=== PATIENT | male | born 1950 | race Caucasian/White ===

== ENCOUNTER 2020-03-16 11:34 | Inpatient (IN) ==
[2020-03-16] MEDS ORDERED: VANCOMYCIN CONSULT ACTIVE PRN (11:53)
[2020-03-16] MEDS ORDERED: VANCOMYCIN HCL 2,250 MG in SODIUM CHLORIDE 0.9% 500 ML IV STA (11:53)
[2020-03-16] MEDS ORDERED: PIPERACILL/TAZOBAC CONSULT ACTIVE PRN (11:53)
[2020-03-16] MEDS ORDERED: PIPERACILLIN/TAZOBACTAM 4.5 GM/120 ML BAG IV ONE (11:53)
[2020-03-16] MEDS ORDERED: SODIUM CHLORIDE 0.9% 1000ML 1,000 ML IV SCH (12:00)
[2020-03-16 12:10] LABS: Basophils # (auto) 0.08 K/uL (0-0.2); Basophils % (auto) 0.5 %; Eosinophils % (auto) 1.3 %; Hematocrit (blood only) 40.3 % (42-52); Hemoglobin 13.5 g/dL (14.0-18.0); Immature Granulocytes # (auto) 0.08 K/uL (0.00-0.02); Immature Granulocytes % (auto) 0.5 %; Lymphocytes # (auto) 1.66 K/uL (1.2-3.4); Lymphocytes % (auto) 10.4 %; Mean Corpuscular Hemoglobin 30.1 pg (25-34); Mean Corpuscular Hgb Conc 33.5 g/dL (32-36); Mean Platelet Volume 10.2 fL (7.4-10.4); Monocytes # (auto) 0.89 K/uL (0.11-0.59); Monocytes % (auto) 5.6 %; Neutrophils # (auto) 13.04 K/uL (1.4-6.5); Neutrophils % (auto) 81.7 %; Platelet Count 427 K/uL (130-400); RDW Coefficient of Variation 13.3 % (11.5-14.5); RDW Standard Deviation 44.3 fL (36.4-46.3); Red Blood Count 4.48 M/uL (4.7-6.1); White Blood Count 15.95 K/uL (4.8-10.8)
[2020-03-16 12:28] LABS: BUN Creatinine Ratio 20.4 (10-20); Calcium 9.7 mg/dl (8.5-10.1); Creatinine Clr Calc Pharmacy 94.2 ml/min; Est GFR (African American) 91.3; Est GFR (Non-African American) 78.8; Potassium 3.8 mmol/L (3.5-5.1)
--- NOTE | 2020-03-16 13:46 | History & Physical Report ---
Date of Service March 16, 2020 Assessment & Plan (1) Open wound of right foot: (2) Cellulitis of right lower extremity: This is a 69-year-old male with PMH of DM II, HTN, prostate cancer and BPH who presents with with worsening wound and redness of right foot x 10 days was found to have infected wound and right lower extremity cellulitis. -Afebrile, vital signs stable. Leukocytosis of 15k, lactic acid within normal limits. Pro calcitonin, ESR and CRP pending -R foot XR pending. Consider further imaging if indicated -Completed 7-day course of Bactrim but is noticing worsening cellulitis, new ulceration on dorsum of foot present for the past few days -Continue empiric antibiotic therapy with Vanco and Zosyn. Wound and blood cultures pending -Considered reaction to Bactrim such as TEN/SJS but no systemic involvement, afebrile, no other skin ulcerations, erythema localized to foot -Wound care, IV fluids, pain control (3) Diabetes mellitus, type II: A1c unknown- pending -Hold home agents -SSI while in-patient -BSG AC HS (4) HTN (hypertension): Normotensive. Continue amlodipine (5) Prostate cancer: Currently undergoing low dose brachytherapy to prostate. Follows at [facility] in [place] (6) BPH (benign prostatic hyperplasia): Continue tamsulosin (7) HLD (hyperlipidemia): Continue statin DVT Ppx: SQ heparin Code status: FULL PCP: Lanre ([place]) Dispo: Admitted to med/surg. Plan to return home once medically stable. Patient seen in collaboration with Dr. Talbert. Please see addendum. History of Present Illness Chief Complaint: Wound on right foot Primary Care Provider: Ismael De Dios This is a 69-year-old male with PMH of DM II, HTN, prostate cancer and BPH who presents with with worsening wound and redness of right foot x 10 days. Patient stepped on unknown sharp object while barefoot in his yard and sustained a puncture wound in between 4th and 5th toes of R foot. Initially pain was minimal and there is no redness, so patient waited 4 days to be seen at urgent care for further evaluation. Got a tetanus booster and was started on a 7-day course of Bactrim, which he is due to complete today. A few days ago, patient noticed redness wrapping from plantar aspect of foot to dorsum with associated ulcer formation proximal to fourth and fifth toes. Today, noticed a black covering over ulceration as well as increased redness spreading to foot. States that discomfort is minimal and is aching in nature, rating it 4/10. Denies any fever, chills or rash anywhere else on body. No malaise, lightheadedness, arthralgias, myalgias, chest pain, shortness of breath, nausea, vomiting, abdominal pain, dysuria, diarrhea or constipation. Patient is a diabetic, controlled on oral medications. Most recent A1c is unknown but states his average blood sugar is around 130. Is currently undergoing low dose brachytherapy to prostate. Follows at [facility] in [place]. Allergies Allergy/AdvReac Type Severity Reaction Status Date / Time No Known Allergies Allergy Unverified 03/16/20 12:35 Home Medications Home Medications Medication Instructions Recorded Confirmed Type amlodipine 5 mg PO DAILY 03/16/20 03/16/20 History atorvastatin 80 mg PO HS 03/16/20 03/16/20 History gemfibrozil 600 mg PO BID 03/16/20 03/16/20 History glipizide 10 mg PO BID 03/16/20 03/16/20 History metformin 1,000 mg PO BID 03/16/20 03/16/20 History sulfamethoxazole-trimethoprim 1 tab PO BID 03/16/20 03/16/20 History [Bactrim DS] tamsulosin 0.4 mg PO DAILY 03/16/20 03/16/20 History Past Med/Surg History Medical History BPH (benign prostatic hyperplasia) Diabetes mellitus, type II HLD (hyperlipidemia) HTN (hypertension) Prostate cancer Undergoing brachytherapy. Followed at [facility] in [place]. Surgical History H/O prostate biopsy Family History Other Diabetes Social History Preferred Language: Amharic Communication Ability: Effective Cnc Mechanic Required: No Beliefs That Will Affect Care: None marital status: Current Living Situation: Spouse Other Information That Helps Us Care for You: No Feels Safe at Home: Yes Safety Concerns: Feels Safe At This Time Smoking Status: Current some day smoker Tobacco Type: smokeless tobacco ; Do You Dip or Chew Tobacco: Yes ; Second Hand Exposure: No ; Tobacco Cessation Education Requested by Patient: No Hx Alcohol Use: Yes Alcohol type: beer Alcohol Intake Frequency: Weekly Hx Substance Use: No Review of Systems Review of Systems: At least ten systems reviewed and negative except as noted in the HPI. Physical Exam Physical Exam: General Appearance: WD/WN, vitals as above, NAD, sitting up in bed, pleasant, conversing easily Head: normocephalic, atraumatic Eyes: normal inspection, PERRL, conjunctivae normal, anicteric sclerae ENT: external ear and nose normal, oropharynx normal Neck: trachea midline, no thyromegaly normal visual inspection Respiratory: normal respiratory effort, lungs clear to auscultation, no wheeze, rales, rhonchi. Normal insp/exp effort, no accessory muscle use Cardiovascular: regular rate, rhythm, no murmur, normal peripheral pulses Chest: normal inspection of chest Abdomen/GI: normal bowel sounds, soft, nontender, no hepatosplenomegaly Extremities/Musculoskeletal: no cyanosis or clubbing, extremities motor strength 5/5 Neurologic: PERRL, EOMI, accommodation nl, no face palsy, no dysarthria, CN's II-XI intact bilaterally and moves all extremities Psychiatric: A+Ox3, euthymic affect Skin: Normal color, warm/dry. + Puncture wound on plantar aspect of R foot proximal to 4th and 4th digits with erythema wrapping around to dorsum of foot up to midfoot. Half dollar size ulceration noted on dorsum of foot proximal to 4th digit with small eschar. Serous drainage noted. Results & Data Results & Data ([facility]) Vital Signs (Past 12 Hours) Vital Signs Temp Pulse Resp BP Pulse Ox 03/16/20 11:39 36.9 C 98 H 18 128/72 95 Laboratory Results Short CBC 03/16/20 Range/Units 11:50 WBC 15.95 H (4.8-10.8) K/uL Hgb 13.5 L (14.0-18.0) g/dL Hct 40.3 L (42-52) % Plt Count 427 H (130-400) K/uL BMP 03/16/20 11:50 Sodium 135 L Potassium 3.8 Chloride 106 Carbon Dioxide 23 BUN 20 H Creatinine 0.97 Glucose 138 H Calcium 9.7 Diagnostic Findings R foot XR: pending Supervising Physician Co-Signing Physician Notes ATTENDING ADDENDUM : pt seen and examined , care co-ordinated with Nelda Guerra PA-C this a 69 yo M presented with rt foot cellulitis failed out patient treatment no fever or chills leukocytosis started on IV vanco and Zosyn ( for anerobic and psedomonal coverage ) Xray of foot to assess bone involvement please refer to further documentaion by Nelda Guerra PA-C for discussion of other chronic issues Merline Talbert MD
--- NOTE | 2020-03-16 14:39 | XRay Report ---
XR foot RT min 3V routine CLINICAL HISTORY: R foot cellulitis, ? FB COMPARISON STUDY: None. FINDINGS: Posterior and plantar, occasional spurs are noted. No radiopaque foreign bodies. No fractur e or dislocation within the right foot. No evidence for osteomyelitis. The Lisfranc joint is intact. Mild osteoarthritis within the DIP joints. Mild soft tissue swelling at the fifth toe/MTP joint. IMPRESSION: Mild soft tissue swelling at the fifth toe/MTP joint. No radiopaque foreign bodies. No u nderlying bony abnormality. ACT 112: Negative or not required by law. Electronically signed by: Karthikeyan Smith M.D. 03/16/2020 2:38 PM
[2020-03-16] MEDS ORDERED: POLYETHYLENE (MIRALAX) 17 GM PACK PO PRN (15:10)
[2020-03-16] MEDS ORDERED: GLUCAGON FOR INJ 1 MG VIAL SQ PRN (15:10)
[2020-03-16] MEDS ORDERED: GLUCOSE 10 TABS/TUBE PO PRN (15:10)
[2020-03-16] MEDS ORDERED: CARBOHYDRATES FOR HYPOGLYCEMIA PO PRN (15:10)
[2020-03-16] MEDS ORDERED: DEXTROSE 50% 50 ML SYRINGE IV PRN (15:10)
[2020-03-16] MEDS ORDERED: GLUCOSE 40% GEL 15 GM TUBE PO PRN (15:10)
[2020-03-16] MEDS ORDERED: ACETAMINOPHEN 325 MG TAB PO PRN (15:10)
[2020-03-16] MEDS: SODIUM CHLORIDE 0.9% 1000ML 1,000 ML IV SCH ×2 (15:43→21:54)
--- NOTE | 2020-03-16 15:46 | Pharmacy Report ---
Pharmacy Abx Initial Consult - Date of Service March 16, 2020 - Pharmacy Dosing Scope Date of Consult: 03/16/20 Consultation requested by: Nelda Guerra PA-C Pharmacy is consulted to initiate vancomycin and Zosyn IV dosing therapy, order appropriate labs and adjust drug dose/frequency. - Subjective The patient is a 69 year old M admitted on 03/16/20 13:46. - Objective Height: 6 ft 3 in Weight: 108.2 kg Vital Signs (Past 12hrs): Vital Signs Temp Pulse Pulse Resp BP BP Pulse Ox 03/16/20 13:35 70 18 135/66 94 03/16/20 11:39 36.9 C 98 H 18 128/72 95 Lab Results (24hrs): Laboratory Tests (24 Hours) 03/16/20 03/16/20 03/16/20 11:50 11:50 11:50 WBC Neut # (Auto) ESR 83 H Creatinine Est Cr Clr Drug Dosing C-Reactive Protein 12.60 H Procalcitonin 0.22 03/16/20 03/16/20 11:50 11:50 WBC 15.95 H Neut # (Auto) 13.04 H ESR Creatinine 0.97 Est Cr Clr Drug Dosing 94.2 C-Reactive Protein Procalcitonin Micro Results: 03/16/20 13:40 Gram Stain - Final Foot,Right Wound Culture - Pending 03/16/20 12:10 Aerobic Blood Culture - Pending Blood Anaerobic Blood Culture - Pending 03/16/20 11:50 Aerobic Blood Culture - Pending Blood Anaerobic Blood Culture - Pending - Risk Factors for Resistance * Antimicrobial use within the last 90 days: Bactrim - Assessment & Plan Assessment * 69 year old M receiving vanc + Zosyn for cellulitis of his lower right extremity * PMH includes DMII, hypertension, prostate cancer and BPH * Patient completed 7 day course of Bactrim prior to admission * Blood and wound cultures pending Plan Vancomycin IV * Estimated PK Parameters: Vd 0.6 L/kg, Rich 0.078 hr-1, t1/2 8.8 hr * Loading dose: 2250 mg (20.8 mg/kg) * Maintenance dose: 1500 mg IV (13.8 mg/kg) every 12 hours * Goal trough level: 10 to 15 mcg/mL * Trough ordered for 03/18 at 1330, prior to 4th dose Piperacillin/tazobactam * 4.5 g bolus administered over 30 minutes, then 3.375 g IV extended infusion every 8 hours for CrCl greater than 20 mL/min Pharmacy will continue to follow and will adjust dose/frequency as necessary. Thank you.
[2020-03-16] MEDS: HEPARIN SOD 5,000 UNIT/0.5 ML VIAL SQ SCH ×2 (15:49→21:55)
[2020-03-16] MEDS: INSULIN ASPART 100 UNITS/ML 3 ML PEN SC SCH ×2 (17:31→21:55)
[2020-03-16] MEDS: PIPERACILLIN/TAZOBACTAM 3.375 GM in DEXTROSE 5% 100 ML IV SCH (17:32)
--- NOTE | 2020-03-16 19:00 | Emergency Department Note ---
History of Present Illness General Chief complaint: Swelling/Edema to Extremity Stated complaint: CUT RT FOOT - SWELLING & TURNING BLACK Source: patient and RN notes reviewed Mode of arrival: ambulatory Limitations: no limitations History of Present Illness Provider complaint: Right foot infection Maximum Pain Intensity: 5 This patient is a 69-year-old male who presents to the emergency department complaining of a right foot infection. The patient states he stepped on something in the yard chasing after his dog approximately 5 days ago. He was evaluated by the urgent care clinic and given 5 days worth of Bactrim DS. Since that time the patient's foot has become much more erythematous and swollen. He states it is somewhat painful and now he has an ulceration to the dorsum of the foot with a central purple area. Patient denies any fevers but states the redness has started to expand. He notes he is diabetic. Home Medications Home Medications Medication Instructions Recorded Confirmed Type amlodipine 5 mg PO DAILY 03/16/20 03/16/20 History atorvastatin 80 mg PO HS 03/16/20 03/16/20 History gemfibrozil 600 mg PO BID 03/16/20 03/16/20 History glipizide 10 mg PO BID 03/16/20 03/16/20 History metformin 1,000 mg PO BID 03/16/20 03/16/20 History sulfamethoxazole-trimethoprim 1 tab PO BID 03/16/20 03/16/20 History [Bactrim DS] tamsulosin 0.4 mg PO DAILY 03/16/20 03/16/20 History Allergies Allergy/AdvReac Type Severity Reaction Status Date / Time No Known Allergies Allergy Unverified 03/16/20 12:35 Past Med/Surg History Medical History BPH (benign prostatic hyperplasia) Diabetes mellitus, type II HLD (hyperlipidemia) HTN (hypertension) Prostate cancer Undergoing brachytherapy. Followed at [facility] in [place]. Surgical History H/O prostate biopsy Family History Other Diabetes Social History Preferred Language: Ukrainian Batch Freezer Required: No Beliefs That Will Affect Care: None Current Living Situation: Spouse Other Information That Helps Us Care for You: No Feels Safe at Home: Yes Safety Concerns: Feels Safe At This Time Smoking Status: Current some day smoker Tobacco Type: smokeless tobacco ; Do You Dip or Chew Tobacco: Yes ; Second Hand Exposure: No ; Tobacco Cessation Education Requested by Patient: No Hx Alcohol Use: Yes Alcohol type: beer Alcohol Intake Frequency: Weekly Hx Substance Use: No Review of Systems See HPI for pertinent positives & negatives. and A total of 10 systems reviewed and were otherwise negative Physical Exam Vital Signs Vital Signs - 24 hr 03/16/20 11:39 03/16/20 11:54 03/16/20 13:35 Temperature 36.9 C Temperature Source Oral Oral Pulse Rate 98 H Pulse Rate [Apical] 70 Respiratory Rate 18 18 Respiratory Effort / Characteristics Non-Labored Non-Labored Respiratory Depth Normal Normal Respiratory Pattern Regular Blood Pressure 128/72 Blood Pressure [Left Arm] 135/66 Blood Pressure Mean 90 Blood Pressure Mean [Left Arm] 89 Blood Pressure Position Sitting Blood Pressure Position [Left Arm] Lying Pulse Oximetry 95 94 Oxygen Delivery Method Room Air Room Air Sepsis Recent Fever Within 48 Hours No Sepsis New/Unexplained Change in Mental Status No Sepsis Action Taken by Nursing No Action Required Vital signs reviewed. General: Elderly, but generally well-appearing 69-year-old male, in no significant distress. HEENT: No scleral icterus, PERRLA, neck supple. Atraumatic. Cardiovascular: Regular rate and rhythm, no extra sounds. Pulmonary: Clear to auscultation bilaterally, normal work of breathing. Abdomen: Soft, nontender, nondistended, positive bowel sounds. Musculoskeletal: Atraumatic, no peripheral edema. Neurologic: Patient awake alert and oriented x 3 Skin: Warm, dry. Right lower extremity with puncture wound noted to the plantar aspect of the fifth MTP joint. There is significant surrounding erythema and a 3 cm open area to the dorsal aspect of the foot between the fourth and fifth metatarsal. There is erythema to the entire dorsum of the foot extending up to the mid soto and a lymphangitic pattern. Small amount of dark eschar noted centrally. Course Administered Medications Heparin Sodium (Porcine) (Heparin Sodium (Porcine)) 5,000 units SQ Q8 TRUNG Stop: 04/15/20 15:09 Last Admin: 03/16/20 15:49 Dose: 5,000 units Documented by: [id number] Cosigned by: [id number] Sodium Chloride (Nss 1000ml) 1,000 mls @ 125 mls/hr IV .Q8H TRUNG Stop: 03/17/20 07:09 Last Admin: 03/16/20 15:43 Dose: 125 mls/hr Documented by: [id number] Piperacillin Sod/Tazobactam (Sod 3.375 gm/ Dextrose) 115 mls @ 28.75 mls/hr IV Q8H TRUNG; Protocol Stop: 03/23/20 17:59 Last Admin: 03/16/20 17:32 Dose: 28.8 mls/hr Documented by: [id number] Insulin Aspart (Novolog Flexpen) 0 units SC ACHS TRUNG Stop: 04/15/20 16:29 Last Admin: 03/16/20 17:31 Dose: 6 units Documented by: [id number] Cosigned by: [id number] Discontinued Medications Vancomycin HCl 2,250 mg/ (Sodium Chloride) 545 mls @ 200 mls/hr IV NOW STA; Protocol Stop: 03/16/20 14:36 Last Infusion: 03/16/20 17:01 Dose: 0 mls/hr Documented by: [id number] Admin: 03/16/20 14:14 Dose: 200 mls/hr Documented by: [id number] Sodium Chloride (Nss 1000ml) 1,000 mls @ 100 mls/hr IV .Q10H TRUNG Stop: 03/16/20 21:59 Last Admin: 03/16/20 15:13 Dose: Not Given Documented by: [id number] Piperacillin Sod/Tazobactam Sod (Zosyn) 4.5 gm in 120 mls @ 240 mls/hr IV NOW ONE Stop: 03/16/20 12:22 Last Infusion: 03/16/20 14:15 Dose: 0 mls/hr Documented by: [id number] Admin: 03/16/20 13:49 Dose: 240 mls/hr Documented by: [id number] Medical Decision Making Differential Diagnosis Differential diagnosis: Etiologies such as cellulitis, abscess, osteomyelitis, MRSA infection, DVT, necrotizing fasciitis, dermatitis, drug eruption, as well as others were e ntertained. Medical Records Attestation: I reviewed the patient's medical records. Home Medications Current Medication List: was personally reviewed by me Laboratory Data Attestation: I reviewed the patient's lab results. Result diagrams: 03/16/20 11:50 03/16/20 11:50 Lab Results 03/16/20 03/16/20 03/16/20 Range/Units 11:50 11:50 11:50 WBC 15.95 H (4.8-10.8) K/uL RBC 4.48 L (4.7-6.1) M/uL Hgb 13.5 L (14.0-18.0) g/dL Hct 40.3 L (42-52) % MCV 90.0 (80-100) fL MCH 30.1 (25-34) pg MCHC 33.5 (32-36) g/dL RDW Std Deviation 44.3 (36.4-46.3) fL RDW Coeff of Aristides 13.3 (11.5-14.5) % Plt Count 427 H (130-400) K/uL MPV 10.2 (7.4-10.4) fL Immature Gran % (Auto) 0.5 % Neut % (Auto) 81.7 % Lymph % (Auto) 10.4 % Hutchinson % (Auto) 5.6 % Eos % (Auto) 1.3 % Baso % (Auto) 0.5 % Neut # (Auto) 13.04 H (1.4-6.5) K/uL Lymph # (Auto) 1.66 (1.2-3.4) K/uL Hutchinson # (Auto) 0.89 H (0.11-0.59) K/uL Eos # (Auto) 0.20 (0-0.5) K/uL Baso # (Auto) 0.08 (0-0.2) K/uL Immature Gran # (Auto) 0.08 H (0.00-0.02) K/uL ESR 83 H (0-14) mm/hr Sodium 135 L (136-145) mmol/L Potassium 3.8 (3.5-5.1) mmol/L Chloride 106 (98-107) mmol/L Carbon Dioxide 23 (21-32) mmol/L Anion Gap 6.0 (3-11) BUN 20 H (7-18) mg/dl Creatinine 0.97 (0.6-1.4) mg/dl Est Cr Clr Drug Dosing 94.2 ml/min Est GFR ( Amer) 91.3 Est GFR (Non-Af Amer) 78.8 BUN/Creatinine Ratio 20.4 H (10-20) Glucose 138 H (70-99) mg/dl Lactate (0.4-2.0) mmol/L Calcium 9.7 (8.5-10.1) mg/dl C-Reactive Protein (0-0.29) mg/dl Procalcitonin (0-0.5) ng/ml 03/16/20 03/16/20 03/16/20 Range/Units 11:50 11:50 12:15 WBC (4.8-10.8) K/uL RBC (4.7-6.1) M/uL Hgb (14.0-18.0) g/dL Hct (42-52) % MCV (80-100) fL MCH (25-34) pg MCHC (32-36) g/dL RDW Std Deviation (36.4-46.3) fL RDW Coeff of Aristides (11.5-14.5) % Plt Count (130-400) K/uL MPV (7.4-10.4) fL Immature Gran % (Auto) % Neut % (Auto) % Lymph % (Auto) % Hutchinson % (Auto) % Eos % (Auto) % Baso % (Auto) % Neut # (Auto) (1.4-6.5) K/uL Lymph # (Auto) (1.2-3.4) K/uL Hutchinson # (Auto) (0.11-0.59) K/uL Eos # (Auto) (0-0.5) K/uL Baso # (Auto) (0-0.2) K/uL Immature Gran # (Auto) (0.00-0.02) K/uL ESR (0-14) mm/hr Sodium (136-145) mmol/L Potassium (3.5-5.1) mmol/L Chloride (98-107) mmol/L Carbon Dioxide (21-32) mmol/L Anion Gap (3-11) BUN (7-18) mg/dl Creatinine (0.6-1.4) mg/dl Est Cr Clr Drug Dosing ml/min Est GFR ( Amer) Est GFR (Non-Af Amer) BUN/Creatinine Ratio (10-20) Glucose (70-99) mg/dl Lactate 1.1 (0.4-2.0) mmol/L Calcium (8.5-10.1) mg/dl C-Reactive Protein 12.60 H (0-0.29) mg/dl Procalcitonin 0.22 (0-0.5) ng/ml Imaging Data Attestation: I personally reviewed and interpreted this imaging study as follows: Radiologist's Impression: XR foot RT min 3V routine CLINICAL HISTORY: R foot cellulitis, ? FB COMPARISON STUDY: None. FINDINGS: Posterior and plantar, occasional spurs are noted. No radiopaque foreign bodies. No fracture or dislocation within the right foot. No evidence fo r osteomyelitis. The Lisfranc joint is intact. Mild osteoarthritis within the DIP joints. Mild soft tissue swelling at the fifth toe/MTP joint. IMPRESSION: Mild soft tissue swelling at the fifth toe/MTP joint. No radiopaque foreign bodies. No underlying bony abnormality. ACT 112: Negative or not required by law. Electronically signed by: Karthikeyan Smith M.D. 03/16/2020 2:38 PM Dictated: 03/16/20 1434 Transcribed: 03/16/20 1434 Blood Pressure Blood Pressure Findings: Normal blood pressure Blood Pressure Disposition: did not require urgent referral MDM Narrative This patient was evaluated and appeared to be in no significant distress. An order for cardiac monitoring was placed and the patient was found to be in a normal sinus rhythm at 70 bpm. IV access was obtained and laboratory work was drawn. The patient was hydrated with normal saline solution. Laboratory work reveals a leukocytosis at 15.95. Patient's lactate is normal at 1.1. Vital signs have remained stable. Patient was medicated with IV vancomycin and IV Zosyn. X-ray of the foot was performed and reveals no radiopaque foreign bodies and no underlying bony abnormality appreciated. I do feel the patient requires hospitalization for IV antibiotics. He initially was somewhat reluctant however I do not feel that oral antibiotics will be sufficient as he has just completed Bactrim. The hospitalist service was contacted for consultation. The patient is aware and agrees. Impression & Plan Cellulitis of right foot Discharge Plan Visit Data *Final* Discharge Date/Time: 03/16/20 14:20 Chief Complaint: Swelling/Edema to Extremity Stated Complaint: CUT RT FOOT - SWELLING & TURNING BLACK ED Provider: Juan Antonio,Casie B Discharge Problem: Cellulitis of right foot Patient Disposition: Admitted As Inpatient Discharge Instructions Interventions: ED Discharge Assessment Last Done: 03/16/20 14:20
[2020-03-16] MEDS: ATORVASTATIN 40 MG TAB PO SCH (21:56)
[2020-03-17] MEDS: VANCOMYCIN HCL 1,500 MG in SODIUM CHLORIDE 0.9% 500 ML IV SCH ×2 (01:11→13:37)
[2020-03-17] MEDS: PIPERACILLIN/TAZOBACTAM 3.375 GM in DEXTROSE 5% 100 ML IV SCH ×3 (01:11→17:21)
[2020-03-17] MEDS: HEPARIN SOD 5,000 UNIT/0.5 ML VIAL SQ SCH ×3 (06:12→20:44)
[2020-03-17 07:29] LABS: Basophils # (auto) 0.09 K/uL (0-0.2); Basophils % (auto) 0.7 %; Eosinophils # (auto) 0.43 K/uL (0-0.5); Eosinophils % (auto) 3.5 %; Hematocrit (blood only) 36.6 % (42-52); Immature Granulocytes # (auto) 0.09 K/uL (0.00-0.02); Immature Granulocytes % (auto) 0.7 %; Lymphocytes # (auto) 1.58 K/uL (1.2-3.4); Lymphocytes % (auto) 12.9 %; Mean Corpuscular Hemoglobin 29.6 pg (25-34); Mean Corpuscular Hgb Conc 32.8 g/dL (32-36); Mean Corpuscular Volume 90.4 fL (80-100); Mean Platelet Volume 10.1 fL (7.4-10.4); Monocytes # (auto) 0.94 K/uL (0.11-0.59); Monocytes % (auto) 7.7 %; Neutrophils # (auto) 9.09 K/uL (1.4-6.5); Neutrophils % (auto) 74.5 %; Platelet Count 378 K/uL (130-400); RDW Coefficient of Variation 13.5 % (11.5-14.5); Red Blood Count 4.05 M/uL (4.7-6.1); White Blood Count 12.22 K/uL (4.8-10.8)
[2020-03-17 07:57] LABS: Calcium 8.8 mg/dl (8.5-10.1); Creatinine Clr Calc Pharmacy 112.8 ml/min; Est GFR (African American) 104.4; Potassium 3.9 mmol/L (3.5-5.1)
[2020-03-17] MEDS: INSULIN ASPART 100 UNITS/ML 3 ML PEN SC SCH ×4 (08:30→20:46)
[2020-03-17] MEDS: TAMSULOSIN HCL 0.4 MG CAP PO SCH (08:31)
[2020-03-17] MEDS: AMLODIPINE BESYLATE 5 MG TAB PO SCH (08:31)
[2020-03-17 09:53] LABS: Estimated Average Glucose 169 mg/dl; Hemoglobin A1C 7.5 % (4.5-5.6)
--- NOTE | 2020-03-17 15:23 | Hospitalist Progress Note ---
Date of Service March 17, 2020 Assessment & Plan (1) Open wound of right foot: (2) Cellulitis of right lower extremity: This is a 69-year-old male with PMH of DM II, HTN, prostate cancer and BPH who presents with with worsening wound and redness of right foot x 10 days was found to have infected wound and right lower extremity cellulitis. -Completed 7-day course of Bactrim but is noticing worsening cellulitis, new ulceration on dorsum of foot present for the past few days -Continue empiric antibiotic therapy with Vanco and Zosyn. -Wound and blood cultures pending -We will continue current antibiotic and hopefully discharge on oral Augmentin -Wound care, IV fluids, pain control (3) Diabetes mellitus, type II: A1c unknown- pending -Hold home agents -SSI while in-patient -BSG AC HS (4) HTN (hypertension): Normotensive. Continue amlodipine (5) Prostate cancer: Currently undergoing low dose brachytherapy to prostate. Follows at [facility] in [place] (6) BPH (benign prostatic hyperplasia): Continue tamsulosin (7) HLD (hyperlipidemia): Continue statin DVT Ppx: SQ heparin Code status: FULL PCP: Lanre White) Dispo: Admitted to med/surg. Plan to return home once medically stable. Admission and Anticipated Discharge Date Admission Date: March 16, 2020 Subjective The patient was seen and examined in medical floor He was admitted with cellulitis of the right lower extremity with outpatient failure with history of diabetes type 2 He has been feeling a little better since admission Denies any fever and/or chills Review of Systems Review of Systems: All systems reviewed and are unremarkable except as noted below Constitutional: + weakness Physical Exam Physical Exam: Lying in bed comfortably Constitutional: well developed, well nourished, + ill appearing and + obese; no acute distress Eyes: PERRL, conjunctivae normal, anicteric sclerae ENMT: external ear and nose normal, oropharynx normal Neck: trachea midline, no thyromegaly Respiratory: normal respiratory effort; no respiratory distress Auscultation: lungs clear to auscultation bilaterally Cardiovascular: Rate/Rhythm: regular rate and regular rhythm Heart Sounds: + murmur Gastrointestinal (Abdomen): Inspection/Auscultation: abdomen normal to insp ection; abdomen not distended Percussion/Palpation: abdomen soft; abdomen not rigid Musculoskeletal: No acute arthritis Neurologic: moves all extremities; no focal motor deficits Results & Data Results & Data ([facility]) Vital Signs (Past 12 Hours) Vital Signs Temp Pulse Resp BP Pulse Ox 03/17/20 15:04 36.6 C 80 20 146/71 H 95 03/17/20 11:36 36.4 C L 57 L 18 151/79 H 96 03/17/20 07:57 36.7 C 67 18 137/72 96 Laboratory Results Short CBC 03/17/20 Range/Units 07:06 WBC 12.22 H (4.8-10.8) K/uL Hgb 12.0 L (14.0-18.0) g/dL Hct 36.6 L (42-52) % Plt Count 378 (130-400) K/uL BMP 03/17/20 07:06 Sodium 138 Potassium 3.9 Chloride 108 H Carbon Dioxide 24 BUN 15 Creatinine 0.81 Glucose 104 H Calcium 8.8 Medications Administered Current Inpatient Medications Acetaminophen (Tylenol) 650 mg PO Q4H PRN PRN Reason: pain/fever Stop: 04/15/20 15:09 Amlodipine Besylate (Norvasc) 5 mg PO DAILY TRUNG Stop: 04/16/20 08:59 Last Admin: 03/17/20 08:31 Dose: 5 mg Documented by: Atorvastatin Calcium (Lipitor) 80 mg PO HS TRUNG Stop: 04/15/20 20:59 Last Admin: 03/16/20 21:56 Dose: 80 mg Documented by: Dextrose (Dextrose 50%) 25 - 50 ml IV UD PRN; Protocol PRN Reason: Hypoglycemia Protocol Stop: 04/15/20 15:09 Glucagon (Glucagen) 1 mg SQ UD PRN; Protocol PRN Reason: Hypoglycemia Protocol Stop: 04/15/20 15:09 Glucose (Dex4 Glucose) 4 - 8 tabs PO UD PRN; Protocol PRN Reason: Hypoglycemia Protocol Stop: 04/15/20 15:09 Glucose (Glucose 40%) 15 - 30 gm PO UD PRN; Protocol PRN Reason: Hypoglycemia Protocol Stop: 04/15/20 15:09 Heparin Sodium (Porcine) (Heparin Sodium (Porcine)) 5,000 units SQ Q8 TRUNG Stop: 04/15/20 15:09 Last Admin: 03/17/20 13:37 Dose: 5,000 units Documented by: Piperacillin Sod/Tazobactam (Sod 3.375 gm/ Dextrose) 115 mls @ 28.75 mls/hr IV Q8H TRUNG; Protocol Stop: 03/23/20 17:59 Last Infusion: 03/17/20 13:49 Dose: Infused Documented by: Vancomycin HCl 1,500 mg/ (Sodium Chloride) 530 mls @ 200 mls/hr IV Q12H TRUNG; Protocol Stop: 03/24/20 01:59 Last Admin: 03/17/20 13:37 Dose: 200 mls/hr Documented by: Insulin Aspart (Novolog Flexpen) 0 units SC ACHS TRUNG Stop: 04/15/20 16:29 Last Admin: 03/17/20 12:08 Dose: 5 units Documented by: Miscellaneous (Carbohydrates For Hypoglycemia) 15 - 30 gm PO UD PRN PRN Reason: Hypoglycemia Protocol Stop: 04/15/20 15:09 Miscellaneous Information (Consult) 1 ea N/A UD PRN PRN Reason: Consult Stop: 04/15/20 11:52 Miscellaneous Information (Consult) 1 ea N/A UD PRN PRN Reason: Consult Stop: 04/15/20 11:52 Polyethylene Glycol (Miralax Powder Packet) 17 gm PO DAILY PRN PRN Reason: Constipation Stop: 04/15/20 15:09 Tamsulosin HCl (Flomax) 0.4 mg PO DAILY TRUNG Stop: 04/16/20 08:59 Last Admin: 03/17/20 08:31 Dose: 0.4 mg Documented by:
[2020-03-17] MEDS: ATORVASTATIN 40 MG TAB PO SCH (20:44)
[2020-03-18] MEDS: PIPERACILLIN/TAZOBACTAM 3.375 GM in DEXTROSE 5% 100 ML IV SCH ×2 (02:12→09:04)
[2020-03-18] MEDS: VANCOMYCIN HCL 1,500 MG in SODIUM CHLORIDE 0.9% 500 ML IV SCH (02:12)
[2020-03-18 06:07] LABS: Basophils # (auto) 0.07 K/uL (0-0.2); Basophils % (auto) 0.6 %; Eosinophils # (auto) 0.45 K/uL (0-0.5); Eosinophils % (auto) 4.2 %; Hematocrit (blood only) 36.8 % (42-52); Immature Granulocytes # (auto) 0.07 K/uL (0.00-0.02); Immature Granulocytes % (auto) 0.6 %; Lymphocytes # (auto) 1.45 K/uL (1.2-3.4); Lymphocytes % (auto) 13.4 %; Mean Corpuscular Hemoglobin 29.6 pg (25-34); Mean Corpuscular Hgb Conc 32.6 g/dL (32-36); Mean Corpuscular Volume 90.6 fL (80-100); Mean Platelet Volume 9.9 fL (7.4-10.4); Monocytes # (auto) 0.95 K/uL (0.11-0.59); Monocytes % (auto) 8.8 %; Neutrophils # (auto) 7.82 K/uL (1.4-6.5); Neutrophils % (auto) 72.4 %; Platelet Count 380 K/uL (130-400); RDW Coefficient of Variation 13.4 % (11.5-14.5); RDW Standard Deviation 44.7 fL (36.4-46.3); Red Blood Count 4.06 M/uL (4.7-6.1); White Blood Count 10.81 K/uL (4.8-10.8)
[2020-03-18] MEDS: HEPARIN SOD 5,000 UNIT/0.5 ML VIAL SQ SCH ×2 (06:10→13:12)
[2020-03-18 06:41] LABS: BUN Creatinine Ratio 15.8 (10-20); Calcium 8.7 mg/dl (8.5-10.1); Creatinine Clr Calc Pharmacy 121.8 ml/min; Est GFR (African American) 107.7; Est GFR (Non-African American) 92.9; Potassium 3.7 mmol/L (3.5-5.1)
[2020-03-18] MEDS: INSULIN ASPART 100 UNITS/ML 3 ML PEN SC SCH ×2 (08:58→13:11)
[2020-03-18] MEDS: AMLODIPINE BESYLATE 5 MG TAB PO SCH (08:59)
[2020-03-18] MEDS: TAMSULOSIN HCL 0.4 MG CAP PO SCH (08:59)
[2020-03-18] MEDS ORDERED: VANCOMYCIN TROUGH ONE (13:30)
--- NOTE | 2020-03-18 14:04 | Hospitalist Progress Note ---
Date of Service March 18, 2020 Assessment & Plan (1) Open wound of right foot: (2) Cellulitis of right lower extremity: This is a 69-year-old male with PMH of DM II, HTN, prostate cancer and BPH who presents with with worsening wound and redness of right foot x 10 days was found to have infected wound and right lower extremity cellulitis. -Completed 7-day course of Bactrim but is noticing worsening cellulitis, new ulceration on dorsum of foot present for the past few days -Continue empiric antibiotic therapy with Vanco and Zosyn. -Wound and blood cultures pending -We will continue current antibiotic and hopefully discharge on oral Augmentin -Wound care, IV fluids, pain control -Right foot looks a lot better -Culture of the wound and blood cultures were negative -Antibiotics have been changed to oral Augmentin -He will be discharged this afternoon (3) Diabetes mellitus, type II: A1c unknown- pending -Hold home agents -SSI while in-patient -BSG AC HS (4) HTN (hypertension): Normotensive. Continue amlodipine (5) Prostate cancer: Currently undergoing low dose brachytherapy to prostate. Follows at [facility] in [place] (6) BPH (benign prostatic hyperplasia): Continue tamsulosin (7) HLD (hyperlipidemia): Continue statin DVT Ppx: SQ heparin Code status: FULL PCP: Lanre White) Dispo: Admitted to med/surg. Plan to return home once medically stable. Admission and Anticipated Discharge Date Admission Date: March 16, 2020 Subjective The patient was seen and examined in medical floor He was admitted with cellulitis of the right lower extremity with outpatient failure with history of diabetes type 2 He has been feeling a little better since admission Denies any fever and/or chills 03/18/2020 The patient was seen and examined in medical floor He has been feeling a lot better Denies any pain in the right foot and the redness and swelling have improved Wants to go home Review of Systems Review of Systems: All systems reviewed and are unremarkable except as noted below Constitutional: + weakness Physical Exam Physical Exam: Lying in bed comfortably Constitutional: well developed, well nourished and + obese; no acute distress and not ill appearing Eyes: PERRL, conjunctivae normal, anicteric sclerae ENMT: external ear and nose normal, oropharynx normal Neck: trachea midline, no thyromegaly Respiratory: normal respiratory effort; no respiratory distress Auscultation: lungs clear to auscultation bilaterally Cardiovascular: Rate/Rhythm: regular rate and regular rhythm Heart Sounds: + murmur Gastrointestinal (Abdomen): Inspection/Auscultation: abdomen normal to inspection; abdomen not distended Percussion/Palpation: abdomen soft; abdomen not rigid Musculoskeletal: No acute arthritis involving any joint Skin: Right foot minimally swelled, tenderness and redness have improved a lot Neurologic: moves all extremities; no focal motor deficits Results & Data Results & Data ([facility]) Vital Signs (Past 12 Hours) Vital Signs Temp Pulse Resp BP Pulse Ox 03/18/20 07:01 36.9 C 68 16 138/71 96 Laboratory Results Short CBC 03/18/20 Range/Units 05:43 WBC 10.81 H (4.8-10.8) K/uL Hgb 12.0 L (14.0-18.0) g/dL Hct 36.8 L (42-52) % Plt Count 380 (130-400) K/uL BMP 03/18/20 05:43 Sodium 139 Potassium 3.7 Chloride 108 H Carbon Dioxide 27 BUN 12 Creatinine 0.75 Glucose 169 H Calcium 8.7 Medications Administered Current Inpatient Medications Acetaminophen (Tylenol) 650 mg PO Q4H PRN PRN Reason: pain/fever Stop: 04/15/20 15:09 Amlodipine Besylate (Norvasc) 5 mg PO DAILY [facility] Stop: 04/16/20 08:59 Last Admin: 03/18/20 08:59 Dose: 5 mg Documented by: Amoxicillin/Clavulanate Potassium (Augmentin 875mg) 1 tab PO BIDM [facility]; Protocol Stop: 03/25/20 16:59 Atorvastatin Calcium (Lipitor) 80 mg PO HS [facility] Stop: 04/15/20 20:59 Last Admin: 03/17/20 20:44 Dose: 80 mg Documented by: Dextrose (Dextrose 50%) 25 - 50 ml IV UD PRN; Protocol PRN Reason: Hypoglycemia Protocol Stop: 04/15/20 15:09 Glucagon (Glucagen) 1 mg SQ UD PRN; Protocol PRN Reason: Hypoglycemia Protocol Stop: 04/15/20 15:09 Glucose (Dex4 Glucose) 4 - 8 tabs PO UD PRN; Protocol PRN Reason: Hypoglycemia Protocol Stop: 04/15/20 15:09 Glucose (Glucose 40%) 15 - 30 gm PO UD PRN; Protocol PRN Reason: Hypoglycemia Protocol Stop: 04/15/20 15:09 Heparin Sodium (Porcine) (Heparin Sodium (Porcine)) 5,000 units SQ Q8 TRUNG Stop: 04/15/20 15:09 Last Admin: 03/18/20 13:12 Dose: Not Given Documented by: Insulin Aspart (Novolog Flexpen) 0 units SC ACHS TRUNG Stop: 04/15/20 16:29 Last Admin: 03/18/20 13:11 Dose: 9 units Documented by: Miscellaneous (Carbohydrates For Hypoglycemia) 15 - 30 gm PO UD PRN PRN Reason: Hypoglycemia Protocol Stop: 04/15/20 15:09 Polyethylene Glycol (Miralax Powder Packet) 17 gm PO DAILY PRN PRN Reason: Constipation Stop: 04/15/20 15:09 Tamsulosin HCl (Flomax) 0.4 mg PO DAILY TRUNG Stop: 04/16/20 08:59 Last Admin: 03/18/20 08:59 Dose: 0.4 mg Documented by:
[2020-03-18] MEDS ORDERED: AMOXICILLIN/CLAVULANATE 875 MG TAB PO SCH (17:00)
--- NOTE | 2020-03-19 09:38 | Discharge Summary ---
Date of Service March 19, 2020 Admission HPI Per Admitting Provider This is a 69-year-old male with PMH of DM II, HTN, prostate cancer and BPH who presents with with worsening wound and redness of right foot x 10 days. Patient stepped on unknown sharp object while barefoot in his yard and sustained a puncture wound in between 4th and 5th toes of R foot. Initially pain was minimal and there is no redness, so patient waited 4 days to be seen at urgent care for further evaluation. Got a tetanus booster and was started on a 7-day course of Bactrim, which he is due to complete today. A few days ago, patient noticed redness wrapping from plantar aspect of foot to dorsum with associated ulcer formation proximal to fourth and fifth toes. Today, noticed a black covering over ulceration as well as increased redness spreading to foot. States that discomfort is minimal and is aching in nature, rating it 4/10. Denies any fever, chills or rash anywhere else on body. No malaise, lightheadedness, arthralgias, myalgias, chest pain, shortness of breath, nausea, vomiting, abdominal pain, dysuria, diarrhea or constipation. Patient is a diabetic, controlled on oral medications. Most recent A1c is unknown but states his average blood sugar is around 130. Is currently undergoing low dose brachytherapy to prostate. Follows at [facility] in [place]. Admission Exam Per Admitting Provider Physical Exam: General Appearance: WD/WN, vitals as above, NAD, sitting up in bed, pleasant, conversing easily Head: normocephalic, atraumatic Eyes: normal inspection, PERRL, conjunctivae normal, anicteric sclerae ENT: external ear and nose normal, oropharynx normal Neck: trachea midline, no thyromegaly normal visual inspection Respiratory: normal respiratory effort, lungs clear to auscultation, no wheeze, rales, rhonchi. Normal insp/exp effort, no accessory muscle use Cardiovascular: regular rate, rhythm, no murmur, normal peripheral pulses Chest: normal inspection of chest Abdomen/GI: normal bowel sounds, soft, nontender, no hepatosplenomegaly Extremities/Musculoskeletal: no cyanosis or clubbing, extremities motor strength 5/5 Neurologic: PERRL, EOMI, accommodation nl, no face palsy, no dysarthria, CN's II-XI intact bilaterally and moves all extremities Psychiatric: A+Ox3, euthymic affect Skin: Normal color, warm/dry. + Puncture wound on plantar aspect of R foot proximal to 4th and 4th digits with erythema wrapping around to dorsum of foot up to midfoot. Half dollar size ulceration noted on dorsum of foot proximal to 4th digit with small eschar. Serous drainage noted. Principal Diagnosis Cellulitis of right foot, type 2 diabetes, hypertension, cancer of prostate Discharge Exam Constitutional well developed, well nourished and + obese; no acute distress and not ill appearing Eyes PERRL, conjunctivae normal, anicteric sclerae ENMT external ear and nose normal, oropharynx normal Neck trachea midline, no thyromegaly Respiratory normal respiratory effort; no respiratory distress Auscultation: lungs clear to auscultation bilaterally Cardiovascular Rate/Rhythm: regular rate and regular rhythm Heart Sounds: + murmur Gastrointestinal (Abdomen) Inspection/Auscultation: abdomen normal to inspection; abdomen not distended Percussion/Palpation: abdomen soft; abdomen not rigid Neurologic moves all extremities; no focal motor deficits Discharge Data Allergies Allergy/AdvReac Type Severity Reaction Status Date / Time No Known Allergies Allergy Unverified 03/16/20 12:35 Consultations 03/16/20 14:15 ED Decision to Admit Stat Hospital Course (1) Open wound of right foot: (2) Cellulitis of right lower extremity: This is a 69-year-old male with PMH of DM II, HTN, prostate cancer and BPH who presents with with worsening wound and redness of right foot x 10 days was found to have infected wound and right lower extremity cellulitis. -Completed 7-day course of Bactrim but is noticing worsening cellulitis, new ulceration on dorsum of foot present for the past few days -Continue empiric antibiotic therapy with Vanco and Zosyn. -Wound and blood cultures pending -We will continue current antibiotic and hopefully discharge on oral Augmentin -Wound care, IV fluids, pain control -Right foot looks a lot better -Culture of the wound and blood cultures were negative -Antibiotics have been changed to oral Augmentin -He will be discharged this afternoon (3) Diabetes mellitus, type II: A1c unknown- pending -Hold home agents -SSI while in-patient -BSG AC HS (4) HTN (hypertension): Normotensive. Continue amlodipine (5) Prostate cancer: Currently undergoing low dose brachytherapy to prostate. Follows at [facility] in [place] (6) BPH (benign prostatic hyperplasia): Continue tamsulosin (7) HLD (hyperlipidemia): Continue statin DVT Ppx: SQ heparin Code status: FULL PCP: Lanre White) Dispo: Admitted to med/surg. Plan to return home once medically stable. Total Time Total Time Spent Total Time Spent (In Minutes): 35 minutes Total Time Includes: Examination of the Patient, Discharge Planning, Medication Reconciliation and Communication With Other Providers Discharge Plan Discharge Items Patient Disposition: Home - Self-Care Reason For Visit: R FOOT WOUND, CELLULITIS Discharge Diagnosis: Cellulitis of right foot, type 2 diabetes, hypertension, cancer of prostate Condition on Discharge: Good Activity: Resume your previous activity Non-emergency contact: Primary Care Provider Call non-emergency contact if: you have any medication questions and your symptoms worsen Follow-up/Referrals: Ismael De Dios [Primary Care Provider] - 03/25/20 10:00 am (APPT WITH [facility]) Diet: Carb Consistent or DM2 Addtl Attending Provider Instructions: Please try to keep your foot wound dry and clean Dress your wound as advised Please finish the course of antibiotic Pending Studies at Discharge: No Stand-Alone Forms: My [facility] [employer], Smoking Cessation Medications and DC Order Prescriptions: New amoxicillin-pot clavulanate [Augmentin] 875-125 mg Tablet 1 tab PO BIDM 7 Days Qty: 14 RF: 0 Lactinex 1 million cell tablet,chewable 1 tab PO TID Qty: 30 RF: 0 Continued atorvastatin 80 mg Tablet 80 mg PO HS RF: 0 glipizide 10 mg Tablet 10 mg PO BID RF: 0 amlodipine 5 mg Tablet 5 mg PO DAILY RF: 0 tamsulosin 0.4 mg Capsule 0.4 mg PO DAILY RF: 0 gemfibrozil 600 mg Tablet 600 mg PO BID RF: 0 metformin 1,000 mg Tablet 1,000 mg PO BID RF: 0 Discontinued sulfamethoxazole-trimethoprim [Bactrim DS] 800-160 mg Tablet 1 tab PO BID RF: 0 Discharge Orders: Discharge Order (Routine); Ordered 03/18/20 Ordered By: Miya Keith/Other Patient Handouts: Managing Type 2 Diabetes, Managing Diabetes: The A1C Test Admission Data Admit Date/Time: 03/16/20 13:46 Attending Provider: Miya Harris Admit Provider: Merline Talbert Primary Care Provider: Ismael De Dios Other Providers: Merline Talbert Other Interventions: Discharge Summary Assessment (RN) Last Done: 03/18/20 15:18 DC Date/Time DO NOT enter until pt leaves facility: 03/18/20 16:04
== END 2020-03-18 16:04 | disposition home or self-care (01) | DRG 603 ==
LOC: ED 11:34 → 2N 13:46 → SUATTDRO 13:46 → 2N 14:20 → 3N 03-17 21:41

== ENCOUNTER 2020-10-22 18:22 | Inpatient (IN) ==
[2020-10-22] MEDS ORDERED: SODIUM CHLORIDE 0.9% 1000ML 2,000 ML IV ONE (18:30)
--- NOTE | 2020-10-22 18:32 | Emergency Department Note ---
Impression & Plan Sepsis, COVID-19, Acute hypotension, Hypoxia, Acute CVA (cerebrovascular accident) ED Provider Note NAME: MARINA IQBAL AGE: 70 SEX: M : 1950 ARRIVES VIA: Ambulance INFORMANT: Patient ED PROVIDER(S): Alexandre Muñiz DO CHIEF COMPLAINT: Weakness HPI: Patient is a 70-year-old male who presents the ER for weakness. This has been going on for the past 3 days. He notes he is unable to get out of bed. He lost control of his bowel movements and had a bowel movement in bed. He does feel cold. He admits to a cough. No chest pain but does admit to some shortness of breath. He denies any dysuria, urgency, or frequency. No belly pain. No open wounds or sores. He has never had this before. EMS notes that he was hypoxic and placed on 4 L nasal cannula as he was found to be 87% on room air. They also note that he was initially confused but that has cleared up in transport. ROS: See above HPI for pertinent positives & negatives. A total of 10 systems reviewed and were otherwise negative. PAST MEDICAL HISTORY:See Below PAST SURGICAL HISTORY:See Below FAMILY HISTORY:See Below SOCIAL HISTORY:See Below HOME MEDICATIONS:See Below ALLERGIES:See Below VITALS:See Below PHYSICAL EXAMINATION: GENERAL: Lying in bed, disheveled, no acute distress EYE EXAM: normal conjunctiva. PERRL and EOM's grossly intact. OROPHARYNX: no exudate, no erythema, lips, buccal mucosa, and tongue normal and mucous membranes are dry NECK: supple, no nuchal rigidity, no adenopathy, non-tender LUNGS: Clear to auscultation. Normal chest wall mechanics HEART: no murmurs, S1 normal and S2 normal ABDOMEN: abdomen soft, non-tender, normo-active bowel sounds, no masses, no rebound or guarding. UPPER EXTREMITIES: upper extremities are grossly normal. LOWER EXTREMITIES: No pitting edema. NEURO EXAM: Normal sensorium-oriented to person place and year, cranial nerves II-XII intact, normal speech, no weakness of arms, no weakness of legs. No drift. Finger to nose intact. Gross sensation intact. MEDICAL DECISION MAKING: Patient is a 70-year-old male who brought in by EMS found to be hypoxic and unable to get out of bed and covered in stool. IVs were established blood work was obtained. Vitals show that he was febrile and tachycardic. Initially he was maintaining good blood pressures blood pressures dropped into the 70s persistently after 2 L of IV fluids. He was given additional bolus and a central line was placed in his right groin. He was started on Levophed and was titrated up to 0.2 and he started maintaining good maps at this time. Labs showed a mild leukocytosis 11.8 thousand. No significant anemia. INR was unre markable. D-dimer was elevated but with a creatinine of 2.20 from a baseline of [address] angio chest. Magnesium was low at 1.3. LFTs bilirubin were unremarkable. Troponin was detectable but not positive. Procalcitonin was only slightly elevated at 0.75. Nails was placed and showed a large amount of white cells and epithelial cells. Covid was positive. He was covered with Zosyn initially. He was given a total of 3 L of normal saline. Chest x-ray did show diffuse multifocal infiltrate. CT of the head showed an age-indeterminate CVA. CT of the chest showed multifocal pneumonia and CT abdomen pelvis showed no acute pathology. He was updated bedside and admitted to the hospital for further work-up. He remained on Levophed while in the ER. Triage Nursing notes reviewed. Limited review of prior medical records performed Vital Signs: reviewed and remarkable for hypoxic, febrile Differential diagnosis: Differential diagnosis includes etiologies such as sepsis, UTI, pneumonia, metabolic, electrolyte abnormalities, cardiac sources, intracerebral event, toxicologic, neurological, as well as others were entertained. ER treatment provided: See below Diagnostics interpreted by me: ECG: Sinus rhythm rate 88 Normal axis No PVCs QTC 408 Poor baseline Cardiac Monitoring: An order was placed for continuous cardiac monitoring. The monitor shows a rate of 82 with sinus rhythm. Laboratory studies: As stated above and show below. Imaging studies: CT of the head shows age-indeterminate CVA Portable AP upright 1 view the chest showed multifocal infiltrate CT of the chest and abdomen pelvis confirms multifocal pneumonia Consultation(s): Discussed with Dr. Lombardo who for further evaluation Discussed with Yusuf from the [employer] for further evaluation at bedside Procedures: PROCEDURE NOTE - Central Line Insertion - Ultrasound Guided PRIOR TO PROCEDURE: Consent: Discussion was Pt held with the patient concerning central line. The risks and benefits were explained with possible risks to include bleeding, pain, pneumothorax, hemothorax, pulmonary contusion, pulmonary laceration, and infection. The patient freely consented. The patient was evaluated prior to the procedure. The patient was identified and the procedure verified as central line insertion. A Time Out was held and the following information confirmed. Verify Correct Patient: Yes Verify Correct Site: Yes Availability of Necessary Equipment: Yes PROCEDURE NOTE: Procedure: Central Line Inserting Clinician: Alexandre Muñiz DO. Guide-wire was removed, examined and is intact Complication/Corrective Action: none Estimated Blood Loss: 5 mls US guided line placement: Yes I have reviewed and educated the patient and or family regarding the benefits and risks of central line insertion, and I have reviewed the potential complications including infection - yes CENTRAL LINE BUNDLE: Skin Prep: Chlorhexidine/alcohol Barriers Used: Mask: yes Sterile gown: yes Large sterile drape: yes Cap: yes Sterile gloves: yes Insertion Status: new site Indications - include all that apply: Septic shock Placement Conditions: Emergent Site: Femoral Side: R Number of lumen(s): 3 Length of catheter inserted into patient: 20 centimeters Anesthesia: local Number of Needle Passes: 1 Radiological confirmation: Yes I performed the procedure. Critical Care: I have personally spent 85 minutes of critical care time in the direct management of this patient. This includes bedside care, interpretation of diagnostic studies, and testing, discussion with consultants, patient, and family members, and other required patient management activities. This 85 minutes is in excess of all separately billable procedures. Past Med/Surg History Medical History (Updated 10/22/20 @ 21:37 by Alexandre Muñiz DO) BPH (benign prostatic hyperplasia) Diabetes mellitus, type II HLD (hyperlipidemia) HTN (hypertension) Prostate cancer Undergoing brachytherapy. Followed at [facility] in [place]. Surgical History H/O prostate biopsy Family History Other Diabetes Social History Smoking Status: Former smoker Tobacco Type: Cigarettes and Smokeless Tobacco (Dip or Chew) Second Hand Exposure: No; Hx Alcohol Use: Yes Alcohol type: beer Hx Substance Use: No Preferred Language: Irish Communication Ability: Effective Burr Bench Hand Required: No Beliefs That Will Affect Care: None marital status: Current Living Situation: Spouse Feels Safe at Home: Yes Assistive Devices: Denture - Upper and Glasses Allergies Allergies Allergy/AdvReac Type Severity Reaction Status Date / Time No Known Allergies Allergy Verified 10/22/20 18:42 Home Meds Home Medications Medication Instructions Recorded Confirmed amlodipine 5 mg PO DAILY 03/16/20 10/22/20 atorvastatin 80 mg PO HS 03/16/20 10/22/20 gemfibrozil 600 mg PO BID 03/16/20 10/22/20 metformin 1,000 mg PO BID 03/16/20 10/22/20 tamsulosin 0.4 mg PO DAILY 03/16/20 10/22/20 aspirin [Aspirin Low Dose] 81 mg PO DAILY 10/22/20 10/22/20 glipizide 10 mg PO BID 10/22/20 10/22/20 losartan 100 mg PO DAILY 10/22/20 10/22/20 Results & Data (ED) Vital Signs Vital Signs - 24 hr 10/22/20 18:30 10/22/20 18:32 10/22/20 18:40 Temperature 39.4 C H Temperature Source Oral Pulse Rate 100 H 95 H 95 H Pulse Rate from SpO2 Sensor Respiratory Rate 18 16 19 Respiratory Effort / Characteristics Non-Labored Spontaneous Respiratory Depth Normal Respiratory Pattern Regular Blood Pressure 86/50 L 79/47 L 93/46 L Blood Pressure Mean 62 57 61 Pulse Oximetry 88 L 96 96 Oxygen Delivery Method Room Air Nasal Cannula Nasal Cannula Oxygen Flow Rate 3 3 Sepsis Recent Fever Within 48 Hours Yes Sepsis New/Unexplained Change in Mental Status N/A Sepsis Action Taken by Nursing Physician Notified 10/22/20 18:46 10/22/20 19:00 10/22/20 19:30 Temperature Temperature Source Pulse Rate 86 84 Pulse Rate from SpO2 Sensor 84 Respiratory Rate 24 16 Respiratory Effort / Characteristics Respiratory Depth Respiratory Pattern Blood Pressure 102/48 L 80/41 L Blood Pressure Mean 66 54 Pulse Oximetry 95 96 Oxygen Delivery Method Nasal Cannula Oxygen Flow Rate 3 Sepsis Recent Fever Within 48 Hours Sepsis New/Unexplained Change in Mental Status Sepsis Action Taken by Nursing 10/22/20 19:31 10/22/20 19:34 10/22/20 19:37 Temperature Temperature Source Pulse Rate 85 90 87 Pulse Rate from SpO2 Sensor Respiratory Rate 16 16 16 Respiratory Effort / Characteristics Respiratory Depth Respiratory Pattern Blood Pressure 75/42 L 78/46 L Blood Pressure Mean 53 56 Pulse Oximetry 96 97 Oxygen Delivery Method Oxygen Flow Rate Sepsis Recent Fever Within 48 Hours Sepsis New/Unexplained Change in Mental Status Sepsis Action Taken by Nursing 10/22/20 19:40 10/22/20 19:45 10/22/20 19:49 Temperature Temperature Source Pulse Rate 85 80 80 Pulse Rate from SpO2 Sensor 81 80 Respiratory Rate 16 16 22 Respiratory Effort / Characteristics Respiratory Depth Respiratory Pattern Blood Pressure 79/39 L 72/40 L 74/40 L Blood Pressure Mean 52 50 51 Pulse Oximetry 98 97 94 Oxygen Delivery Method Nasal Cannula Oxygen Flow Rate 3 Sepsis Recent Fever Within 48 Hours Sepsis New/Unexplained Change in Mental Status Sepsis Action Taken by Nursing 10/22/20 19:50 10/22/20 19:55 10/22/20 20:00 Temperature Temperature Source Pulse Rate 79 78 74 Pulse Rate from SpO2 Sensor 81 77 74 Respiratory Rate 17 13 15 Respiratory Effort / Characteristics Respiratory Depth Respiratory Pattern Blood Pressure 72/37 L 74/40 L 77/43 L Blood Pressure Mean 48 51 54 Pulse Oximetry 95 94 Oxygen Delivery Method Nasal Cannula Oxygen Flow Rate 3 Sepsis Recent Fever Within 48 Hours Sepsis New/Unexplained Change in Mental Status Sepsis Action Taken by Nursing 10/22/20 20:04 10/22/20 20:05 10/22/20 20:10 Temperature Temperature Source Pulse Rate 72 74 74 Pulse Rate from SpO2 Sensor 73 71 74 Respiratory Rate 18 16 20 Respiratory Effort / Characteristics Respiratory Depth Respiratory Pattern Blood Pressure 88/48 L 93/48 L 88/50 L Blood Pressure Mean 61 63 62 Pulse Oximetry 95 95 95 Oxygen Delivery Method Oxygen Flow Rate Sepsis Recent Fever Within 48 Hours Sepsis New/Unexplained Change in Mental Status Sepsis Action Taken by Nursing 10/22/20 20:15 10/22/20 20:17 10/22/20 20:20 Temperature 37.8 C H Temperature Source Oral Pulse Rate 74 73 72 Pulse Rate from SpO2 Sensor 74 73 73 Respiratory Rate 22 21 22 Respiratory Effort / Characteristics Respiratory Depth Respiratory Pattern Blood Pressure 89/51 L 89/47 L 92/48 L Blood Pressure Mean 63 61 62 Pulse Oximetry 95 95 95 Oxygen Delivery Method Oxygen Flow Rate Sepsis Recent Fever Within 48 Hours Sepsis New/Unexplained Change in Mental Status Sepsis Action Taken by Nursing 10/22/20 20:25 10/22/20 20:30 10/22/20 20:33 Temperature Temperature Source Pulse Rate 73 76 75 Pulse Rate from SpO2 Sensor 73 73 75 Respiratory Rate 16 16 18 Respiratory Effort / Characteristics Respiratory Depth Respiratory Pattern Blood Pressure 90/46 L 82/47 L 95/49 L Blood Pressure Mean 60 58 64 Pulse Oximetry 94 94 95 Oxygen Delivery Method Oxygen Flow Rate Sepsis Recent Fever Within 48 Hours Sepsis New/Unexplained Change in Mental Status Sepsis Action Taken by Nursing 10/22/20 20:54 10/22/20 20:55 Temperature Temperature Source Pulse Rate 70 69 Pulse Rate from SpO2 Sensor 70 69 Respiratory Rate 18 18 Respiratory Effort / Characteristics Respiratory Depth Respiratory Pattern Blood Pressure 96/44 L 95/47 L Blood Pressure Mean 61 63 Pulse Oximetry 95 94 Oxygen Delivery Method Nasal Cannula Oxygen Flow Rate 3 Sepsis Recent Fever Within 48 Hours Sepsis New/Unexplained Change in Mental Status Sepsis Action Taken by Nursing Laboratory Data Result diagrams: 10/22/20 18:40 10/22/20 18:40 Lab Results 10/22/20 10/22/20 10/22/20 Range/Units 18:40 18:40 18:40 WBC 11.84 H (4.8-10.8) K/uL RBC 4.54 L (4.7-6.1) M/uL Hgb 12.9 L (14.0-18.0) g/dL Hct 39.6 L (42-52) % MCV 87.2 (80-100) fL MCH 28.4 (25-34) pg MCHC 32.6 (32-36) g/dL RDW Std Deviation 46.2 (36.4-46.3) fL RDW Coeff of Aristides 14.4 (11.5-14.5) % Plt Count 281 (130-400) K/uL MPV 10.3 (7.4-10.4) fL Immature Gran % (Auto) 0.2 % Neut % (Auto) 84.3 % Lymph % (Auto) 7.9 % Armstrong % (Auto) 7.3 % Eos % (Auto) 0.0 % Baso % (Auto) 0.3 % Neut # (Auto) 9.99 H (1.4-6.5) K/uL Lymph # (Auto) 0.94 L (1.2-3.4) K/uL Armstrong # (Auto) 0.86 H (0.11-0.59) K/uL Eos # (Auto) 0.00 (0-0.5) K/uL Baso # (Auto) 0.03 (0-0.2) K/uL Immature Gran # (Auto) 0.02 (0.00-0.02) K/uL PT 11.0 (9.0-12.0) Seconds INR 1.1 (0.9-1.1) APTT 28.3 (21.0-31.0) Seconds PTT Ratio 1.1 D-Dimer (0-500) ug/L FEU Sodium 138 (136-145) mmol/L Potassium 4.1 (3.5-5.1) mmol/L Chloride 106 (98-107) mmol/L Carbon Dioxide 23 (21-32) mmol/L Anion Gap 9.0 (3-11) BUN 25 H (7-18) mg/dl Creatinine 2.28 H (0.6-1.4) mg/dl Est Cr Clr Drug Dosing 38.4 ml/min Est GFR ( Amer) 32.3 Est GFR (Non-Af Amer) 27.8 BUN/Creatinine Ratio 10.9 (10-20) Glucose 82 (70-99) mg/dl Lactate (0.4-2.0) mmol/L Calcium 8.8 (8.5-10.1) mg/dl Magnesium 1.3 L (1.8-2.4) mg/dl Total Bilirubin 0.5 (0.2-1) mg/dl AST 56 H (15-37) U/L ALT 64 (12-78) U/L Alkaline Phosphatase 106 (45-117) U/L Troponin I 0.024 (0-0.045) ng/ml Total Protein 7.7 (6.4-8.2) gm/dl Albumin 2.8 L (3.4-5.0) gm/dl Globulin 4.9 H (2.5-4.0) gm/dl Albumin/Globulin Ratio 0.6 L (0.9-2) Procalcitonin (0-0.5) ng/ml Urine Color Urine Appearance (Clear) Urine pH (4.5-7.5) Ur Specific Lewellen (1.000-1.030) Urine Protein (Negative) Urine Glucose (UA) (Negative) Urine Ketones (Negative) Urine Blood (Negative) Urine Nitrite (Negative) Urine Bilirubin (Negative) Urine Urobilinogen (Negative) Ur Leukocyte Esterase (Negative) Urine WBC (Auto) (0-5) /hpf Urine RBC (Auto) (0-4) /hpf U Hyaline Cast (Auto) (0-5) /lpf U Epithel Cells (Auto) (0-5) /lpf Urine Bacteria (Auto) (Negative) Ur Renal Epithelial Cell Granular Casts (0) /lpf Urine Yeast COVID-19 Eval Order SARS-CoV-2 (PCR) (Negative) Influenza Type A (PCR) (Neg) Influenza Type B (PCR) (Neg) RSV (RT-PCR) (Neg) 10/22/20 10/22/20 10/22/20 Range/Units 18:40 18:40 18:49 WBC (4.8-10.8) K/uL RBC (4.7-6.1) M/uL Hgb (14.0-18.0) g/dL Hct (42-52) % MCV (80-100) fL MCH (25-34) pg MCHC (32-36) g/dL RDW Std Deviation (36.4-46.3) fL RDW Coeff of Aristides (11.5-14.5) % Plt Count (130-400) K/uL MPV (7.4-10.4) fL Immature Gran % (Auto) % Neut % (Auto) % Lymph % (Auto) % Armstrong % (Auto) % Eos % (Auto) % Baso % (Auto) % Neut # (Auto) (1.4-6.5) K/uL Lymph # (Auto) (1.2-3.4) K/uL Armstrong # (Auto) (0.11-0.59) K/uL Eos # (Auto) (0-0.5) K/uL Baso # (Auto) (0-0.2) K/uL Immature Gran # (Auto) (0.00-0.02) K/uL PT (9.0-12.0) Seconds INR (0.9-1.1) APTT (21.0-31.0) Seconds PTT Ratio D-Dimer 930 H* (0-500) ug/L FEU Sodium (136-145) mmol/L Potassium (3.5-5.1) mmol/L Chloride (98-107) mmol/L Carbon Dioxide (21-32) mmol/L Anion Gap (3-11) BUN (7-18) mg/dl Creatinine (0.6-1.4) mg/dl Est Cr Clr Drug Dosing ml/min Est GFR ( Amer) Est GFR (Non-Af Amer) BUN/Creatinine Ratio (10-20) Glucose (70-99) mg/dl Lactate (0.4-2.0) mmol/L Calcium (8.5-10.1) mg/dl Magnesium (1.8-2.4) mg/dl Total Bilirubin (0.2-1) mg/dl AST (15-37) U/L ALT (12-78) U/L Alkaline Phosphatase (45-117) U/L Troponin I (0-0.045) ng/ml Total Protein (6.4-8.2) gm/dl Albumin (3.4-5.0) gm/dl Globulin (2.5-4.0) gm/dl Albumin/Globulin Ratio (0.9-2) Procalcitonin 0.75 H (0-0.5) ng/ml Urine Color Urine Appearance (Clear) Urine pH (4.5-7.5) Ur Specific Lewellen (1.000-1.030) Urine Protein (Negative) Urine Glucose (UA) (Negative) Urine Ketones (Negative) Urine Blood (Negative) Urine Nitrite (Negative) Urine Bilirubin (Negative) Urine Urobilinogen (Negative) Ur Leukocyte Esterase (Negative) Urine WBC (Auto) (0-5) /hpf Urine RBC (Auto) (0-4) /hpf U Hyaline Cast (Auto) (0-5) /lpf U Epithel Cells (Auto) (0-5) /lpf Urine Bacteria (Auto) (Negative) Ur Renal Epithelial Cell Granular Casts (0) /lpf Urine Yeast COVID-19 Eval Order CovFluRsv at [facility] SARS-CoV-2 (PCR) (Negative) Influenza Type A (PCR) (Neg) Influenza Type B (PCR) (Neg) RSV (RT-PCR) (Neg) 10/22/20 10/22/20 10/22/20 Range/Units 18:49 19:24 20:14 WBC (4.8-10.8) K/uL RBC (4.7-6.1) M/uL Hgb (14.0-18.0) g/dL Hct (42-52) % MCV (80-100) fL MCH (25-34) pg MCHC (32-36) g/dL RDW Std Deviation (36.4-46.3) fL RDW Coeff of Aristides (11.5-14.5) % Plt Count (130-400) K/uL MPV (7.4-10.4) fL Immature Gran % (Auto) % Neut % (Auto) % Lymph % (Auto) % Armstrong % (Auto) % Eos % (Auto) % Baso % (Auto) % Neut # (Auto) (1.4-6.5) K/uL Lymph # (Auto) (1.2-3.4) K/uL Armstrong # (Auto) (0.11-0.59) K/uL Eos # (Auto) (0-0.5) K/uL Baso # (Auto) (0-0.2) K/uL Immature Gran # (Auto) (0.00-0.02) K/uL PT (9.0-12.0) Seconds INR (0.9-1.1) APTT (21.0-31.0) Seconds PTT Ratio D-Dimer (0-500) ug/L FEU Sodium (136-145) mmol/L Potassium (3.5-5.1) mmol/L Chloride (98-107) mmol/L Carbon Dioxide (21-32) mmol/L Anion Gap (3-11) BUN (7-18) mg/dl Creatinine (0.6-1.4) mg/dl Est Cr Clr Drug Dosing ml/min Est GFR ( Amer) Est GFR (Non-Af Amer) BUN/Creatinine Ratio (10-20) Glucose (70-99) mg/dl Lactate 1.9 (0.4-2.0) mmol/L Calcium (8.5-10.1) mg/dl Magnesium (1.8-2.4) mg/dl Total Bilirubin (0.2-1) mg/dl AST (15-37) U/L ALT (12-78) U/L Alkaline Phosphatase (45-117) U/L Troponin I (0-0.045) ng/ml Total Protein (6.4-8.2) gm/dl Albumin (3.4-5.0) gm/dl Globulin (2.5-4.0) gm/dl Albumin/Globulin Ratio (0.9-2) Procalcitonin (0-0.5) ng/ml Urine Color Dark Yellow Urine Appearance Turbid A (Clear) Urine pH 5.5 (4.5-7.5) Ur Specific Lewellen 1.018 (1.000-1.030) Urine Protein 3+ H (Negative) Urine Glucose (UA) Negative (Negative) Urine Ketones Trace H (Negative) Urine Blood 2+ H (Negative) Urine Nitrite Negative (Negative) Urine Bilirubin 1+ H (Negative) Urine Urobilinogen Negative (Negative) Ur Leukocyte Esterase 3+ H (Negative) Urine WBC (Auto) >30 H (0-5) /hpf Urine RBC (Auto) 10-30 H (0-4) /hpf U Hyaline Cast (Auto) 5-10 H (0-5) /lpf U Epithel Cells (Auto) >30 H (0-5) /lpf Urine Bacteria (Auto) Negative (Negative) Ur Renal Epithelial Cell Not Reportable Granular Casts 1-5 H (0) /lpf Urine Yeast Not Reportable COVID-19 Eval Order SARS-CoV-2 (PCR) POSITIVE A* (Negative) Influenza Type A (PCR) Negative (Neg) Influenza Type B (PCR) Negative (Neg) RSV (RT-PCR) Negative (Neg) Administered Medications Norepinephrine Bitartrate (Levophed/D5w) 8 mg in 508 mls @ 19.355 mls/hr IV .Q24H [facility]; Protocol Stop: 11/21/20 20:29 Last Admin: 10/22/20 20:28 Dose: 0.1 mcg/kg/min, 38.7 mls/hr Documented by: [id number] Cosigned by: [id number] Discontinued Medications Acetaminophen (Acetaminophen 500 Mg Tab) Confirm Administered Dose 1,000 mg .ROUTE .STK-MED ONE Stop: 10/22/20 19:08 Last Admin: 10/22/20 19:17 Dose: Not Given Documented by: [id number] Acetaminophen (Acetaminophen 500 Mg Tab) 1,000 mg PO NOW STA Stop: 10/22/20 19:09 Last Admin: 10/22/20 19:16 Dose: 1,000 mg Documented by: [id number] Dexamethasone (Dexamethasone Sod Inj 10 Mg/Ml Vial) 6 mg IV NOW ONE Stop: 10/22/20 19:20 Last Admin: 10/22/20 19:41 Dose: 6 mg Documented by: [id number] Sodium Chloride (Nss 1000ml) 2,000 mls @ 999 mls/hr IV .Q2H1M ONE Stop: 10/22/20 20:30 Last Infusion: 10/22/20 20:16 Dose: 0 mls/hr Documented by: [id number] Admin: 10/22/20 18:45 Dose: 999 mls/hr Documented by: [id number] Piperacillin Sod/Tazobactam Sod (Zosyn) 4.5 gm in 120 mls @ 240 mls/hr IV NOW ONE; Protocol Stop: 10/22/20 19:37 Last Infusion: 10/22/20 20:16 Dose: 0 mls/hr Documented by: [id number] Admin: 10/22/20 19:41 Dose: 240 mls/hr Documented by: [id number] Sodium Chloride (Nss 1000ml) 1,000 mls @ 999 mls/hr IV .Q1H1M ONE Stop: 10/22/20 21:23 Last Infusion: 10/22/20 21:09 Dose: 0 mls/hr Documented by: [id number] Admin: 10/22/20 20:00 Dose: 999 mls/hr Documented by: [id number] Norepinephrine Bitartrate (Norepinephrine/D5w 8 Mg/508 Ml) Confirm Administered Dose 8 mg IV .STK-MED ONE Stop: 10/22/20 19:54 Last Admin: 10/22/20 20:34 Dose: Not Given Documented by: [id number] Discharge Plan Visit Data Chief Complaint: Illness Stated Complaint: WEAK, UNABLE TO AMBULATE, ED Provider: Alexandre Muñiz Discharge Problem: Sepsis, COVID-19, Acute hypotension, Hypoxia, Acute CVA (cerebrovascular accident) Discharge Instructions Interventions: ED Discharge Assessment Last Done: 10/22/20 21:24 Discharge Problem: Sepsis Qualifiers: Sepsis type: sepsis due to unspecified organism Sepsis acute organ dysfunction status: unspecified Qualified Code(s): A41.9 - Sepsis, unspecified organism
[2020-10-22 18:50] LABS: Hematocrit (blood only) 39.6 % (42-52); Hemoglobin 12.9 g/dL (14.0-18.0); Mean Corpuscular Hemoglobin 28.4 pg (25-34); Mean Corpuscular Hgb Conc 32.6 g/dL (32-36); Mean Corpuscular Volume 87.2 fL (80-100); Mean Platelet Volume 10.3 fL (7.4-10.4); Platelet Count 281 K/uL (130-400); RDW Coefficient of Variation 14.4 % (11.5-14.5); RDW Standard Deviation 46.2 fL (36.4-46.3); Red Blood Count 4.54 M/uL (4.7-6.1); White Blood Count 11.84 K/uL (4.8-10.8)
[2020-10-22 19:00] LABS: INR 1.1 (0.9-1.1); Partial Thromboplastin Ratio 1.1; Partial Thromboplastin Time 28.3 Seconds (21.0-31.0)
[2020-10-22 19:07] LABS: Albumin Level 2.8 gm/dl (3.4-5.0); BUN Creatinine Ratio 10.9 (10-20); Calcium 8.8 mg/dl (8.5-10.1); Creatinine Clr Calc Pharmacy 38.4 ml/min; Est GFR (African American) 32.3; Est GFR (Non-African American) 27.8; Magnesium 1.3 mg/dl (1.8-2.4); Potassium 4.1 mmol/L (3.5-5.1)
[2020-10-22] MEDS ORDERED: PIPERACILLIN/TAZOBACTAM 4.5 GM/120 ML BAG IV ONE (19:08)
[2020-10-22] MEDS ORDERED: ACETAMINOPHEN 500 MG TAB PO STA (19:08)
[2020-10-22] MEDS ORDERED: PIPERACILL/TAZOBAC CONSULT ACTIVE PRN (19:08)
[2020-10-22 19:10] LABS: Basophils # (auto) 0.03 K/uL (0-0.2); Basophils % (auto) 0.3 %; Immature Granulocytes # (auto) 0.02 K/uL (0.00-0.02); Immature Granulocytes % (auto) 0.2 %; Lymphocytes # (auto) 0.94 K/uL (1.2-3.4); Lymphocytes % (auto) 7.9 %; Monocytes # (auto) 0.86 K/uL (0.11-0.59); Monocytes % (auto) 7.3 %; Neutrophils # (auto) 9.99 K/uL (1.4-6.5); Neutrophils % (auto) 84.3 %
[2020-10-22 19:11] LABS: Albumin Globulin Ratio 0.6 (0.9-2); Bilirubin,Total 0.5 mg/dl (0.2-1); Globulin 4.9 gm/dl (2.5-4.0); Total Protein 7.7 gm/dl (6.4-8.2); Troponin I 0.024 ng/ml (0-0.045)
--- NOTE | 2020-10-22 19:14 | XRay Report ---
XR chest 1V portable CLINICAL HISTORY: SEPSIS COMPARISON STUDY: No previous studies for comparison. FINDINGS: Lung volumes are at the lower limits of normal. There is no pneumothorax or pleural effusio n. Moderate multifocal bilateral airspace opacities are present. Note is made of cardiomegaly. There is no evidence for pulmonary edema. IMPRESSION: Moderate multifocal bilateral airspace opacities consistent with an infectious process. Radiographic follow up is recommended to ensure resolution. ACT 112: Negative or not required by law. Electronically signed by: Freddie Blanco M.D. 10/22/2020 7:13 PM
[2020-10-22] MEDS: ACETAMINOPHEN 500 MG TAB ONE ×2 (19:16→19:17)
[2020-10-22] MEDS ORDERED: DEXAMETHASONE SOD INJ 10 MG/ML VIAL IV ONE (19:19)
[2020-10-22 19:53] LABS: Influenza A virus by PCR Negative (Neg); Influenza B virus by PCR Negative (Neg); RSV by PCR Negative (Neg)
[2020-10-22] MEDS ORDERED: NOREPINEPHRINE/D5W 8 MG/508 ML IV ONE (19:53)
[2020-10-22 19:56] LABS: D Dimer 930 ug/L FEU (0-500)
[2020-10-22 20:08] LABS: SARS CoV2 RNA(COVID-19) InHosp POSITIVE (Negative)
[2020-10-22] MEDS ORDERED: STAT IV Infusion **Titration per Protocol STA ×2 (20:22→22:19)
[2020-10-22] MEDS ORDERED: SODIUM CHLORIDE 0.9% 1000ML 1,000 ML IV ONE (20:23)
[2020-10-22 20:24] LABS: Appearance Urine Turbid (Clear); Bacteria Urine Automated Negative (Negative); Blood Urine 2+ (Negative); Color Urine Dark Yellow; Epithelial Cell Urine Auto >30 /lpf (0-5); Glucose Urine UA Negative (Negative); Ketones Urine Trace (Negative); Leukocyte Esterase Urine 3+ (Negative); Nitrite Urine Negative (Negative); Protein Urine 3+ (Negative); Specific Gravity Urine 1.018 (1.000-1.030); Urobilinogen Urine Negative (Negative); WBC Urine Automated >30 /hpf (0-5); pH Urine 5.5 (4.5-7.5)
[2020-10-22] MEDS ORDERED: NOREPINEPHRINE/D5W 8 MG/508 ML BAG IV SCH (20:30)
[2020-10-22 20:35] LABS: Bilirubin Urine 1+ (Negative)
--- NOTE | 2020-10-22 20:58 | CT Scan Report ---
CT OF THE HEAD WITHOUT CONTRAST CLINICAL HISTORY: Altered mental status. COMPARISON STUDY: No previous studies for comparison. TECHNIQUE: Helical axial images of the head were obtained without IV contrast. Automated exposure con trol was utilized for the study. A dose lowering technique was utilized adhering to the principles o f ALARA. FINDINGS: No acute intracranial hemorrhage, midline shift or mass effect is present. Ventricular syst em is normal. Basilar cisterns are patent. There are no extra-axial collections. A 1.2 cm hypodense f ocus within the anterior right frontal lobe on axial image 19 is noted. There is no calvarial fractur e. Ethmoid sinus mucosal thickening is present. IMPRESSION: 1. No acute intracranial hemorrhage or mass effect. 2. 1.2 cm hypodensity within the anterior right frontal lobe. This favors an age indeterminate small infarct. ACT 112: Negative or not required by law. Electronically signed by: Freddie Blanco M.D. 10/22/2020 8:57 PM
--- NOTE | 2020-10-22 21:04 | CT Scan Report ---
CT OF THE CHEST WITHOUT IV CONTRAST CLINICAL HISTORY: hypotension COMPARISON STUDY: Chest radiograph performed earlier today. CT DOSE: 2984.04 mGy.cm TECHNIQUE: Axial images of the chest were obtained without IV contrast. Images were reviewed in the axial, sagittal, and coronal planes. IV contrast was not administered for this examination. Automat ed exposure control was utilized for the study. A dose lowering technique was utilized adhering to t he principles of ALARA. FINDINGS: Mild cardiomegaly and moderate coronary artery calcification is noted. There is no pericar dial effusion. There is right-sided gynecomastia. Central airways are patent. Lungs are suboptimally assessed due to respiratory motion. There is no pneumothorax or pleural effusion. Moderate multifocal consolidation groundglass opacities within the lungs are noted. These are more pronounced within the right lung. No cavitation is present. There are multiple mildly enlarged mediastinal and bilateral h ilar lymph nodes. No suspicious lesions within the bony thorax are noted. The abdomen and pelvis will be reported separately. IMPRESSION: 1. Moderate multifocal consolidation and groundglass opacities within the lungs. The findings suggest viral pneumonia. 2. Multiple mildly enlarged mediastinal and bilateral hilar lymph nodes which are likely reactive. 3. Mild cardiomegaly. Moderate coronary artery calcification. ACT 112: Negative or not required by law. Electronically signed by: Freddie Blanco M.D. 10/22/2020 9:02 PM
--- NOTE | 2020-10-22 21:18 | CT Scan Report ---
CT OF THE ABDOMEN AND PELVIS WITHOUT CONTRAST CLINICAL HISTORY: Sepsis. COMPARISON STUDY: No previous studies for comparison. TECHNIQUE: Axial images of the abdomen and pelvis were obtained without IV contrast. Images were revi ewed in the axial, sagittal, and coronal planes. Automated exposure control was utilized for the matty dy. A dose lowering technique was utilized adhering to the principles of ALARA. FINDINGS: Please note that the chest CT will be reported separately. Multifocal consolidation and dany undglass opacities are better depicted on the chest CT. Evaluation of the abdomen and pelvis is subop timal on this unenhanced examination. There is no pneumatosis, free air or portal venous gas. There a re a few small calcified gallstones within the gallbladder. There is no evidence for acute cholecysti tis. The liver, spleen, adrenal glands and pancreas are unremarkable. There is no biliary or pancreat ic ductal dilatation. There is no hydronephrosis. Water attenuation 1.8 cm left renal lesion is subop timally assessed on this unenhanced exam but likely reflects a cyst. There is no hydronephrosis. Note is made of sigmoid diverticulosis without evidence for acute diverticulitis. Prostate is enlarged. T here are brachytherapy seeds within the prostate. A Nails balloon is present within the bladder as we ll as gas. There is bladder wall thickening with adjacent infiltration. There is also infiltration ad jacent to the prostate and the seminal vesicles. A right femoral venous catheter is in place. The paula endix is normal. No suspicious osseous lesions are noted. A few prominent left iliac and inguinal nod es are probably benign. IMPRESSION: 1. Bladder wall thickening with infiltration adjacent to the bladder, seminal vesicles and prostate. The findings may be infectious and could be correlated with urinalysis. Alternatively, infiltration m ay be treatment related. No hydronephrosis. 2. Multifocal consolidation and groundglass opacities within the lungs suggestive of viral pneumonia. 3. Sigmoid diverticulosis without evidence for acute diverticulitis. 4. Cholelithiasis. No evidence for acute cholecystitis. ACT 112: Negative or not required by law. Electronically signed by: Freddie Blanco M.D. 10/22/2020 9:16 PM
[2020-10-22] MEDS ORDERED: ICU PROTOCOL FOR HYPERGLYCEMIA PRN (21:51)
[2020-10-22] MEDS ORDERED: REMDESIVIR 200 MG in SODIUM CHLORIDE 0.9% 210 ML IV STA (21:51)
[2020-10-22] MEDS ORDERED: SODIUM CHLORIDE 0.9% 10ML FLUSH IV SCH ×2 (21:51→23:30)
[2020-10-22] MEDS: SODIUM CHLORIDE 0.9% 1000ML 1,000 ML IV SCH (22:22)
[2020-10-22] MEDS: ALBUMIN 5% 250 ML IV SCH ×2 (22:24→22:52)
[2020-10-22] MEDS: MAGNESIUM SULFATE / D5W 1 GM/100 ML BAG IV SCH ×2 (22:24→22:52)
[2020-10-22] MEDS: ATORVASTATIN 40 MG TAB PO SCH (22:38)
[2020-10-22] MEDS: VASOPRESSIN 20 UNITS in 0.9 % SODIUM CHLORIDE 100 ML IV SCH (22:38)
[2020-10-22] MEDS ORDERED: VANCOMYCIN CONSULT ACTIVE PRN ×2 (22:44)
--- NOTE | 2020-10-22 23:23 | Critical Care Consultation ---
Date of Consultation October 22, 2020 Assessment & Plan (1) Shock: Reason Critically Ill: 70-year-old male presents to the ICU with COVID-19 pneumonia, hypoxia, sepsis, and significant hypotension requiring vasopressor support. Neuro - [facility] ICU: Negative CT head with age-indeterminate CVA. No acute intracranial process Cardiac - Shockmost likely secondary to sepsis in the setting of COVID-19 pneumonia with potential bacterial infection. See ID management below -H&H within normal limits -Cannot rule out PE as culprit at this time considering hypoxia and hypercoagulable process of COVID-19, empirically started on heparin drip. Were unable to time CTA due to renal function. Patient undergo echo in a.m., will assess for heart strain/cardiogenic shock. -Troponin negative, EKG NSR without ST elevation. QTc 408 -Random cortisol of 42 -Received 2 L bolus in the ED and 500 albumin without sustained improvement and now requiring Levophed. CVC and A-line emergently inserted. Titrate for maps greater than 65. -Continuous hemodynamic monitoring in ICU Respiratory - Hypoxiacurrently maintaining oxygen saturation on nasal cannula, no respiratory distress -CT chest with multifocal consolidations and groundglass opacities within the lungs, consistent with a viral pneumonia -Dexamethasone 6 mg daily -See ID management for potential bacterial pulmonary source below -Heparin started for empiric PE coverage, did not undergo CTA due to renal function -Wean oxygen as tolerated -Continuous monitoring on pulse ox GI - Sigmoid diverticulosis without evidence of acute diverticulitis noted on CT abdomen and inconsistent with reports of diarrhea. Likely secondary to Covid 19. -Continue with IV fluids and replete electrolytes as indicated -Has yet to have a bowel movement but will consider obtaining stool sample N.p.o. RENAL/LYTES - AKIcreatinine 2.28 with baseline of 0.75, likely ATN in the setting of hypotension -UA positive protein, ketones, blood, and hyaline cast -No hydronephrosis noted on CT -Continue map management greater than 65 with vasopressor support -Continue IV fluid resuscitation -Avoid nephrotoxins and renally adjust medications -Monitor with routine BMPs Hypomagnesemiainitial magnesium 1.3, repleting. Monitor routine BMP and replete as indicated - Noted to have bladder wall thickening with infiltration adjutant to the bladder, seminal vesicles and prostate. Patient does have history of prostate cancer and is reportedly undergoing brachytherapy at [facility]. Unsure if this is treatment related versus infectious. See ID below Foleystrict I's and O's ENDO - DM type IIholding home dose metformin and transition to sliding scale. Hemoglobin A1c 7.5. -ICU hyperglycemic protocol No history of thyroid disease, TSH pending HEME - H&H within normal limits, monitor routine CBCs ID - Sepsispatient with fever, mild leukocytosis, mildly elevated procalcitonin. Lactate negative. He is also significantly hypotensive. -COVID-19 pneumonia positive. Started on dexamethasone. Holding on remd esivir for impaired renal function. -Influenza and RSV negative. -UA with turbid urine and urine culture pending. Blood cultures pending. -CT chest with multifocal pneumonia which is more consistent with viral pneumonia but cannot rule out superimposed bacterial infection. -History of cellulitis appeared well-healed on exam. -Continue broad-spectrum antibiotics Zosyn, Vanco, doxy for now LINES/IV ACCESS - Right femoral CVC, peripheral IVs, left radial A-line DVT PROPHYLAXIS - SCDs, heparin drip I have personally spent 60 minutes of critical care time in the direct management of this patient. This is a life/limb threatening event. This includes time spent evaluating patient, direct bedside care, chart review, placing orders, interpretation of diagnostic studies, discussion with consultants, patient, and family members, as well as other required patient management activities. This time is exclusive of all separately billable procedures, and teaching time and separate from and in addition to any other critical care service time. Thank you for allowing us to participate in the care of this patient. Please refer to my attending physician's documentation for any further recommendations. (2) Cellulitis of right foot: (3) Sepsis: (4) COVID-19: (5) Pneumonia: (6) UTI (urinary tract infection): (7) Hypoxia: (8) Acute hypotension: (9) Prostate cancer: (10) BPH (benign prostatic hyperplasia): (11) HLD (hyperlipidemia): (12) HTN (hypertension): (13) Diabetes mellitus, type II: Supervising Physician Co-Signing Physician Notes I agree with assessment and plan of Shameka LO. History of Present Illness Attending Physician: Miya Harris MD History of Present Illness Patient is a 70-year-old male who was found by EMS to be hypoxic, could not get out of bed and was covered in stool. Patient stated that he had been experiencing weakness and shortness of breath for 3 days and had lost control of his bowel movements. EMS also reported that he was initially confused but improved with supplemental oxygen in route. In the emergency department, he was found to be febrile and tachycardic, and blood pressure dropped into the 70s. He received 2 L IV fluid without improvement was started on Levophed drip. He had a central line placed in his right groin. Patient was found to be Covid positive. Procalcitonin mildly elevated, troponin unremarkable, lactate negative. He underwent CT chest which was consistent consistent with multifocal pneumonia. CT abdomen and CT head were unremarkable. He was started on broad- spectrum antibiotics and given dexamethasone. Patient now transferred to ICU in the Covid unit for further management at this time. On exam patient was lethargic but alert and oriented. He denied headache, dizziness, or syncope. He does report shortness of breath but was not and respiratory distress and denied productive cough. He denies chest pain, palpitations, or swelling in hands and feet. He denies abdominal pain, tend erness, or nausea and vomiting. He does report recent episodes of diarrhea and generalized weakness which he states is been ongoing for the past 3 days. Allergies Allergy/AdvReac Type Severity Reaction Status Date / Time No Known Allergies Allergy Verified 10/22/20 18:42 Home Medications Medication Instructions Recorded Confirmed Type amlodipine 5 mg PO DAILY 03/16/20 10/22/20 History atorvastatin 80 mg PO HS 03/16/20 10/22/20 History gemfibrozil 600 mg PO BID 03/16/20 10/22/20 History metformin 1,000 mg PO BID 03/16/20 10/22/20 History tamsulosin 0.4 mg PO DAILY 03/16/20 10/22/20 History aspirin [Aspirin Low Dose] 81 mg PO DAILY 10/22/20 10/22/20 History glipizide 10 mg PO BID 10/22/20 10/22/20 History losartan 100 mg PO DAILY 10/22/20 10/22/20 History Patient History Medical History (Updated 10/23/20 @ 00:09 by TERESITA Mitchell) BPH (benign prostatic hyperplasia) Diabetes mellitus, type II HLD (hyperlipidemia) HTN (hypertension) Prostate cancer Undergoing brachytherapy. Followed at [facility] in [place]. Surgical History H/O prostate biopsy Family History Other Diabetes Social History Smoking Status: Never smoker Tobacco Type: Cigarettes and Smokeless Tobacco (Dip or Chew) Second Hand Exposure: No; Hx Alcohol Use: No Hx Substance Use: No Preferred Language: French Communication Ability: Effective [employer] Required: No Beliefs That Will Affect Care: None marital status: Current Living Situation: Spouse Feels Safe at Home: Yes Safety Concerns: Feels Safe At This Time Assistive Devices: Denture - Upper Review of Systems Review of Systems: All systems reviewed & are unremarkable except as noted in HPI & below Physical Exam Constitutional: cooperative, comfortable and + lethargic Eyes: PERRL, conjunctivae normal, anicteric sclerae ENMT: external ear and nose normal, oropharynx normal Neck: trachea midline, no thyromegaly Respiratory: Rhonchorous breath sounds auscultated bilaterally in all mims. No wheezes. No tachypnea or nonlabored breathing and no acute respiratory distress. Symmetrical chest wall movement. Cardiovascular: Rate/Rhythm: regular rate and regular rhythm Heart Sounds: normal S1 and normal S2 Vessels: no JVD Extremities: normal capillary refill; no edema Gastrointestinal (Abdomen): normal bowel sounds, soft, nontender, no hepatosplenomegaly Skin: no rashes, warm and dry Neurologic: PERRL, EOMI, accommodation nl, no face palsy, no dysarthria Psychiatric: A+Ox3, euthymic affect Genitourinary: Indwelling Nails catheter present Results & Data Results & Data ([facility]) Vital Signs (Past 12 Hours) Vital Signs Temp Pulse Resp BP BP Pulse Ox 10/22/20 21:41 36.7 C 19 98/45 L 93 10/22/20 20:55 69 18 95/47 L 94 10/22/20 20:54 70 18 96/44 L 95 10/22/20 20:33 75 18 95/49 L 95 10/22/20 20:30 76 16 82/47 L 94 10/22/20 20:25 73 16 90/46 L 94 10/22/20 20:20 72 22 92/48 L 95 10/22/20 20:17 73 21 89/47 L 95 10/22/20 20:15 37.8 C H 74 22 89/51 L 95 10/22/20 20:10 74 20 88/50 L 95 10/22/20 20:05 74 16 93/48 L 95 10/22/20 20:04 72 18 88/48 L 95 10/22/20 20:00 74 15 77/43 L 94 10/22/20 19:55 78 13 74/40 L 95 10/22/20 19:50 79 17 72/37 L 10/22/20 19:49 80 22 74/40 L 94 10/22/20 19:45 80 16 72/40 L 97 10/22/20 19:40 85 16 79/39 L 98 10/22/20 19:37 87 16 78/46 L 97 10/22/20 19:34 90 16 75/42 L 96 10/22/20 19:31 85 16 10/22/20 19:30 84 16 80/41 L 96 10/22/20 19:00 86 24 102/48 L 10/22/20 18:46 95 10/22/20 18:40 95 H 19 93/46 L 96 10/22/20 18:32 95 H 16 79/47 L 96 10/22/20 18:30 39.4 C H 100 H 18 86/50 L 88 L Coding Level of Care Code Critical Care 1st 30-74 mins Diagnoses Shock R57.9 Cellulitis of right foot L03.115 Sepsis A41.9 Sepsis acute organ dysfunction status: unspecified Sepsis type: sepsis due to unspecified organism COVID-19 U07.1 Pneumonia J18.9 UTI (urinary tract infection) N39.0 Hypoxia R09.02 Acute hypotension I95.9 Prostate cancer C61 BPH (benign prostatic hyperplasia) N40.0 HLD (hyperlipidemia) E78.5 HTN (hypertension) I10 Diabetes mellitus, type II E11.9 (1) Sepsis Sepsis acute organ dysfunction status: unspecified Sepsis type: sepsis due to unspecified organism Qualified Code(s): A41.9 - Sepsis, unspecified organism
--- NOTE | 2020-10-22 23:24 | Procedure Note ---
Procedure Note Date of Service October 22, 2020 Note ARTERIAL LINE PROCEDURE NOTE: Procedure: Arterial Line Placement Attending: Dr. Gabriel Liao Provider: TERESITA Sol Indication: Monitoring on Pressors Anesthesia: Lidocaine 1% Line placed emergently in the setting of shock/hypotension requiring vasopressor support. A time-out was completed verifying correct patient, procedure, site, positioning, and implant(s) or special equipment if applicable. Allens test was performed to ensure adequate perfusion. Patients left wrist was prepped and draped in the usual sterile fashion. Ultrasound guidance was used to aid needle placement. A 20g Arrow arterial line was introduced into the left radial artery. Catheter was threaded, and the needle was removed with appropriate blood return. Good waveform was observed. The patient tolerated the procedure well. Confirmation of placement with ultrasound. Blood Loss: Minimal Complications: None Procedural Ultrasound Guidance: Procedure Date: 10/22/2020 Indication: Arterial line insertion Attending: Dr. Gabriel Emerson Provider: TERESITA Sol Artery Identified: YES Line confirmed in Artery with ultrasound: Yes Complications: NONE Patient tolerated procedure: WELL Coding CPT Codes Tubes, Drains, and Vasc Access - Tubes, Drains, and Vasc Access: [id number] Place Catheter In Artery ([id number]) Tubes, Drains, and Vasc Access - Tubes, Drains, and Vasc Access: [id number] Ultrasound Guidance For Vascular ([id number]) [facility] Procedure Codes (Charges) Tubes, Drains, and Vasc Access Procedure 1: Tubes, Drains, and Vasc Access: [id number] Place Catheter In Artery Procedure 2: Tubes, Drains, and Vasc Access: [id number] Ultrasound Guidance For Vascular
[2020-10-22] MEDS ORDERED: VANCOMYCIN HCL 2,250 MG in SODIUM CHLORIDE 0.9% 500 ML IV ONE (23:30)
[2020-10-23] MEDS ORDERED: DOXYCYCLINE HYCLATE 100 MG in DEXTROSE 5% 100 ML IV SCH
[2020-10-23] MEDS ORDERED: HEPARIN SODIUM/DEXTROSE 25,000 UNITS/500 ML BAG IV SCH (00:30)
[2020-10-23] MEDS ORDERED: Heparin IV Adult Wt-Based Standard WITH Bolus Protocol IV SCH (00:32)
--- NOTE | 2020-10-23 01:02 | History and Physical Report ---
DATE OF ADMISSION: 10/22/2020 CHIEF COMPLAINT: COVID pneumonia. HISTORY OF PRESENT ILLNESS: This is a 70-year-old male with past medical history significant for diabetes, hypertension, prostate cancer and BPH, history of cellulitis of right lower extremity, who lives with his , comes here because of not feeling well. The patient says he is not feeling well for some time now. The only complaint was dizziness, feeling sick. When the EMS arrived, he was saturating in 80s, with oxygen his saturation has come up. Currently he has a temperature spike of 39.4 in the ER and he was hypotensive and white count was 11. D-dimer was 930. Creatinine was 2.2. Urinalysis was positive and SARS-CoV-2 PCR was positive. The patient denies any chest pain, denies any shortness of breath, denies any cough, denies any nausea or vomiting, denies any abdominal pain, denies any headache, denies any neck pain, denies any constipation.Having several episodes of diarrhea. The patient is somewhat confused. As per the , he is having dizziness for last 2 weeks. He want to see his doctor yesterday also, but today he was having several episodes of diarrhea and weakness, not able to ambulate much. No one is sick in the family. No known exposure to COVID. Currently, the patient is getting Levophed for his blood pressure, fluids, antibiotics. ALLERGIES: No known drug allergies. PAST MEDICAL HISTORY: As mentioned above. PAST SURGICAL HISTORY: No past surgical history on file. SOCIAL HISTORY: Former smoker, quit in 1987. Alcohol, occasional as per records. No drug use as per records. FAMILY HISTORY: Diabetes. REVIEW OF SYSTEMS: As per HPI. Could not get complete review of systems as the patient is somewhat confused currently. PHYSICAL EXAMINATION: GENERAL: The patient is alert and awake, obese, not in acute distress. VITAL SIGNS: Temperature T-max 39.4, pulse in the 70s, blood pressure was 77/43, currently 98/45, oxygen 88% on room air, currently 93% on 6 liters. HEENT: Pupils equal, round, and reactive to light. Oral mucosa dry. NECK: No neck masses seen. CARDIOVASCULAR: S1, S2 heard, regular rate and rhythm, no murmur, no gallop. RESPIRATORY SYSTEM: Normal AP diameter. No accessory muscle use. No wheezing, no crackles. ABDOMEN: Soft, bowel sounds present, nontender. No distention. CENTRAL NERVOUS SYSTEM: Alert and awake. speech clear, no facial droop. Tongue midline. Obeys simple commands. Moves extremities. EXTREMITIES: No edema, no erythema. LABORATORY DATA: WBC 11.8, hemoglobin 12.9, hematocrit 39.6, platelets 281. PT 11, INR 1.1, APTT 28.3. D-dimer 930. Sodium 138, potassium 4.1, chloride 106, bicarbonate 23, BUN 25, creatinine 2.2, serum glucose 82. Lactate 1.9, calcium 8.8, magnesium 1.3, total bilirubin 0.5, AST 56, ALT 64, alkaline phosphatase 106, total creatinine kinase 149, troponin I of 0.024. BNP 447. Procalcitonin 0.75. Random cortisol 42. Urinalysis, +3 leukocyte esterase. SARS-CoV-2 PCR positive. Flu negative. IMAGING DATA: CT of the chest, multifocal consolidation with ground-glass opacities in the lungs suggestive of viral pneumonia, multiple enlarged mediastinal and bilateral hilar lymph nodes, still likely reactive. Mild cardiomegaly, moderate coronary artery calcification. CT of the abdomen and pelvis, bladder wall thickening with infiltration of the distal bladder, seminal vesicles, and prostate. The findings might be infectious and could correlate with urinalysis. Cholelithiasis, sigmoid diverticulosis without evidence of diverticulitis. CT of the head, no acute intracranial hemorrhage or mass effect. A 1.2 cm hypodensity in the right frontal lobe. There was some age indeterminate small infarct. Chest x-ray, moderate multifocal bilateral airspace opacities, is consistent with an infectious process. ASSESSMENT AND PLAN: This is a 70-year-old male who presents with sepsis and COVID pneumonia. 1. Sepsis, metabolic encephalopathy, COVID pneumonia, possible urinary tract infection. The patient meets criteria for sepsis with temperature spike, hypotension, white count, pneumonia, and acute kidney injury. Empirically started on Zosyn and doxycycline. Could not give remdesivir because of kidney function. IV Decadron. Follow the cultures. Closely monitor in the ICU. The patient is getting central line and fluids and vasopressors and closely monitor in the ICU. Lactic acid is normal. 2. Possible urinary tract infection, antibiotics as above. We will follow the cultures. 3. BHAVESH. Cr 2.2. Will avoid nephrotoxins. Abx and fluids. Will follow labs 4. History of diabetes: Hold his home p.o. medication and placed him on insulin sliding scale. Will follow the blood sugars. 5. History of hypertension: Currently hypotensive. Hold his amlodipine and losartan. 6. Benign prostatic hypertrophy: On Flomax. Monitor for any urinary retention. 7. Hyperlipidemia: On statin. 8.. History of prostate cancer status post brachytherapy. 9.. Deep venous thrombosis prophylaxis: We will place him on Lovenox. 10. Disposition: Closely monitor in the ICU. Level 1 full code. MTDD
[2020-10-23 01:03] LABS: Thyroid Stimulating Hormone 1.21 uIu/ml (0.300-4.500)
[2020-10-23] MEDS: PIPERACILLIN/TAZOBACTAM 3.375 GM in DEXTROSE 5% 100 ML IV SCH ×3 (01:56→17:55)
[2020-10-23] MEDS: MAGNESIUM SULFATE / D5W 1 GM/100 ML BAG IV SCH ×2 (02:04→04:46)
[2020-10-23] MEDS ORDERED: HEPARIN IV BOLUS 7,000 UNITS in SYRINGE 0 ML IV ONE (02:30)
[2020-10-23] MEDS: SODIUM CHLORIDE 0.9% 1000ML 1,000 ML IV SCH ×2 (02:49→07:58)
[2020-10-23] MEDS: VASOPRESSIN 20 UNITS in 0.9 % SODIUM CHLORIDE 100 ML IV SCH (06:04)
[2020-10-23 06:44] LABS: Basophils # (auto) 0.01 K/uL (0-0.2); Basophils % (auto) 0.1 %; Hematocrit (blood only) 31.8 % (42-52); Hemoglobin 10.1 g/dL (14.0-18.0); Immature Granulocytes # (auto) 0.04 K/uL (0.00-0.02); Immature Granulocytes % (auto) 0.4 %; Lymphocytes # (auto) 0.72 K/uL (1.2-3.4); Lymphocytes % (auto) 6.4 %; Mean Corpuscular Hemoglobin 28.2 pg (25-34); Mean Corpuscular Hgb Conc 31.8 g/dL (32-36); Mean Corpuscular Volume 88.8 fL (80-100); Mean Platelet Volume 10.5 fL (7.4-10.4); Monocytes # (auto) 0.46 K/uL (0.11-0.59); Monocytes % (auto) 4.1 %; Platelet Count 241 K/uL (130-400); RDW Coefficient of Variation 14.5 % (11.5-14.5); RDW Standard Deviation 47.8 fL (36.4-46.3); Red Blood Count 3.58 M/uL (4.7-6.1); White Blood Count 11.33 K/uL (4.8-10.8)
[2020-10-23 07:04] LABS: Partial Thromboplastin Ratio > 5.3
[2020-10-23 07:13] LABS: Partial Thromboplastin Time > 139.0 Seconds (21.0-31.0)
[2020-10-23 07:14] LABS: D Dimer 770 ug/L FEU (0-500)
[2020-10-23] MEDS ORDERED: INSULIN ASPART 100 UNITS/ML 3 ML PEN SC SCH (07:30)
[2020-10-23 07:40] LABS: Alanine Aminotransferase 45 U/L (12-78); Albumin Level 2.2 gm/dl (3.4-5.0); Alkaline Phosphatase 72 U/L (45-117); Aspartate Aminotransferase 41 U/L (15-37); BUN Creatinine Ratio 16.7 (10-20); Bilirubin Direct 0.3 mg/dl (0-0.2); Bilirubin,Total 0.5 mg/dl (0.2-1); Blood Urea Nitrogen 25 mg/dl (7-18); Calcium 7.4 mg/dl (8.5-10.1); Carbon Dioxide 17 mmol/L (21-32); Chloride 107 mmol/L (98-107); Creatinine Clr Calc Pharmacy 60.8 ml/min; Est GFR (Non-African American) 46.6; Glucose 360 mg/dl (70-99); Magnesium 2.3 mg/dl (1.8-2.4); Phosphorus 3.4 mg/dl (2.5-4.9); Potassium 4.7 mmol/L (3.5-5.1); Sodium 136 mmol/L (136-145); Troponin I < 0.015 ng/ml (0-0.045)
[2020-10-23] MEDS: TAMSULOSIN HCL 0.4 MG CAP PO SCH (07:58)
[2020-10-23] MEDS: ASPIRIN 81 MG ECTAB PO SCH (07:58)
[2020-10-23] MEDS: dexAMETHasone 6 MG in SYRINGE 0 ML IV SCH (07:58)
--- NOTE | 2020-10-23 08:08 | Critical Care Progress Note ---
Date of Service October 23, 2020 Assessment & Plan (1) Shock: Reason Critically Ill: 70-year-old male presented to the ICU within the COVID-19 unit, with COVID-19 pneumonia, hypoxia, sepsis, and significant hypotension requiring vasopressor support. Neuro: - [facility] ICU: Negative CT head with age-indeterminate CVA. No acute intracranial process Cardiac/Vascular: -Shock likely secondary to sepsis in the setting of COVID-19 pneumonia with potential bacterial infection. -Cannot rule out PE as culprit at this time considering hypoxia and hypercoagulable process of COVID-19, empirically started on heparin drip. -unable to perform Chest CTA due to renal function. -Troponin negative -Random cortisol of 42 -Received 2 L bolus in the ED and 500 albumin without sustained improvement temporarily required Levophed and vasopressin -Subsequently been able to be titrated off with continued appropriate blood pressures -Echo demonstrated normal left ventricular systolic function, EF 60-65%, mild concentric left ventricular hypertrophy, moderate aortic valve calcification, mild tricuspid regurgitation Respiratory: -Hypoxia: In the setting of known COVID-19 infection -CT chest with multifocal consolidations and groundglass opacities within the lungs, consistent with a viral pneumonia -Dexamethasone 6 mg daily -Maintaining appropriate oxygen saturations on 3 L nasal cannula -Continuous monitoring on pulse ox -Echo without signs of right heart strain, will discontinue heparin drip as limited evidence of PE, will continue DVT prophylaxis GI/Nutrition: -Sigmoid diverticulosis without evidence of acute diverticulitis noted on CT abdomen and inconsistent with reports of diarrhea. Likely secondary to Covid 19. -Continue with IV fluids and replete electrolytes as indicated -Has yet to have a bowel movement but will consider obtaining stool sample Renal/Lytes: -Acute kidney injury -cr 2.28 on admission (baseline of 0.75), likely ATN in the setting of hypotension -Continue IV fluid resuscitation -Avoid nephrotoxins and renally adjust medications -Monitor with routine BMPs -Hypomagnesemia -initial magnesium 1.3, repleted -Monitor routine BMP and replete as indicated : -Patient does have history of prostate cancer and is reportedly undergoing brachytherapy at [facility] [address]. -Noted to have bladder wall thickening with infiltration adjutant to the bladder, seminal vesicles and prostate. -Undetermined if this is treatment related versus infectious -Nails catheter in place -strict I's and O's ENDO: -DM type II -holding home dose metformin -Hemoglobin A1c 7.5. -Started on insulin drip for persistent hyperglycemia with presence of beta hydroxybutyrate -history of thyroid disease -TSH 1.21 -Random cortisol 42 HEME: -Hgb stable at 10.1 this a.m. -monitor routine CBCs ID: -Sepsispatient with fever, mild leukocytosis, mildly elevated procalcitonin, Lactate negative, overnight was significantly hypotensive. -COVID-19 positive. Started on dexamethasone. Holding remdesivir for impaired renal function. -Influenza and RSV negative. -Urine culture negative -Blood culture demonstrating gram-positive bacilli (in 1/2, anaerobic culture) -Nasal MRSA negative -CT chest with multifocal pneumonia which is more consistent with viral pneumonia but cannot rule out superimposed bacterial infection. -Continue zosyn; discontinue vancomycin and doxycycline Lines/IV Access: -Right femoral CVL, peripheral IVs, left radial A-line DVT Prophylaxis: -SCDs, subcu heparin (2) COVID-19: (3) Sepsis: (4) Pneumonia: (5) UTI (urinary tract infection): (6) Prostate cancer: (7) Acute hypotension: (8) BPH (benign prostatic hyperplasia): (9) HLD (hyperlipidemia): (10) HTN (hypertension): (11) Diabetes mellitus, type II: Admission and Anticipated Discharge Date Admission Date: October 22, 2020 Supervising Physician Co-Signing Physician Notes Dr. Langley was resident physician during care of patient. I separately evaluated patient for barajas portions of the history and the exam. I was present during the critical portion of medical decision making, and I discussed the case with the resident. I generally agree with the findings and plan. Subjective Patient states that he is feeling much better this morning, still has a minor co ugh that is nonproductive and continues to feel minimally short of breath significantly improved from before. Was successfully able to be weaned off of Levophed and vasopressin early in the morning. With maintenance of blood pressure in appropriate ranges. Review of Systems Review of Systems: All systems reviewed & are unremarkable except as noted in Subjective Physical Exam Constitutional: WD/WN, vitals as above Eyes: PERRL, conjunctivae normal, anicteric sclerae Neck: normal visual inspection and trachea midline Respiratory: normal respiratory effort; no respiratory distress, no labored breathing and does not use accessory muscles Auscultation: + rhonchi (whole mims b/l); no crackles and no wheezes Cardiovascular: Rate/Rhythm: regular rate and regular rhythm Heart Sounds: no gallop, no murmur and no cardiac rub Vessels: normal peripheral pulses; no JVD Extremities: no calf tenderness and no edema Gastrointestinal (Abdomen): normal bowel sounds, soft, nontender, no hepatosplenomegaly Skin: no rashes, warm and dry Neurologic: PERRL, EOMI, accommodation nl, no face palsy, no dysarthria Psychiatric: Orientation: alert and oriented x 3 Results & Data Results & Data ([facility]) Vital Signs (Past 12 Hours) Vital Signs Temp Pulse Resp BP BP Pulse Ox 10/23/20 03:30 58 L 22 94 10/23/20 03:00 57 L 19 99/57 L 93 10/23/20 02:30 59 L 6 L 92 10/23/20 02:00 55 L 19 107/58 L 93 10/23/20 01:30 67 24 87 L 10/23/20 01:00 60 11 L 98/53 L 93 10/23/20 00:30 61 22 92 10/23/20 00:05 37.2 C 10/23/20 00:00 65 19 105/52 L 92 10/22/20 23:59 80 10/22/20 23:30 66 20 90 10/22/20 23:11 62 18 123/60 92 10/22/20 23:00 68 21 112/60 91 10/22/20 22:30 80 20 101/50 L 93 10/22/20 22:00 68 22 87/47 L 93 10/22/20 21:41 36.7 C 19 98/45 L 93 10/22/20 21:36 71 20 98/45 L 10/22/20 21:35 30 H 10/22/20 21:20 72 18 91/50 L 95 10/22/20 21:15 75 19 94/47 L 95 10/22/20 21:10 73 27 H 92/51 L 94 10/22/20 21:05 72 24 90/49 L 94 10/22/20 21:01 70 23 95 10/22/20 21:00 69 25 H 92/46 L 94 10/22/20 20:56 70 18 94 10/22/20 20:55 69 18 95/47 L 94 02/03/21 20:54 70 18 96/44 L 95 10/22/20 20:33 75 18 95/49 L 95 10/22/20 20:30 76 16 82/47 L 94 10/22/20 20:25 73 16 90/46 L 94 10/22/20 20:20 72 22 92/48 L 95 10/22/20 20:17 73 21 89/47 L 95 10/22/20 20:15 37.8 C H 74 22 89/51 L 95 10/22/20 20:10 74 20 88/50 L 95 Laboratory Results 10/23/20 10/23/20 10/23/20 Range/Units Unknown 15:32 14:08 WBC (4.8-10.8) K/uL RBC (4.7-6.1) M/uL Hgb (14.0-18.0) g/dL Hct (42-52) % MCV (80-100) fL MCH (25-34) pg MCHC (32-36) g/dL RDW Std Deviation (36.4-46.3) fL RDW Coeff of Aristides (11.5-14.5) % Plt Count (130-400) K/uL MPV (7.4-10.4) fL Immature Gran % (Auto) % Neut % (Auto) % Lymph % (Auto) % [place] % (Auto) % Eos % (Auto) % Baso % (Auto) % Neut # (Auto) (1.4-6.5) K/uL Lymph # (Auto) (1.2-3.4) K/uL [place] # (Auto) (0.11-0.59) K/uL Eos # (Auto) (0-0.5) K/uL Baso # (Auto) (0-0.2) K/uL Immature Gran # (Auto) (0.00-0.02) K/uL PT (9.0-12.0) Seconds INR (0.9-1.1) APTT (21.0-31.0) Seconds PTT Ratio D-Dimer (0-500) ug/L FEU Sodium (136-145) mmol/L Potassium (3.5-5.1) mmol/L Chloride (98-107) mmol/L Carbon Dioxide (21-32) mmol/L Anion Gap (3-11) BUN (7-18) mg/dl Creatinine (0.6-1.4) mg/dl Est Cr Clr Drug Dosing ml/min Est GFR ( Amer) Est GFR (Non-Af Amer) BUN/Creatinine Ratio (10-20) Glucose (70-99) mg/dl POC Glucose 249 H 358 H* (70-99) mg/dl Lactate (0.4-2.0) mmol/L Calcium (8.5-10.1) mg/dl Phosphorus (2.5-4.9) mg/dl Magnesium (1.8-2.4) mg/dl Total Bilirubin (0.2-1) mg/dl Direct Bilirubin (0-0.2) mg/dl AST (15-37) U/L ALT (12-78) U/L Alkaline Phosphatase (45-117) U/L Total Creatine Kinase (39-308) U/L Troponin I (0-0.045) ng/ml NT-Pro-B Natriuret Pep (0-900) pg/ml Total Protein (6.4-8.2) gm/dl Albumin (3.4-5.0) gm/dl Globulin (2.5-4.0) gm/dl Albumin/Globulin Ratio (0.9-2) Beta-Hydroxybutyric Acd (0.2-2.81) mg/dl Procalcitonin (0-0.5) ng/ml TSH (0.300-4.500) uIu/ml Random Cortisol mcg/dl Urine Color Urine Appearance (Clear) Urine pH (4.5-7.5) Ur Specific [place] (1.000-1.030) Urine Protein (Negative) Urine Glucose (UA) (Negative) Urine Ketones (Negative) Urine Blood (Negative) Urine Nitrite (Negative) Urine Bilirubin (Negative) Urine Urobilinogen (Negative) Ur Leukocyte Esterase (Negative) Urine WBC (Auto) (0-5) /hpf Urine RBC (Auto) (0-4) /hpf U Hyaline Cast (Auto) (0-5) /lpf U Epithel Cells (Auto) (0-5) /lpf Urine Bacteria (Auto) (Negative) Ur Renal Epithelial Cell Granular Casts (0) /lpf Urine Yeast Nasal Screen MRSA (PCR) Negative (Negative) COVID-19 Eval Order SARS-CoV-2 (PCR) (Negative) Influenza Type A (PCR) (Neg) Influenza Type B (PCR) (Neg) RSV (RT-PCR) (Neg) Blood Type Antibody Screen 10/23/20 10/23/20 10/23/20 Range/Units 12:01 11:51 10:10 WBC (4.8-10.8) K/uL RBC (4.7-6.1) M/uL Hgb (14.0-18.0) g/dL Hct (42-52) % MCV (80-100) fL MCH (25-34) pg MCHC (32-36) g/dL RDW Std Deviation (36.4-46.3) fL RDW Coeff of Aristides (11.5-14.5) % Plt Count (130-400) K/uL MPV (7.4-10.4) fL Immature Gran % (Auto) % Neut % (Auto) % Lymph % (Auto) % [place] % (Auto) % Eos % (Auto) % Baso % (Auto) % Neut # (Auto) (1.4-6.5) K/uL Lymph # (Auto) (1.2-3.4) K/uL [place] # (Auto) (0.11-0.59) K/uL Eos # (Auto) (0-0.5) K/uL Baso # (Auto) (0-0.2) K/uL Immature Gran # (Auto) (0.00-0.02) K/uL PT (9.0-12.0) Seconds INR (0.9-1.1) APTT 96.4 H* (21.0-31.0) Seconds PTT Ratio 3.7 D-Dimer (0-500) ug/L FEU Sodium (136-145) mmol/L Potassium (3.5-5.1) mmol/L Chloride (98-107) mmol/L Carbon Dioxide (21-32) mmol/L Anion Gap (3-11) BUN (7-18) mg/dl Creatinine (0.6-1.4) mg/dl Est Cr Clr Drug Dosing ml/min Est GFR ( Amer) Est GFR (Non-Af Amer) BUN/Creatinine Ratio (10-20) Glucose (70-99) mg/dl POC Glucose 377 H* 324 H* (70-99) mg/dl Lactate (0.4-2.0) mmol/L Calcium (8.5-10.1) mg/dl Phosphorus (2.5-4.9) mg/dl Magnesium (1.8-2.4) mg/dl Total Bilirubin (0.2-1) mg/dl Direct Bilirubin (0-0.2) mg/dl AST (15-37) U/L ALT (12-78) U/L Alkaline Phosphatase (45-117) U/L Total Creatine Kinase (39-308) U/L Troponin I (0-0.045) ng/ml NT-Pro-B Natriuret Pep (0-900) pg/ml Total Protein (6.4-8.2) gm/dl Albumin (3.4-5.0) gm/dl Globulin (2.5-4.0) gm/dl Albumin/Globulin Ratio (0.9-2) Beta-Hydroxybutyric Acd (0.2-2.81) mg/dl Procalcitonin (0-0.5) ng/ml TSH (0.300-4.500) uIu/ml Random Cortisol mcg/dl Urine Color Urine Appearance (Clear) Urine pH (4.5-7.5) Ur Specific [place] (1.000-1.030) Urine Protein (Negative) Urine Glucose (UA) (Negative) Urine Ketones (Negative) Urine Blood (Negative) Urine Nitrite (Negative) Urine Bilirubin (Negative) Urine Urobilinogen (Negative) Ur Leukocyte Esterase (Negative) Urine WBC (Auto) (0-5) /hpf Urine RBC (Auto) (0-4) /hpf U Hyaline Cast (Auto) (0-5) /lpf U Epithel Cells (Auto) (0-5) /lpf Urine Bacteria (Auto) (Negative) Ur Renal Epithelial Cell Granular Casts (0) /lpf Urine Yeast Nasal Screen MRSA (PCR) (Negative) COVID-19 Eval Order SARS-CoV-2 (PCR) (Negative) Influenza Type A (PCR) (Neg) Influenza Type B (PCR) (Neg) RSV (RT-PCR) (Neg) Blood Type Antibody Screen 02/04/21 02/04/21 02/04/21 Range/Units 09:39 08:49 07:50 WBC (4.8-10.8) K/uL RBC (4.7-6.1) M/uL Hgb (14.0-18.0) g/dL Hct (42-52) % MCV (80-100) fL MCH (25-34) pg MCHC (32-36) g/dL RDW Std Deviation (36.4-46.3) fL RDW Coeff of Aristides (11.5-14.5) % Plt Count (130-400) K/uL MPV (7.4-10.4) fL Immature Gran % (Auto) % Neut % (Auto) % Lymph % (Auto) % [place] % (Auto) % Eos % (Auto) % Baso % (Auto) % Neut # (Auto) (1.4-6.5) K/uL Lymph # (Auto) (1.2-3.4) K/uL [place] # (Auto) (0.11-0.59) K/uL Eos # (Auto) (0-0.5) K/uL Baso # (Auto) (0-0.2) K/uL Immature Gran # (Auto) (0.00-0.02) K/uL PT (9.0-12.0) Seconds INR (0.9-1.1) APTT > 139.0 H* (21.0-31.0) Seconds PTT Ratio > 5.3 D-Dimer (0-500) ug/L FEU Sodium (136-145) mmol/L Potassium (3.5-5.1) mmol/L Chloride (98-107) mmol/L Carbon Dioxide (21-32) mmol/L Anion Gap (3-11) BUN (7-18) mg/dl Creatinine (0.6-1.4) mg/dl Est Cr Clr Drug Dosing ml/min Est GFR ( Amer) Est GFR (Non-Af Amer) BUN/Creatinine Ratio (10-20) Glucose (70-99) mg/dl POC Glucose 343 H* (70-99) mg/dl Lactate (0.4-2.0) mmol/L Calcium (8.5-10.1) mg/dl Phosphorus (2.5-4.9) mg/dl Magnesium (1.8-2.4) mg/dl Total Bilirubin (0.2-1) mg/dl Direct Bilirubin (0-0.2) mg/dl AST (15-37) U/L ALT (12-78) U/L Alkaline Phosphatase (45-117) U/L Total Creatine Kinase (39-308) U/L Troponin I (0-0.045) ng/ml NT-Pro-B Natriuret Pep (0-900) pg/ml Total Protein (6.4-8.2) gm/dl Albumin (3.4-5.0) gm/dl Globulin (2.5-4.0) gm/dl Albumin/Globulin Ratio (0.9-2) Beta-Hydroxybutyric Acd (0.2-2.81) mg/dl Procalcitonin (0-0.5) ng/ml TSH (0.300-4.500) uIu/ml Random Cortisol mcg/dl Urine Color Urine Appearance (Clear) Urine pH (4.5-7.5) Ur Specific [place] (1.000-1.030) Urine Protein (Negative) Urine Glucose (UA) (Negative) Urine Ketones (Negative) Urine Blood (Negative) Urine Nitrite (Negative) Urine Bilirubin (Negative) Urine Urobilinogen (Negative) Ur Leukocyte Esterase (Negative) Urine WBC (Auto) (0-5) /hpf Urine RBC (Auto) (0-4) /hpf U Hyaline Cast (Auto) (0-5) /lpf U Epithel Cells (Auto) (0-5) /lpf Urine Bacteria (Auto) (Negative) Ur Renal Epithelial Cell Granular Casts (0) /lpf Urine Yeast Nasal Screen MRSA (PCR) (Negative) COVID-19 Eval Order SARS-CoV-2 (PCR) (Negative) Influenza Type A (PCR) (Neg) Influenza Type B (PCR) (Neg) RSV (RT-PCR) (Neg) Blood Type A Positive Antibody Screen NEGATIVE 10/23/20 10/23/20 10/23/20 Range/Units 06:36 06:36 06:27 WBC 11.33 H (4.8-10.8) K/uL RBC 3.58 L (4.7-6.1) M/uL Hgb 10.1 L (14.0-18.0) g/dL Hct 31.8 L (42-52) % MCV 88.8 (80-100) fL MCH 28.2 (25-34) pg MCHC 31.8 L (32-36) g/dL RDW Std Deviation 47.8 H (36.4-46.3) fL RDW Coeff of Aristides 14.5 (11.5-14.5) % Plt Count 241 (130-400) K/uL MPV 10.5 H (7.4-10.4) fL Immature Gran % (Auto) 0.4 % Neut % (Auto) 89.0 % Lymph % (Auto) 6.4 % [place] % (Auto) 4.1 % Eos % (Auto) 0.0 % Baso % (Auto) 0.1 % Neut # (Auto) 10.10 H (1.4-6.5) K/uL Lymph # (Auto) 0.72 L (1.2-3.4) K/uL [place] # (Auto) 0.46 (0.11-0.59) K/uL Eos # (Auto) 0.00 (0-0.5) K/uL Baso # (Auto) 0.01 (0-0.2) K/uL Immature Gran # (Auto) 0.04 H (0.00-0.02) K/uL PT (9.0-12.0) Seconds INR (0.9-1.1) APTT > 139.0 H* (21.0-31.0) Seconds PTT Ratio > 5.3 D-Dimer 770 H* (0-500) ug/L FEU Sodium 136 (136-145) mmol/L Potassium 4.7 (3.5-5.1) mmol/L Chloride 107 (98-107) mmol/L Carbon Dioxide 17 L (21-32) mmol/L Anion Gap 12.0 H (3-11) BUN 25 H (7-18) mg/dl Creatinine 1.49 H D (0.6-1.4) mg/dl Est Cr Clr Drug Dosing 60.8 ml/min Est GFR ( Amer) 54.0 Est GFR (Non-Af Amer) 46.6 BUN/Creatinine Ratio 16.7 (10-20) Glucose 360 H* (70-99) mg/dl POC Glucose (70-99) mg/dl Lactate (0.4-2.0) mmol/L Calcium 7.4 L D (8.5-10.1) mg/dl Phosphorus 3.4 (2.5-4.9) mg/dl Magnesium 2.3 (1.8-2.4) mg/dl Total Bilirubin 0.5 (0.2-1) mg/dl Direct Bilirubin 0.3 H (0-0.2) mg/dl AST 41 H (15-37) U/L ALT 45 (12-78) U/L Alkaline Phosphatase 72 (45-117) U/L Total Creatine Kinase (39-308) U/L Troponin I < 0.015 (0-0.045) ng/ml NT-Pro-B Natriuret Pep (0-900) pg/ml Total Protein 6.0 L D (6.4-8.2) gm/dl Albumin 2.2 L (3.4-5.0) gm/dl Globulin (2.5-4.0) gm/dl Albumin/Globulin Ratio (0.9-2) Beta-Hydroxybutyric Acd 26.90 H (0.2-2.81) mg/dl Procalcitonin (0-0.5) ng/ml TSH (0.300-4.500) uIu/ml Random Cortisol mcg/dl Urine Color Urine Appearance (Clear) Urine pH (4.5-7.5) Ur Specific [place] (1.000-1.030) Urine Protein (Negative) Urine Glucose (UA) (Negative) Urine Ketones (Negative) Urine Blood (Negative) Urine Nitrite (Negative) Urine Bilirubin (Negative) Urine Urobilinogen (Negative) Ur Leukocyte Esterase (Negative) Urine WBC (Auto) (0-5) /hpf Urine RBC (Auto) (0-4) /hpf U Hyaline Cast (Auto) (0-5) /lpf U Epithel Cells (Auto) (0-5) /lpf Urine Bacteria (Auto) (Negative) Ur Renal Epithelial Cell Granular Casts (0) /lpf Urine Yeast Nasal Screen MRSA (PCR) (Negative) COVID-19 Eval Order SARS-CoV-2 (PCR) (Negative) Influenza Type A (PCR) (Neg) Influenza Type B (PCR) (Neg) RSV (RT-PCR) (Neg) Blood Type Antibody Screen 10/22/20 10/22/2021 Range/Units 20:14 19:24 18:49 WBC (4.8-10.8) K/uL RBC (4.7-6.1) M/uL Hgb (14.0-18.0) g/dL Hct (42-52) % MCV (80-100) fL MCH (25-34) pg MCHC (32-36) g/dL RDW Std Deviation (36.4-46.3) fL RDW Coeff of Aristides (11.5-14.5) % Plt Count (130-400) K/uL MPV (7.4-10.4) fL Immature Gran % (Auto) % Neut % (Auto) % Lymph % (Auto) % [place] % (Auto) % Eos % (Auto) % Baso % (Auto) % Neut # (Auto) (1.4-6.5) K/uL Lymph # (Auto) (1.2-3.4) K/uL [place] # (Auto) (0.11-0.59) K/uL Eos # (Auto) (0-0.5) K/uL Baso # (Auto) (0-0.2) K/uL Immature Gran # (Auto) (0.00-0.02) K/uL PT (9.0-12.0) Seconds INR (0.9-1.1) APTT (21.0-31.0) Seconds PTT Ratio D-Dimer (0-500) ug/L FEU Sodium (136-145) mmol/L Potassium (3.5-5.1) mmol/L Chloride (98-107) mmol/L Carbon Dioxide (21-32) mmol/L Anion Gap (3-11) BUN (7-18) mg/dl Creatinine (0.6-1.4) mg/dl Est Cr Clr Drug Dosing ml/min Est GFR ( Amer) Est GFR (Non-Af Amer) BUN/Creatinine Ratio (10-20) Glucose (70-99) mg/dl POC Glucose (70-99) mg/dl Lactate 1.9 (0.4-2.0) mmol/L Calcium (8.5-10.1) mg/dl Phosphorus (2.5-4.9) mg/dl Magnesium (1.8-2.4) mg/dl Total Bilirubin (0.2-1) mg/dl Direct Bilirubin (0-0.2) mg/dl AST (15-37) U/L ALT (12-78) U/L Alkaline Phosphatase (45-117) U/L Total Creatine Kinase (39-308) U/L Troponin I (0-0.045) ng/ml NT-Pro-B Natriuret Pep (0-900) pg/ml Total Protein (6.4-8.2) gm/dl Albumin (3.4-5.0) gm/dl Globulin (2.5-4.0) gm/dl Albumin/Globulin Ratio (0.9-2) Beta-Hydroxybutyric Acd (0.2-2.81) mg/dl Procalcitonin (0-0.5) ng/ml TSH (0.300-4.500) uIu/ml Random Cortisol mcg/dl Urine Color Dark Yellow Urine Appearance Turbid A (Clear) Urine pH 5.5 (4.5-7.5) Ur Specific [place] 1.018 (1.000-1.030) Urine Protein 3+ H (Negative) Urine Glucose (UA) Negative (Negative) Urine Ketones Trace H (Negative) Urine Blood 2+ H (Negative) Urine Nitrite Negative (Negative) Urine Bilirubin 1+ H (Negative) Urine Urobilinogen Negative (Negative) Ur Leukocyte Esterase 3+ H (Negative) Urine WBC (Auto) >30 H (0-5) /hpf Urine RBC (Auto) 10-30 H (0-4) /hpf U Hyaline Cast (Auto) 5-10 H (0-5) /lpf U Epithel Cells (Auto) >30 H (0-5) /lpf Urine Bacteria (Auto) Negative (Negative) Ur Renal Epithelial Cell Not Reportable Granular Casts 1-5 H (0) /lpf Urine Yeast Not Reportable Nasal Screen MRSA (PCR) (Negative) COVID-19 Eval Order SARS-CoV-2 (PCR) POSITIVE A* (Negative) Influenza Type A (PCR) Negative (Neg) Influenza Type B (PCR) Negative (Neg) RSV (RT-PCR) Negative (Neg) Blood Type Antibody Screen 10/22/20 10/22/20 10/22/20 Range/Units 18:49 18:40 18:40 WBC (4.8-10.8) K/uL RBC (4.7-6.1) M/uL Hgb (14.0-18.0) g/dL Hct (42-52) % MCV (80-100) fL MCH (25-34) pg MCHC (32-36) g/dL RDW Std Deviation (36.4-46.3) fL RDW Coeff of Aristides (11.5-14.5) % Plt Count (130-400) K/uL MPV (7.4-10.4) fL Immature Gran % (Auto) % Neut % (Auto) % Lymph % (Auto) % [place] % (Auto) % Eos % (Auto) % Baso % (Auto) % Neut # (Auto) (1.4-6.5) K/uL Lymph # (Auto) (1.2-3.4) K/uL [place] # (Auto) (0.11-0.59) K/uL Eos # (Auto) (0-0.5) K/uL Baso # (Auto) (0-0.2) K/uL Immature Gran # (Auto) (0.00-0.02) K/uL PT (9.0-12.0) Seconds INR (0.9-1.1) APTT (21.0-31.0) Seconds PTT Ratio D-Dimer (0-500) ug/L FEU Sodium (136-145) mmol/L Potassium (3.5-5.1) mmol/L Chloride (98-107) mmol/L Carbon Dioxide (21-32) mmol/L Anion Gap (3-11) BUN (7-18) mg/dl Creatinine (0.6-1.4) mg/dl Est Cr Clr Drug Dosing ml/min Est GFR ( Amer) Est GFR (Non-Af Amer) BUN/Creatinine Ratio (10-20) Glucose (70-99) mg/dl POC Glucose (70-99) mg/dl Lactate (0.4-2.0) mmol/L Calcium (8.5-10.1) mg/dl Phosphorus (2.5-4.9) mg/dl Magnesium (1.8-2.4) mg/dl Total Bilirubin (0.2-1) mg/dl Direct Bilirubin (0-0.2) mg/dl AST (15-37) U/L ALT (12-78) U/L Alkaline Phosphatase (45-117) U/L Total Creatine Kinase 149 (39-308) U/L Troponin I (0-0.045) ng/ml NT-Pro-B Natriuret Pep 447 (0-900) pg/ml Total Protein (6.4-8.2) gm/dl Albumin (3.4-5.0) gm/dl Globulin (2.5-4.0) gm/dl Albumin/Globulin Ratio (0.9-2) Beta-Hydroxybutyric Acd (0.2-2.81) mg/dl Procalcitonin (0-0.5) ng/ml TSH 1.210 (0.300-4.500) uIu/ml Random Cortisol 42.70 mcg/dl Urine Color Urine Appearance (Clear) Urine pH (4.5-7.5) Ur Specific [place] (1.000-1.030) Urine Protein (Negative) Urine Glucose (UA) (Negative) Urine Ketones (Negative) Urine Blood (Negative) Urine Nitrite (Negative) Urine Bilirubin (Negative) Urine Urobilinogen (Negative) Ur Leukocyte Esterase (Negative) Urine WBC (Auto) (0-5) /hpf Urine RBC (Auto) (0-4) /hpf U Hyaline Cast (Auto) (0-5) /lpf U Epithel Cells (Auto) (0-5) /lpf Urine Bacteria (Auto) (Negative) Ur Renal Epithelial Cell Granular Casts (0) /lpf Urine Yeast Nasal Screen MRSA (PCR) (Negative) COVID-19 Eval Order CovFluRsv at [facility] SARS-CoV-2 (PCR) (Negative) Influenza Type A (PCR) (Neg) Influenza Type B (PCR) (Neg) RSV (RT-PCR) (Neg) Blood Type Antibody Screen 10/22/20 10/22/20 10/22/20 Range/Units 18:40 18:40 18:40 WBC (4.8-10.8) K/uL RBC (4.7-6.1) M/uL Hgb (14.0-18.0) g/dL Hct (42-52) % MCV (80-100) fL MCH (25-34) pg MCHC (32-36) g/dL RDW Std Deviation (36.4-46.3) fL RDW Coeff of Aristides (11.5-14.5) % Plt Count (130-400) K/uL MPV (7.4-10.4) fL Immature Gran % (Auto) % Neut % (Auto) % Lymph % (Auto) % [place] % (Auto) % Eos % (Auto) % Baso % (Auto) % Neut # (Auto) (1.4-6.5) K/uL Lymph # (Auto) (1.2-3.4) K/uL [place] # (Auto) (0.11-0.59) K/uL Eos # (Auto) (0-0.5) K/uL Baso # (Auto) (0-0.2) K/uL Immature Gran # (Auto) (0.00-0.02) K/uL PT (9.0-12.0) Seconds INR (0.9-1.1) APTT (21.0-31.0) Seconds PTT Ratio D-Dimer 930 H* (0-500) ug/L FEU Sodium 138 (136-145) mmol/L Potassium 4.1 (3.5-5.1) mmol/L Chloride 106 (98-107) mmol/L Carbon Dioxide 23 (21-32) mmol/L Anion Gap 9.0 (3-11) BUN 25 H (7-18) mg/dl Creatinine 2.28 H (0.6-1.4) mg/dl Est Cr Clr Drug Dosing 38.4 ml/min Est GFR ( Amer) 32.3 Est GFR (Non-Af Amer) 27.8 BUN/Creatinine Ratio 10.9 (10-20) Glucose 82 (70-99) mg/dl POC Glucose (70-99) mg/dl Lactate (0.4-2.0) mmol/L Calcium 8.8 (8.5-10.1) mg/dl Phosphorus (2.5-4.9) mg/dl Magnesium 1.3 L (1.8-2.4) mg/dl Total Bilirubin 0.5 (0.2-1) mg/dl Direct Bilirubin (0-0.2) mg/dl AST 56 H (15-37) U/L ALT 64 (12-78) U/L Alkaline Phosphatase 106 (45-117) U/L Total Creatine Kinase (39-308) U/L Troponin I 0.024 (0-0.045) ng/ml NT-Pro-B Natriuret Pep (0-900) pg/ml Total Protein 7.7 (6.4-8.2) gm/dl Albumin 2.8 L (3.4-5.0) gm/dl Globulin 4.9 H (2.5-4.0) gm/dl Albumin/Globulin Ratio 0.6 L (0.9-2) Beta-Hydroxybutyric Acd (0.2-2.81) mg/dl Procalcitonin 0.75 H (0-0.5) ng/ml TSH (0.300-4.500) uIu/ml Random Cortisol mcg/dl Urine Color Urine Appearance (Clear) Urine pH (4.5-7.5) Ur Specific [place] (1.000-1.030) Urine Protein (Negative) Urine Glucose (UA) (Negative) Urine Ketones (Negative) Urine Blood (Negative) Urine Nitrite (Negative) Urine Bilirubin (Negative) Urine Urobilinogen (Negative) Ur Leukocyte Esterase (Negative) Urine WBC (Auto) (0-5) /hpf Urine RBC (Auto) (0-4) /hpf U Hyaline Cast (Auto) (0-5) /lpf U Epithel Cells (Auto) (0-5) /lpf Urine Bacteria (Auto) (Negative) Ur Renal Epithelial Cell Granular Casts (0) /lpf Urine Yeast Nasal Screen MRSA (PCR) (Negative) COVID-19 Eval Order SARS-CoV-2 (PCR) (Negative) Influenza Type A (PCR) (Neg) Influenza Type B (PCR) (Neg) RSV (RT-PCR) (Neg) Blood Type Antibody Screen 10/22/20 10/22/20 Range/Units 18:40 18:40 WBC 11.84 H (4.8-10.8) K/uL RBC 4.54 L (4.7-6.1) M/uL Hgb 12.9 L (14.0-18.0) g/dL Hct 39.6 L (42-52) % MCV 87.2 (80-100) fL MCH 28.4 (25-34) pg MCHC 32.6 (32-36) g/dL RDW Std Deviation 46.2 (36.4-46.3) fL RDW Coeff of Aristides 14.4 (11.5-14.5) % Plt Count 281 (130-400) K/uL MPV 10.3 (7.4-10.4) fL Immature Gran % (Auto) 0.2 % Neut % (Auto) 84.3 % Lymph % (Auto) 7.9 % [place] % (Auto) 7.3 % Eos % (Auto) 0.0 % Baso % (Auto) 0.3 % Neut # (Auto) 9.99 H (1.4-6.5) K/uL Lymph # (Auto) 0.94 L (1.2-3.4) K/uL [place] # (Auto) 0.86 H (0.11-0.59) K/uL Eos # (Auto) 0.00 (0-0.5) K/uL Baso # (Auto) 0.03 (0-0.2) K/uL Immature Gran # (Auto) 0.02 (0.00-0.02) K/uL PT 11.0 (9.0-12.0) Seconds INR 1.1 (0.9-1.1) APTT 28.3 (21.0-31.0) Seconds PTT Ratio 1.1 D-Dimer (0-500) ug/L FEU Sodium (136-145) mmol/L Potassium (3.5-5.1) mmol/L Chloride (98-107) mmol/L Carbon Dioxide (21-32) mmol/L Anion Gap (3-11) BUN (7-18) mg/dl Creatinine (0.6-1.4) mg/dl Est Cr Clr Drug Dosing ml/min Est GFR ( Amer) Est GFR (Non-Af Amer) BUN/Creatinine Ratio (10-20) Glucose (70-99) mg/dl POC Glucose (70-99) mg/dl Lactate (0.4-2.0) mmol/L Calcium (8.5-10.1) mg/dl Phosphorus (2.5-4.9) mg/dl Magnesium (1.8-2.4) mg/dl Total Bilirubin (0.2-1) mg/dl Direct Bilirubin (0-0.2) mg/dl AST (15-37) U/L ALT (12-78) U/L Alkaline Phosphatase (45-117) U/L Total Creatine Kinase (39-308) U/L Troponin I (0-0.045) ng/ml NT-Pro-B Natriuret Pep (0-900) pg/ml Total Protein (6.4-8.2) gm/dl Albumin (3.4-5.0) gm/dl Globulin (2.5-4.0) gm/dl Albumin/Globulin Ratio (0.9-2) Beta-Hydroxybutyric Acd (0.2-2.81) mg/dl Procalcitonin (0-0.5) ng/ml TSH (0.300-4.500) uIu/ml Random Cortisol mcg/dl Urine Color Urine Appearance (Clear) Urine pH (4.5-7.5) Ur Specific [place] (1.000-1.030) Urine Protein (Negative) Urine Glucose (UA) (Negative) Urine Ketones (Negative) Urine Blood (Negative) Urine Nitrite (Negative) Urine Bilirubin (Negative) Urine Urobilinogen (Negative) Ur Leukocyte Esterase (Negative) Urine WBC (Auto) (0-5) /hpf Urine RBC (Auto) (0-4) /hpf U Hyaline Cast (Auto) (0-5) /lpf U Epithel Cells (Auto) (0-5) /lpf Urine Bacteria (Auto) (Negative) Ur Renal Epithelial Cell Granular Casts (0) /lpf Urine Yeast Nasal Screen MRSA (PCR) (Negative) COVID-19 Eval Order SARS-CoV-2 (PCR) (Negative) Influenza Type A (PCR) (Neg) Influenza Type B (PCR) (Neg) RSV (RT-PCR) (Neg) Blood Type Antibody Screen Medications Administered Current Inpatient Medications Aspirin (Aspirin 81 Mg Ectab) 81 mg PO DAILY TRUNG Stop: 11/22/20 08:59 Last Admin: 10/23/20 07:58 Dose: 81 mg Documented by: Atorvastatin Calcium (Atorvastatin 40 Mg Tab) 80 mg PO HS TRUNG Stop: 11/21/20 22:59 Last Admin: 10/22/20 22:38 Dose: 80 mg Documented by: Dextrose (Dextrose 50% 50 Ml Syringe) 25 - 50 ml IV UD PRN; Protocol PRN Reason: Hypoglycemia Protocol Stop: 11/22/20 10:44 Glucagon (Glucagon For Inj 1 Mg Vial) 1 mg IM UD PRN; Protocol PRN Reason: Hypoglycemia Protocol Stop: 11/22/20 10:44 Glucose (Glucose 40% Gel 15 Gm Tube) 15 - 30 gm PO UD PRN; Protocol PRN Reason: Hypoglycemia Protocol Stop: 11/22/20 10:44 Glucose (Glucose 10 Tabs/Tube) 4 - 8 tabs PO UD PRN; Protocol PRN Reason: Hypoglycemia Protocol Stop: 11/22/20 10:44 Heparin Sodium (Beef Lung) (Heparin 10 Unit/Ml 5 Ml Flush) 5 ml FLUSH PRN PRN PRN Reason: Flush Stop: 11/21/20 22:35 Norepinephrine Bitartrate (Levophed/D5w) 8 mg in 508 mls @ 0 mls/hr IV .Q0M TRUNG; Protocol Stop: 11/21/20 20:29 Last Titration: 10/23/20 06:04 Dose: 0 mcg/kg/min, 0 mls/hr Documented by: Dexamethasone 6 mg/ Syringe 1.5 mls @ 1 mls/min IV DAILY TRUNG Stop: 10/31/20 09:02 Last Admin: 10/23/20 07:58 Dose: 1 mls/min Documented by: Vasopressin 20 units/ Sodium (Chloride) 101 mls @ 0 mls/hr IV .Q0M TRUNG Stop: 11/21/20 22:29 Last Infusion: 10/23/20 14:47 Dose: Infused Documented by: Piperacillin Sod/Tazobactam (Sod 3.375 gm/ Dextrose) 115 mls @ 28.75 mls/hr IV Q8H TRUNG; Protocol Stop: 10/30/20 01:59 Last Infusion: 10/23/20 15:06 Dose: Infused Documented by: Heparin Sodium/Dextrose (Heparin Sodium/Dextrose) 25,000 units in 500 mls @ 0 mls/hr IV .Q0M TRUNG; Protocol Stop: 11/22/20 00:29 Last Titration: 10/23/20 09:45 Dose: 0 units/hr, 0 mls/hr Documented by: Insulin Human Regular 250 (units/ Sodium Chloride) 250 mls @ 6.4 mls/hr IV .Q24H TRUNG; Protocol Stop: 11/22/20 10:44 Last Titration: 10/23/20 15:39 Dose: 6.4 units/hr, 6.4 mls/hr Documented by: Insulin Aspart (Insulin Aspart 100 Units/Ml 3 Ml Pen) 0 units SC ACHS TRUNG Stop: 11/22/20 11:29 Last Admin: 10/23/20 13:01 Dose: 12 units Documented by: Miscellaneous (Carbohydrates For Hypoglycemia ) 15 - 30 gm PO UD PRN PRN Reason: Hypoglycemia Treatment Stop: 11/22/20 10:44 Miscellaneous Information (Piperacill/Tazobac Consult Active) 1 ea N/A UD PRN PRN Reason: Consult Stop: 11/21/20 19:07 Tamsulosin HCl (Tamsulosin Hcl 0.4 Mg Cap) 0.4 mg PO DAILY [facility] Stop: 11/22/20 08:59 Last Admin: 10/23/20 07:58 Dose: 0.4 mg Documented by: Resident Activity Tracking Resident Involvement: Resident Care Provided Care Provided: Adult Hospital Medicine (1) Sepsis Sepsis acute organ dysfunction status: unspecified Sepsis type: sepsis due to unspecified organism Qualified Code(s): A41.9 - Sepsis, unspecified organism
[2020-10-23 09:35] LABS: Partial Thromboplastin Ratio > 5.3
[2020-10-23 09:43] LABS: Partial Thromboplastin Time > 139.0 Seconds (21.0-31.0)
[2020-10-23] MEDS ORDERED: GLUCAGON FOR INJ 1 MG VIAL IM PRN (10:45)
[2020-10-23] MEDS ORDERED: GLUCOSE 10 TABS/TUBE PO PRN (10:45)
[2020-10-23] MEDS ORDERED: NovoLIN-R BOLUS FROM BAG IV ONE (10:45)
[2020-10-23] MEDS ORDERED: GLUCOSE 40% GEL 15 GM TUBE PO PRN (10:45)
[2020-10-23] MEDS ORDERED: DEXTROSE 50% 50 ML SYRINGE IV PRN (10:45)
[2020-10-23] MEDS ORDERED: CARBOHYDRATES FOR HYPOGLYCEMIA PO PRN (10:45)
[2020-10-23] MEDS: INSULIN REGULAR 250 UNITS in SODIUM CHLORIDE 0.9% 247.5 ML IV SCH (11:04)
[2020-10-23 12:27] LABS: Partial Thromboplastin Ratio 3.7
[2020-10-23 12:31] LABS: Partial Thromboplastin Time 96.4 Seconds (21.0-31.0)
[2020-10-23] MEDS: INSULIN ASPART 100 UNITS/ML 3 ML PEN SC SCH ×3 (13:01→20:47)
--- NOTE | 2020-10-23 13:06 | Hospitalist Progress Note ---
Date of Service October 23, 2020 Assessment & Plan (1) Septic shock: Admitted with sepsis likely secondary to multilobar pneumonia and presented with hypotension and shock Received adequate amount of intravenous fluid and required intravenous pressors to maintain blood pressure Appreciate orchard sprayer input and recommendation He is off pressors since this morning and blood pressure is maintaining at noon low normal level No more fever and/or chills but white count remains mildly elevated (2) Pneumonia due to 2019 novel coronavirus: Presented with hypoxic respiratory failure Has been sick for some time with weakness, dizziness and has had diarrhea without any documented Covid contact Tested positive for Covid with CT scan suggestive of viral pneumonia Started with dexamethasone but remdesivir could not be given due to renal impairment Discussed with the patient this morning and convalescent plasma was administered after discussing pros and cons with the patient in detail Clinically seems to be improving Hypoxia could be secondary to pneumonia and/or pulmonary embolism Has been started on intravenous heparin Will get CTA when appropriate (3) Multifocal pneumonia: CT scan did show multi lobar pneumonia Likely has bacterial pneumonia superimposed on COVID-19 infection and pneumonia Has been getting intravenous Vanco, Zosyn and doxy Awaiting blood cultures report Clinically better today (4) BHAVESH (acute kidney injury): Presented with BHAVESH likely secondary to dehydration Received intravenous fluid and the kidney function has been improving We will continue intravenous fluid and monitor PRP (5) HTN (hypertension): Presented with hypotension and septic shock (6) Diabetes mellitus, type II: Monitor blood sugar Has been requiring intravenous insulin Appreciate pharmacy input and recommendation SSI (7) Prostate cancer: History of prostate cancer Can increase the risk of clot formation DVT prophylaxis Has been on heparin CODE STATUS Full Admission and Anticipated Discharge Date Admission Date: October 22, 2020 Subjective 10/23/2020 The patient was seen and examined in telemetry Covid unit He has been feeling much better since admission Still complains to have cough with shortness of breath Denies any significant pain, fever and/or chills, any nausea and or vomiting Review of Systems Review of Systems: All systems reviewed and are unremarkable except as noted below Respiratory: + cough, + dyspnea and + dyspnea on exertion Cardiovascular: no chest pain and no palpitations Gastrointestinal: no abdominal pain, no nausea and no vomiting Neurologic: Alert, awake and oriented x3 Physical Exam Physical Exam: Lying in bed with moderate shortness of breath at rest Constitutional: well developed, well nourished and + ill appearing Eyes: PERRL, conjunctivae normal, anicteric sclerae ENMT: external ear and nose normal, oropharynx normal Neck: trachea midline, no thyromegaly Respiratory: + respiratory distress Auscultation: + diminished lung sounds and + crackles (Coarse crackles at the bases) Cardiovascular: Rate/Rhythm: regular rate and regular rhythm Heart Sounds: no murmur Extremities: no edema Gastrointestinal (Abdomen): Inspection/Auscultation: normal bowel sounds; abdomen not distended Percussion/Palpation: abdomen soft; abdomen nontender Musculoskeletal: No acute arthritis in any joint Neurologic: Alert, awake and oriented x3. Generally weak Psychiatric: A+Ox3, euthymic affect Lymphatic: no cervical or axillary lymphadenopathy Results & Data Results & Data ([facility]) Vital Signs (Past 12 Hours) Vital Signs Temp Pulse Resp BP Pulse Ox 10/23/20 12:19 36.3 C L 61 23 93/59 L 93 10/23/20 11:00 62 20 98/58 L 92 10/23/20 10:30 65 19 89 L 10/23/20 10:00 60 17 93/50 L 96 10/23/20 09:30 57 L 16 95 10/23/20 08:30 57 L 20 96 10/23/20 08:00 56 L 15 94/57 L 97 10/23/20 07:30 36.9 C 56 L 32 H 96 10/23/20 03:30 58 L 22 94 10/23/20 03:00 57 L 19 99/57 L 93 10/23/20 02:30 59 L 6 L 92 10/23/20 02:00 55 L 19 107/58 L 93 10/23/20 01:30 67 24 87 L 10/23/20 01:00 60 11 L 98/53 L 93 Laboratory Results Short CBC 10/22/20 10/23/20 Range/Units 18:40 06:27 WBC 11.84 H 11.33 H (4.8-10.8) K/uL Hgb 12.9 L 10.1 L (14.0-18.0) g/dL Hct 39.6 L 31.8 L (42-52) % Plt Count 281 241 (130-400) K/uL BMP 10/22/20 10/23/20 18:40 06:36 Sodium 138 136 Potassium 4.1 4.7 Chloride 106 107 Carbon Dioxide 23 17 L BUN 25 H 25 H Creatinine 2.28 H 1.49 H D Glucose 82 360 H* Calcium 8.8 7.4 L D Cardiac Enzymes 10/22/20 10/22/20 10/23/20 Range/Units 18:40 18:40 06:36 Total Creatine Kinase 149 (39-308) U/L Troponin I 0.024 < 0.015 (0-0.045) ng/ml Liver Function 10/22/20 10/23/20 Range/Units 18:40 06:36 Total Bilirubin 0.5 0.5 (0.2-1) mg/dl Direct Bilirubin 0.3 H (0-0.2) mg/dl AST 56 H 41 H (15-37) U/L ALT 64 45 (12-78) U/L Alkaline Phosphatase 106 72 (45-117) U/L Albumin 2.8 L 2.2 L (3.4-5.0) gm/dl Urine 10/22/20 Range/Units 20:14 Urine Color Dark Yellow Urine Appearance Turbid A (Clear) Urine pH 5.5 (4.5-7.5) Ur Specific [place] 1.018 (1.000-1.030) Urine Protein 3+ H (Negative) Urine Glucose (UA) Negative (Negative) Medications Administered Current Inpatient Medications Aspirin (Aspirin 81 Mg Ectab) 81 mg PO DAILY TRUNG Stop: 11/22/20 08:59 Last Admin: 10/23/20 07:58 Dose: 81 mg Documented by: Atorvastatin Calcium (Atorvastatin 40 Mg Tab) 80 mg PO HS TRUNG Stop: 11/21/20 22:59 Last Admin: 10/22/20 22:38 Dose: 80 mg Documented by: Dextrose (Dextrose 50% 50 Ml Syringe) 25 - 50 ml IV UD PRN; Protocol PRN Reason: Hypoglycemia Protocol Stop: 11/22/20 10:44 Glucagon (Glucagon For Inj 1 Mg Vial) 1 mg IM UD PRN; Protocol PRN Reason: Hypoglycemia Protocol Stop: 11/22/20 10:44 Glucose (Glucose 40% Gel 15 Gm Tube) 15 - 30 gm PO UD PRN; Protocol PRN Reason: Hypoglycemia Protocol Stop: 11/22/20 10:44 Glucose (Glucose 10 Tabs/Tube) 4 - 8 tabs PO UD PRN; Protocol PRN Reason: Hypoglycemia Protocol Stop: 11/22/20 10:44 Heparin Sodium (Beef Lung) (Heparin 10 Unit/Ml 5 Ml Flush) 5 ml FLUSH PRN PRN PRN Reason: Flush Stop: 11/21/20 22:35 Norepinephrine Bitartrate (Levophed/D5w) 8 mg in 508 mls @ 0 mls/hr IV .Q0M TRUNG; Protocol Stop: 11/21/20 20:29 Last Titration: 10/23/20 06:04 Dose: 0 mcg/kg/min, 0 mls/hr Documented by: Dexamethasone 6 mg/ Syringe 1.5 mls @ 1 mls/min IV DAILY TRUNG Stop: 10/31/20 09:02 Last Admin: 10/23/20 07:58 Dose: 1 mls/min Documented by: Vasopressin 20 units/ Sodium (Chloride) 101 mls @ 0 mls/hr IV .Q0M TRUNG Stop: 11/21/20 22:29 Last Admin: 10/23/20 06:04 Dose: 0.04 unit/min, 12.1 mls/hr Documented by: Piperacillin Sod/Tazobactam (Sod 3.375 gm/ Dextrose) 115 mls @ 28.75 mls/hr IV Q8H [facility]; Protocol Stop: 10/30/20 01:59 Last Admin: 10/23/20 10:54 Dose: 28.8 mls/hr Documented by: Heparin Sodium/Dextrose (Heparin Sodium/Dextrose) 25,000 units in 500 mls @ 0 mls/hr IV .Q0M TRUNG; Protocol Stop: 11/22/20 00:29 Last Titration: 10/23/20 09:45 Dose: 0 units/hr, 0 mls/hr Documented by: Insulin Human Regular 250 (units/ Sodium Chloride) 250 mls @ 5.7 mls/hr IV .Q24H [facility]; Protocol Stop: 11/22/20 10:44 Last Titration: 10/23/20 12:04 Dose: 5.7 units/hr, 5.7 mls/hr Documented by: Insulin Aspart (Insulin Aspart 100 Units/Ml 3 Ml Pen) 0 units SC ACHS [facility] Stop: 11/22/20 11:29 Miscellaneous (Carbohydrates For Hypoglycemia ) 15 - 30 gm PO UD PRN PRN Reason: Hypoglycemia Treatment Stop: 11/22/20 10:44 Miscellaneous Information (Piperacill/Tazobac Consult Active) 1 ea N/A UD PRN PRN Reason: Consult Stop: 11/21/20 19:07 Tamsulosin HCl (Tamsulosin Hcl 0.4 Mg Cap) 0.4 mg PO DAILY [facility] Stop: 11/22/20 08:59 Last Admin: 10/23/20 07:58 Dose: 0.4 mg Documented by:
[2020-10-23] MEDS ORDERED: REMDESIVIR 100 MG in SODIUM CHLORIDE 0.9% 230 ML IV SCH ×2 (20:45→21:00)
[2020-10-23] MEDS: HEPARIN SOD 5,000 UNIT/0.5 ML VIAL SQ SCH (20:47)
[2020-10-23] MEDS: ATORVASTATIN 40 MG TAB PO SCH (20:47)
--- NOTE | 2020-10-23 21:24 | Electrocardiogram Report ---
Test Reason : Blood Pressure : / mmHG Vent. Rate : 088 BPM Atrial Rate : 088 BPM P-R Int : 166 ms QRS Dur : 100 ms QT Int : 338 ms P-R-T Axes : 110 057 046 degrees QTc Int : 408 ms Poor data quality, interpretation may be adversely affected Normal sinus rhythm Normal ECG No previous ECGs available Confirmed by Francis Xavier ([id number]) on 10/23/2020 9:24:04 PM Referred By: REFERRED SELF Confirmed By:Francis Xavier
[2020-10-23] MEDS ORDERED: dexAMETHasone 6 MG in SYRINGE 0 ML IV SCH (23:00)
[2020-10-24] MEDS: PIPERACILLIN/TAZOBACTAM 3.375 GM in DEXTROSE 5% 100 ML IV SCH ×3 (02:58→16:57)
[2020-10-24 07:07] LABS: Hematocrit (blood only) 30.8 % (42-52); Hemoglobin 10.4 g/dL (14.0-18.0); Immature Granulocytes # (auto) 0.03 K/uL (0.00-0.02); Immature Granulocytes % (auto) 0.2 %; Lymphocytes # (auto) 0.67 K/uL (1.2-3.4); Lymphocytes % (auto) 3.5 %; Mean Corpuscular Hemoglobin 28.6 pg (25-34); Mean Corpuscular Hgb Conc 33.8 g/dL (32-36); Mean Corpuscular Volume 84.6 fL (80-100); Monocytes # (auto) 0.39 K/uL (0.11-0.59); Neutrophils # (auto) 18.05 K/uL (1.4-6.5); Neutrophils % (auto) 94.3 %; Platelet Count 260 K/uL (130-400); RDW Coefficient of Variation 14.3 % (11.5-14.5); RDW Standard Deviation 44.6 fL (36.4-46.3); Red Blood Count 3.64 M/uL (4.7-6.1); White Blood Count 19.14 K/uL (4.8-10.8)
--- NOTE | 2020-10-24 07:52 | Critical Care Progress Note ---
Date of Service October 24, 2020 Assessment & Plan (1) Shock: Reason Critically Ill: 70-year-old male presented to the ICU within the COVID-19 unit, with COVID-19 pneumonia, hypoxia, sepsis, and significant hypotension requiring vasopressor support. At this point has not required vasopressor support for greater than 24 hours and is stable for downgrade from ICU level of care. Neuro: -[facility] ICU: Negative -CT head with age-indeterminate CVA. No acute intracranial process -Altered mental status: Questionably secondary to alcohol withdrawal versus steroid-induced -Became increasingly agitated following receiving Decadron early this morning -Discussions with patient's family indicated that he is a frequent drinker, 5-8 beers daily at minimum. -Received 1 mg Ativan x2 with improvement in agitation and restlessness -Start on AWSS protocol Cardiac/Vascular: -Shock likely secondary to sepsis in the setting of COVID-19 pneumonia with potential bacterial infection. -Cannot rule out PE as culprit at this time considering hypoxia and hypercoagulable process of COVID-19, empirically started on heparin drip. -unable to perform Chest CTA due to renal function. -Troponin negative -Random cortisol of 42 -Received 2 L bolus in the ED and 500 albumin without sustained improvement temporarily required Levophed and vasopressin -Subsequently been able to be titrated off with continued appropriate blood pressures -Echo demonstrated normal left ventricular systolic function, EF 60-65%, mild concentric left ventricular hypertrophy, moderate aortic valve calcification, mild tricuspid regurgitation Respiratory: -Hypoxia: In the setting of known COVID-19 infection -CT chest with multifocal consolidations and groundglass opacities within the lungs, consistent with a viral pneumonia -Dexamethasone 6 mg held in the setting of altered mental status -Maintaining appropriate oxygen saturations on 3L nasal cannula -Continuous monitoring on pulse ox -Echo without signs of right heart strain, will discontinue heparin drip as limited evidence of PE, will continue DVT prophylaxis GI/Nutrition: -Sigmoid diverticulosis without evidence of acute diverticulitis noted on CT abdomen and inconsistent with reports of diarrhea. Likely secondary to Covid 19. -Continue with IV fluids and replete electrolytes as indicated Renal/Lytes: -Acute kidney injury -cr 2.28 on admission (baseline of 0.75), improved -Avoid nephrotoxins and renally adjust medications -Monitor with routine BMPs -Hypomagnesemia -initial magnesium 1.3, repleted -Monitor routine BMP and replete as indicated : -Patient does have history of prostate cancer and is reportedly undergoing brachytherapy at [facility]. -Noted to have bladder wall thickening with infiltration adjutant to the bladder, seminal vesicles and prostate. -Undetermined if this is treatment related versus infectious -Nails catheter in place -strict I's and O's ENDO: -DM type II -holding home dose metformin -Hemoglobin A1c 7.5 -Discontinue insulin drip, conversion to subcu insulin while in hospital -history of thyroid disease -TSH 1.21 -Random cortisol 42 HEME: -Hgb stable at 10.1 this a.m. -monitor routine CBCs ID: -Sepsispatient with fever, mild leukocytosis, mildly elevated procalcitonin, Lactate negative, overnight was significantly hypotensive. -COVID-19 positive. Started on dexamethasone. Holding remdesivir for impaired renal function. -Influenza and RSV negative. -Urine culture negative -Blood culture demonstrating gram-positive bacilli (in 1/2, anaerobic culture) -Nasal MRSA negative -CT chest with multifocal pneumonia which is more consistent with viral pneumonia but cannot rule out superimposed bacterial infection. -Continue zosyn; discontinue vancomycin and doxycycline Lines/IV Access: -Right femoral CVL, peripheral IVs, left radial A-line DVT Prophylaxis: -SCDs, subcu heparin (2) COVID-19: (3) Sepsis: (4) Pneumonia: (5) UTI (urinary tract infection): (6) Prostate cancer: (7) Acute hypotension: (8) BPH (benign prostatic hyperplasia): (9) HLD (hyperlipidemia): (10) HTN (hypertension): (11) Diabetes mellitus, type II: Admission and Anticipated Discharge Date Admission Date: October 22, 2020 Supervising Physician Co-Signing Physician Notes Dr. Langley was resident physician during care of patient. I separately evaluated patient for barajas portions of the history and the exam. I was present during the critical portion of medical decision making, and I discussed the case with the resident. I generally agree with the findings and plan. Subjective Overnight patient had numerous periods of time where he became agitated, and not redirectable. Discussions with patient and patient family elucidated that patient is a frequent alcohol consumption prefers beer. Patient states that he only drinks 1-2 drinks 2 times a week, corroboration with family who elucidates that patient consumes 5-8 beers daily at minimum with weekends being typically twice that. Review of Systems Review of Systems: All systems reviewed & are unremarkable except as noted in Subjective Physical Exam Constitutional: WD/WN, vitals as above Eyes: PERRL, conjunctivae normal, anicteric sclerae Neck: normal visual inspection and trachea midline Respiratory: normal respiratory effort; no respiratory distress, no labored breathing and does not use accessory muscles Auscultation: + rhonchi (whole mims b/l); no crackles and no wheezes Cardiovascular: Rate/Rhythm: regular rate and regular rhythm Heart Sounds: no gallop, no murmur and no cardiac rub Vessels: normal peripheral pulses; no JVD Extremities: no calf tenderness and no edema Gastrointestinal (Abdomen): normal bowel sounds, soft, nontender, no hepatosplenomegaly Skin: no rashes, warm and dry Neurologic: PERRL, EOMI, accommodation nl, no face palsy, no dysarthria Psychiatric: Orientation: alert and oriented x 3 Results & Data Results & Data ([facility]) Vital Signs (Past 12 Hours) Vital Signs Temp Pulse Resp BP BP Pulse Ox 10/24/20 06:30 91 H 91 10/24/20 06:00 87 111/43 L 89 L 10/24/20 05:30 77 88 L 10/24/20 05:02 79 87 L 10/24/20 05:01 77 116/58 L 86 L 10/24/20 05:00 82 85 L 10/24/20 04:00 78 123/59 L 92 10/24/20 03:59 36.8 C 17 124/54 L 90 10/24/20 03:01 78 103/49 L 88 L 10/24/20 03:00 76 90 10/24/20 02:00 73 121/62 93 10/24/20 01:01 70 100/46 L 92 10/24/20 01:00 69 92 10/24/20 00:11 36.0 C L 17 124/51 L 90 10/24/20 00:00 94 H 88 L 10/23/20 23:00 66 110/58 L 92 10/23/20 22:00 68 107/54 L 92 10/23/20 21:00 65 90/48 L 94 10/23/20 20:01 72 89/42 L 90 10/23/20 20:00 68 91 Laboratory Results 10/24/20 10/24/20 10/24/20 Range/Units 08:55 08:10 07:19 WBC (4.8-10.8) K/uL RBC (4.7-6.1) M/uL Hgb (14.0-18.0) g/dL Hct (42-52) % MCV (80-100) fL MCH (25-34) pg MCHC (32-36) g/dL RDW Std Deviation (36.4-46.3) fL RDW Coeff of Aristides (11.5-14.5) % Plt Count (130-400) K/uL MPV (7.4-10.4) fL Immature Gran % (Auto) % Neut % (Auto) % Lymph % (Auto) % [place] % (Auto) % Eos % (Auto) % Baso % (Auto) % Neut # (Auto) (1.4-6.5) K/uL Lymph # (Auto) (1.2-3.4) K/uL [place] # (Auto) (0.11-0.59) K/uL Eos # (Auto) (0-0.5) K/uL Baso # (Auto) (0-0.2) K/uL Immature Gran # (Auto) (0.00-0.02) K/uL APTT (21.0-31.0) Seconds PTT Ratio Sodium (136-145) mmol/L Potassium (3.5-5.1) mmol/L Chloride (98-107) mmol/L Carbon Dioxide (21-32) mmol/L Anion Gap (3-11) BUN (7-18) mg/dl Creatinine (0.6-1.4) mg/dl Est Cr Clr Drug Dosing ml/min Est GFR ( Amer) Est GFR (Non-Af Amer) BUN/Creatinine Ratio (10-20) Glucose (70-99) mg/dl POC Glucose 124 H 86 107 H (70-99) mg/dl Estimat Average Glucose mg/dl Hemoglobin A1c (4.5-5.6) % Calcium (8.5-10.1) mg/dl Phosphorus (2.5-4.9) mg/dl Magnesium (1.8-2.4) mg/dl Total Bilirubin (0.2-1) mg/dl Direct Bilirubin (0-0.2) mg/dl AST (15-37) U/L ALT (12-78) U/L Alkaline Phosphatase (45-117) U/L Total Protein (6.4-8.2) gm/dl Albumin (3.4-5.0) gm/dl Nasal Screen MRSA (PCR) (Negative) Blood Type Antibody Screen 10/24/20 10/24/20 10/24/20 Range/Units 06:28 06:28 06:28 WBC 19.14 H (4.8-10.8) K/uL RBC 3.64 L (4.7-6.1) M/uL Hgb 10.4 L (14.0-18.0) g/dL Hct 30.8 L (42-52) % MCV 84.6 (80-100) fL MCH 28.6 (25-34) pg MCHC 33.8 (32-36) g/dL RDW Std Deviation 44.6 (36.4-46.3) fL RDW Coeff of Aristides 14.3 (11.5-14.5) % Plt Count 260 (130-400) K/uL MPV 11.0 H (7.4-10.4) fL Immature Gran % (Auto) 0.2 % Neut % (Auto) 94.3 % Lymph % (Auto) 3.5 % [place] % (Auto) 2.0 % Eos % (Auto) 0.0 % Baso % (Auto) 0.0 % Neut # (Auto) 18.05 H (1.4-6.5) K/uL Lymph # (Auto) 0.67 L (1.2-3.4) K/uL [place] # (Auto) 0.39 (0.11-0.59) K/uL Eos # (Auto) 0.00 (0-0.5) K/uL Baso # (Auto) 0.00 (0-0.2) K/uL Immature Gran # (Auto) 0.03 H (0.00-0.02) K/uL APTT (21.0-31.0) Seconds PTT Ratio Sodium 141 (136-145) mmol/L Potassium 3.6 D (3.5-5.1) mmol/L Chloride 112 H (98-107) mmol/L Carbon Dioxide 20 L (21-32) mmol/L Anion Gap 9.0 (3-11) BUN 27 H (7-18) mg/dl Creatinine 1.04 (0.6-1.4) mg/dl Est Cr Clr Drug Dosing 87.7 ml/min Est GFR ( Amer) 83.3 Est GFR (Non-Af Amer) 71.9 BUN/Creatinine Ratio 25.9 H (10-20) Glucose 98 (70-99) mg/dl POC Glucose (70-99) mg/dl Estimat Average Glucose 189 mg/dl Hemoglobin A1c 8.2 H (4.5-5.6) % Calcium 8.2 L (8.5-10.1) mg/dl Phosphorus 1.2 L* D (2.5-4.9) mg/dl Magnesium 1.5 L (1.8-2.4) mg/dl Total Bilirubin 0.3 (0.2-1) mg/dl Direct Bilirubin 0.1 D (0-0.2) mg/dl AST 37 (15-37) U/L ALT 43 (12-78) U/L Alkaline Phosphatase 74 (45-117) U/L Total Protein 6.3 L (6.4-8.2) gm/dl Albumin 2.2 L (3.4-5.0) gm/dl Nasal Screen MRSA (PCR) (Negative) Blood Type Antibody Screen 10/24/20 10/24/20 10/24/20 Range/Units 06:12 04:14 02:01 WBC (4.8-10.8) K/uL RBC (4.7-6.1) M/uL Hgb (14.0-18.0) g/dL Hct (42-52) % MCV (80-100) fL MCH (25-34) pg MCHC (32-36) g/dL RDW Std Deviation (36.4-46.3) fL RDW Coeff of Aristides (11.5-14.5) % Plt Count (130-400) K/uL MPV (7.4-10.4) fL Immature Gran % (Auto) % Neut % (Auto) % Lymph % (Auto) % [place] % (Auto) % Eos % (Auto) % Baso % (Auto) % Neut # (Auto) (1.4-6.5) K/uL Lymph # (Auto) (1.2-3.4) K/uL [place] # (Auto) (0.11-0.59) K/uL Eos # (Auto) (0-0.5) K/uL Baso # (Auto) (0-0.2) K/uL Immature Gran # (Auto) (0.00-0.02) K/uL APTT (21.0-31.0) Seconds PTT Ratio Sodium (136-145) mmol/L Potassium (3.5-5.1) mmol/L Chloride (98-107) mmol/L Carbon Dioxide (21-32) mmol/L Anion Gap (3-11) BUN (7-18) mg/dl Creatinine (0.6-1.4) mg/dl Est Cr Clr Drug Dosing ml/min Est GFR ( Amer) Est GFR (Non-Af Amer) BUN/Creatinine Ratio (10-20) Glucose (70-99) mg/dl POC Glucose 104 H 137 H 150 H (70-99) mg/dl Estimat Average Glucose mg/dl Hemoglobin A1c (4.5-5.6) % Calcium (8.5-10.1) mg/dl Phosphorus (2.5-4.9) mg/dl Magnesium (1.8-2.4) mg/dl Total Bilirubin (0.2-1) mg/dl Direct Bilirubin (0-0.2) mg/dl AST (15-37) U/L ALT (12-78) U/L Alkaline Phosphatase (45-117) U/L Total Protein (6.4-8.2) gm/dl Albumin (3.4-5.0) gm/dl Nasal Screen MRSA (PCR) (Negative) Blood Type Antibody Screen 10/24/20 10/23/20 10/23/20 Range/Units 00:06 Unknown 22:01 WBC (4.8-10.8) K/uL RBC (4.7-6.1) M/uL Hgb (14.0-18.0) g/dL Hct (42-52) % MCV (80-100) fL MCH (25-34) pg MCHC (32-36) g/dL RDW Std Deviation (36.4-46.3) fL RDW Coeff of Aristides (11.5-14.5) % Plt Count (130-400) K/uL MPV (7.4-10.4) fL Immature Gran % (Auto) % Neut % (Auto) % Lymph % (Auto) % [place] % (Auto) % Eos % (Auto) % Baso % (Auto) % Neut # (Auto) (1.4-6.5) K/uL Lymph # (Auto) (1.2-3.4) K/uL [place] # (Auto) (0.11-0.59) K/uL Eos # (Auto) (0-0.5) K/uL Baso # (Auto) (0-0.2) K/uL Immature Gran # (Auto) (0.00-0.02) K/uL APTT (21.0-31.0) Seconds PTT Ratio Sodium (136-145) mmol/L Potassium (3.5-5.1) mmol/L Chloride (98-107) mmol/L Carbon Dioxide (21-32) mmol/L Anion Gap (3-11) BUN (7-18) mg/dl Creatinine (0.6-1.4) mg/dl Est Cr Clr Drug Dosing ml/min Est GFR ( Amer) Est GFR (Non-Af Amer) BUN/Creatinine Ratio (10-20) Glucose (70-99) mg/dl POC Glucose 156 H 193 H (70-99) mg/dl Estimat Average Glucose mg/dl Hemoglobin A1c (4.5-5.6) % Calcium (8.5-10.1) mg/dl Phosphorus (2.5-4.9) mg/dl Magnesium (1.8-2.4) mg/dl Total Bilirubin (0.2-1) mg/dl Direct Bilirubin (0-0.2) mg/dl AST (15-37) U/L ALT (12-78) U/L Alkaline Phosphatase (45-117) U/L Total Protein (6.4-8.2) gm/dl Albumin (3.4-5.0) gm/dl Nasal Screen MRSA (PCR) Negative (Negative) Blood Type Antibody Screen 10/23/20 10/23/20 10/23/20 Range/Units 21:24 19:58 18:31 WBC (4.8-10.8) K/uL RBC (4.7-6.1) M/uL Hgb (14.0-18.0) g/dL Hct (42-52) % MCV (80-100) fL MCH (25-34) pg MCHC (32-36) g/dL RDW Std Deviation (36.4-46.3) fL RDW Coeff of Aristides (11.5-14.5) % Plt Count (130-400) K/uL MPV (7.4-10.4) fL Immature Gran % (Auto) % Neut % (Auto) % Lymph % (Auto) % [place] % (Auto) % Eos % (Auto) % Baso % (Auto) % Neut # (Auto) (1.4-6.5) K/uL Lymph # (Auto) (1.2-3.4) K/uL [place] # (Auto) (0.11-0.59) K/uL Eos # (Auto) (0-0.5) K/uL Baso # (Auto) (0-0.2) K/uL Immature Gran # (Auto) (0.00-0.02) K/uL APTT (21.0-31.0) Seconds PTT Ratio Sodium (136-145) mmol/L Potassium (3.5-5.1) mmol/L Chloride (98-107) mmol/L Carbon Dioxide (21-32) mmol/L Anion Gap (3-11) BUN (7-18) mg/dl Creatinine (0.6-1.4) mg/dl Est Cr Clr Drug Dosing ml/min Est GFR ( Amer) Est GFR (Non-Af Amer) BUN/Creatinine Ratio (10-20) Glucose (70-99) mg/dl POC Glucose 176 H 168 H 177 H (70-99) mg/dl Estimat Average Glucose mg/dl Hemoglobin A1c (4.5-5.6) % Calcium (8.5-10.1) mg/dl Phosphorus (2.5-4.9) mg/dl Magnesium (1.8-2.4) mg/dl Total Bilirubin (0.2-1) mg/dl Direct Bilirubin (0-0.2) mg/dl AST (15-37) U/L ALT (12-78) U/L Alkaline Phosphatase (45-117) U/L Total Protein (6.4-8.2) gm/dl Albumin (3.4-5.0) gm/dl Nasal Screen MRSA (PCR) (Negative) Blood Type Antibody Screen 10/23/20 10/23/20 10/23/20 Range/Units 17:41 16:35 15:32 WBC (4.8-10.8) K/uL RBC (4.7-6.1) M/uL Hgb (14.0-18.0) g/dL Hct (42-52) % MCV (80-100) fL MCH (25-34) pg MCHC (32-36) g/dL RDW Std Deviation (36.4-46.3) fL RDW Coeff of Aristides (11.5-14.5) % Plt Count (130-400) K/uL MPV (7.4-10.4) fL Immature Gran % (Auto) % Neut % (Auto) % Lymph % (Auto) % [place] % (Auto) % Eos % (Auto) % Baso % (Auto) % Neut # (Auto) (1.4-6.5) K/uL Lymph # (Auto) (1.2-3.4) K/uL [place] # (Auto) (0.11-0.59) K/uL Eos # (Auto) (0-0.5) K/uL Baso # (Auto) (0-0.2) K/uL Immature Gran # (Auto) (0.00-0.02) K/uL APTT (21.0-31.0) Seconds PTT Ratio Sodium (136-145) mmol/L Potassium (3.5-5.1) mmol/L Chloride (98-107) mmol/L Carbon Dioxide (21-32) mmol/L Anion Gap (3-11) BUN (7-18) mg/dl Creatinine (0.6-1.4) mg/dl Est Cr Clr Drug Dosing ml/min Est GFR ( Amer) Est GFR (Non-Af Amer) BUN/Creatinine Ratio (10-20) Glucose (70-99) mg/dl POC Glucose 157 H 214 H 249 H (70-99) mg/dl Estimat Average Glucose mg/dl Hemoglobin A1c (4.5-5.6) % Calcium (8.5-10.1) mg/dl Phosphorus (2.5-4.9) mg/dl Magnesium (1.8-2.4) mg/dl Total Bilirubin (0.2-1) mg/dl Direct Bilirubin (0-0.2) mg/dl AST (15-37) U/L ALT (12-78) U/L Alkaline Phosphatase (45-117) U/L Total Protein (6.4-8.2) gm/dl Albumin (3.4-5.0) gm/dl Nasal Screen MRSA (PCR) (Negative) Blood Type Antibody Screen 10/23/20 10/23/20 10/23/20 Range/Units 14:08 13:05 12:01 WBC (4.8-10.8) K/uL RBC (4.7-6.1) M/uL Hgb (14.0-18.0) g/dL Hct (42-52) % MCV (80-100) fL MCH (25-34) pg MCHC (32-36) g/dL RDW Std Deviation (36.4-46.3) fL RDW Coeff of Aristides (11.5-14.5) % Plt Count (130-400) K/uL MPV (7.4-10.4) fL Immature Gran % (Auto) % Neut % (Auto) % Lymph % (Auto) % [place] % (Auto) % Eos % (Auto) % Baso % (Auto) % Neut # (Auto) (1.4-6.5) K/uL Lymph # (Auto) (1.2-3.4) K/uL [place] # (Auto) (0.11-0.59) K/uL Eos # (Auto) (0-0.5) K/uL Baso # (Auto) (0-0.2) K/uL Immature Gran # (Auto) (0.00-0.02) K/uL APTT (21.0-31.0) Seconds PTT Ratio Sodium (136-145) mmol/L Potassium (3.5-5.1) mmol/L Chloride (98-107) mmol/L Carbon Dioxide (21-32) mmol/L Anion Gap (3-11) BUN (7-18) mg/dl Creatinine (0.6-1.4) mg/dl Est Cr Clr Drug Dosing ml/min Est GFR ( Amer) Est GFR (Non-Af Amer) BUN/Creatinine Ratio (10-20) Glucose (70-99) mg/dl POC Glucose 358 H* 402 H* 377 H* (70-99) mg/dl Estimat Average Glucose mg/dl Hemoglobin A1c (4.5-5.6) % Calcium (8.5-10.1) mg/dl Phosphorus (2.5-4.9) mg/dl Magnesium (1.8-2.4) mg/dl Total Bilirubin (0.2-1) mg/dl Direct Bilirubin (0-0.2) mg/dl AST (15-37) U/L ALT (12-78) U/L Alkaline Phosphatase (45-117) U/L Total Protein (6.4-8.2) gm/dl Albumin (3.4-5.0) gm/dl Nasal Screen MRSA (PCR) (Negative) Blood Type Antibody Screen 10/23/20 10/23/20 10/23/20 Range/Units 11:51 10:10 09:39 WBC (4.8-10.8) K/uL RBC (4.7-6.1) M/uL Hgb (14.0-18.0) g/dL Hct (42-52) % MCV (80-100) fL MCH (25-34) pg MCHC (32-36) g/dL RDW Std Deviation (36.4-46.3) fL RDW Coeff of Aristides (11.5-14.5) % Plt Count (130-400) K/uL MPV (7.4-10.4) fL Immature Gran % (Auto) % Neut % (Auto) % Lymph % (Auto) % [place] % (Auto) % Eos % (Auto) % Baso % (Auto) % Neut # (Auto) (1.4-6.5) K/uL Lymph # (Auto) (1.2-3.4) K/uL [place] # (Auto) (0.11-0.59) K/uL Eos # (Auto) (0-0.5) K/uL Baso # (Auto) (0-0.2) K/uL Immature Gran # (Auto) (0.00-0.02) K/uL APTT 96.4 H* (21.0-31.0) Seconds PTT Ratio 3.7 Sodium (136-145) mmol/L Potassium (3.5-5.1) mmol/L Chloride (98-107) mmol/L Carbon Dioxide (21-32) mmol/L Anion Gap (3-11) BUN (7-18) mg/dl Creatinine (0.6-1.4) mg/dl Est Cr Clr Drug Dosing ml/min Est GFR ( Amer) Est GFR (Non-Af Amer) BUN/Creatinine Ratio (10-20) Glucose (70-99) mg/dl POC Glucose 324 H* (70-99) mg/dl Estimat Average Glucose mg/dl Hemoglobin A1c (4.5-5.6) % Calcium (8.5-10.1) mg/dl Phosphorus (2.5-4.9) mg/dl Magnesium (1.8-2.4) mg/dl Total Bilirubin (0.2-1) mg/dl Direct Bilirubin (0-0.2) mg/dl AST (15-37) U/L ALT (12-78) U/L Alkaline Phosphatase (45-117) U/L Total Protein (6.4-8.2) gm/dl Albumin (3.4-5.0) gm/dl Nasal Screen MRSA (PCR) (Negative) Blood Type A Positive Antibody Screen NEGATIVE 10/23/20 Range/Units 08:49 WBC (4.8-10.8) K/uL RBC (4.7-6.1) M/uL Hgb (14.0-18.0) g/dL Hct (42-52) % MCV (80-100) fL MCH (25-34) pg MCHC (32-36) g/dL RDW Std Deviation (36.4-46.3) fL RDW Coeff of Aristides (11.5-14.5) % Plt Count (130-400) K/uL MPV (7.4-10.4) fL Immature Gran % (Auto) % Neut % (Auto) % Lymph % (Auto) % [place] % (Auto) % Eos % (Auto) % Baso % (Auto) % Neut # (Auto) (1.4-6.5) K/uL Lymph # (Auto) (1.2-3.4) K/uL [place] # (Auto) (0.11-0.59) K/uL Eos # (Auto) (0-0.5) K/uL Baso # (Auto) (0-0.2) K/uL Immature Gran # (Auto) (0.00-0.02) K/uL APTT > 139.0 H* (21.0-31.0) Seconds PTT Ratio > 5.3 Sodium (136-145) mmol/L Potassium (3.5-5.1) mmol/L Chloride (98-107) mmol/L Carbon Dioxide (21-32) mmol/L Anion Gap (3-11) BUN (7-18) mg/dl Creatinine (0.6-1.4) mg/dl Est Cr Clr Drug Dosing ml/min Est GFR ( Amer) Est GFR (Non-Af Amer) BUN/Creatinine Ratio (10-20) Glucose (70-99) mg/dl POC Glucose (70-99) mg/dl Estimat Average Glucose mg/dl Hemoglobin A1c (4.5-5.6) % Calcium (8.5-10.1) mg/dl Phosphorus (2.5-4.9) mg/dl Magnesium (1.8-2.4) mg/dl Total Bilirubin (0.2-1) mg/dl Direct Bilirubin (0-0.2) mg/dl AST (15-37) U/L ALT (12-78) U/L Alkaline Phosphatase (45-117) U/L Total Protein (6.4-8.2) gm/dl Albumin (3.4-5.0) gm/dl Nasal Screen MRSA (PCR) (Negative) Blood Type Antibody Screen Medications Administered Current Inpatient Medications Aspirin (Aspirin 81 Mg Ectab) 81 mg PO DAILY TRUNG Stop: 11/22/20 08:59 Last Admin: 10/24/20 08:28 Dose: 81 mg Documented by: Atorvastatin Calcium (Atorvastatin 40 Mg Tab) 80 mg PO HS TRUNG Stop: 11/21/20 22:59 Last Admin: 10/23/20 20:47 Dose: 80 mg Documented by: Dextrose (Dextrose 50% 50 Ml Syringe) 25 - 50 ml IV UD PRN; Protocol PRN Reason: Hypoglycemia Protocol Stop: 11/22/20 10:44 Glucagon (Glucagon For Inj 1 Mg Vial) 1 mg IM UD PRN; Protocol PRN Reason: Hypoglycemia Protocol Stop: 11/22/20 10:44 Glucose (Glucose 40% Gel 15 Gm Tube) 15 - 30 gm PO UD PRN; Protocol PRN Reason: Hypoglycemia Protocol Stop: 11/22/20 10:44 Glucose (Glucose 10 Tabs/Tube) 4 - 8 tabs PO UD PRN; Protocol PRN Reason: Hypoglycemia Protocol Stop: 11/22/20 10:44 Heparin Sodium (Beef Lung) (Heparin 10 Unit/Ml 5 Ml Flush) 5 ml FLUSH PRN PRN PRN Reason: Flush Stop: 11/21/20 22:35 Heparin Sodium (Porcine) (Heparin Sod 5,000 Unit/0.5 Ml Vial) 5,000 units SQ Q12 TRUNG Stop: 11/22/20 20:59 Last Admin: 10/24/20 08:28 Dose: 5,000 units Documented by: Norepinephrine Bitartrate (Levophed/D5w) 8 mg in 508 mls @ 0 mls/hr IV .Q0M TRUNG; Protocol Stop: 11/21/20 20:29 Last Titration: 10/23/20 06:04 Dose: 0 mcg/kg/min, 0 mls/hr Documented by: Dexamethasone 6 mg/ Syringe 1.5 mls @ 1 mls/min IV DAILY TRUNG Stop: 10/31/20 09:02 Last Admin: 10/24/20 08:29 Dose: 1 mls/min Documented by: Vasopressin 20 units/ Sodium (Chloride) 101 mls @ 0 mls/hr IV .Q0M TRUNG Stop: 11/21/20 22:29 Last Infusion: 10/23/20 14:47 Dose: Infused Documented by: Piperacillin Sod/Tazobactam (Sod 3.375 gm/ Dextrose) 115 mls @ 28.75 mls/hr IV Q8H TRUNG; Protocol Stop: 10/30/20 01:59 Last Infusion: 10/24/20 07:23 Dose: Infused Documented by: Insulin Human Regular 250 (units/ Sodium Chloride) 250 mls @ 3 mls/hr IV .Q24H TRUNG; Protocol Stop: 11/22/20 10:44 Last Titration: 10/24/20 06:20 Dose: 3 units/hr, 3 mls/hr Documented by: Magnesium Sulfate/Dextrose (Magnesium Sulfate / D5w) 1 gm in 100 mls @ 50 mls /hr IV Q2H STA Stop: 10/24/20 10:50 Insulin Aspart (Insulin Aspart 100 Units/Ml 3 Ml Pen) 0 units SC ACHS TRUNG Stop: 11/22/20 11:29 Last Admin: 10/24/20 08:27 Dose: Not Given Documented by: Miscellaneous (Carbohydrates For Hypoglycemia ) 15 - 30 gm PO UD PRN PRN Reason: Hypoglycemia Treatment Stop: 11/22/20 10:44 Miscellaneous Information (Piperacill/Tazobac Consult Active) 1 ea N/A UD PRN PRN Reason: Consult Stop: 11/21/20 19:07 Potassium Phosphate (Potassium Phos 3 Mmol/1 Ml Infusion) 24 mmol IV NOW STA Stop: 10/24/20 08:53 Tamsulosin HCl (Tamsulosin Hcl 0.4 Mg Cap) 0.4 mg PO DAILY TRUNG Stop: 11/22/20 08:59 Last Admin: 10/24/20 08:28 Dose: 0.4 mg Documented by: Resident Activity Tracking Resident Involvement: Resident Care Provided Care Provided: Adult Hospital Medicine (1) Sepsis Sepsis acute organ dysfunction status: unspecified Sepsis type: sepsis due to unspecified organism Qualified Code(s): A41.9 - Sepsis, unspecified organism
[2020-10-24 07:57] LABS: Albumin Level 2.2 gm/dl (3.4-5.0); BUN Creatinine Ratio 25.9 (10-20); Bilirubin,Total 0.3 mg/dl (0.2-1); Calcium 8.2 mg/dl (8.5-10.1); Creatinine Clr Calc Pharmacy 87.7 ml/min; Est GFR (African American) 83.3; Est GFR (Non-African American) 71.9; Magnesium 1.5 mg/dl (1.8-2.4); Phosphorus 1.2 mg/dl (2.5-4.9); Potassium 3.6 mmol/L (3.5-5.1); Total Protein 6.3 gm/dl (6.4-8.2)
[2020-10-24 08:00] LABS: Estimated Average Glucose 189 mg/dl; Hemoglobin A1C 8.2 % (4.5-5.6)
--- NOTE | 2020-10-24 08:00 | Billing Data ---
Date of Service October 24, 2020 Coding Level of Care Code 28226 Subseq Hosp Care Lvl 3
[2020-10-24 08:27] LABS: Bilirubin Direct 0.1 mg/dl (0-0.2)
[2020-10-24] MEDS: INSULIN ASPART 100 UNITS/ML 3 ML PEN SC SCH ×4 (08:27→20:27)
[2020-10-24] MEDS: ASPIRIN 81 MG ECTAB PO SCH (08:28)
[2020-10-24] MEDS: TAMSULOSIN HCL 0.4 MG CAP PO SCH (08:28)
[2020-10-24] MEDS: HEPARIN SOD 5,000 UNIT/0.5 ML VIAL SQ SCH ×2 (08:28→20:29)
[2020-10-24] MEDS: dexAMETHasone 6 MG in SYRINGE 0 ML IV SCH (08:29)
[2020-10-24] MEDS ORDERED: POTASSIUM PHOS 3 MMOL/1 ML INFUSION IV STA (08:52)
[2020-10-24] MEDS ORDERED: FOLIC ACID 1 MG TAB PO SCH ×2 (09:00→13:00)
[2020-10-24] MEDS: MAGNESIUM SULFATE / D5W 1 GM/100 ML BAG IV SCH ×2 (09:23→11:24)
[2020-10-24] MEDS ORDERED: POTASSIUM PHOSPHATE 24 MMOL in SODIUM CHLORIDE 0.9% 500 ML IV ONE (09:30)
[2020-10-24] MEDS ORDERED: LORazepam 2 MG/4 ML VIAL ONE (10:40)
[2020-10-24] MEDS ORDERED: LORazepam 2 MG/ML VIAL (IM USE) IM STA (10:43)
[2020-10-24] MEDS ORDERED: LORazepam 1 MG/2 ML VIAL IV STA ×2 (10:56→11:28)
[2020-10-24] MEDS ORDERED: INSULIN GLARGINE SOLOSTAR 100 UNITS/ML 3 ML PEN SC ONE (12:00)
[2020-10-24] MEDS ORDERED: PHARMACY GLYCEMIC MGMT CONSULT PRN (12:00)
[2020-10-24] MEDS: INSULIN REGULAR 250 UNITS in SODIUM CHLORIDE 0.9% 247.5 ML IV SCH (12:08)
--- NOTE | 2020-10-24 12:19 | Pharmacy Report ---
Pharmacy Glycemic Short Note 2 - Date of Service October 24, 2020 - Glycemic Short BSG Results (Last 24 hours): 10/23/20 10/23/20 10/23/20 13:05 14:08 15:32 Glucose POC Glucose 402 H* 358 H* 249 H 10/23/20 10/23/20 10/23/20 16:35 17:41 18:31 Glucose POC Glucose 214 H 157 H 177 H 10/23/20 10/23/20 10/23/20 19:58 21:24 22:01 Glucose POC Glucose 168 H 176 H 193 H 10/24/20 10/24/20 10/24/20 00:06 02:01 04:14 Glucose POC Glucose 156 H 150 H 137 H 10/24/20 10/24/20 10/24/20 06:12 06:28 07:19 Glucose 98 POC Glucose 104 H 107 H 10/24/20 10/24/20 10/24/20 08:10 08:55 10:27 Glucose POC Glucose 86 124 H 127 H 10/24/20 11:13 Glucose POC Glucose 147 H OUTPATIENT ANTIDIABETIC REGIMEN: * metformin 1gm PO BID * glipizide 10mg PO BID * A1c = 8.2% 10/24/20 ASSESSMENT: * Type 2 diabetic admitted to ICU yesterday for BHAVESH, hypotension, septic shock likely secondary to COVID19 pneumonia * IV insulin drip started yesterday as pt was severely hyperglycemic and IV steroids continued * This AM BSGs are at goal, drip running at 1.8 units/hr. Dexamethasone 6mg IV administered this AM however pt not eating, and steroid is being discontinued due to concerns it may be contributing to agitation / delirium. * Will begin transition to SQ regimen at this time: basal/bolus dosing using Lantus + Novolog. Lantus dosing will be scaled to lessen risk of hypoglycemia in the setting of poor PO intake and wearing off of steroid effects overnight. Novolog will be dosed per "severe" stress and weight given potential for insulin resistance immediately following transition off drip. PLAN FOR INPATIENT GLYCEMIC CONTROL: * Hold outpatient oral diabetes medications (metformin, glipizide) * Basal insulin * Lantus 30 units SQ x 1 now. Discontinue the insulin drip 4 hrs after this dose administered * Then Lantus SQ BID per scale: * 0 units if BSG less than 110 * 10 units if BSG 110-139 * 20 units if BSG 140-200 * 30 units if BSG above 200 * Bolus insulin * NovoLog per scale Q 4 hrs initially * Goal Range: Low 110 mg/dL - High 140 mg/dL * Correction Factor: 15 mg/dL/unit * Nutritional / Prandial insulin per carb ratio of 1 unit per 5 grams CHO consumed PLAN FOR DISCHARGE: * to be determined
[2020-10-24] MEDS ORDERED: FOLIC ACID 1 MG TAB PO ONE (13:00)
[2020-10-24] MEDS ORDERED: THIAMINE HCL 100 MG TAB PO SCH (13:00)
[2020-10-24] MEDS: LORazepam 1 MG/2 ML VIAL IV PRN (13:01)
--- NOTE | 2020-10-24 13:49 | Hospitalist Progress Note ---
Date of Service October 24, 2020 Assessment & Plan (1) Septic shock: Admitted with sepsis likely secondary to multilobar pneumonia and presented with hypotension and shock Received adequate amount of intravenous fluid and required intravenous pressors to maintain blood pressure Appreciate detective lieutenant input and recommendation He is off pressors since this morning and blood pressure is maintaining at noon low normal level No more fever and/or chills but white count remains mildly elevated Blood pressure remains normal Acute confusion last night Reported that the patient has been drinking about 6-8 beers a day and more over the weekends Likely has withdrawal symptoms Has been getting intravenous Ativan as per withdrawal protocol Electrolytes abnormality Has low magnesium and phosphate Likely related to use of alcohol We will supplement and monitor (2) Pneumonia due to 2019 novel coronavirus: Presented with hypoxic respiratory failure Has been sick for some time with weakness, dizziness and has had diarrhea without any documented Covid contact Tested positive for Covid with CT scan suggestive of viral pneumonia Started with dexamethasone but remdesivir could not be given due to renal impairment Discussed with the patient this morning and convalescent plasma was administered after discussing pros and cons with the patient in detail Received convalescent plasma Oxygen requirements went down to 3L/min but has been getting back up to 5 L/min this morning Hypoxia could be secondary to pneumonia and/or pulmonary embolism Has been started on intravenous heparin Heel Varnisher does not think he has pulmonary embolism Heparin drip has been stopped and he is back on prophylactic heparin (3) Multifocal pneumonia: CT scan did show multi lobar pneumonia Likely has bacterial pneumonia superimposed on COVID-19 infection and pneumonia Has been getting intravenous Vanco, Zosyn and doxy Clinically better today 1 out of 2 blood culture grew probable anabolic gram-positive bacilli IV vancomycin and doxycycline were discontinued We will continue intravenous Zosyn (4) BHAVESH (acute kidney injury): Presented with BHAVESH likely secondary to dehydration Received intravenous fluid and the kidney function has been improving We will continue intravenous fluid and monitor PRP Creatinine improved to normal level (5) HTN (hypertension): Presented with hypotension and septic shock (6) Diabetes mellitus, type II: Monitor blood sugar Has been requiring intravenous insulin Appreciate pharmacy input and recommendation SSI Insulin drip has been stopped (7) Prostate cancer: History of prostate cancer Can increase the risk of clot formation DVT prophylaxis Has been on heparin CODE STATUS Full Admission and Anticipated Discharge Date Admission Date: October 22, 2020 Subjective 10/23/2020 The patient was seen and examined in telemetry Covid unit He has been feeling much better since admission Still complains to have cough with shortness of breath Denies any significant pain, fever and/or chills, any nausea and or vomiting 10/24/2020 The patient was seen and examined in telemetry Covid unit He was noted to be agitated last night and has been put on alcohol withdrawal protocol Received Ativan 2 mg this morning and has been sleeping Oxygen requirements has gone down to 3 to 5 L/min to maintain saturation Review of Systems Review of Systems: All systems reviewed and are unremarkable except as noted below Respiratory: + cough, + dyspnea and + dyspnea on exertion Neurologic: Alert, awake and oriented x3 Physical Exam Physical Exam: Sleeping comfortably Constitutional: well developed, well nourished and + ill appearing Eyes: PERRL, conjunctivae normal, anicteric sclerae ENMT: external ear and nose normal, oropharynx normal Neck: trachea midline, no thyromegaly Respiratory: + respiratory distress Auscultation: + diminished lung sounds and + crackles (Coarse crackles at the bases) Cardiovascular: Rate/Rhythm: regular rate and regular rhythm Heart Sounds: no murmur Extremities: no edema Gastrointestinal (Abdomen): Inspection/Auscultation: normal bowel sounds; abdomen not distended Percussion/Palpation: abdomen soft; abdomen nontender Psychiatric: A+Ox3, euthymic affect Lymphatic: no cervical or axillary lymphadenopathy Results & Data Results & Data ([facility]) Vital Signs (Past 12 Hours) Vital Signs Temp Pulse Resp BP BP Pulse Ox 10/24/20 11:11 37.7 C H 20 104/58 L 89 L 10/24/20 06:30 91 H 91 10/24/20 06:00 87 111/43 L 89 L 10/24/20 05:30 77 88 L 10/24/20 05:02 79 87 L 10/24/20 05:01 77 116/58 L 86 L 10/24/20 05:00 82 85 L 10/24/20 04:00 78 123/59 L 92 10/24/20 03:59 36.8 C 17 124/54 L 90 10/24/20 03:01 78 103/49 L 88 L 10/24/20 03:00 76 90 10/24/20 02:00 73 121/62 93 Laboratory Results Short CBC 10/24/20 Range/Units 06:28 WBC 19.14 H (4.8-10.8) K/uL Hgb 10.4 L (14.0-18.0) g/dL Hct 30.8 L (42-52) % Plt Count 260 (130-400) K/uL BMP 10/24/20 06:28 Sodium 141 Potassium 3.6 D Chloride 112 H Carbon Dioxide 20 L BUN 27 H Creatinine 1.04 Glucose 98 Calcium 8.2 L Liver Function 10/24/20 Range/Units 06:28 Total Bilirubin 0.3 (0.2-1) mg/dl Direct Bilirubin 0.1 D (0-0.2) mg/dl AST 37 (15-37) U/L ALT 43 (12-78) U/L Alkaline Phosphatase 74 (45-117) U/L Albumin 2.2 L (3.4-5.0) gm/dl Medications Administered Current Inpatient Medications Aspirin (Aspirin 81 Mg Ectab) 81 mg PO DAILY TRUNG Stop: 11/22/20 08:59 Last Admin: 10/24/20 08:28 Dose: 81 mg Documented by: Atorvastatin Calcium (Atorvastatin 40 Mg Tab) 80 mg PO HS TRUNG Stop: 11/21/20 22:59 Last Admin: 10/23/20 20:47 Dose: 80 mg Documented by: Dextrose (Dextrose 50% 50 Ml Syringe) 25 - 50 ml IV UD PRN; Protocol PRN Reason: Hypoglycemia Protocol Stop: 11/22/20 10:44 Folic Acid (Folic Acid 1 Mg Tab) 1 mg PO QAM [facility] Stop: 11/23/20 12:59 Glucagon (Glucagon For Inj 1 Mg Vial) 1 mg IM UD PRN; Protocol PRN Reason: Hypoglycemia Protocol Stop: 11/22/20 10:44 Glucose (Glucose 40% Gel 15 Gm Tube) 15 - 30 gm PO UD PRN; Protocol PRN Reason: Hypoglycemia Protocol Stop: 11/22/20 10:44 Glucose (Glucose 10 Tabs/Tube) 4 - 8 tabs PO UD PRN; Protocol PRN Reason: Hypoglycemia Protocol Stop: 11/22/20 10:44 Heparin Sodium (Beef Lung) (Heparin 10 Unit/Ml 5 Ml Flush) 5 ml FLUSH PRN PRN PRN Reason: Flush Stop: 11/21/20 22:35 Heparin Sodium (Porcine) (Heparin Sod 5,000 Unit/0.5 Ml Vial) 5,000 units SQ Q12 [facility] Stop: 11/22/20 20:59 Last Admin: 10/24/20 08:28 Dose: 5,000 units Documented by: Piperacillin Sod/Tazobactam (Sod 3.375 gm/ Dextrose) 115 mls @ 28.75 mls/hr IV Q8H [facility]; Protocol Stop: 10/30/20 01:59 Last Admin: 10/24/20 10:30 Dose: 28.8 mls/hr Documented by: Insulin Human Regular 250 (units/ Sodium Chloride) 250 mls @ 1.8 mls/hr IV .Q24H [facility]; Protocol Stop: 10/24/20 16:00 Last Titration: 10/24/20 12:34 Dose: Infused Documented by: Potassium Phosphate 24 mmol/ (Sodium Chloride) 508 mls @ 88 mls/hr IV ONE ONE Stop: 10/24/20 15:16 Last Admin: 10/24/20 10:30 Dose: 88 mls/hr Documented by: Lorazepam (Ativan) 1 mg in 2 mls @ 2 mls/min IV ONE PRN; Protocol PRN Reason: EtoH Withdrawal AWSS 6-10 Stop: 11/23/20 12:26 Last Admin: 10/24/20 13:01 Dose: 2 mls/min Documented by: Dexamethasone 6 mg/ Syringe 1.5 mls @ 1 mls/min IV DAILY [facility] Stop: 11/24/20 08:59 Insulin Aspart (Insulin Aspart 100 Units/Ml 3 Ml Pen) 0 units SC ACHS [facility] Stop: 10/24/20 14:30 Last Admin: 10/24/20 12:36 Dose: Not Given Documented by: Insulin Aspart (Insulin Aspart 100 Units/Ml 3 Ml Pen) 0 units SC Q4 [facility] Stop: 11/23/20 15:59 Insulin Glargine (Insulin Glargine Solostar 100 Units/Ml 3 Ml Pen) 0 units SC BID@0800,2000 [facility]; Protocol Stop: 11/23/20 19:59 Miscellaneous (Carbohydrates For Hypoglycemia ) 15 - 30 gm PO UD PRN PRN Reason: Hypoglycemia Treatment Stop: 11/22/20 10:44 Miscellaneous (Stop Order: Dc Insulin Drip ~4 Hrs After 1st Dose Lantus) 1 ea N/A TODAY@1600 [facility] Stop: 10/24/20 16:01 Miscellaneous Information (Piperacill/Tazobac Consult Active) 1 ea N/A UD PRN PRN Reason: Consult Stop: 11/21/20 19:07 Miscellaneous Information (Pharmacy Glycemic Mgmt Consult) 1 ea N/A UD PRN PRN Reason: Consult Stop: 11/23/20 11:59 Tamsulosin HCl (Tamsulosin Hcl 0.4 Mg Cap) 0.4 mg PO DAILY [facility] Stop: 11/22/20 08:59 Last Admin: 10/24/20 08:28 Dose: 0.4 mg Documented by: Thiamine HCl ([facility] Hcl 100 Mg Tab) [facility] Stop: 11/23/20 12:59
[2020-10-24] MEDS ORDERED: MULTI-VITAMIN INFUSION 10 ML, THIAMINE HCL 100 MG, FOLIC ACID 1 MG in SODIUM CHLORIDE 0... IV ONE (15:45)
[2020-10-24] MEDS ORDERED: [UNRECOGNIZED DRUG - REMARK] ONE (16:00)
[2020-10-24] MEDS ORDERED: Nursing to Pharmacy Communication SCH (16:30)
[2020-10-24] MEDS ORDERED: FOLIC ACID 1 MG in SYRINGE 9.8 ML IV ONE (17:00)
[2020-10-24] MEDS ORDERED: THIAMINE HCL 100 MG in SYRINGE 9 ML IV ONE (17:00)
[2020-10-24] MEDS: NICOTINE 14 MG/24 HR PATCH TD SCH (17:15)
[2020-10-24] MEDS ORDERED: INSULIN GLARGINE SOLOSTAR 100 UNITS/ML 3 ML PEN SC SCH (20:00)
[2020-10-24] MEDS: ATORVASTATIN 40 MG TAB PO SCH (20:26)
[2020-10-25] MEDS: INSULIN ASPART 100 UNITS/ML 3 ML PEN SC SCH ×7 (00:47→23:55)
[2020-10-25] MEDS: PIPERACILLIN/TAZOBACTAM 3.375 GM in DEXTROSE 5% 100 ML IV SCH ×3 (03:14→17:32)
[2020-10-25 07:18] LABS: Basophils # (auto) 0.01 K/uL (0-0.2); Basophils % (auto) 0.1 %; Hematocrit (blood only) 36.6 % (42-52); Hemoglobin 11.8 g/dL (14.0-18.0); Immature Granulocytes # (auto) 0.05 K/uL (0.00-0.02); Immature Granulocytes % (auto) 0.3 %; Lymphocytes # (auto) 0.42 K/uL (1.2-3.4); Lymphocytes % (auto) 2.3 %; Mean Corpuscular Hemoglobin 28.1 pg (25-34); Mean Corpuscular Hgb Conc 32.2 g/dL (32-36); Mean Corpuscular Volume 87.1 fL (80-100); Mean Platelet Volume 10.9 fL (7.4-10.4); Monocytes # (auto) 0.41 K/uL (0.11-0.59); Monocytes % (auto) 2.2 %; Neutrophils # (auto) 17.62 K/uL (1.4-6.5); Neutrophils % (auto) 95.1 %; Platelet Count 283 K/uL (130-400); RDW Coefficient of Variation 14.9 % (11.5-14.5); RDW Standard Deviation 47.9 fL (36.4-46.3); White Blood Count 18.51 K/uL (4.8-10.8)
[2020-10-25] MEDS: LORazepam 1 MG/2 ML VIAL IV PRN ×5 (07:38→21:36)
[2020-10-25 07:47] LABS: Albumin Level 2.3 gm/dl (3.4-5.0); BUN Creatinine Ratio 19.3 (10-20); Bilirubin Direct 0.1 mg/dl (0-0.2); Calcium 8.6 mg/dl (8.5-10.1); Est GFR (African American) 102.6; Est GFR (Non-African American) 88.5; Magnesium 1.6 mg/dl (1.8-2.4); Potassium 3.9 mmol/L (3.5-5.1)
[2020-10-25 07:56] LABS: Bilirubin,Total 0.4 mg/dl (0.2-1); Phosphorus 1.7 mg/dl (2.5-4.9); Total Protein 7.1 gm/dl (6.4-8.2)
[2020-10-25] MEDS ORDERED: POTASSIUM PHOS 3 MMOL/1 ML INFUSION IV STA (08:15)
[2020-10-25] MEDS: THIAMINE HCL 100 MG in SYRINGE 9 ML IV SCH (08:30)
[2020-10-25] MEDS: NICOTINE 14 MG/24 HR PATCH TD SCH (08:30)
[2020-10-25] MEDS: dexAMETHasone 6 MG in SYRINGE 0 ML IV SCH (08:30)
[2020-10-25] MEDS: HEPARIN SOD 5,000 UNIT/0.5 ML VIAL SQ SCH ×2 (08:33→21:24)
[2020-10-25] MEDS: TAMSULOSIN HCL 0.4 MG CAP PO SCH (08:35)
[2020-10-25] MEDS: ASPIRIN 81 MG ECTAB PO SCH (08:36)
[2020-10-25] MEDS: INSULIN GLARGINE SOLOSTAR 100 UNITS/ML 3 ML PEN SC SCH ×2 (08:36→21:26)
[2020-10-25] MEDS ORDERED: POTASSIUM PHOSPHATE 24 MMOL in SODIUM CHLORIDE 0.9% 500 ML IV ONE (08:45)
[2020-10-25] MEDS: FOLIC ACID 1 MG in SYRINGE 9.8 ML IV SCH (11:53)
[2020-10-25] MEDS: ACETAMINOPHEN 500 MG TAB PO PRN (11:57)
[2020-10-25] MEDS: cloNIDine HCL 0.1 MG TAB PO PRN (11:57)
--- NOTE | 2020-10-25 12:50 | Hospitalist Progress Note ---
Date of Service October 25, 2020 Assessment & Plan (1) Septic shock: Admitted with sepsis likely secondary to multilobar pneumonia and presented with hypotension and shock Received adequate amount of intravenous fluid and required intravenous pressors to maintain blood pressure Appreciate meter mechanic input and recommendation He is off pressors since this morning and blood pressure is maintaining at noon low normal level No more fever and/or chills but white count remains mildly elevated Blood pressure is trending up Acute confusion last night Reported that the patient has been drinking about 6-8 beers a day and more over the weekends Likely has withdrawal symptoms Has been getting intravenous Ativan as per withdrawal protocol He admits to have 1 or 2 beers a day but never been a heavy drinker No tremors of the outstretched hands Electrolytes abnormality Has low magnesium and phosphate Likely related to use of alcohol Phosphate remains low and there are supplemented We will monitor (2) Pneumonia due to 2019 novel coronavirus: Presented with hypoxic respiratory failure Has been sick for some time with weakness, dizziness and has had diarrhea without any documented Covid contact Tested positive for Covid with CT scan suggestive of viral pneumonia Started with dexamethasone but remdesivir could not be given due to renal impairment Discussed with the patient this morning and convalescent plasma was administered after discussing pros and cons with the patient in detail Received convalescent plasma Oxygen requirements went down to 3L/min but has been getting back up to 5 L/min this morning Has had fever of 39 C-Tylenol provided, will have chest x-ray and blood culture taken Will add atypical coverage Hypoxia could be secondary to pneumonia and/or pulmonary embolism Has been started on intravenous heparin Surveying Crew Rodman does not think he has pulmonary embolism Heparin drip has been stopped and he is back on prophylactic heparin (3) Multifocal pneumonia: CT scan did show multi lobar pneumonia Likely has bacterial pneumonia superimposed on COVID-19 infection and pneumonia Has been getting intravenous Vanco, Zosyn and doxy Clinically better today 1 out of 2 blood culture grew probable anabolic gram-positive bacilli IV vancomycin and doxycycline were discontinued We will continue intravenous Zosyn We will add atypical coverage (4) BHAVESH (acute kidney injury): Presented with BHAVESH likely secondary to dehydration Received intravenous fluid and the kidney function has been improving We will continue intravenous fluid and monitor PRP Creatinine improved to normal level (5) HTN (hypertension): Presented with hypotension and septic shock (6) Diabetes mellitus, type II: Monitor blood sugar Has been requiring intravenous insulin Appreciate pharmacy input and recommendation SSI Insulin drip has been stopped (7) Prostate cancer: History of prostate cancer Can increase the risk of clot formation DVT prophylaxis Has been on heparin CODE STATUS Full Admission and Anticipated Discharge Date Admission Date: October 22, 2020 Subjective 10/23/2020 The patient was seen and examined in telemetry Covid unit He has been feeling much better since admission Still complains to have cough with shortness of breath Denies any significant pain, fever and/or chills, any nausea and or vomiting 10/24/2020 The patient was seen and examined in telemetry Covid unit He was noted to be agitated last night and has been put on alcohol withdrawal protocol Received Ativan 2 mg this morning and has been sleeping Oxygen requirements has gone down to 3 to 5 L/min to maintain saturation 10/25/2020 The patient was seen and examined in telemetry Covid unit He has been feeling better but looked moderate shortness of breath at rest History of prior and has some sweating Denies any other significant symptoms Review of Systems Review of Systems: All systems reviewed and are unremarkable except as noted below Respiratory: + cough, + dyspnea and + dyspnea on exertion Neurologic: Alert, awake and oriented x3 Physical Exam Physical Exam: Moderate shortness of breath at rest with fever Constitutional: well developed, well nourished and + ill appearing Eyes: PERRL, conjunctivae normal, anicteric sclerae ENMT: external ear and nose normal, oropharynx normal Neck: trachea midline, no thyromegaly Respiratory: + respiratory distress Auscultation: + diminished lung sounds and + crackles (Coarse crackles at the bases) Cardiovascular: Rate/Rhythm: regular rate and regular rhythm Heart Sounds: no murmur Extremities: no edema Gastrointestinal (Abdomen): Inspection/Auscultation: normal bowel sounds; abdomen not distended Percussion/Palpation: abdomen soft; abdomen nontender Musculoskeletal: No acute arthritis in any joint Neurologic: Alert, awake and oriented x3. Generally weak Psychiatric: A+Ox3, euthymic affect Lymphatic: no cervical or axillary lymphadenopathy Results & Data Results & Data ([facility]) Vital Signs (Past 12 Hours) Vital Signs Temp Pulse Pulse Resp BP BP Pulse Ox 10/25/20 11:29 39.4 C H 100 H 20 159/72 H 91 10/25/20 09:30 37 C 93 H 22 164/71 H 95 10/25/20 08:00 76 10/25/20 07:42 36.9 C 90 24 145/92 H 93 10/25/20 06:30 77 93 10/25/20 06:00 70 98 10/25/20 05:30 70 97 10/25/20 05:00 72 98 10/25/20 04:30 72 96 10/25/20 04:00 68 118/63 97 10/25/20 03:32 36.4 C L 72 16 117/69 96 10/25/20 03:30 149 H 117/69 96 10/25/20 03:00 65 98 10/25/20 02:30 68 96 10/25/20 02:00 68 97 10/25/20 01:30 66 94 10/25/20 01:00 65 97 Pulse Ox 10/25/20 11:29 10/25/20 09:30 10/25/20 08:00 94 10/25/20 07:42 10/25/20 06:30 10/25/20 06:00 10/25/20 05:30 10/25/20 05:00 10/25/20 04:30 10/25/20 04:00 10/25/20 03:32 10/25/20 03:30 10/25/20 03:00 10/25/20 02:30 10/25/20 02:00 10/25/20 01:30 10/25/20 01:00 Laboratory Results Short CBC 10/25/20 Range/Units 06:50 WBC 18.51 H (4.8-10.8) K/uL Hgb 11.8 L (14.0-18.0) g/dL Hct 36.6 L (42-52) % Plt Count 283 (130-400) K/uL BMP 10/25/20 06:50 Sodium 146 H Potassium 3.9 Chloride 112 H Carbon Dioxide 28 BUN 16 Creatinine 0.83 Glucose 120 H Calcium 8.6 Liver Function 10/25/20 Range/Units 06:50 Total Bilirubin 0.4 (0.2-1) mg/dl Direct Bilirubin 0.1 (0-0.2) mg/dl AST 31 (15-37) U/L ALT 48 (12-78) U/L Alkaline Phosphatase 90 (45-117) U/L Albumin 2.3 L (3.4-5.0) gm/dl Medications Administered Current Inpatient Medications Acetaminophen (Acetaminophen 500 Mg Tab) 1,000 mg PO Q6H PRN PRN Reason: Fever Stop: 11/24/20 11:42 Last Admin: 10/25/20 11:57 Dose: 1,000 mg Documented by: Aspirin (Aspirin 81 Mg Ectab) 81 mg PO DAILY [facility] Stop: 11/22/20 08:59 Last Admin: 10/25/20 08:36 Dose: 81 mg Documented by: Atorvastatin Calcium (Atorvastatin 40 Mg Tab) 80 mg PO HS [facility] Stop: 11/21/20 22:59 Last Admin: 10/24/20 20:26 Dose: 80 mg Documented by: Clonidine HCl (Clonidine Hcl 0.1 Mg Tab) 0.1 mg PO Q8H PRN PRN Reason: SBP>140 Stop: 11/24/20 11:42 Last Admin: 10/25/20 11:57 Dose: 0.1 mg Documented by: Dextrose (Dextrose 50% 50 Ml Syringe) 25 - 50 ml IV UD PRN; Protocol PRN Reason: Hypoglycemia Protocol Stop: 11/22/20 10:44 Glucagon (Glucagon For Inj 1 Mg Vial) 1 mg IM UD PRN; Protocol PRN Reason: Hypoglycemia Protocol Stop: 11/22/20 10:44 Glucose (Glucose 40% Gel 15 Gm Tube) 15 - 30 gm PO UD PRN; Protocol PRN Reason: Hypoglycemia Protocol Stop: 11/22/20 10:44 Glucose (Glucose 10 Tabs/Tube) 4 - 8 tabs PO UD PRN; Protocol PRN Reason: Hypoglycemia Protocol Stop: 11/22/20 10:44 Heparin Sodium (Beef Lung) (Heparin 10 Unit/Ml 5 Ml Flush) 5 ml FLUSH PRN PRN PRN Reason: Flush Stop: 11/21/20 22:35 Heparin Sodium (Porcine) (Heparin Sod 5,000 Unit/0.5 Ml Vial) 5,000 units SQ Q12 [facility] Stop: 11/22/20 20:59 Last Admin: 10/25/20 08:33 Dose: 5,000 units Documented by: Piperacillin Sod/Tazobactam (Sod 3.375 gm/ Dextrose) 115 mls @ 28.75 mls/hr IV Q8H [facility]; Protocol Stop: 10/30/20 01:59 Last Admin: 10/25/20 09:13 Dose: 28.8 mls/hr Documented by: Lorazepam (Ativan) 1 mg in 2 mls @ 2 mls/min IV ONE PRN; Protocol PRN Reason: EtoH Withdrawal AWSS 6-10 Stop: 11/23/20 12:26 Last Admin: 10/25/20 11:45 Dose: 1 mls/min Documented by: Dexamethasone 6 mg/ Syringe 1.5 mls @ 1 mls/min IV DAILY [facility] Stop: 11/24/20 08:59 Last Admin: 10/25/20 08:30 Dose: 1 mls/min Documented by: Folic Acid 1 mg/ Syringe 10 mls @ 5 mls/min IV QAM [facility] Stop: 11/24/20 08:59 Last Admin: 10/25/20 11:53 Dose: 5 mls/min Documented by: Thiamine HCl 100 mg/ Syringe 10 mls @ 2 mls/min IV DAILY [facility] Stop: 11/24/20 08:59 Last Admin: 10/25/20 08:30 Dose: 2 mls/min Documented by: Insulin Aspart (Insulin Aspart 100 Units/Ml 3 Ml Pen) 0 units SC ACHS [facility] Stop: 11/24/20 08:29 Last Admin: 10/25/20 08:38 Dose: 4 units Documented by: Insulin Glargine (Insulin Glargine Solostar 100 Units/Ml 3 Ml Pen) 20 units SC BID [facility] Stop: 11/24/20 08:59 Last Admin: 10/25/20 08:36 Dose: 20 units Documented by: Miscellaneous (Carbohydrates For Hypoglycemia ) 15 - 30 gm PO UD PRN PRN Reason: Hypoglycemia Treatment Stop: 11/22/20 10:44 Miscellaneous (Remove Nicoderm Patch) 1 ea N/A DAILY@0859 [facility] Stop: 11/24/20 08:58 Last Admin: 10/25/20 08:36 Dose: 1 ea Documented by: Miscellaneous Information (Piperacill/Tazobac Consult Active) 1 ea N/A UD PRN PRN Reason: Consult Stop: 11/21/20 19:07 Miscellaneous Information (Pharmacy Glycemic Mgmt Consult) 1 ea N/A UD PRN PRN Reason: Consult Stop: 11/23/20 11:59 Nicotine (Nicotine 14 Mg/24 Hr Patch) 14 mg TD QAM [facility] Stop: 11/23/20 16:29 Last Admin: 10/25/20 08:30 Dose: 14 mg Documented by: Tamsulosin HCl (Tamsulosin Hcl 0.4 Mg Cap) 0.4 mg PO DAILY [facility] Stop: 11/22/20 08:59 Last Admin: 10/25/20 08:35 Dose: 0.4 mg Documented by:
[2020-10-25] MEDS: DOXYCYCLINE HYCLATE 100 MG in DEXTROSE 5% 100 ML IV SCH (13:39)
--- NOTE | 2020-10-25 13:53 | Pharmacy Report ---
Glycemic Control Progress Note - Date of Service October 25, 2020 - Scope Glycemic Pharmacist consulted for glycemic control to write orders per [facility] inpatient glycemic control protocol. - Objective Accuchecks BSG(last 24 hours):: 10/24/20 10/24/20 10/25/20 16:37 20:24 00:04 Glucose POC Glucose 201 H 230 H 207 H 10/25/20 10/25/20 10/25/20 05:44 06:50 08:17 Glucose 120 H POC Glucose 133 H 116 H 10/25/20 11:40 Glucose POC Glucose 134 H HbA1c:: Hemoglobin A1c 8.2 % (4.5-5.6) H 10/24/20 06:28 - Recent Pertinent Medications The patient is currently receiving: * Basal insulin: Lantus 30 units every 12 hours * Correctional Insulin: Novolog Correction per scale ACHS Goal Range: Low 110 mg/dL - High 140 mg/dL Correction Factor: 15 mg/dL/unit * Prandial insulin: Per carb ratio of 1 unit per 5 grams CHO consumed - Outpatient Anti-Diabetic Meds metformin 1 gm PO BID glipizide 10 mg BID - Assessment & Plan ASSESSMENT: * See progress note from 10/24/2020 for more background info, in short: * Pt receiving SQ basal bolus insulin regimen for hyperglycemia secondary to baseline DM (outpatient regimen on hold). Patient also receiving dexamethasone 6 mg IV daily with Zosyn. * Patient is currently receiving an average of 75 units of insulin per day + IV insulin infusion * 60 units of basal insulin * 15 units of prandial/correctional insulin * BSGs ranging 86 - 230 mg/dl over the past 24hrs * Changes needed to insulin regimen: * AM Fasting BSG = 116 mg/dl. This is in goal range for patient based on inpatient targets and co-morbidities. The patient received Lantus 30 units BID (weight-based stress of 3). Will reduce to weight-based stress of 2 for now because patient primarily received basal insulin yesterday. * Post-prandial BSGs were okay yesterday. Not truly able to evaluate weight- based stress of 3 Novolog so will continue for now. Appears reasonable for dexamethasone. * Total daily dose is TBD. PLAN FOR INPATIENT GLYCEMIC CONTROL: * STARTING Lantus 20 units SQ BID * Continuing correction factor of 15 mg/dl/unit * Continuing carb ratio of 1 unit per 5 grams CHO consumed * Continuing goal range of Low 110 mg/dL - High 140 mg/dL * Please note that the plan above was derived based on current level of insulin resistance and hospital stress. These recommendations are appropriate for inpatient admission only. Plan of care upon discharge will need to be reassessed to avoid potential outpatient hypo/hyperglycemia. Thank you.
--- NOTE | 2020-10-25 14:40 | XRay Report ---
XR chest 1V portable HISTORY: Shortness of breath. Pneumonia COMPARISON: Chest 10/22/2020. FINDINGS: Progressive near diffuse bilateral airspace opacities consistent with a worsening pneumonia . The cardiac silhouette is stable in size. No pneumothorax. No pleural effusions. IMPRESSION: Progression of the near diffuse bilateral airspace opacities consistent with a worsening pneumonia. ACT 112: Negative or not required by law. Electronically signed by: Karthikeyan Smith M.D. 10/25/2020 2:38 PM
[2020-10-25] MEDS: ATORVASTATIN 40 MG TAB PO SCH (21:24)
[2020-10-26] MEDS: DOXYCYCLINE HYCLATE 100 MG in DEXTROSE 5% 100 ML IV SCH ×2 (02:22→14:21)
[2020-10-26] MEDS: PIPERACILLIN/TAZOBACTAM 3.375 GM in DEXTROSE 5% 100 ML IV SCH ×3 (03:23→17:31)
[2020-10-26] MEDS: INSULIN ASPART 100 UNITS/ML 3 ML PEN SC SCH ×5 (06:09→21:22)
[2020-10-26] MEDS: ACETAMINOPHEN 500 MG TAB PO PRN (07:46)
[2020-10-26] MEDS: cloNIDine HCL 0.1 MG TAB PO PRN (08:03)
[2020-10-26 08:38] LABS: Basophils # (auto) 0.01 K/uL (0-0.2); Hematocrit (blood only) 34.7 % (42-52); Hemoglobin 11.2 g/dL (14.0-18.0); Immature Granulocytes # (auto) 0.19 K/uL (0.00-0.02); Immature Granulocytes % (auto) 0.9 %; Lymphocytes # (auto) 0.48 K/uL (1.2-3.4); Lymphocytes % (auto) 2.4 %; Mean Corpuscular Hemoglobin 27.9 pg (25-34); Mean Corpuscular Hgb Conc 32.3 g/dL (32-36); Mean Corpuscular Volume 86.5 fL (80-100); Mean Platelet Volume 10.8 fL (7.4-10.4); Monocytes # (auto) 0.46 K/uL (0.11-0.59); Monocytes % (auto) 2.3 %; Neutrophils % (auto) 94.4 %; Platelet Count 290 K/uL (130-400); RDW Coefficient of Variation 14.7 % (11.5-14.5); RDW Standard Deviation 46.7 fL (36.4-46.3); Red Blood Count 4.01 M/uL (4.7-6.1); White Blood Count 20.34 K/uL (4.8-10.8)
[2020-10-26 08:55] LABS: BUN Creatinine Ratio 19.7 (10-20); C Reactive Protein 18.6 mg/dl (0-0.29); Calcium 8.4 mg/dl (8.5-10.1); Creatinine Clr Calc Pharmacy 104.4 ml/min; Est GFR (African American) 101.1; Est GFR (Non-African American) 87.2; Magnesium 1.4 mg/dl (1.8-2.4); Potassium 3.6 mmol/L (3.5-5.1)
[2020-10-26 09:08] LABS: Phosphorus 1.3 mg/dl (2.5-4.9)
[2020-10-26] MEDS ORDERED: POTASSIUM PHOS 3 MMOL/1 ML INFUSION IV STA ×2 (09:15→15:33)
[2020-10-26] MEDS: dexAMETHasone 6 MG in SYRINGE 0 ML IV SCH (09:15)
[2020-10-26] MEDS: TAMSULOSIN HCL 0.4 MG CAP PO SCH (09:17)
[2020-10-26] MEDS: ASPIRIN 81 MG ECTAB PO SCH (09:17)
[2020-10-26] MEDS: NICOTINE 14 MG/24 HR PATCH TD SCH (09:17)
[2020-10-26] MEDS: FOLIC ACID 1 MG in SYRINGE 9.8 ML IV SCH (09:18)
[2020-10-26] MEDS: THIAMINE HCL 100 MG in SYRINGE 9 ML IV SCH (09:18)
[2020-10-26] MEDS: INSULIN GLARGINE SOLOSTAR 100 UNITS/ML 3 ML PEN SC SCH ×2 (09:19→21:21)
[2020-10-26] MEDS: HEPARIN SOD 5,000 UNIT/0.5 ML VIAL SQ SCH (09:20)
[2020-10-26] MEDS ORDERED: FUROSEMIDE 40 MG in SYRINGE 0 ML IV ONE (09:45)
[2020-10-26] MEDS ORDERED: POTASSIUM PHOSPHATE 30 MMOL in SODIUM CHLORIDE 0.9% 500 ML IV ONE ×2 (09:45→15:45)
--- NOTE | 2020-10-26 10:18 | Pharmacy Report ---
Glycemic Control Progress Note - Date of Service October 26, 2020 - Scope Glycemic Pharmacist consulted for glycemic control to write orders per [facility] inpatient glycemic control protocol. - Objective Accuchecks BSG(last 24 hours):: 10/25/20 10/25/20 10/25/20 11:40 16:42 21:05 Glucose POC Glucose 134 H 118 H 130 H 10/25/20 10/26/20 10/26/20 23:53 04:09 07:36 Glucose POC Glucose 133 H 133 H 114 H 10/26/20 08:19 Glucose 128 H POC Glucose HbA1c:: Hemoglobin A1c 8.2 % (4.5-5.6) H 10/24/20 06:28 - Recent Pertinent Medications The patient is currently receiving: * Basal insulin: Lantus 20 units every 12 hours * Correctional Insulin: Novolog Correction per scale ACHS Goal Range: Low 110 mg/dL - High 140 mg/dL Correction Factor: 15 mg/dL/unit * Prandial insulin: Per carb ratio of 1 unit per 5 grams CHO consumed - Outpatient Anti-Diabetic Meds metformin1 gm bid glipizide 10 mg bid - Assessment & Plan ASSESSMENT: * See progress note from 10/24/2020 for more background info, in short: * Pt receiving SQ basal bolus insulin regimen for hyperglycemia secondary to baseline DM (outpatient regimen on hold). Patient continues on dexamethasone 6 mg IV daily. He is also on Zosyn and doxycycline for pneumonia. * Patient is currently receiving an average of 44 units of insulin per day * 40 units of basal insulin * 14 units of prandial/correctional insulin * BSGs ranging 116 - 134 mg/dl over the past 24hrs * Changes needed to insulin regimen: * AM Fasting BSG = 114 mg/dl. This is in goal range for patient based on inpatient targets and co-morbidities. The patient's current regimen is very basal heavy (75% of current regimen). This is not ideal with steroids (want a more 40/60 basal/bolus split). Will provide lower dose of 15 units if BSG < 120 mg/dL. * Post-prandial BSGs are in range therefore no changes needed to CF/CR. * Total daily dose = ~50-60 units. Altered regimen for more desired split. PLAN FOR INPATIENT GLYCEMIC CONTROL: * Continuing Lantus 20 units SQ BID (15 units if BSG < 120 mg/dL) * Continuing correction factor of 15 mg/dl/unit * Continuing carb ratio of 1 unit per 5 grams CHO consumed * Continuing goal range of Low 110 mg/dL - High 140 mg/dL * Please note that the plan above was derived based on current level of insulin resistance and hospital stress. These recommendations are appropriate for inpatient admission only. Plan of care upon discharge will need to be reassessed to avoid potential outpatient hypo/hyperglycemia. Thank you.
[2020-10-26] MEDS ORDERED: REMDESIVIR 200 MG in SODIUM CHLORIDE 0.9% 210 ML IV ONE (10:30)
--- NOTE | 2020-10-26 10:32 | Hospitalist Progress Note ---
Date of Service October 26, 2020 Assessment & Plan (1) Septic shock: Admitted with sepsis likely secondary to multilobar pneumonia and presented with hypotension and shock Received adequate amount of intravenous fluid and required intravenous pressors to maintain blood pressure Appreciate food server input and recommendation He is off pressors since this morning and blood pressure is maintaining at noon low normal level No more fever and/or chills but white count remains mildly elevated Blood pressure is trending up Acute confusion Reported that the patient has been drinking about 6-8 beers a day and more over the weekends Likely has withdrawal symptoms Has been getting intravenous Ativan as per withdrawal protocol He admits to have 1 or 2 beers a day but never been a heavy drinker No tremors of the outstretched hands Confusion resolved and remains generally weak and lethargic Electrolytes abnormality Has low magnesium and phosphate Likely related to use of alcohol Phosphate remains low and there are supplemented Phosphate and magnesium were replaced Will monitor (2) Pneumonia due to 2019 novel coronavirus: Presented with hypoxic respiratory failure Has been sick for some time with weakness, dizziness and has had diarrhea without any documented Covid contact Tested positive for Covid with CT scan suggestive of viral pneumonia Started with dexamethasone but remdesivir could not be given due to renal impairment Discussed with the patient this morning and convalescent plasma was administered after discussing pros and cons with the patient in detail Received convalescent plasma Oxygen requirements went down to 3L/min but has been getting back up to 5 L/min this morning Has had fever of 39 C-Tylenol provided, will have chest x-ray and blood culture taken Will add atypical coverage Worsening COVID-19 pneumonia and requiring more oxygen to maintain saturation Remdesivir was added today, nebulized bronchodilator with albuterol and intravenous Lasix to keep him on the atmospheric drier tender side He will be evaluated by food server today for further recommendation. 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 Heparin drip has been stopped and he is back on prophylactic heparin Requiring more oxygen to maintain saturation (3) Multifocal pneumonia: CT scan did show multi lobar pneumonia Likely has bacterial pneumonia superimposed on COVID-19 infection and pneumonia Has been getting intravenous Vanco, Zosyn and doxy Clinically better today 1 out of 2 blood culture grew probable anabolic gram-positive bacilli IV vancomycin and doxycycline were discontinued We will continue intravenous Zosyn We will add atypical coverage Having fever and repeat blood cultures were taken with addition of doxycycline to cover atypicals The fever could be due to viral pneumonia secondary to COVID-19 (4) BHAVESH (acute kidney injury): Presented with BHAVESH likely secondary to dehydration Received intravenous fluid and the kidney function has been improving We will continue intravenous fluid and monitor PRP Creatinine improved to normal level (5) HTN (hypertension): Presented with hypotension and septic shock (6) Diabetes mellitus, type II: Monitor blood sugar Has been requiring intravenous insulin Appreciate pharmacy input and recommendation SSI Insulin drip has been stopped (7) Prostate cancer: History of prostate cancer Can increase the risk of clot formation DVT prophylaxis Has been on heparin CODE STATUS Full We will discussed with his Admission and Anticipated Discharge Date Admission Date: October 22, 2020 Subjective 10/23/2020 The patient was seen and examined in telemetry Covid unit He has been feeling much better since admission Still complains to have cough with shortness of breath Denies any significant pain, fever and/or chills, any nausea and or vomiting 10/24/2020 The patient was seen and examined in telemetry Covid unit He was noted to be agitated last night and has been put on alcohol withdrawal protocol Received Ativan 2 mg this morning and has been sleeping Oxygen requirements has gone down to 3 to 5 L/min to maintain saturation 10/25/2020 The patient was seen and examined in telemetry Covid unit He has been feeling better but looked moderate shortness of breath at rest History of prior and has some sweating Denies any other significant symptoms 10/26/2020 The patient was seen and examined in telemetry Covid unit His saturation has been worsening and has had fever again this morning He states that he has been feeling better and denies any cough, any more shortness of breath, any pain, any nausea and or vomiting Review of Systems Review of Systems: All systems reviewed and are unremarkable except as noted below Respiratory: + dyspnea and + dyspnea on exertion; no cough Neurologic: Alert, awake and oriented x3 Physical Exam Physical Exam: Moderate shortness of breath at rest with fever Constitutional: well developed, well nourished, + ill appearing and + obese Eyes: PERRL, conjunctivae normal, anicteric sclerae ENMT: external ear and nose normal, oropharynx normal Neck: trachea midline, no thyromegaly Respiratory: + respiratory distress Auscultation: + diminished lung sounds and + crackles (Coarse crackles at the bases) Cardiovascular: Rate/Rhythm: regular rate and regular rhythm Heart Sounds: no murmur Extremities: no edema Gastrointestinal (Abdomen): Inspection/Auscultation: normal bowel sounds; abdomen not distended Percussion/Palpation: abdomen soft; abdomen nontender Musculoskeletal: No acute arthritis in any joint Neurologic: Alert, awake and oriented x3. Generally weak and lethargic but no focal sensory and motor deficit appreciated Psychiatric: A+Ox3, euthymic affect Lymphatic: no cervical or axillary lymphadenopathy Results & Data Results & Data ([facility]) Vital Signs (Past 12 Hours) Vital Signs Temp Pulse Pulse Resp BP Pulse Ox 10/26/20 10:18 91 10/26/20 10:17 89 L 10/26/20 10:16 89 L 10/26/20 10:13 37.2 C 81 26 H 88 L 10/26/20 07:36 38.2 C H 109 H 32 H 166/65 H 89 L 10/26/20 04:10 37.1 C 94 H 22 127/55 L 92 10/25/20 23:59 68 10/25/20 23:47 36.6 C 71 22 122/51 L 92 Laboratory Results Short CBC 10/26/20 Range/Units 08:19 WBC 20.34 H (4.8-10.8) K/uL Hgb 11.2 L (14.0-18.0) g/dL Hct 34.7 L (42-52) % Plt Count 290 (130-400) K/uL BMP 10/26/20 08:19 Sodium 145 Potassium 3.6 Chloride 110 H Carbon Dioxide 28 BUN 17 Creatinine 0.86 Glucose 128 H Calcium 8.4 L Medications Administered Current Inpatient Medications Acetaminophen (Acetaminophen 500 Mg Tab) 1,000 mg PO Q6H PRN PRN Reason: Fever Stop: 11/24/20 11:42 Last Admin: 10/26/20 07:46 Dose: 1,000 mg Documented by: Albuterol (Albuterol 0.083% Nebu Soln 3 Ml Vial) 2.5 mg NEB Q6R TRUNG Stop: 11/25/20 12:59 Aspirin (Aspirin 81 Mg Ectab) 81 mg PO DAILY TRUNG Stop: 11/22/20 08:59 Last Admin: 10/26/20 09:17 Dose: 81 mg Documented by: Atorvastatin Calcium (Atorvastatin 40 Mg Tab) 80 mg PO HS TRUNG Stop: 11/21/20 22:59 Last Admin: 10/25/20 21:24 Dose: 80 mg Documented by: Clonidine HCl (Clonidine Hcl 0.1 Mg Tab) 0.1 mg PO Q8H PRN PRN Reason: SBP>140 Stop: 11/24/20 11:42 Last Admin: 10/26/20 08:03 Dose: 0.1 mg Documented by: Dextrose (Dextrose 50% 50 Ml Syringe) 25 - 50 ml IV UD PRN; Protocol PRN Reason: Hypoglycemia Protocol Stop: 11/22/20 10:44 Glucagon (Glucagon For Inj 1 Mg Vial) 1 mg IM UD PRN; Protocol PRN Reason: Hypoglycemia Protocol Stop: 11/22/20 10:44 Glucose (Glucose 40% Gel 15 Gm Tube) 15 - 30 gm PO UD PRN; Protocol PRN Reason: Hypoglycemia Protocol Stop: 11/22/20 10:44 Glucose (Glucose 10 Tabs/Tube) 4 - 8 tabs PO UD PRN; Protocol PRN Reason: Hypoglycemia Protocol Stop: 11/22/20 10:44 Heparin Sodium (Beef Lung) (Heparin 10 Unit/Ml 5 Ml Flush) 5 ml FLUSH PRN PRN PRN Reason: Flush Stop: 11/21/20 22:35 Heparin Sodium (Porcine) (Heparin Sod 5,000 Unit/0.5 Ml Vial) 5,000 units SQ Q12 TRUNG Stop: 11/22/20 20:59 Last Admin: 10/26/20 09:20 Dose: 5,000 units Documented by: Piperacillin Sod/Tazobactam (Sod 3.375 gm/ Dextrose) 115 mls @ 28.75 mls/hr IV Q8H TRUNG; Protocol Stop: 10/30/20 01:59 Last Admin: 10/26/20 09:25 Dose: 29 mls/hr Documented by: Lorazepam (Ativan) 1 mg in 2 mls @ 2 mls/min IV ONE PRN; Protocol PRN Reason: EtoH Withdrawal AWSS 6-10 Stop: 11/23/20 12:26 Last Admin: 10/25/20 21:36 Dose: 2 mls/min Documented by: Dexamethasone 6 mg/ Syringe 1.5 mls @ 1 mls/min IV DAILY TRUNG Stop: 11/24/20 08:59 Last Admin: 10/26/20 09:15 Dose: 1 mls/min Documented by: Folic Acid 1 mg/ Syringe 10 mls @ 5 mls/min IV QAM [facility] Stop: 11/24/20 08:59 Last Admin: 10/26/20 09:18 Dose: 5 mls/min Documented by: Thiamine HCl 100 mg/ Syringe 10 mls @ 2 mls/min IV DAILY [facility] Stop: 11/24/20 08:59 Last Admin: 10/26/20 09:18 Dose: 2 mls/min Documented by: Doxycycline Hyclate 100 mg/ (Dextrose) 110 mls @ 50 mls/hr IV Q12H [facility] Stop: 11/01/20 13:59 Last Admin: 10/26/20 02:22 Dose: 50 mls/hr Documented by: Magnesium Sulfate/Dextrose (Magnesium Sulfate / D5w) 1 gm in 100 mls @ 50 mls/hr IV Q2H [facility] Stop: 10/26/20 13:44 Potassium Phosphate 30 mmol/ (Sodium Chloride) 510 mls @ 102 mls/hr IV ONE ONE Stop: 10/26/20 14:44 Remdesivir 200 mg/ Sodium (Chloride) 250 mls @ 125 mls/hr IV NOW ONE; Protocol Stop: 10/26/20 12:29 Remdesivir 100 mg/ Sodium (Chloride) 250 mls @ 250 mls/hr IV Q24H [facility]; Protocol Stop: 10/30/20 12:59 Insulin Aspart (Insulin Aspart 100 Units/Ml 3 Ml Pen) 0 units SC ACHS [facility] Stop: 11/24/20 08:29 Last Admin: 10/26/20 09:15 Dose: Not Given Documented by: Insulin Glargine (Insulin Glargine Solostar 100 Units/Ml 3 Ml Pen) 0 units SC BID [facility]; Protocol Stop: 11/25/20 08:59 Last Admin: 10/26/20 09:19 Dose: 15 units Documented by: Miscellaneous (Carbohydrates For Hypoglycemia ) 15 - 30 gm PO UD PRN PRN Reason: Hypoglycemia Treatment Stop: 11/22/20 10:44 Miscellaneous (Remove Nicoderm Patch) 1 ea N/A DAILY@0859 [facility] Stop: 11/24/20 08:58 Last Admin: 10/25/20 08:36 Dose: 1 ea Documented by: Miscellaneous Information (Piperacill/Tazobac Consult Active) 1 ea N/A UD PRN PRN Reason: Consult Stop: 11/21/20 19:07 Miscellaneous Information (Pharmacy Glycemic Mgmt Consult) 1 ea N/A UD PRN PRN Reason: Consult Stop: 11/23/20 11:59 Nicotine (Nicotine 14 Mg/24 Hr Patch) 14 mg TD QAM TRUNG Stop: 11/23/20 16:29 Last Admin: 10/26/20 09:17 Dose: 14 mg Documented by: Sodium Chloride (Sodium Chloride 0.9% 10ml Flush) 30 ml IV Q24H TRUNG Stop: 10/30/20 12:01 Tamsulosin HCl (Tamsulosin Hcl 0.4 Mg Cap) 0.4 mg PO DAILY TRUNG Stop: 11/22/20 08:59 Last Admin: 10/26/20 09:17 Dose: 0.4 mg Documented by:
[2020-10-26] MEDS: SODIUM CHLORIDE 0.9% 10ML FLUSH IV SCH (10:46)
[2020-10-26] MEDS: MAGNESIUM SULFATE / D5W 1 GM/100 ML BAG IV SCH ×5 (10:46→21:20)
[2020-10-26] MEDS: ALBUTEROL 0.083% NEBU SOLN 3 ML VIAL NEB SCH ×2 (13:13→19:28)
--- NOTE | 2020-10-26 15:27 | Critical Care Progress Note ---
Date of Service October 26, 2020 Assessment & Plan (1) Shock: Reason Critically Ill: 70-year-old male presents to the ICU with COVID-19 pneumonia, hypoxia, sepsis, and significant hypotension requiring vasopressor support. Neuro - [facility] ICU: Negative CT head with age-indeterminate CVA. No acute intracranial process Cardiac - ShockResolved Respiratory - HypoxiaImproved after diuresis today -CT chest with multifocal consolidations and groundglass opacities within the lungs, consistent with a viral pneumonia -Dexamethasone 6 mg daily -See ID management for potential bacterial pulmonary source below -Echo reviewed, troponins negative previously on heparin for possible presumptive PE however this was transitioned to subcu heparin -Previously unable to obtain contrasted CT scan secondary to BHAVESH -We will obtain today -Remdesivir started by hospitalist team GI - Sigmoid diverticulosis without evidence of acute diverticulitis noted on CT abdomen and inconsistent with reports of diarrhea. Likely secondary to Covid 19. RENAL/LYTES - BHAVESH resolved Hypomagnesemia -4 g magnesium sulfate Hypophosphatemia -30 mmol K-Phos - Noted to have bladder wall thickening with infiltration adjutant to the bladder, seminal vesicles and prostate. Patient does have history of prostate cancer and is reportedly undergoing brachytherapy at [facility]. Unsure if this is treatment related versus infectious. See ID below Foleystrict I's and O's ENDO - DM type IIholding home dose metformin and transition to sliding scale. Hemoglobin A1c 7.5. -ICU hyperglycemic protocol No history of thyroid disease, TSH pending HEME - Anemia: Suspect viral etiology ID - Sepsispatient with fever, mild leukocytosis, mildly elevated procalcitonin. Lactate negative. He is also significantly hypotensive. -COVID-19 pneumonia positive. Started on dexamethasone. -Influenza and RSV negative. -Clostridium perfringens and one blood culture -Repeat cultures no growth to date -Sputum culture -CT chest with contrast rule out pulmonary embolism -Agree with broad-spectrum antibiotics Zosyn, doxy for now LINES/IV ACCESS - Right femoral CVC, peripheral IVs, left radial A-line DVT PROPHYLAXIS - SCDs, Lovenox half milligram per kilo twice daily (2) COVID-19: (3) Sepsis: (4) Pneumonia: (5) UTI (urinary tract infection): (6) Prostate cancer: (7) Acute hypotension: (8) BPH (benign prostatic hyperplasia): (9) HLD (hyperlipidemia): (10) HTN (hypertension): (11) Diabetes mellitus, type II: Admission and Anticipated Discharge Date Admission Date: October 22, 2020 Subjective Mild worsening of hypoxia overnight, has received diuresis and has improved oxygen saturation on supplemental oxygen with known COVID-19 pneumonia. Physical Exam Physical Exam: General: Alert. nontoxic. Skin: Warm, dry, Head: Atraumatic Ears, nose, mouth and throat: airway patent Cardiovascular: Normal peripheral perfusion Respiratory: no respiratory distress Gastrointestinal: Non distended Musculoskeletal: No deformity Results & Data Results & Data ([facility]) Vital Signs (Past 12 Hours) Vital Signs Temp Pulse Pulse Resp BP Pulse Ox 10/26/20 13:13 77 20 92 10/26/20 11:40 37 C 72 24 113/55 L 94 10/26/20 11:30 96 10/26/20 10:18 91 10/26/20 10:17 89 L 10/26/20 10:16 89 L 10/26/20 10:13 37.2 C 81 26 H 88 L 10/26/20 09:00 37.3 C 10/26/20 07:36 38.2 C H 109 H 32 H 166/65 H 89 L 10/26/20 06:20 96 H 10/26/20 04:10 37.1 C 94 H 22 127/55 L 92 Coding Level of Care Code 90632 Subseq Hosp Care Lvl 3 Diagnoses Shock R57.9 COVID-19 U07.1 Sepsis A41.9 Sepsis acute organ dysfunction status: unspecified Sepsis type: sepsis due to unspecified organism Pneumonia J18.9 UTI (urinary tract infection) N39.0 Prostate cancer C61 Acute hypotension I95.9 BPH (benign prostatic hyperplasia) N40.0 HLD (hyperlipidemia) E78.5 HTN (hypertension) I10 Diabetes mellitus, type II E11.9 (1) Sepsis Sepsis acute organ dysfunction status: unspecified Sepsis type: sepsis due to unspecified organism Qualified Code(s): A41.9 - Sepsis, unspecified organism
[2020-10-26] MEDS ORDERED: INSULIN ASPART 100 UNITS/ML 3 ML PEN SC SCH (16:30)
[2020-10-26] MEDS: ENOXAPARIN INJ 60 MG/0.6 ML SYR SQ SCH (16:43)
[2020-10-26] MEDS ORDERED: OPTIRAY 320 125ml IV ONE (18:18)
--- NOTE | 2020-10-26 18:39 | CT Scan Report ---
CT angio chest PE protocol CT DOSE: 793.58 mGy.cm HISTORY: 70 years-old Male with PE. Acute shortness of breath. COVID Positive. TECHNIQUE: Multiple CTA images of the chest were obtained after the intravenous administration of 120 ml Optiray 320. Coronal and sagittal MIPS were obtained from the axial data set and were submitted for review. All measurements were obtained according to NASCET criteria. A dose lowering technique w as utilized adhering to the principles of ALARA. COMPARISON: Chest CT 10/22/2020 FINDINGS: Limited study secondary to respiratory motion artifact. CTA: Mild cardiomegaly with moderate coronary artery calcifications. No thoracic aortic aneurysm or dissec tion. Suboptimal dilation of the pulmonary artery secondary to respiratory motion artifact and contra st bolus timing. No central filling defects identified to suggest thromboembolic disease. CT CHEST: Unremarkable thyroid. Multiple mildly enlarged mediastinal and bilateral hilar lymph nodes are redemo nstrated measuring up to approximately 1.4 cm. There are new small pleural effusions. Extensive bilat eral mixed groundglass and consolidative opacities have progressively worsened. Mild intralobular sep chico thickening. Central airways are patent. No acute process of the imaged upper abdomen. Gynecomastia. Degenerative changes of the shoulders and spine. No acute fracture or suspicious bone lesion. Mild cortical angulation of the anterior right t hird rib is unchanged. IMPRESSION: 1. Progressively worsened now extensive mixed interstitial and alveolar opacities throughout the lung s suggestive of viral pneumonia. Superimposed pulmonary edema would be difficult to exclude. 2. Limited evaluation of the pulmonary arterial tree as above. No central pulmonary emboli identified . 3. New small pleural effusions 4. Cardiomegaly with moderate coronary artery calcifications 5. Mild mediastinal and hilar adenopathy, likely reactive. ACT 112: Negative or not required by law. The above report was generated using voice recognition software. It may contain grammatical, syntax o r spelling errors. Electronically signed by: Julio César Main M.D. 10/26/2020 6:37 PM
[2020-10-26] MEDS: ATORVASTATIN 40 MG TAB PO SCH (21:21)
[2020-10-26] MEDS ORDERED: ALBUTEROL 0.083% NEBU SOLN 3 ML VIAL NEB STA (22:39)
[2020-10-27] MEDS: ALBUTEROL 0.083% NEBU SOLN 3 ML VIAL NEB SCH ×2 (00:26→07:11)
[2020-10-27] MEDS: MAGNESIUM SULFATE / D5W 1 GM/100 ML BAG IV SCH (00:49)
[2020-10-27] MEDS: DOXYCYCLINE HYCLATE 100 MG in DEXTROSE 5% 100 ML IV SCH (03:19)
[2020-10-27] MEDS: PIPERACILLIN/TAZOBACTAM 3.375 GM in DEXTROSE 5% 100 ML IV SCH ×2 (03:19→09:16)
[2020-10-27] MEDS: ENOXAPARIN INJ 60 MG/0.6 ML SYR SQ SCH ×2 (03:20→15:32)
[2020-10-27] MEDS: THIAMINE HCL 100 MG in SYRINGE 9 ML IV SCH (08:27)
[2020-10-27] MEDS: FOLIC ACID 1 MG in SYRINGE 9.8 ML IV SCH (08:27)
[2020-10-27] MEDS: dexAMETHasone 6 MG in SYRINGE 0 ML IV SCH (08:27)
[2020-10-27] MEDS: NICOTINE 14 MG/24 HR PATCH TD SCH (08:28)
[2020-10-27] MEDS: ASPIRIN 81 MG ECTAB PO SCH (08:28)
[2020-10-27] MEDS: TAMSULOSIN HCL 0.4 MG CAP PO SCH (08:29)
[2020-10-27] MEDS: INSULIN HUMAN NPH SC SCH (08:30)
[2020-10-27] MEDS: INSULIN ASPART 100 UNITS/ML 3 ML PEN SC SCH ×4 (08:31→21:06)
[2020-10-27 08:50] LABS: Basophils # (auto) 0.02 K/uL (0-0.2); Basophils % (auto) 0.1 %; Hematocrit (blood only) 35.5 % (42-52); Hemoglobin 11.5 g/dL (14.0-18.0); Immature Granulocytes # (auto) 0.26 K/uL (0.00-0.02); Immature Granulocytes % (auto) 1.2 %; Lymphocytes # (auto) 0.72 K/uL (1.2-3.4); Lymphocytes % (auto) 3.4 %; Mean Corpuscular Hemoglobin 27.9 pg (25-34); Mean Corpuscular Hgb Conc 32.4 g/dL (32-36); Mean Corpuscular Volume 86.2 fL (80-100); Monocytes # (auto) 0.77 K/uL (0.11-0.59); Monocytes % (auto) 3.6 %; Neutrophils # (auto) 19.34 K/uL (1.4-6.5); Neutrophils % (auto) 91.7 %; Platelet Count 343 K/uL (130-400); RDW Coefficient of Variation 14.9 % (11.5-14.5); RDW Standard Deviation 46.8 fL (36.4-46.3); Red Blood Count 4.12 M/uL (4.7-6.1); White Blood Count 21.11 K/uL (4.8-10.8)
[2020-10-27 09:22] LABS: BUN Creatinine Ratio 20.4 (10-20); Calcium 8.4 mg/dl (8.5-10.1); Creatinine Clr Calc Pharmacy 85.1 ml/min; Est GFR (African American) 81.4; Est GFR (Non-African American) 70.3; Magnesium 2.1 mg/dl (1.8-2.4); Potassium 3.5 mmol/L (3.5-5.1)
[2020-10-27 09:47] LABS: Phosphorus 3.1 mg/dl (2.5-4.9)
[2020-10-27] MEDS ORDERED: FUROSEMIDE 40 MG in SYRINGE 0 ML IV ONE (09:51)
[2020-10-27] MEDS ORDERED: FUROSEMIDE 40 MG/4 ML VIAL IV ONE (10:30)
[2020-10-27] MEDS ORDERED: INSULIN GLARGINE SOLOSTAR 100 UNITS/ML 3 ML PEN SC ONE ×2 (11:30)
--- NOTE | 2020-10-27 11:36 | Critical Care Progress Note ---
Date of Service October 27, 2020 Assessment & Plan (1) Multifocal pneumonia: (2) Pneumonia due to 2019 novel coronavirus: Reason Critically Ill: 70-year-old male presents to the ICU with COVID-19 pneumonia, hypoxia, sepsis, and significant hypotension requiring vasopressor support. 24-hour events: Recalled by hospitalist to reevaluate the patient. His oxygenation is improved. He is on nasal cannula at flow rates between 8 and 10 L/min. He does not appear to be in any acute respiratory distress currently. Neuro - [facility] ICU: Negative CT head with age-indeterminate CVA. No acute intracranial process. Apparently there is concerned about alcohol withdrawal. He has been placed on Ativan and clonidine. He is receiving thiamine and folate. Cardiac - ShockResolved Respiratory - Hypoxiamultifocal airspace opacities consistent with Covid pneumonia. Continue supportive care. If oxygenation remains a problem, could consider self proning and potential application of CPAP. Appears to be doing much better currently. Agree with continued diuresis as tolerated by kidney function. GI - Sigmoid diverticulosis without evidence of acute diverticulitis noted on CT abdomen and inconsistent with reports of diarrhea. Likely secondary to Covid 19. RENAL/LYTES - BHAVESH resolved. Continue to replace electrolytes as needed - Noted to have bladder wall thickening with infiltration adjutant to the bladder, seminal vesicles and prostate. Patient does have history of prostate cancer and is reportedly undergoing brachytherapy at [facility]. Unsure if this is treatment related versus infectious. See ID below Foleyif felt to be necessary by primary service ENDO - DM type IIholding home dose metformin and transition to sliding scale. Hemoglobin A1c 7.5. HEME - Anemia: Suspect viral etiology ID - Sepsispatient with fever, mild leukocytosis, mildly elevated procalcitonin. Lactate negative. He is now day #6 broad-spectrum antibiotics. Cultures of s how no growth to date. White count remains elevated. Recheck PCT and recommend discontiuation of abx unless culture positive. Check BNP and legionella ag. On Decadron, okay to complete 10 days. Patient appears stable to downgrade and in discussion with the nurse it appears that he is already on the [facility] staffing unit. Will sign off from a critical care perspective. Feel free to contact us if we can be of additional assistance. Admission and Anticipated Discharge Date Admission Date: October 22, 2020 Subjective Patient seen and examined. He is awake and alert and conversant. He is on nasal cannula between 8 and 10 L with oxygen saturations in the mid 90s. He does not appear to be in any acute respiratory distress. No new complaints Review of Systems Review of Systems: All systems reviewed & are unremarkable except as noted in HPI & below Physical Exam Physical Exam: Moderate shortness of breath at rest with fever Constitutional: well developed, well nourished, + ill appearing and + obese Eyes: PERRL, conjunctivae normal, anicteric sclerae ENMT: external ear and nose normal, oropharynx normal Neck: trachea midline, no thyromegaly Respiratory: + respiratory distress Auscultation: + diminished lung sounds and + crackles (Coarse crackles at the bases) Cardiovascular: Rate/Rhythm: regular rate and regular rhythm Heart Sounds: no murmur Extremities: no edema Gastrointestinal (Abdomen): Inspection/Auscultation: normal bowel sounds; ab domen not distended Percussion/Palpation: abdomen soft; abdomen nontender Musculoskeletal: No acute arthritis in any joint Neurologic: Alert, awake and oriented x3. Generally weak and lethargic but no focal sensory and motor deficit appreciated Psychiatric: A+Ox3, euthymic affect Lymphatic: no cervical or axillary lymphadenopathy Results & Data Results & Data ([facility]) Vital Signs (Past 12 Hours) Vital Signs Temp Pulse Pulse Resp BP Pulse Ox 10/27/20 10:42 91 10/27/20 10:30 87 L 10/27/20 07:44 36.6 C 89 22 110/64 84 L 10/27/20 07:11 66 20 92 10/27/20 07:00 59 L 10/27/20 04:29 36.7 C 62 25 H 113/61 89 L 10/26/20 23:59 80 10/26/20 23:44 36.8 C 80 20 123/51 L 91 Laboratory Results 10/27/20 08:29 10/27/20 08:[address] angiogram from yesterday showed extensive bilateral airspace opacities. No clear filling defect concerning for PE is noted. Pleural effusions and cardiomegaly are noted with reactive hilar and mediastinal adenopathy. Coding Level of Care Code 77564 Subseq Hosp Care Lvl 3 Diagnoses Multifocal pneumonia J18.9 Pneumonia due to 2019 novel coronavirus U07.1; J12.82
--- NOTE | 2020-10-27 11:51 | Pharmacy Report ---
Pharmacy Glycemic Short Note 2 - Date of Service October 27, 2020 - Glycemic Short BSG Results (Last 24 hours): 10/26/20 10/26/20 10/26/20 11:43 16:13 21:11 Glucose POC Glucose 133 H 242 H 242 H 10/27/20 10/27/20 07:46 08:29 Glucose 253 H POC Glucose 245 H OUTPATIENT ANTIDIABETIC REGIMEN: * metformin 1gm PO BID * glipizide 10mg PO BID * A1c = 8.2% 10/24/20 ASSESSMENT: 10/27 * Glycemic control has deteriorated over the last 24 hrs * Fasting BSG 245 this AM with 35 units basal insulin on board - will begin to up-titrate, patient seemed to tolerate 40-60 units basal/day earlier this admi t * Will utilize NPH to provide a portion of the basal insulin needs, but will also help to control midday peak in BSGs associated with AM dexamethasone IV * Continue aggressive prandial Novolog to combat steroid induced hyperglycemia PLAN FOR INPATIENT GLYCEMIC CONTROL: * Hold outpatient oral diabetes medications (metformin, glipizide) * Basal insulin * Lantus 20 units Q AM + 10 units Q PM * NPH 30 units Q AM w/ IV dexamethasone * Bolus insulin * NovoLog per scale ACHS * Goal Range: Low 110 mg/dL - High 140 mg/dL * Correction Factor: 15 mg/dL/unit * Nutritional / Prandial insulin per carb ratio of 1 unit per 5 grams CHO consumed PLAN FOR DISCHARGE: * to be determined
[2020-10-27] MEDS: REMDESIVIR 100 MG in SODIUM CHLORIDE 0.9% 230 ML IV SCH (12:58)
[2020-10-27] MEDS: SODIUM CHLORIDE 0.9% 10ML FLUSH IV SCH (13:02)
--- NOTE | 2020-10-27 13:14 | Hospitalist Progress Note ---
Date of Service October 27, 2020 Assessment & Plan (1) Septic shock: Admitted with sepsis likely secondary to multilobar pneumonia and presented with hypotension and shock Received adequate amount of intravenous fluid and required intravenous pressors to maintain blood pressure Appreciate lightning rod erector input and recommendation He is off pressors since this morning and blood pressure is maintaining at noon low normal level No more fever and/or chills but white count remains mildly elevated Blood pressure is trending up Resolved Acute confusion -resolved Reported that the patient has been drinking about 6-8 beers a day and more over the weekends Likely has withdrawal symptoms Has been getting intravenous Ativan as per withdrawal protocol He admits to have 1 or 2 beers a day but never been a heavy drinker No tremors of the outstretched hands Confusion resolved and remains generally weak and lethargic Electrolytes abnormality Has low magnesium and phosphate Likely related to use of alcohol Phosphate remains low and there are supplemented Phosphate and magnesium were replaced Will monitor and replacement if needed (2) Pneumonia due to 2019 novel coronavirus: Presented with hypoxic respiratory failure Has been sick for some time with weakness, dizziness and has had diarrhea without any documented Covid contact Tested positive for Covid with CT scan suggestive of viral pneumonia Started with dexamethasone but remdesivir could not be given due to renal impairment Discussed with the patient this morning and convalescent plasma was administered after discussing pros and cons with the patient in detail Received convalescent plasma Oxygen requirements went down to 3L/min but has been getting back up to 5 L/min this morning Has had fever of 39 C-Tylenol provided, will have chest x-ray and blood culture taken Will add atypical coverage Worsening COVID-19 pneumonia and requiring more oxygen to maintain saturation Remdesivir was added today, nebulized bronchodilator with albuterol and intravenous Lasix to keep him on the raw stock drier tender side He will be evaluated by lightning rod erector today for further recommendation. No more fever and/or chills-repeat blood cultures have been negative We will continue current antibiotic and antiviral Hypoxia could be secondary to pneumonia and/or pulmonary embolism Has been started on intravenous heparin CTA did not show any pulmonary embolism but did show progression of the viral/bacterial pneumonia Chest x-ray did show possible pulmonary congestion as well Received 40 mg of intravenous Lasix yesterday and will be getting IV Lasix to keep him on the raw stock drier tender side He has been feeling a lot better since administration of Lasix (3) Multifocal pneumonia: CT scan did show multi lobar pneumonia Likely has bacterial pneumonia superimposed on COVID-19 infection and pneumonia Has been getting intravenous Vanco, Zosyn and doxy Clinically better today 1 out of 2 blood culture grew probable anabolic gram-positive bacilli IV vancomycin and doxycycline were discontinued We will continue intravenous Zosyn We will add atypical coverage Having fever and repeat blood cultures were taken with addition of doxycycline to cover atypicals The fever could be due to viral pneumonia secondary to COVID-19 No more fever and/or sweating and has been getting better (4) BHAVESH (acute kidney injury): Presented with BHAVESH likely secondary to dehydration Received intravenous fluid and the kidney function has been improving We will continue intravenous fluid and monitor PRP Creatinine improved to normal level (5) HTN (hypertension): Presented with hypotension and septic shock (6) Diabetes mellitus, type II: Monitor blood sugar Has been requiring intravenous insulin Appreciate pharmacy input and recommendation SSI Insulin drip has been stopped Managed by glycemic pharmacist (7) Prostate cancer: History of prostate cancer Can increase the risk of clot formation DVT prophylaxis Has been on heparin Lovenox 0.5 mg/kg body weight twice daily CODE STATUS Full We will discussed with his -discussed with his Admission and Anticipated Discharge Date Admission Date: October 22, 2020 Subjective 10/23/2020 The patient was seen and examined in telemetry Covid unit He has been feeling much better since admission Still complains to have cough with shortness of breath Denies any significant pain, fever and/or chills, any nausea and or vomiting 10/24/2020 The patient was seen and examined in telemetry Covid unit He was noted to be agitated last night and has been put on alcohol withdrawal protocol Received Ativan 2 mg this morning and has been sleeping Oxygen requirements has gone down to 3 to 5 L/min to maintain saturation 10/25/2020 The patient was seen and examined in telemetry Covid unit He has been feeling better but looked moderate shortness of breath at rest History of prior and has some sweating Denies any other significant symptoms 10/26/2020 The patient was seen and examined in telemetry Covid unit His saturation has been worsening and has had fever again this morning He states that he has been feeling better and denies any cough, any more shortn ess of breath, any pain, any nausea and or vomiting 10/27/2020 The patient was seen and examined in telemetry Covid unit He has been feeling a lot better today following the administration of Lasix yes terday He denies any other significant symptoms except shortness of breath at rest Review of Systems Review of Systems: All systems reviewed and are unremarkable except as noted below Respiratory: + dyspnea and + dyspnea on exertion; no cough Neurologic: Alert, awake and oriented x3 Physical Exam Physical Exam: Lying in bed comfortably Constitutional: well developed, well nourished, + ill appearing and + obese Eyes: PERRL, conjunctivae normal, anicteric sclerae ENMT: external ear and nose normal, oropharynx normal Neck: trachea midline, no thyromegaly Respiratory: + respiratory distress Auscultation: + diminished lung sounds and + crackles (Coarse crackles at the bases) Cardiovascular: Rate/Rhythm: regular rate and regular rhythm Heart Sounds: no murmur Extremities: no edema Gastrointestinal (Abdomen): Inspection/Auscultation: normal bowel sounds; abdomen not distended Percussion/Palpation: abdomen soft; abdomen nontender Musculoskeletal: No acute arthritis in any joint Neurologic: Alert, awake and oriented x3. No focal sensory and motor deficit appreciated Psychiatric: A+Ox3, euthymic affect Lymphatic: no cervical or axillary lymphadenopathy Results & Data Results & Data ([facility]) Vital Signs (Past 12 Hours) Vital Signs Temp Pulse Pulse Resp BP Pulse Ox 10/27/20 11:34 36.7 C 72 19 107/49 L 88 L 10/27/20 10:42 91 10/27/20 10:30 87 L 10/27/20 07:44 36.6 C 89 22 110/64 84 L 10/27/20 07:11 66 20 92 10/27/20 07:00 59 L 10/27/20 04:29 36.7 C 62 25 H 113/61 89 L Laboratory Results Short CBC 10/27/20 Range/Units 08:29 WBC 21.11 H (4.8-10.8) K/uL Hgb 11.5 L (14.0-18.0) g/dL Hct 35.5 L (42-52) % Plt Count 343 (130-400) K/uL BMP 10/27/20 08:29 Sodium 142 Potassium 3.5 Chloride 106 Carbon Dioxide 27 BUN 22 H Creatinine 1.06 Glucose 253 H Calcium 8.4 L Medications Administered Current Inpatient Medications Acetaminophen (Acetaminophen 500 Mg Tab) 1,000 mg PO Q6H PRN PRN Reason: Fever Stop: 11/24/20 11:42 Last Admin: 10/26/20 07:46 Dose: 1,000 mg Documented by: Albuterol (Albuterol 0.083% Nebu Soln 3 Ml Vial) 2.5 mg NEB Q6R PRN PRN Reason: Shortness Of Breath Or Wheezing Stop: 11/25/20 12:59 Aspirin (Aspirin 81 Mg Ectab) 81 mg PO DAILY TRUNG Stop: 11/22/20 08:59 Last Admin: 10/27/20 08:28 Dose: 81 mg Documented by: Atorvastatin Calcium (Atorvastatin 40 Mg Tab) 80 mg PO HS TRUNG Stop: 11/21/20 22:59 Last Admin: 10/26/20 21:21 Dose: 80 mg Documented by: Clonidine HCl (Clonidine Hcl 0.1 Mg Tab) 0.1 mg PO Q8H PRN PRN Reason: SBP>140 Stop: 11/24/20 11:42 Last Admin: 10/26/20 08:03 Dose: 0.1 mg Documented by: Dextrose (Dextrose 50% 50 Ml Syringe) 25 - 50 ml IV UD PRN; Protocol PRN Reason: Hypoglycemia Protocol Stop: 11/22/20 10:44 Enoxaparin Sodium (Enoxaparin Inj 60 Mg/0.6 Ml Syr) 50 mg SQ Q12H TRUNG Stop: 11/25/20 15:44 Last Admin: 10/27/20 03:20 Dose: 50 mg Documented by: Glucagon (Glucagon For Inj 1 Mg Vial) 1 mg IM UD PRN; Protocol PRN Reason: Hypoglycemia Protocol Stop: 11/22/20 10:44 Glucose (Glucose 40% Gel 15 Gm Tube) 15 - 30 gm PO UD PRN; Protocol PRN Reason: Hypoglycemia Protocol Stop: 11/22/20 10:44 Glucose (Glucose 10 Tabs/Tube) 4 - 8 tabs PO UD PRN; Protocol PRN Reason: Hypoglycemia Protocol Stop: 11/22/20 10:44 Heparin Sodium (Beef Lung) (Heparin 10 Unit/Ml 5 Ml Flush) 5 ml FLUSH PRN PRN PRN Reason: Flush Stop: 11/21/20 22:35 Lorazepam (Ativan) 1 mg in 2 mls @ 2 mls/min IV ONE PRN; Protocol PRN Reason: EtoH Withdrawal AWSS 6-10 Stop: 11/23/20 12:26 Last Admin: 10/25/20 21:36 Dose: 2 mls/min Documented by: Dexamethasone 6 mg/ Syringe 1.5 mls @ 1 mls/min IV DAILY [facility] Stop: 10/31/20 09:02 Last Admin: 10/27/20 08:27 Dose: 1 mls/min Documented by: Folic Acid 1 mg/ Syringe 10 mls @ 5 mls/min IV QAM [facility] Stop: 11/24/20 08:59 Last Admin: 10/27/20 08:27 Dose: 5 mls/min Documented by: Thiamine HCl 100 mg/ Syringe 10 mls @ 2 mls/min IV DAILY [facility] Stop: 11/24/20 08:59 Last Admin: 10/27/20 08:27 Dose: 2 mls/min Documented by: Remdesivir 100 mg/ Sodium (Chloride) 250 mls @ 250 mls/hr IV Q24H [facility]; Protocol Stop: 10/30/20 12:59 Last Admin: 10/27/20 12:58 Dose: 250 mls/hr Documented by: Insulin Aspart (Insulin Aspart 100 Units/Ml 3 Ml Pen) 0 units SC ACHS [facility] Stop: 11/24/20 08:29 Last Admin: 10/27/20 12:59 Dose: 35 units Documented by: Insulin Aspart (Insulin Aspart 100 Units/Ml 3 Ml Pen) 0 units SC TODAY@0000,0400 [facility] Stop: 10/28/20 04:01 Insulin Glargine (Insulin Glargine Solostar 100 Units/Ml 3 Ml Pen) 10 units SC [facility]; Protocol Stop: 11/26/20 20:59 Insulin Glargine (Insulin Glargine Solostar 100 Units/Ml 3 Ml Pen) [facility] Protocol Stop: 11/27/20 08:59 Insulin Human NPH (Insulin Human Nph) 30 units SC DAILY@0900 [facility] Stop: 11/26/20 08:59 Last Admin: 10/27/20 08:30 Dose: 30 units Documented by: Miscellaneous (Carbohydrates For Hypoglycemia ) 15 - 30 gm PO UD PRN PRN Reason: Hypoglycemia Treatment Stop: 11/22/20 10:44 Miscellaneous (Remove Nicoderm Patch) 1 ea N/A DAILY@59 [facility] Stop: 11/24/20 08:58 Last Admin: 10/27/20 08:29 Dose: 1 ea Documented by: Miscellaneous Information (Pharmacy Glycemic Mgmt Consult) 1 ea N/A UD PRN PRN Reason: Consult Stop: 11/23/20 11:59 Nicotine (Nicotine 14 Mg/24 Hr Patch) 14 mg TD QAM [facility] Stop: 11/23/20 16:29 Last Admin: 10/27/20 08:28 Dose: 14 mg Documented by: Sodium Chloride (Sodium Chloride 0.9% 10ml Flush) 30 ml IV Q24H [facility] Stop: 10/30/20 12:01 Last Admin: 10/27/20 13:02 Dose: 30 ml Documented by: Tamsulosin HCl (Tamsulosin Hcl 0.4 Mg Cap) 0.4 mg PO DAILY [facility] Stop: 11/22/20 08:59 Last Admin: 10/27/20 08:29 Dose: 0.4 mg Documented by:
[2020-10-27] MEDS: ATORVASTATIN 40 MG TAB PO SCH (21:05)
[2020-10-27] MEDS: INSULIN GLARGINE SOLOSTAR 100 UNITS/ML 3 ML PEN SC SCH (21:06)
[2020-10-28] MEDS: INSULIN ASPART 100 UNITS/ML 3 ML PEN SC SCH ×6 (01:57→21:33)
[2020-10-28] MEDS: ENOXAPARIN INJ 60 MG/0.6 ML SYR SQ SCH ×2 (03:19→15:44)
[2020-10-28 06:45] LABS: Basophils # (auto) 0.04 K/uL (0-0.2); Basophils % (auto) 0.2 %; Hematocrit (blood only) 33.6 % (42-52); Hemoglobin 11.1 g/dL (14.0-18.0); Immature Granulocytes # (auto) 0.61 K/uL (0.00-0.02); Immature Granulocytes % (auto) 2.9 %; Lymphocytes # (auto) 1.05 K/uL (1.2-3.4); Mean Corpuscular Volume 84.8 fL (80-100); Mean Platelet Volume 11.1 fL (7.4-10.4); Monocytes % (auto) 4.8 %; Neutrophils # (auto) 18.22 K/uL (1.4-6.5); Neutrophils % (auto) 87.1 %; Nucleated RBC # (auto) 0.03 K/uL (0-0); Nucleated RBC % (auto) 0.1 %; Platelet Count 434 K/uL (130-400); RDW Coefficient of Variation 14.9 % (11.5-14.5); RDW Standard Deviation 46.3 fL (36.4-46.3); Red Blood Count 3.96 M/uL (4.7-6.1); White Blood Count 20.92 K/uL (4.8-10.8)
[2020-10-28 07:15] LABS: Albumin Level 1.9 gm/dl (3.4-5.0); Calcium 8.1 mg/dl (8.5-10.1); Creatinine Clr Calc Pharmacy 113.5 ml/min; Est GFR (African American) 104.7; Est GFR (Non-African American) 90.3; Magnesium 1.9 mg/dl (1.8-2.4); Potassium 3.7 mmol/L (3.5-5.1)
[2020-10-28 07:17] LABS: Albumin Globulin Ratio 0.5 (0.9-2); Bilirubin,Total 0.6 mg/dl (0.2-1); Globulin 4.1 gm/dl (2.5-4.0); Phosphorus 3.6 mg/dl (2.5-4.9)
[2020-10-28] MEDS ORDERED: INSULIN GLARGINE SOLOSTAR 100 UNITS/ML 3 ML PEN SC SCH (09:00)
[2020-10-28] MEDS: dexAMETHasone 6 MG in SYRINGE 0 ML IV SCH (09:11)
[2020-10-28] MEDS: THIAMINE HCL 100 MG in SYRINGE 9 ML IV SCH (09:13)
[2020-10-28] MEDS: INSULIN HUMAN NPH SC SCH (09:14)
[2020-10-28] MEDS: TAMSULOSIN HCL 0.4 MG CAP PO SCH (09:17)
[2020-10-28] MEDS: ASPIRIN 81 MG ECTAB PO SCH (09:17)
[2020-10-28] MEDS: FOLIC ACID 1 MG in SYRINGE 9.8 ML IV SCH (09:18)
[2020-10-28] MEDS: NICOTINE 14 MG/24 HR PATCH TD SCH (09:18)
--- NOTE | 2020-10-28 10:09 | Pulmonology Progress Note ---
Date of Service October 28, 2020 Assessment & Plan (1) Multifocal pneumonia: Impression: 70-year-old male admitted with multifocal airspace opacity secondary to coronavirus infection there is a remain negative and procalcitonin is improving. His oxygen requirement is stable. Recommendations: 1. Diffuse multifocal airspace opacity: Suspect this is related to novel coronavirus infection. Continue supportive care. Would complete 10-day course of steroids. 2. Continue to wean oxygen as tolerated. 3. Would favor running the patient on the dry side so continue diuretics as long as the patient's kidney function will tolerate it is appropriate. 4. Remdesivir has been initiated by the primary service. I think it is unlikely to have a clinical benefit at this point time. Will defer to them regarding continuation of the medication we will continue to follow the patient off antibiotics at this point time. His oxygenation appears to be stable to slightly improving. Pulmonary is available to assist if needed. Please reconsult if we can be of additional assistance. (2) Pneumonia due to 2019 novel coronavirus: (3) Hypoxia: Admission and Anticipated Discharge Date Admission Date: October 22, 2020 Subjective No acute events overnight Review of Systems Review of Systems: All systems reviewed & are unremarkable except as noted in HPI & below Physical Exam Physical Exam: Lying in bed comfortably Constitutional: well developed, well nourished, + ill appearing and + obese Eyes: PERRL, conjunctivae normal, anicteric sclerae ENMT: external ear and nose normal, oropharynx normal Neck: trachea midline, no thyromegaly Respiratory: + respiratory distress Auscultation: + diminished lung sounds and + crackles (Coarse crackles at the bases) Cardiovascular: Rate/Rhythm: regular rate and regular rhythm Heart Sounds: no murmur Extremities: no edema Gastrointestinal (Abdomen): Inspection/Auscultation: normal bowel sounds; abdomen not distended Percussion/Palpation: abdomen soft; abdomen nontender Musculoskeletal: No acute arthritis in any joint Neurologic: Alert, awake and oriented x3. No focal sensory and motor deficit appreciated Psychiatric: A+Ox3, euthymic affect Lymphatic: no cervical or axillary lymphadenopathy Results & Data Results & Data ([facility]) Vital Signs (Past 12 Hours) Vital Signs Temp Pulse Pulse Resp BP BP Pulse Ox 10/28/20 07:27 36.6 C 65 18 91/49 L 96 02/09/21 03:56 36.6 C 64 20 105/49 L 90 10/27/20 23:59 60 10/27/20 23:00 36.7 C 70 22 112/51 L 91 Laboratory Results 10/28/20 06:05 10/28/20 06:05 Cultures negative to date. Legionella antigen pending. Procalcitonin yesterday 0.56 down from 0.75 Diagnostic Findings No new films PG Care Time/CCT Total # of Minutes Spent Total Time Spent with Patient: Total time spent is greater than 50% in coordination of care (as documented) at patient's floor/unit and/or counseling patient: Coding Level of Care Code 00494 Subseq Hosp Care Lvl 3 Diagnoses Multifocal pneumonia J18.9 Pneumonia due to 2019 novel coronavirus U07.1; J12.82 Hypoxia R09.02
[2020-10-28] MEDS: REMDESIVIR 100 MG in SODIUM CHLORIDE 0.9% 230 ML IV SCH (11:27)
[2020-10-28] MEDS ORDERED: FUROSEMIDE 40 MG in SYRINGE 0 ML IV ONE (11:32)
[2020-10-28] MEDS ORDERED: FUROSEMIDE 40 MG/4 ML VIAL IV ONE (11:45)
[2020-10-28] MEDS: SODIUM CHLORIDE 0.9% 10ML FLUSH IV SCH (12:37)
--- NOTE | 2020-10-28 13:38 | Hospitalist Progress Note ---
Date of Service October 28, 2020 Assessment & Plan (1) Septic shock: Admitted with sepsis likely secondary to multilobar pneumonia and presented with hypotension and shock Received adequate amount of intravenous fluid and required intravenous pressors to maintain blood pressure Appreciate testing projects administrator input and recommendation He is off pressors since this morning and blood pressure is maintaining at noon low normal level No more fever and/or chills but white count remains mildly elevated Blood pressure is trending up Resolved Acute confusion -resolved Reported that the patient has been drinking about 6-8 beers a day and more over the weekends Likely has withdrawal symptoms Has been getting intravenous Ativan as per withdrawal protocol He admits to have 1 or 2 beers a day but never been a heavy drinker No tremors of the outstretched hands Confusion resolved and remains generally weak and lethargic Electrolytes abnormality Has low magnesium and phosphate Likely related to use of alcohol Phosphate remains low and there are supplemented Phosphate and magnesium were replaced Will monitor and replacement if needed Electrolytes have been corrected (2) Pneumonia due to 2019 novel coronavirus: Presented with hypoxic respiratory failure Has been sick for some time with weakness, dizziness and has had diarrhea without any documented Covid contact Tested positive for Covid with CT scan suggestive of viral pneumonia Started with dexamethasone but remdesivir could not be given due to renal impairment Discussed with the patient this morning and convalescent plasma was administered after discussing pros and cons with the patient in detail Received convalescent plasma Oxygen requirements went down to 3L/min but has been getting back up to 5 L/min this morning Has had fever of 39 C-Tylenol provided, will have chest x-ray and blood culture taken Will add atypical coverage Worsening COVID-19 pneumonia and requiring more oxygen to maintain saturation Remdesivir was added today, nebulized bronchodilator with albuterol and intrav enous Lasix to keep him on the skein drier side He will be evaluated by testing projects administrator today for further recommendation. No more fever and/or chills-repeat blood cultures have been negative We will continue current antibiotic and antiviral Gradual improvement-we will keep him on the dry side We will get chest x-ray tomorrow Hypoxia could be secondary to pneumonia and/or pulmonary embolism Has been started on intravenous heparin CTA did not show any pulmonary embolism but did show progression of the viral/bacterial pneumonia Chest x-ray did show possible pulmonary congestion as well Received 40 mg of intravenous Lasix yesterday and will be getting IV Lasix to keep him on the skein drier side He has been feeling a lot better since administration of Lasix CT scan did not show any pulmonary embolism (3) Multifocal pneumonia: CT scan did show multi lobar pneumonia Likely has bacterial pneumonia superimposed on COVID-19 infection and pneumonia Has been getting intravenous Vanco, Zosyn and doxy Clinically better today 1 out of 2 blood culture grew probable anabolic gram-positive bacilli IV vancomycin and doxycycline were discontinued We will continue intravenous Zosyn We will add atypical coverage Having fever and repeat blood cultures were taken with addition of doxycycline to cover atypicals The fever could be due to viral pneumonia secondary to COVID-19 No more fever and/or sweating and has been getting better As above (4) BHAVESH (acute kidney injury): Presented with BHAVESH likely secondary to dehydration Received intravenous fluid and the kidney function has been improving We will continue intravenous fluid and monitor PRP Creatinine has been normalized (5) HTN (hypertension): Presented with hypotension and septic shock (6) Diabetes mellitus, type II: Monitor blood sugar Has been requiring intravenous insulin Appreciate pharmacy input and recommendation SSI Insulin drip has been stopped Managed by glycemic pharmacist (7) Prostate cancer: History of prostate cancer Can increase the risk of clot formation DVT prophylaxis Has been on heparin Lovenox 0.5 mg/kg body weight twice daily CODE STATUS Full We will discussed with his -discussed with his Admission and Anticipated Discharge Date Admission Date: October 22, 2020 Subjective 10/23/2020 The patient was seen and examined in telemetry Covid unit He has been feeling much better since admission Still complains to have cough with shortness of breath Denies any significant pain, fever and/or chills, any nausea and or vomiting 10/24/2020 The patient was seen and examined in telemetry Covid unit He was noted to be agitated last night and has been put on alcohol withdrawal protocol Received Ativan 2 mg this morning and has been sleeping Oxygen requirements has gone down to 3 to 5 L/min to maintain saturation 10/25/2020 The patient was seen and examined in telemetry Covid unit He has been feeling better but looked moderate shortness of breath at rest History of prior and has some sweating Denies any other significant symptoms 10/26/2020 The patient was seen and examined in telemetry Covid unit His saturation has been worsening and has had fever again this morning He states that he has been feeling better and denies any cough, any more shortness of breath, any pain, any nausea and or vomiting 10/27/2020 The patient was seen and examined in telemetry Covid unit He has been feeling a lot better today following the administration of Lasix yesterday He denies any other significant symptoms except shortness of breath at rest 10/28/2020 The patient was seen and examined in telemetry Covid unit He feels better and wants to go home but is requiring high flow oxygen to maintain saturation up to 15 L/min Denies any other significant symptoms Review of Systems Review of Systems: All systems reviewed and are unremarkable except as noted below Respiratory: + dyspnea and + dyspnea on exertion; no cough Neurologic: Alert, awake and oriented x3 Physical Exam Physical Exam: Lying in bed comfortably Constitutional: well developed, well nourished, + ill appearing and + obese Eyes: PERRL, conjunctivae normal, anicteric sclerae ENMT: external ear and nose normal, oropharynx normal Neck: trachea midline, no thyromegaly Respiratory: + respiratory distress Auscultation: + diminished lung sounds and + crackles (Coarse crackles at the bases); no wheezes Cardiovascular: Rate/Rhythm: regular rate and regular rhythm Heart Sounds: no murmur Extremities: no edema Gastrointestinal (Abdomen): Inspection/Auscultation: normal bowel sounds; abdomen not distended Percussion/Palpation: abdomen soft; abdomen nontender Musculoskeletal: No acute arthritis in any joint Neurologic: Alert, awake and oriented x3. Generally weak but no focal neuro deficit Psychiatric: A+Ox3, euthymic affect Lymphatic: no cervical or axillary lymphadenopathy Results & Data Results & Data ([facility]) Vital Signs (Past 12 Hours) Vital Signs Temp Pulse Resp BP BP Pulse Ox 10/28/20 12:00 94 10/28/20 11:13 36.9 C 62 19 118/53 L 89 L 10/28/20 07:27 36.6 C 65 18 91/49 L 96 10/28/20 03:56 36.6 C 64 20 105/49 L 90 Laboratory Results Short CBC 10/28/20 Range/Units 06:05 WBC 20.92 H (4.8-10.8) K/uL Hgb 11.1 L (14.0-18.0) g/dL Hct 33.6 L (42-52) % Plt Count 434 H (130-400) K/uL BMP 10/28/20 06:05 Sodium 147 H Potassium 3.7 Chloride 109 H Carbon Dioxide 32 BUN 33 H Creatinine 0.79 Glucose 154 H Calcium 8.1 L Liver Function 10/28/20 Range/Units 06:05 Total Bilirubin 0.6 (0.2-1) mg/dl AST 23 (15-37) U/L ALT 35 (12-78) U/L Alkaline Phosphatase 110 (45-117) U/L Albumin 1.9 L (3.4-5.0) gm/dl Medications Administered Current Inpatient Medications Acetaminophen (Acetaminophen 500 Mg Tab) 1,000 mg PO Q6H PRN PRN Reason: Fever Stop: 11/24/20 11:42 Last Admin: 10/26/20 07:46 Dose: 1,000 mg Documented by: Albuterol (Albuterol 0.083% Nebu Soln 3 Ml Vial) 2.5 mg NEB Q6R PRN PRN Reason: Shortness Of Breath Or Wheezing Stop: 11/25/20 12:59 Aspirin (Aspirin 81 Mg Ectab) 81 mg PO DAILY TRUNG Stop: 11/22/20 08:59 Last Admin: 10/28/20 09:17 Dose: 81 mg Documented by: Atorvastatin Calcium (Atorvastatin 40 Mg Tab) 80 mg PO HS TRUNG Stop: 11/21/20 22:59 Last Admin: 10/27/20 21:05 Dose: 80 mg Documented by: Clonidine HCl (Clonidine Hcl 0.1 Mg Tab) 0.1 mg PO Q8H PRN PRN Reason: SBP>140 Stop: 11/24/20 11:42 Last Admin: 10/26/20 08:03 Dose: 0.1 mg Documented by: Dextrose (Dextrose 50% 50 Ml Syringe) 25 - 50 ml IV UD PRN; Protocol PRN Reason: Hypoglycemia Protocol Stop: 11/22/20 10:44 Enoxaparin Sodium (Enoxaparin Inj 60 Mg/0.6 Ml Syr) 50 mg SQ Q12H TRUNG Stop: 11/25/20 15:44 Last Admin: 10/28/20 03:19 Dose: 50 mg Documented by: Glucagon (Glucagon For Inj 1 Mg Vial) 1 mg IM UD PRN; Protocol PRN Reason: Hypoglycemia Protocol Stop: 11/22/20 10:44 Glucose (Glucose 40% Gel 15 Gm Tube) 15 - 30 gm PO UD PRN; Protocol PRN Reason: Hypoglycemia Protocol Stop: 11/22/20 10:44 Glucose (Glucose 10 Tabs/Tube) 4 - 8 tabs PO UD PRN; Protocol PRN Reason: Hypoglycemia Protocol Stop: 11/22/20 10:44 Heparin Sodium (Beef Lung) (Heparin 10 Unit/Ml 5 Ml Flush) 5 ml FLUSH PRN PRN PRN Reason: Flush Stop: 11/21/20 22:35 Lorazepam (Ativan) 1 mg in 2 mls @ 2 mls/min IV ONE PRN; Protocol PRN Reason: EtoH Withdrawal AWSS 6-10 Stop: 11/23/20 12:26 Last Admin: 10/25/20 21:36 Dose: 2 mls/min Documented by: Dexamethasone 6 mg/ Syringe 1.5 mls @ 1 mls/min IV DAILY [facility] Stop: 10/31/20 09:02 Last Admin: 10/28/20 09:11 Dose: 1 mls/min Documented by: Folic Acid 1 mg/ Syringe 10 mls @ 5 mls/min IV QAM [facility] Stop: 11/24/20 08:59 Last Admin: 10/28/20 09:18 Dose: 5 mls/min Documented by: Thiamine HCl 100 mg/ Syringe 10 mls @ 2 mls/min IV DAILY [facility] Stop: 11/24/20 08:59 Last Admin: 10/28/20 09:13 Dose: 2 mls/min Documented by: Remdesivir 100 mg/ Sodium (Chloride) 250 mls @ 250 mls/hr IV Q24H [facility]; Protocol Stop: 10/30/20 12:59 Last Infusion: 10/28/20 12:27 Dose: Infused Documented by: Insulin Aspart (Insulin Aspart 100 Units/Ml 3 Ml Pen) 0 units SC ACHS [facility] Stop: 11/24/20 08:29 Last Admin: 10/28/20 12:23 Dose: 21 units Documented by: Insulin Glargine (Insulin Glargine Solostar 100 Units/Ml 3 Ml Pen) 10 units SC HS [facility]; Protocol Stop: 11/26/20 20:59 Last Admin: 10/27/20 21:06 Dose: 10 units Documented by: Insulin Glargine (Insulin Glargine Solostar 100 Units/Ml 3 Ml Pen) 20 units SC QAM [facility]; Protocol Stop: 11/27/20 08:59 Last Admin: 10/28/20 09:07 Dose: 20 units Documented by: Insulin Human NPH (Insulin Human Nph) 30 units SC DAILY@0900 [facility] Stop: 11/26/20 08:59 Last Admin: 10/28/20 09:14 Dose: 30 units Documented by: Miscellaneous (Carbohydrates For Hypoglycemia ) 15 - 30 gm PO UD PRN PRN Reason: Hypoglycemia Treatment Stop: 11/22/20 10:44 Miscellaneous (Remove Nicoderm Patch) 1 ea N/A DAILY@0859 [facility] Stop: 11/24/20 08:58 Last Admin: 10/28/20 09:12 Dose: 1 ea Documented by: Miscellaneous Information (Pharmacy Glycemic Mgmt Consult) 1 ea N/A UD PRN PRN Reason: Consult Stop: 11/23/20 11:59 Nicotine (Nicotine 14 Mg/24 Hr Patch) [facility] Stop: 11/23/20 16:29 Last Admin: 10/28/20 09:18 Dose: 14 mg Documented by: Sodium Chloride (Sodium Chloride 0.9% 10ml Flush) 30 ml IV Q24H [facility] Stop: 10/30/20 12:01 Last Admin: 10/28/20 12:37 Dose: 30 ml Documented by: Tamsulosin HCl (Tamsulosin Hcl 0.4 Mg Cap) 0.4 mg PO DAILY [facility] Stop: 11/22/20 08:59 Last Admin: 10/28/20 09:17 Dose: 0.4 mg Documented by:
--- NOTE | 2020-10-28 14:08 | Pharmacy Report ---
Pharmacy Glycemic Short Note 2 - Date of Service October 28, 2020 - Glycemic Short BSG Results (Last 24 hours): 10/27/20 10/27/20 10/28/20 17:52 20:23 05:20 Glucose POC Glucose 227 H 163 H 172 H 10/28/20 10/28/20 10/28/20 06:05 07:53 11:49 Glucose 154 H POC Glucose 201 H 244 H OUTPATIENT ANTIDIABETIC REGIMEN: * metformin 1gm PO BID * glipizide 10mg PO BID * A1c = 8.2% 10/24/20 ASSESSMENT: 10/28: * BSGs improved this morning but still not consistently in range. * Will continue current lantus and NPH dosing to get a full 24 hours worth of data on this regimen and given fasting BSG of 154 mg/dL is improved from yesterday. * Postprandial BSG improved today but still elevated. If dinner BSG remains elevated, will consider tightening novolog further at that time. * Patient continues on IV steroids and does appear to be tolerating a diet. 10/27 * Glycemic control has deteriorated over the last 24 hrs * Fasting BSG 245 this AM with 35 units basal insulin on board - will begin to up-titrate, patient seemed to tolerate 40-60 units basal/day earlier this admit * Will utilize NPH to provide a portion of the basal insulin needs, but will also help to control midday peak in BSGs associated with AM dexamethasone IV * Continue aggressive prandial Novolog to combat steroid induced hyperglycemia PLAN FOR INPATIENT GLYCEMIC CONTROL: * Hold outpatient oral diabetes medications (metformin, glipizide) * Basal insulin * Lantus 20 units Q AM + 10 units Q PM * NPH 30 units Q AM w/ IV dexamethasone * Bolus insulin * NovoLog per scale ACHS * Goal Range: Low 110 mg/dL - High 140 mg/dL * Correction Factor: 12 mg/dL/unit * Nutritional / Prandial insulin per carb ratio of 1 unit per 4 grams CHO consumed PLAN FOR DISCHARGE: * to be determined
[2020-10-28] MEDS: ATORVASTATIN 40 MG TAB PO SCH (21:31)
[2020-10-28] MEDS: INSULIN GLARGINE SOLOSTAR 100 UNITS/ML 3 ML PEN SC SCH (21:31)
[2020-10-29] MEDS: ENOXAPARIN INJ 60 MG/0.6 ML SYR SQ SCH ×2 (03:33→15:45)
[2020-10-29 07:24] LABS: Hematocrit (blood only) 36.8 % (42-52); Hemoglobin 11.9 g/dL (14.0-18.0); Mean Corpuscular Hemoglobin 27.9 pg (25-34); Mean Corpuscular Hgb Conc 32.3 g/dL (32-36); Mean Corpuscular Volume 86.4 fL (80-100); Mean Platelet Volume 11.5 fL (7.4-10.4); Platelet Count 514 K/uL (130-400); RDW Standard Deviation 47.1 fL (36.4-46.3); Red Blood Count 4.26 M/uL (4.7-6.1)
--- NOTE | 2020-10-29 08:11 | XRay Report ---
XR chest 1V portable CLINICAL HISTORY: Pneumonia COMPARISON STUDY: October 25, 2020 FINDINGS: The heart remains mildly enlarged. There are persistent but improving bilateral pulmonary a irspace opacities. There are trace pleural effusions.[ IMPRESSION: Improving multifocal airspace opacities. ACT 112: Negative or not required by law. Electronically signed by: Arun Cole M.D. 10/29/2020 8:09 AM
[2020-10-29 08:15] LABS: BUN Creatinine Ratio 44.3 (10-20); Calcium 9.1 mg/dl (8.5-10.1); Creatinine Clr Calc Pharmacy 100.7 ml/min; Est GFR (African American) 99.7; Potassium 3.9 mmol/L (3.5-5.1)
[2020-10-29 08:18] LABS: Basophils # (auto) 0.06 K/uL (0-0.2); Basophils % (auto) 0.2 %; Echinocytes 1+; Eosinophils # (auto) 0.01 K/uL (0-0.5); Immature Granulocytes # (auto) 1.44 K/uL (0.00-0.02); Lymphocytes # (auto) 1.31 K/uL (1.2-3.4); Lymphocytes % (auto) 5.4 %; Monocytes # (auto) 0.83 K/uL (0.11-0.59); Monocytes % (auto) 3.4 %; Neutrophils # (auto) 20.45 K/uL (1.4-6.5); Ovalocytes 1+
[2020-10-29] MEDS: TAMSULOSIN HCL 0.4 MG CAP PO SCH (08:22)
[2020-10-29] MEDS: ASPIRIN 81 MG ECTAB PO SCH (08:22)
[2020-10-29] MEDS: dexAMETHasone 6 MG in SYRINGE 0 ML IV SCH (08:22)
[2020-10-29] MEDS: NICOTINE 14 MG/24 HR PATCH TD SCH (08:23)
[2020-10-29] MEDS: FOLIC ACID 1 MG in SYRINGE 9.8 ML IV SCH (08:23)
[2020-10-29] MEDS: INSULIN HUMAN NPH SC SCH (08:24)
[2020-10-29] MEDS: INSULIN ASPART 100 UNITS/ML 3 ML PEN SC SCH ×5 (08:24→21:13)
[2020-10-29] MEDS: THIAMINE HCL 100 MG in SYRINGE 9 ML IV SCH (08:24)
[2020-10-29] MEDS: REMDESIVIR 100 MG in SODIUM CHLORIDE 0.9% 230 ML IV SCH (11:34)
[2020-10-29] MEDS ORDERED: FUROSEMIDE 40 MG in SYRINGE 0 ML IV ONE (11:57)
[2020-10-29] MEDS ORDERED: FUROSEMIDE 40 MG/4 ML VIAL IV ONE (12:15)
[2020-10-29] MEDS: SODIUM CHLORIDE 0.9% 10ML FLUSH IV SCH (12:43)
--- NOTE | 2020-10-29 13:44 | Hospitalist Progress Note ---
Date of Service October 29, 2020 Assessment & Plan (1) Septic shock: Admitted with sepsis likely secondary to multilobar pneumonia and presented with hypotension and shock Received adequate amount of intravenous fluid and required intravenous pressors to maintain blood pressure Appreciate roofing laborer input and recommendation He is off pressors since this morning and blood pressure is maintaining at noon low normal level No more fever and/or chills but white count remains mildly elevated Blood pressure is trending up Resolved Acute confusion -resolved Reported that the patient has been drinking about 6-8 beers a day and more over the weekends Likely has withdrawal symptoms Has been getting intravenous Ativan as per withdrawal protocol He admits to have 1 or 2 beers a day but never been a heavy drinker No tremors of the outstretched hands Confusion resolved and remains generally weak and lethargic Electrolytes abnormality Has low magnesium and phosphate Likely related to use of alcohol Phosphate remains low and there are supplemented Phosphate and magnesium were replaced Will monitor and replacement if needed Electrolytes have been corrected-we will keep monitoring (2) Pneumonia due to 2019 novel coronavirus: Presented with hypoxic respiratory failure Has been sick for some time with weakness, dizziness and has had diarrhea without any documented Covid contact Tested positive for Covid with CT scan suggestive of viral pneumonia Started with dexamethasone but remdesivir could not be given due to renal impairment Discussed with the patient this morning and convalescent plasma was administered after discussing pros and cons with the patient in detail Received convalescent plasma Oxygen requirements went down to 3L/min but has been getting back up to 5 L/min this morning Has had fever of 39 C-Tylenol provided, will have chest x-ray and blood culture taken Will add atypical coverage Worsening COVID-19 pneumonia and requiring more oxygen to maintain saturation Remdesivir was added today, nebulized bronchodilator with albuterol and intravenous Lasix to keep him on the short goods drier side He will be evaluated by roofing laborer today for further recommendation. No more fever and/or chills-repeat blood cultures have been negative We will continue current antibiotic and antiviral Gradual improvement-we will keep him on the dry side Repeat chest x-ray showed much improvement Hypoxia could be secondary to pneumonia and/or pulmonary embolism Has been started on intravenous heparin CTA did not show any pulmonary embolism but did show progression of the viral/bacterial pneumonia Chest x-ray did show possible pulmonary congestion as well Received 40 mg of intravenous Lasix yesterday and will be getting IV Lasix to keep him on the short goods drier side He has been feeling a lot better since administration of Lasix CT scan did not show any pulmonary embolism He is a still requiring 6 to 10 L of oxygen via nasal cannula to maintain saturation PT and OT requested (3) Multifocal pneumonia: CT scan did show multi lobar pneumonia Likely has bacterial pneumonia superimposed on COVID-19 infection and pneumonia Has been getting intravenous Vanco, Zosyn and doxy Clinically better today 1 out of 2 blood culture grew probable anabolic gram-positive bacilli IV vancomycin and doxycycline were discontinued We will continue intravenous Zosyn We will add atypical coverage Having fever and repeat blood cultures were taken with addition of doxycycline to cover atypicals The fever could be due to viral pneumonia secondary to COVID-19 No more fever and/or sweating and has been getting better White count is elevated to 24 likely in part due to use of dexamethasone (4) BHAVESH (acute kidney injury): Presented with BHAVESH likely secondary to dehydration Received intravenous fluid and the kidney function has been improving We will continue intravenous fluid and monitor PRP Creatinine has been normalized Received another dose of furosemide this morning and will monitor PRP (5) HTN (hypertension): Presented with hypotension and septic shock (6) Diabetes mellitus, type II: Monitor blood sugar Has been requiring intravenous insulin Appreciate pharmacy input and recommendation SSI Insulin drip has been stopped Managed by glycemic pharmacist (7) Prostate cancer: History of prostate cancer Can increase the risk of clot formation DVT prophylaxis Has been on heparin Lovenox 0.5 mg/kg body weight twice daily CODE STATUS Full We will discussed with his -discussed with his Admission and Anticipated Discharge Date Admission Date: October 22, 2020 Subjective 10/23/2020 The patient was seen and examined in telemetry Covid unit He has been feeling much better since admission Still complains to have cough with shortness of breath Denies any significant pain, fever and/or chills, any nausea and or vomiting 10/24/2020 The patient was seen and examined in telemetry Covid unit He was noted to be agitated last night and has been put on alcohol withdrawal protocol Received Ativan 2 mg this morning and has been sleeping Oxygen requirements has gone down to 3 to 5 L/min to maintain saturation 10/25/2020 The patient was seen and examined in telemetry Covid unit He has been feeling better but looked moderate shortness of breath at rest History of prior and has some sweating Denies any other significant symptoms 10/26/2020 The patient was seen and examined in telemetry Covid unit His saturation has been worsening and has had fever again this morning He states that he has been feeling better and denies any cough, any more shortness of breath, any pain, any nausea and or vomiting 10/27/2020 The patient was seen and examined in telemetry Covid unit He has been feeling a lot better today following the administration of Lasix yesterday He denies any other significant symptoms except shortness of breath at rest 10/28/2020 The patient was seen and examined in telemetry Covid unit He feels better and wants to go home but is requiring high flow oxygen to maintain saturation up to 15 L/min Denies any other significant symptoms 10/29/2020 The patient was seen and examined in telemetry Covid unit He has been feeling a lot better but still requiring 6 to 10 L of oxygen to maintain saturation His chest x-ray did show improvement Denies any other symptoms He wants to go home and he strongly believes that he has been feeling a lot better to be discharged He was advised that the O2 requirement needs to be down to around 4 L before he can be discharged. PT and OT has been requested He has been using spirometer improved saturation Can be discharged home if the oxygen requirement is down Review of Systems Review of Systems: All systems reviewed and are unremarkable except as noted below Respiratory: + dyspnea and + dyspnea on exertion; no cough Neurologic: Alert, awake and oriented x3 Physical Exam Physical Exam: Lying in bed comfortably Constitutional: well developed, well nourished, + ill appearing and + obese Eyes: PERRL, conjunctivae normal, anicteric sclerae ENMT: external ear and nose normal, oropharynx normal Neck: trachea midline, no thyromegaly Respiratory: no respiratory distress Auscultation: + diminished lung sounds and + crackles (Coarse crackles at the bases); no wheezes Cardiovascular: Rate/Rhythm: regular rate and regular rhythm Heart Sounds: no murmur Extremities: no edema Gastrointestinal (Abdomen): Inspection/Auscultation: normal bowel sounds; abdomen not distended Percussion/Palpation: abdomen soft; abdomen nontender Musculoskeletal: No acute arthritis involving any joint Psychiatric: A+Ox3, euthymic affect Lymphatic: no cervical or axillary lymphadenopathy Results & Data Results & Data ([facility]) Vital Signs (Past 12 Hours) Vital Signs Temp Pulse Pulse Resp BP BP Pulse Ox 10/29/20 12:00 20 93 10/29/20 11:52 36.9 C 62 20 124/61 92 10/29/20 09:21 95 10/29/20 08:44 20 90 10/29/20 08:00 65 10/29/20 07:27 89 L 10/29/20 07:25 36.4 C L 10/29/20 07:18 57 L 18 114/59 L 90 10/29/20 04:49 37.1 C 70 16 92/55 L 90 Laboratory Results Short CBC 10/29/20 Range/Units 06:10 WBC 24.10 H (4.8-10.8) K/uL Hgb 11.9 L (14.0-18.0) g/dL Hct 36.8 L (42-52) % Plt Count 514 H (130-400) K/uL BMP 10/29/20 06:10 Sodium 145 Potassium 3.9 Chloride 107 Carbon Dioxide 30 BUN 40 H Creatinine 0.89 Glucose 149 H Calcium 9.1 Medications Administered Current Inpatient Medications Acetaminophen (Acetaminophen 500 Mg Tab) 1,000 mg PO Q6H PRN PRN Reason: Fever Stop: 11/24/20 11:42 Last Admin: 10/26/20 07:46 Dose: 1,000 mg Documented by: Albuterol (Albuterol 0.083% Nebu Soln 3 Ml Vial) 2.5 mg NEB Q6R PRN PRN Reason: Shortness Of Breath Or Wheezing Stop: 11/25/20 12:59 Aspirin (Aspirin 81 Mg Ectab) 81 mg PO DAILY TRUNG Stop: 11/22/20 08:59 Last Admin: 10/29/20 08:22 Dose: 81 mg Documented by: Atorvastatin Calcium (Atorvastatin 40 Mg Tab) 80 mg PO HS TRUNG Stop: 11/21/20 22:59 Last Admin: 10/28/20 21:31 Dose: 80 mg Documented by: Clonidine HCl (Clonidine Hcl 0.1 Mg Tab) 0.1 mg PO Q8H PRN PRN Reason: SBP>140 Stop: 11/24/20 11:42 Last Admin: 10/26/20 08:03 Dose: 0.1 mg Documented by: Dextrose (Dextrose 50% 50 Ml Syringe) 25 - 50 ml IV UD PRN; Protocol PRN Reason: Hypoglycemia Protocol Stop: 11/22/20 10:44 Enoxaparin Sodium (Enoxaparin Inj 60 Mg/0.6 Ml Syr) 50 mg SQ Q12H TRUNG Stop: 11/25/20 15:44 Last Admin: 10/29/20 03:33 Dose: 50 mg Documented by: Glucagon (Glucagon For Inj 1 Mg Vial) 1 mg IM UD PRN; Protocol PRN Reason: Hypoglycemia Protocol Stop: 11/22/20 10:44 Glucose (Glucose 40% Gel 15 Gm Tube) 15 - 30 gm PO UD PRN; Protocol PRN Reason: Hypoglycemia Protocol Stop: 11/22/20 10:44 Glucose (Glucose 10 Tabs/Tube) 4 - 8 tabs PO UD PRN; Protocol PRN Reason: Hypoglycemia Protocol Stop: 11/22/20 10:44 Heparin Sodium (Beef Lung) (Heparin 10 Unit/Ml 5 Ml Flush) 5 ml FLUSH PRN PRN PRN Reason: Flush Stop: 11/21/20 22:35 Lorazepam (Ativan) 1 mg in 2 mls @ 2 mls/min IV ONE PRN; Protocol PRN Reason: EtoH Withdrawal AWSS 6-10 Stop: 11/23/20 12:26 Last Admin: 10/25/20 21:36 Dose: 2 mls/min Documented by: Dexamethasone 6 mg/ Syringe 1.5 mls @ 1 mls/min IV DAILY TRUNG Stop: 10/31/20 09:02 Last Admin: 10/29/20 08:22 Dose: 1 mls/min Documented by: Folic Acid 1 mg/ Syringe 10 mls @ 5 mls/min IV QAM TRUNG Stop: 11/24/20 08:59 Last Admin: 10/29/20 08:23 Dose: 5 mls/min Documented by: Thiamine HCl 100 mg/ Syringe 10 mls @ 2 mls/min IV DAILY TRUNG Stop: 11/24/20 08:59 Last Admin: 10/29/20 08:24 Dose: 2 mls/min Documented by: Remdesivir 100 mg/ Sodium (Chloride) 250 mls @ 250 mls/hr IV Q24H TRUNG; Protocol Stop: 10/30/20 12:59 Last Infusion: 10/29/20 12:35 Dose: Infused Documented by: Insulin Aspart (Insulin Aspart 100 Units/Ml 3 Ml Pen) 0 units SC ACHS [facility] Stop: 11/24/20 08:29 Last Admin: 10/29/20 12:05 Dose: 29 units Documented by: Insulin Aspart (Insulin Aspart 100 Units/Ml 3 Ml Pen) 0 units SC TODAY @0000,0400 [facility] Stop: 10/30/20 04:01 Insulin Human NPH (Insulin Human Nph) 40 units SC DAILY@0900 [facility] Stop: 11/28/20 08:59 Last Admin: 10/29/20 08:24 Dose: 40 units Documented by: Insulin Human NPH (Insulin Human Nph) 20 units SC DAILY@1700 [facility] Stop: 11/28/20 16:59 Miscellaneous (Carbohydrates For Hypoglycemia ) 15 - 30 gm PO UD PRN PRN Reason: Hypoglycemia Treatment Stop: 11/22/20 10:44 Miscellaneous (Remove Nicoderm Patch) 1 ea N/A DAILY@0859 [facility] Stop: 11/24/20 08:58 Last Admin: 10/29/20 08:23 Dose: 1 ea Documented by: Miscellaneous Information (Pharmacy Glycemic Mgmt Consult) 1 ea N/A UD PRN PRN Reason: Consult Stop: 11/23/20 11:59 Nicotine (Nicotine 14 Mg/24 Hr Patch) 14 mg TD QAM [facility] Stop: 11/23/20 16:29 Last Admin: 10/29/20 08:23 Dose: 14 mg Documented by: Sodium Chloride (Sodium Chloride 0.9% 10ml Flush) 30 ml IV Q24H [facility] Stop: 10/30/20 12:01 Last Admin: 10/29/20 12:43 Dose: 30 ml Documented by: Tamsulosin HCl (Tamsulosin Hcl 0.4 Mg Cap) 0.4 mg PO DAILY [facility] Stop: 11/22/20 08:59 Last Admin: 10/29/20 08:22 Dose: 0.4 mg Documented by:
--- NOTE | 2020-10-29 13:51 | Pharmacy Report ---
Pharmacy Glycemic Short Note 2 - Date of Service October 29, 2020 - Glycemic Short BSG Results (Last 24 hours): 10/28/20 10/28/20 10/29/20 16:14 20:47 06:10 Glucose 149 H POC Glucose 291 H 204 H 10/29/20 10/29/20 07:38 11:32 Glucose POC Glucose 158 H 258 H OUTPATIENT ANTIDIABETIC REGIMEN: * metformin 1gm PO BID * glipizide 10mg PO BID * A1c = 8.2% 10/24/20 ASSESSMENT: 10/29: * Fasting BSG acceptable receiving 60 units of basal insulin. Will keep this total daily dose but split between twice daily NPH * Post prandial BSGs remain elevated. Novolog tightened this morning and again at lunchtime. * Patient continues on IV steroids and is tolerating a diet. 10/28: * BSGs improved this morning but still not consistently in range. * Will continue current lantus and NPH dosing to get a full 24 hours worth of data on this regimen and given fasting BSG of 154 mg/dL is improved from yesterday. * Postprandial BSG improved today but still elevated. If dinner BSG remains elevated, will consider tightening novolog further at that time. * Patient continues on IV steroids and does appear to be tolerating a diet. 10/27 * Glycemic control has deteriorated over the last 24 hrs * Fasting BSG 245 this AM with 35 units basal insulin on board - will begin to up-titrate, patient seemed to tolerate 40-60 units basal/day earlier this admit * Will utilize NPH to provide a portion of the basal insulin needs, but will also help to control midday peak in BSGs associated with AM dexamethasone IV * Continue aggressive prandial Novolog to combat steroid induced hyperglycemia PLAN FOR INPATIENT GLYCEMIC CONTROL: * Hold outpatient oral diabetes medications (metformin, glipizide) * Basal insulin * NPH 40 units Q AM w/ IV dexamethasone * NPH 20 units a dinner time * Bolus insulin * NovoLog per scale ACHS * Goal Range: Low 110 mg/dL - High 140 mg/dL * Correction Factor: 10 mg/dL/unit * Nutritional / Prandial insulin per carb ratio of 1 unit per 3 grams CHO consumed PLAN FOR DISCHARGE: * to be determined
[2020-10-29] MEDS ORDERED: INSULIN HUMAN NPH SC SCH (17:00)
[2020-10-29] MEDS: ATORVASTATIN 40 MG TAB PO SCH (21:08)
[2020-10-29] MEDS: LORazepam 1 MG/2 ML VIAL IV PRN (21:22)
[2020-10-29] MEDS ORDERED: LORazepam 1 MG/2 ML VIAL IV PRN (21:36)
[2020-10-29] MEDS ORDERED: LORazepam 3 MG/6 ML VIAL IV PRN (21:36)
[2020-10-29] MEDS ORDERED: LORazepam 2 MG/4 ML VIAL IV PRN (21:36)
[2020-10-29] MEDS ORDERED: ATIVAN IV ALCOHOL WITHDRAWL IV PRN (21:36)
[2020-10-30] MEDS: ALBUTEROL 0.083% NEBU SOLN 3 ML VIAL NEB PRN (02:12)
[2020-10-30] MEDS: ENOXAPARIN INJ 60 MG/0.6 ML SYR SQ SCH ×2 (04:14→17:49)
[2020-10-30] MEDS: INSULIN ASPART 100 UNITS/ML 3 ML PEN SC SCH ×5 (04:32→20:59)
[2020-10-30 05:48] LABS: Hematocrit (blood only) 34.7 % (42-52); Hemoglobin 11.3 g/dL (14.0-18.0); Mean Corpuscular Hemoglobin 28.3 pg (25-34); Mean Corpuscular Hgb Conc 32.6 g/dL (32-36); Mean Platelet Volume 11.4 fL (7.4-10.4); Platelet Count 477 K/uL (130-400); RDW Standard Deviation 47.5 fL (36.4-46.3); Red Blood Count 3.99 M/uL (4.7-6.1); White Blood Count 21.28 K/uL (4.8-10.8)
[2020-10-30 06:06] LABS: Basophils # (auto) 0.03 K/uL (0-0.2); Basophils % (auto) 0.1 %; Echinocytes 1+; Eosinophils # (auto) 0.03 K/uL (0-0.5); Eosinophils % (auto) 0.1 %; Immature Granulocytes # (auto) 1.26 K/uL (0.00-0.02); Immature Granulocytes % (auto) 5.9 %; Lymphocytes # (auto) 1.22 K/uL (1.2-3.4); Lymphocytes % (auto) 5.7 %; Monocytes # (auto) 0.78 K/uL (0.11-0.59); Monocytes % (auto) 3.7 %; Neutrophils # (auto) 17.96 K/uL (1.4-6.5); Neutrophils % (auto) 84.5 %
[2020-10-30 06:26] LABS: BUN Creatinine Ratio 52.7 (10-20); Calcium 8.8 mg/dl (8.5-10.1); Creatinine Clr Calc Pharmacy 115.5 ml/min; Est GFR (African American) 105.8; Est GFR (Non-African American) 91.3; Magnesium 1.8 mg/dl (1.8-2.4); Phosphorus 4.1 mg/dl (2.5-4.9); Potassium 3.8 mmol/L (3.5-5.1)
[2020-10-30] MEDS: NICOTINE 14 MG/24 HR PATCH TD SCH (08:16)
[2020-10-30] MEDS: TAMSULOSIN HCL 0.4 MG CAP PO SCH (08:17)
[2020-10-30] MEDS: ASPIRIN 81 MG ECTAB PO SCH (08:17)
[2020-10-30] MEDS: dexAMETHasone 6 MG in SYRINGE 0 ML IV SCH (08:18)
[2020-10-30] MEDS: THIAMINE HCL 100 MG in SYRINGE 9 ML IV SCH (08:19)
[2020-10-30] MEDS: FOLIC ACID 1 MG in SYRINGE 9.8 ML IV SCH (08:19)
[2020-10-30] MEDS: INSULIN HUMAN NPH SC SCH ×2 (08:25→17:49)
[2020-10-30] MEDS: REMDESIVIR 100 MG in SODIUM CHLORIDE 0.9% 230 ML IV SCH (12:04)
[2020-10-30] MEDS: SODIUM CHLORIDE 0.9% 10ML FLUSH IV SCH (12:05)
--- NOTE | 2020-10-30 15:58 | Hospitalist Progress Note ---
Date of Service October 30, 2020 Assessment & Plan (1) Septic shock: Septic Shock Secondary to Multilobar pneumonia Blood Cx:Negative Received IV fluids, Pressors Appreciate Mines Inspector help Weaned off of pressors Resolved Acute confusion -resolved Likely acute metabolic Encephalopathy CT Head:No acute intracranial hemorrhage or mass effect. 1.2 cm hypodensity within the anterior right frontal lobe. This favors an age indeterminate small infarct. H/O Alcohol abuse No signs of alcohol withdrawal currently Confusion resolved Continue thiamine, folic acid Continue home aspirin, statin Electrolytes abnormality Hypomagnesemia Hypophosphatemia Likely related to alcohol use replace electrolytes as needed (2) Pneumonia due to 2019 novel coronavirus: Acute hypoxic respiratory failure Multifocal COVID-19 pneumonia SARS-CoV-2 PCR positive -Chest CTA:Progressively worsened now extensive mixed interstitial and alveolar opacities throughout the lungs suggestive of viral pneumonia. Superimposed pulmonary edema would be difficult to exclude. Limited evaluation of the pulmonary arterial tree as above. No central pulmonary emboli identified. New small pleural effusions. Cardiomegaly with moderate coronary artery calcifications. Mild mediastinal and hilar adenopathy, likely reactive. -Completed 5-day course of remdesivir Continue dexamethasone to complete 10-day course Received convalescent plasma as well Continue supplemental oxygen as needed-- wean as able Nebs, Lasix PRN Plan to repeat CXR in AM On Lovenox for DVT Px (3) Multifocal pneumonia: CT showed multi lobar pneumonia Procalcitonin: 0.56 Received IV Vanco, Zosyn and doxy for possible bacterial PNA Blood Cx: Negative Persistent leukocytosis likely secondary to dexamethasone (4) BHAVESH (acute kidney injury): BHAVESH likely secondary to dehydration Received IV fluids Monitor renal function Avoid nephrotoxic agents as able (5) HTN (hypertension): Presented Septic shock (6) Diabetes mellitus, type II: HbA1C:8.2 Hold p.o. meds Continue insulin therapy while hospitalized Appreciate glycemic pharmacy input (7) Prostate cancer: H/O Prostate cancer DVT Px: Lovenox SQ CODE STATUS Full Code Disposition PT/OT prior to discharge May need 2 step prior to discharge Admission and Anticipated Discharge Date Admission Date: October 22, 2020 Subjective Patient is seen and examined at bedside Saturating low 90s on 15 L supplemental oxygen Patient eager to get discharged Offers no complaints Denies chest pain, dyspnea, cough, nausea, vomiting, abdominal pain, dizziness Review of Systems Review of Systems: All systems reviewed & are unremarkable except as noted in HPI & below Physical Exam Physical Exam: Physical Exam: Vitals signs as noted above General Appearance:Moderately built and nourished, no apparent distress Head: normocephalic, Atraumatic Eyes: normal inspection, EOMI Neck: supple, Trachea midline Respiratory/Chest: Decreased breath sounds, CTA, No accessory muscle use Cardiovascular: S1, S2, No murmur Abdomen/GI:Soft, Non tender, Bowel sounds present Extremities/Musculoskelatal:normal inspection, no edema Neurologic/Psych:AAOX3, grossly no focal neurological deficits Skin: normal color, warm Results & Data Results & Data ([facility]) Vital Signs (Past 12 Hours) Vital Signs Temp Pulse Pulse Resp BP BP Pulse Ox 10/30/20 15:36 36.4 C L 55 L 20 132/62 93 10/30/20 11:57 10/30/20 11:42 36.9 C 59 L 20 104/55 L 92 10/30/20 08:00 56 L 10/30/20 07:57 36.4 C L 58 L 20 111/60 88 L 10/30/20 06:43 36.5 C 56 L 19 118/65 91 Pulse Ox Pulse Ox Pulse Ox 10/30/20 15:36 10/30/20 11:57 90 93 88 L 10/30/20 11:42 10/30/20 08:00 10/30/20 07:57 10/30/20 06:43 Laboratory Results Short CBC 10/30/20 Range/Units 05:18 WBC 21.28 H (4.8-10.8) K/uL Hgb 11.3 L (14.0-18.0) g/dL Hct 34.7 L (42-52) % Plt Count 477 H (130-400) K/uL BMP 10/30/20 05:18 Sodium 146 H Potassium 3.8 Chloride 109 H Carbon Dioxide 30 BUN 41 H Creatinine 0.77 Glucose 111 H Calcium 8.8
[2020-10-30] MEDS: ATORVASTATIN 40 MG TAB PO SCH (20:59)
[2020-10-31] MEDS: ENOXAPARIN INJ 60 MG/0.6 ML SYR SQ SCH ×2 (03:03→16:36)
[2020-10-31] MEDS: ALBUTEROL 0.083% NEBU SOLN 3 ML VIAL NEB PRN (05:13)
[2020-10-31 07:07] LABS: Hematocrit (blood only) 36.1 % (42-52); Hemoglobin 11.8 g/dL (14.0-18.0); Mean Corpuscular Hemoglobin 28.7 pg (25-34); Mean Corpuscular Hgb Conc 32.7 g/dL (32-36); Mean Corpuscular Volume 87.8 fL (80-100); Mean Platelet Volume 11.5 fL (7.4-10.4); Platelet Count 550 K/uL (130-400); RDW Coefficient of Variation 15.3 % (11.5-14.5); RDW Standard Deviation 48.6 fL (36.4-46.3); Red Blood Count 4.11 M/uL (4.7-6.1); White Blood Count 23.61 K/uL (4.8-10.8)
[2020-10-31 07:35] LABS: BUN Creatinine Ratio 42.6 (10-20); Calcium 9.2 mg/dl (8.5-10.1); Creatinine Clr Calc Pharmacy 105.9 ml/min; Est GFR (African American) 102.1; Est GFR (Non-African American) 88.1
[2020-10-31] MEDS: FOLIC ACID 1 MG in SYRINGE 9.8 ML IV SCH (09:25)
[2020-10-31] MEDS: INSULIN ASPART 100 UNITS/ML 3 ML PEN SC SCH ×4 (09:27→20:35)
[2020-10-31] MEDS: NICOTINE 14 MG/24 HR PATCH TD SCH (09:27)
[2020-10-31] MEDS: INSULIN HUMAN NPH SC SCH ×2 (09:30→16:38)
[2020-10-31] MEDS: ASPIRIN 81 MG ECTAB PO SCH (09:31)
[2020-10-31] MEDS: THIAMINE HCL 100 MG in SYRINGE 9 ML IV SCH (09:34)
[2020-10-31] MEDS: dexAMETHasone 6 MG in SYRINGE 0 ML IV SCH (09:34)
--- NOTE | 2020-10-31 09:45 | XRay Report ---
XR chest 1V portable CLINICAL HISTORY: covid COMPARISON STUDY: Chest CT October 26, 2020. Chest radiograph October 29, 2020. FINDINGS: There is no pneumothorax. Trace bilateral pleural effusions are noted. Cardiomediastinal si lhouette is stable. Multifocal bilateral airspace opacities have slightly progressed since prior exam . IMPRESSION: Slight progression of multifocal airspace opacities since chest radiograph October 29, 2020. This is consistent with an infectious process. ACT 112: Negative or not required by law. Electronically signed by: Freddie Blanco M.D. 10/31/2020 9:43 AM
[2020-10-31] MEDS: TAMSULOSIN HCL 0.4 MG CAP PO SCH (10:01)
[2020-10-31] MEDS ORDERED: FUROSEMIDE 20 MG in SYRINGE 0 ML IV ONE (10:30)
--- NOTE | 2020-10-31 12:08 | Pharmacy Report ---
Pharmacy Glycemic Short Note 2 - Date of Service October 31, 2020 - Glycemic Short BSG Results (Last 24 hours): 10/30/20 10/30/20 10/30/20 12:27 16:51 20:30 Glucose POC Glucose 137 H 158 H 148 H 10/31/20 10/31/20 10/31/20 06:12 07:15 11:35 Glucose 104 H POC Glucose 106 H 203 H OUTPATIENT ANTIDIABETIC REGIMEN: * metformin 1gm PO BID * glipizide 10mg PO BID * A1c = 8.2% 10/24/20 ASSESSMENT: 10/31: * Fasting BSG within goal range with current NPH dosing, will continue today. * Last day of dexamethasone, will need to adjust regimen tomorrow for anticipated decrease in insulin needs * BSGs were good yesterday ranging 113 mg/dL-158 mg/dL, will continue current novolog parameters- again these will likely need adjusted once steroid is stopped. Lunch BSG elevated today, however, late breakfast/insulin administration @ 0930 10/29: * Fasting BSG acceptable receiving 60 units of basal insulin. Will keep this total daily dose but split between twice daily NPH * Post prandial BSGs remain elevated. Novolog tightened this morning and again at lunchtime. * Patient continues on IV steroids and is tolerating a diet. 10/28: * BSGs improved this morning but still not consistently in range. * Will continue current lantus and NPH dosing to get a full 24 hours worth of data on this regimen and given fasting BSG of 154 mg/dL is improved from yesterday. * Postprandial BSG improved today but still elevated. If dinner BSG remains elevated, will consider tightening novolog further at that time. * Patient continues on IV steroids and does appear to be tolerating a diet. 10/27 * Glycemic control has deteriorated over the last 24 hrs * Fasting BSG 245 this AM with 35 units basal insulin on board - will begin to up-titrate, patient seemed to tolerate 40-60 units basal/day earlier this admit * Will utilize NPH to provide a portion of the basal insulin needs, but will also help to control midday peak in BSGs associated with AM dexamethasone IV * Continue aggressive prandial Novolog to combat steroid induced hyperglycemia PLAN FOR INPATIENT GLYCEMIC CONTROL: * Hold outpatient oral diabetes medications (metformin, glipizide) * Basal insulin * NPH 40 units Q AM w/ IV dexamethasone * NPH 12 units a dinner time * Bolus insulin * NovoLog per scale ACHS * Goal Range: Low 110 mg/dL - High 140 mg/dL * Correction Factor: 10 mg/dL/unit * Nutritional / Prandial insulin per carb ratio of 1 unit per 3 grams CHO consumed PLAN FOR DISCHARGE: * to be determined
--- NOTE | 2020-10-31 15:25 | Hospitalist Progress Note ---
Date of Service October 31, 2020 Assessment & Plan (1) Septic shock: Septic Shock Secondary to Multilobar pneumonia Blood Cx:Negative Received IV fluids, Pressors Appreciate Manager Of Exhibitions And Collections help Weaned off of pressors Resolved Acute confusion -resolved Likely acute metabolic Encephalopathy CT Head:No acute intracranial hemorrhage or mass effect. 1.2 cm hypodensity within the anterior right frontal lobe. This favors an age indeterminate small infarct. H/O Alcohol abuse No signs of alcohol withdrawal currently Confusion resolved Continue thiamine, folic acid Continue home aspirin, statin Electrolytes abnormality Hypomagnesemia Hypophosphatemia Likely related to alcohol use replace electrolytes as needed (2) Pneumonia due to 2019 novel coronavirus: Acute hypoxic respiratory failure Multifocal COVID-19 pneumonia SARS-CoV-2 PCR positive -Chest CTA:Progressively worsened now extensive mixed interstitial and alveolar opacities throughout the lungs suggestive of viral pneumonia. Superimposed pulmonary edema would be difficult to exclude. Limited evaluation of the pulmonary arterial tree as above. No central pulmonary emboli identified. New small pleural effusions. Cardiomegaly with moderate coronary artery calcifications. Mild mediastinal and hilar adenopathy, likely reactive. -Completed 5-day course of remdesivir and 10-day course of dexamethasone Received convalescent plasma as well Continue supplemental oxygen as needed-- wean as able Nebs, Lasix PRN On Lovenox for DVT Px Still requiring 2 L of supplemental oxygen to maintain saturation Chest x-ray today showed persistent multifocal airspace opacities We will start on prednisone taper course. Encouraged him to prone frequently. (3) Multifocal pneumonia: CT showed multi lobar pneumonia Procalcitonin: 0.56 Received IV Vanco, Zosyn and doxy for possible bacterial PNA Blood Cx: Negative Persistent leukocytosis likely secondary to dexamethasone (4) BHAVESH (acute kidney injury): BHAVESH likely secondary to dehydration Received IV fluids Monitor renal function Avoid nephrotoxic agents as able (5) HTN (hypertension): Presented Septic shock (6) Diabetes mellitus, type II: HbA1C:8.2 Hold p.o. meds Continue insulin therapy while hospitalized Appreciate glycemic pharmacy input (7) Prostate cancer: H/O Prostate cancer DVT Px: Lovenox SQ CODE STATUS Full Code Disposition PT/OT prior to discharge May need 2 step prior to discharge Admission and Anticipated Discharge Date Admission Date: October 22, 2020 Subjective Patient is seen and examined at bedside States having cough with intermittent expectoration No other complaints Saturating low 90s on 12 L supplemental oxygen Denies chest pain, dyspnea, cough, nausea, vomiting, abdominal pain, dizziness CXR today showed persistent multifocal airspace opacities. Review of Systems Review of Systems: All systems reviewed & are unremarkable except as noted in HPI & below Physical Exam Physical Exam: Physical Exam: Vitals signs as noted above General Appearance:Moderately built and nourished, no apparent distress Head: normocephalic, Atraumatic Eyes: normal inspection, EOMI Neck: supple, Trachea midline Respiratory/Chest: Decreased breath sounds, CTA Cardiovascular: S1, S2, No murmur Abdomen/GI:Soft, Non tender, Bowel sounds present Extremities/Musculoskelatal:normal inspection, no edema Neurologic/Psych:AAOX3, grossly no focal neurological deficits Skin: normal color, warm Results & Data Results & Data ([facility]) Vital Signs (Past 12 Hours) Vital Signs Temp Pulse Pulse Resp BP BP Pulse Ox 10/31/20 11:39 36.5 C 54 L 22 135/63 92 10/31/20 08:10 36.7 C 55 L 21 136/63 90 10/31/20 08:00 59 L 10/31/20 05:14 53 L 20 87 L 10/31/20 04:54 36.6 C 63 18 119/67 87 L Laboratory Results Short CBC 10/31/20 Range/Units 06:12 WBC 23.61 H (4.8-10.8) K/uL Hgb 11.8 L (14.0-18.0) g/dL Hct 36.1 L (42-52) % Plt Count 550 H (130-400) K/uL BMP 10/31/20 06:12 Sodium 146 H Potassium 4.0 Chloride 110 H Carbon Dioxide 30 BUN 36 H Creatinine 0.84 Glucose 104 H Calcium 9.2
[2020-10-31] MEDS: ATORVASTATIN 40 MG TAB PO SCH (20:35)
[2020-11-01] MEDS: ENOXAPARIN INJ 60 MG/0.6 ML SYR SQ SCH ×2 (02:54→16:51)
[2020-11-01 06:08] LABS: Hemoglobin 12.5 g/dL (14.0-18.0); Mean Corpuscular Hemoglobin 28.9 pg (25-34); Mean Corpuscular Hgb Conc 32.9 g/dL (32-36); Mean Corpuscular Volume 87.8 fL (80-100); Mean Platelet Volume 11.6 fL (7.4-10.4); Platelet Count 435 K/uL (130-400); RDW Coefficient of Variation 15.3 % (11.5-14.5); Red Blood Count 4.33 M/uL (4.7-6.1); White Blood Count 23.23 K/uL (4.8-10.8)
[2020-11-01 06:22] LABS: Calcium 8.4 mg/dl (8.5-10.1); Creatinine Clr Calc Pharmacy 137.1 ml/min; Est GFR (African American) 113.4; Est GFR (Non-African American) 97.9; Potassium 4.3 mmol/L (3.5-5.1)
[2020-11-01] MEDS: FOLIC ACID 1 MG in SYRINGE 9.8 ML IV SCH (08:46)
[2020-11-01] MEDS: NICOTINE 14 MG/24 HR PATCH TD SCH (08:47)
[2020-11-01] MEDS: TAMSULOSIN HCL 0.4 MG CAP PO SCH (08:48)
[2020-11-01] MEDS: predniSONE 10 MG TABLET PO SCH (08:48)
[2020-11-01] MEDS: ASPIRIN 81 MG ECTAB PO SCH (08:49)
[2020-11-01] MEDS: THIAMINE HCL 100 MG in SYRINGE 9 ML IV SCH (08:50)
[2020-11-01] MEDS: INSULIN ASPART 100 UNITS/ML 3 ML PEN SC SCH ×4 (08:51→20:51)
[2020-11-01] MEDS: INSULIN HUMAN NPH SC SCH ×2 (08:51→17:31)
[2020-11-01] MEDS ORDERED: OPTIRAY 320 125ml IV ONE (13:56)
--- NOTE | 2020-11-01 14:13 | CT Scan Report ---
CT ANGIOGRAM OF THE CHEST CLINICAL HISTORY: Dyspnea. Covid. COMPARISON STUDY: Chest CT dated 10/26/2020. Chest x-ray dated 10/31/2020. TECHNIQUE: Following the IV administration of 118 cc of Optiray 320, CT angiogram of the chest was pe rformed from the upper abdomen to the thoracic inlet utilizing the pulmonary embolus protocol. Images are reviewed in the axial, sagittal, and coronal planes. 3-D MIPS images are created and assessed. I V contrast was administered without complication. A dose lowering technique was utilized adhering to the principles of ALARA. The examination is compromised by motion artifact. CT DOSE: 629.72 mGycm FINDINGS: Thyroid: Imaged portions of the thyroid gland are normal in size and attenuation. Low-attenuation thy roid nodules measure up to 9 mm. Thoracic aorta: There is atherosclerotic calcification of the thoracic aorta, which is normal in arlene alfreda and demonstrates standard 3-vessel arch anatomy. No dissection is seen. Pulmonary vasculature: The pulmonary trunk is normal in caliber. There are no filling defects identif ied in main, lobar, or segmental pulmonary branches to suggest pulmonary embolus. Heart: The heart is normal in size and without pericardial effusion. The coronary arteries are densel y calcified. Lungs and pleural spaces: Evaluation of the lung parenchyma is significantly degraded by motion artif act. There is diffuse/multifocal groundglass consolidation seen throughout both lungs, not significan tly changed from 10/26/2020. There are trace pleural effusions. Mediastinum: There are prominent subcentimeter mediastinal lymph nodes. Ava: Mildly enlarged hilar nodes measure up to 10 mm in short axis. Axillae: There is no axillary lymphadenopathy. Upper abdomen: There is a small hiatal hernia. Partially visualized upper abdominal viscera is otherw ise grossly unremarkable. Skeletal structures: The skeletal structures are osteopenic. Degenerative change is seen throughout t he thoracic spine and in the shoulders. No lytic or blastic bony lesions are seen. IMPRESSION: 1. There is no evidence of pulmonary embolus in the main, lobar, or segmental pulmonary arteries. 2. Diffuse/multifocal groundglass consolidation throughout both lungs is similar to previous. 3. Trace pleural effusions. 4. Additional findings as above. ACT 112: Negative or not required by law. Electronically signed by: Alex Lazo M.D. 11/01/2020 2:12 PM
--- NOTE | 2020-11-01 14:44 | Hospitalist Progress Note ---
Date of Service November 01, 2020 Assessment & Plan (1) Septic shock: Septic Shock Secondary to Multilobar pneumonia Blood Cx:Negative Received IV fluids, Pressors Appreciate Agricultural Consultant help Weaned off of pressors Resolved Acute confusion -resolved Likely acute metabolic Encephalopathy CT Head:No acute intracranial hemorrhage or mass effect. 1.2 cm hypodensity within the anterior right frontal lobe. This favors an age indeterminate small infarct. H/O Alcohol abuse No signs of alcohol withdrawal currently Confusion resolved Continue thiamine, folic acid Continue home aspirin, statin Electrolytes abnormality Hypomagnesemia Hypophosphatemia Likely related to alcohol use replace electrolytes as needed (2) Pneumonia due to 2019 novel coronavirus: Acute hypoxic respiratory failure Multifocal COVID-19 pneumonia SARS-CoV-2 PCR positive -Chest CTA:Progressively worsened now extensive mixed interstitial and alveolar opacities throughout the lungs suggestive of viral pneumonia. Superimposed pulmonary edema would be difficult to exclude. Limited evaluation of the pulmonary arterial tree as above. No central pulmonary emboli identified. New small pleural effusions. Cardiomegaly with moderate coronary artery calcifications. Mild mediastinal and hilar adenopathy, likely reactive. -Completed 5-day course of remdesivir and 10-day course of dexamethasone Received convalescent plasma as well Continue supplemental oxygen as needed-- wean as able Nebs, Lasix PRN On Lovenox for DVT Px Continue prednisone taper course. Encouraged him to prone frequently. CTA showed Diffuse/multifocal groundglass consolidation throughout both lungs is similar to previous. Requires 12-15L of supplemental oxygen to maintain saturations (3) Multifocal pneumonia: CT showed multi lobar pneumonia Procalcitonin: 0.56 Received IV Vanco, Zosyn and doxy for possible bacterial PNA Blood Cx: Negative Persistent leukocytosis likely secondary to dexamethasone (4) BHAVESH (acute kidney injury): BHAVESH likely secondary to dehydration Received IV fluids Monitor renal function Avoid nephrotoxic agents as able (5) HTN (hypertension): Presented Septic shock (6) Diabetes mellitus, type II: HbA1C:8.2 Hold p.o. meds Continue insulin therapy while hospitalized Appreciate glycemic pharmacy input (7) Prostate cancer: H/O Prostate cancer DVT Px: Lovenox SQ CODE STATUS Full Code Disposition PT/OT prior to discharge May need 2 step prior to discharge Admission and Anticipated Discharge Date Admission Date: October 22, 2020 Subjective Patient is seen and examined at bedside No new complaints Repeat CT chest showed no PE, persistent diffuse, multifocal groundglass consolidation Patient frustrated about prolonged requirement of hospital stay Less cough today Requiring 12-15 L of supplemental oxygen to maintain saturations Denies chest pain, dyspnea, nausea, vomiting, abdominal pain, dizziness Review of Systems Review of Systems: All systems reviewed & are unremarkable except as noted in HPI & below Physical Exam Physical Exam: Physical Exam: Vitals signs as noted above General Appearance:Moderately built and nourished, no apparent distress Head: normocephalic, Atraumatic Eyes: normal inspection, EOMI Neck: supple, Trachea midline Respiratory/Chest: Decreased breath sounds, CTA Cardiovascular: S1, S2, No murmur Abdomen/GI:Soft, Non tender, Bowel sounds present Extremities/Musculoskelatal:normal inspection, no edema Neurologic/Psych:AAOX3, grossly no focal neurological deficits Skin: normal color, warm Results & Data Results & Data ([facility]) Vital Signs (Past 12 Hours) Vital Signs Temp Pulse Pulse Resp BP BP Pulse Ox 11/01/20 11:11 36.5 C 64 18 108/72 92 11/01/20 08:00 73 11/01/20 07:48 36.5 C 60 20 94/54 L 93 11/01/20 06:09 36.7 C 56 L 20 115/52 L 93 Laboratory Results Short CBC 11/01/20 Range/Units 05:24 WBC 23.23 H (4.8-10.8) K/uL Hgb 12.5 L (14.0-18.0) g/dL Hct 38.0 L (42-52) % Plt Count 435 H (130-400) K/uL BMP 11/01/20 05:24 Sodium 144 Potassium 4.3 Chloride 109 H Carbon Dioxide 31 BUN 38 H Creatinine 0.65 Glucose 110 H Calcium 8.4 L
--- NOTE | 2020-11-01 15:11 | Pharmacy Report ---
Pharmacy Glycemic Short Note 2 - Date of Service November 01, 2020 - Glycemic Short BSG Results (Last 24 hours): 10/31/20 10/31/20 11/01/20 16:19 20:08 05:24 Glucose 110 H POC Glucose 176 H 188 H 11/01/20 11/01/20 08:08 11:43 Glucose POC Glucose 122 H 240 H OUTPATIENT ANTIDIABETIC REGIMEN: * metformin 1gm PO BID * glipizide 10mg PO BID * A1c = 8.2% 10/24/20 ASSESSMENT: 11/01: * Patient received total of 134 units of insulin yesterday, of which 52 were NPH * Fasting BSG 110 mg/dL - steroids changing from DXM 6 to pred 30 PO, anticipate insulin needs to decrease * Will scale back on NPH ~25% today, plan to continue same CF/CR for now 10/31: * Fasting BSG within goal range with current NPH dosing, will continue today. * Last day of dexamethasone, will need to adjust regimen tomorrow for anticipated decrease in insulin needs * BSGs were good yesterday ranging 113 mg/dL-158 mg/dL, will continue current novolog parameters- again these will likely need adjusted once steroid is stopped. Lunch BSG elevated today, however, late breakfast/insulin administration @ 0930 PLAN FOR INPATIENT GLYCEMIC CONTROL: * Hold outpatient oral diabetes medications (metformin, glipizide) * Basal insulin * NPH 30 units Q AM w/ IV dexamethasone * NPH 12 units a dinner time * Bolus insulin * NovoLog per scale ACHS * Goal Range: Low 110 mg/dL - High 140 mg/dL * Correction Factor: 10 mg/dL/unit * Nutritional / Prandial insulin per carb ratio of 1 unit per 3 grams CHO consumed PLAN FOR DISCHARGE: * to be determined
[2020-11-01] MEDS: ATORVASTATIN 40 MG TAB PO SCH (20:51)
[2020-11-02] MEDS: ENOXAPARIN INJ 60 MG/0.6 ML SYR SQ SCH ×2 (04:06→17:03)
[2020-11-02] MEDS: BUDESONIDE 0.5 MG/2 ML VIAL (PULMICORT) INH SCH ×3 (08:00→17:47)
[2020-11-02] MEDS: INSULIN ASPART 100 UNITS/ML 3 ML PEN SC SCH ×4 (08:28→20:13)
[2020-11-02] MEDS: INSULIN HUMAN NPH SC SCH (08:30)
[2020-11-02] MEDS: TAMSULOSIN HCL 0.4 MG CAP PO SCH (08:33)
[2020-11-02] MEDS: NICOTINE 14 MG/24 HR PATCH TD SCH (08:33)
[2020-11-02] MEDS: ASPIRIN 81 MG ECTAB PO SCH (08:35)
[2020-11-02] MEDS: predniSONE 10 MG TABLET PO SCH (08:35)
[2020-11-02] MEDS: FOLIC ACID 1 MG in SYRINGE 9.8 ML IV SCH (08:36)
[2020-11-02] MEDS: THIAMINE HCL 100 MG in SYRINGE 9 ML IV SCH (08:37)
[2020-11-02] MEDS ORDERED: FLUTICASONE FUROATE 100MCG 14 PUFFS/INHALER INH SCH (09:00)
--- NOTE | 2020-11-02 13:57 | Pharmacy Report ---
Pharmacy Glycemic Short Note 2 - Date of Service November 02, 2020 - Glycemic Short BSG Results (Last 24 hours): 11/01/20 11/01/20 11/02/20 16:34 20:42 07:27 POC Glucose 220 H 163 H 96 11/02/20 11:15 POC Glucose 222 H OUTPATIENT ANTIDIABETIC REGIMEN: * metformin 1gm PO BID * glipizide 10mg PO BID * A1c = 8.2% 10/24/20 ASSESSMENT: 11/02: * Patient received total of 106 units of insulin yesterday, of which 42 were NPH * Fasting BSG 96 mg/dL - continues on pred 30 today / will continue with same NPH of 30 units this AM but reduce evening dose * Anticipate BSGs to continue to improve more today, will loosen parameters with dinner * Likely will need insulin adjustments 11/03 as prednisone is changing to 20 mg daily 11/01: * Patient received total of 134 units of insulin yesterday, of which 52 were NPH * Fasting BSG 110 mg/dL - steroids changing from DXM 6 to pred 30 PO, anticipate insulin needs to decrease * Will scale back on NPH ~25% today, plan to continue same CF/CR for now 10/31: * Fasting BSG within goal range with current NPH dosing, will continue today. * Last day of dexamethasone, will need to adjust regimen tomorrow for anticipated decrease in insulin needs * BSGs were good yesterday ranging 113 mg/dL-158 mg/dL, will continue current novolog parameters- again these will likely need adjusted once steroid is stopped. Lunch BSG elevated today, however, late breakfast/insulin administration @ 0930 PLAN FOR INPATIENT GLYCEMIC CONTROL: * Hold outpatient oral diabetes medications (metformin, glipizide) * Basal insulin * NPH 30 units Q AM w/ IV dexamethasone * NPH 8 units a dinner time * Bolus insulin * NovoLog per scale ACHS * Goal Range: Low 110 mg/dL - High 140 mg/dL * Correction Factor: 15 mg/dL/unit * Nutritional / Prandial insulin per carb ratio of 1 unit per 4 grams CHO consumed PLAN FOR DISCHARGE: * to be determined
--- NOTE | 2020-11-02 16:18 | Hospitalist Progress Note ---
Date of Service November 02, 2020 Assessment & Plan (1) Septic shock: Septic Shock Secondary to Multilobar pneumonia Blood Cx:Negative Received IV fluids, Pressors Appreciate Electronic Scale Tester help Weaned off of pressors Resolved Acute confusion -resolved Likely acute metabolic Encephalopathy CT Head:No acute intracranial hemorrhage or mass effect. 1.2 cm hypodensity within the anterior right frontal lobe. This favors an age indeterminate small infarct. H/O Alcohol abuse No signs of alcohol withdrawal currently Confusion resolved Continue thiamine, folic acid Continue home aspirin, statin Electrolytes abnormality Hypomagnesemia Hypophosphatemia Likely related to alcohol use replace electrolytes as needed (2) Pneumonia due to 2019 novel coronavirus: Acute hypoxic respiratory failure Multifocal COVID-19 pneumonia SARS-CoV-2 PCR positive -Chest CTA:Progressively worsened now extensive mixed interstitial and alveolar opacities throughout the lungs suggestive of viral pneumonia. Superimposed pulmonary edema would be difficult to exclude. Limited evaluation of the pulmonary arterial tree as above. No central pulmonary emboli identified. New small pleural effusions. Cardiomegaly with moderate coronary artery calcifications. Mild mediastinal and hilar adenopathy, likely reactive. -Completed 5-day course of remdesivir and 10-day course of dexamethasone Received convalescent plasma as well Continue supplemental oxygen as needed-- wean as able Nebs, Lasix PRN On Lovenox for DVT Px Continue prednisone taper course. Repeat CTA showed Diffuse/multifocal groundglass consolidation throughout both lungs is similar to previous. Requires 12-15L of supplemental oxygen to maintain saturations Encouraged him to prone frequently. We will request pulmonology to reevaluate as able Check procalcitonin in the morning (3) Multifocal pneumonia: CT showed multi lobar pneumonia Procalcitonin: 0.56 Received IV Vanco, Zosyn and doxy for possible bacterial PNA Blood Cx: Negative Persistent leukocytosis likely secondary to dexamethasone (4) BHAVESH (acute kidney injury): BHAVESH likely secondary to dehydration Received IV fluids Monitor renal function Avoid nephrotoxic agents as able (5) HTN (hypertension): Presented Septic shock (6) Diabetes mellitus, type II: HbA1C:8.2 Hold p.o. meds Continue insulin therapy while hospitalized Appreciate glycemic pharmacy input (7) Prostate cancer: H/O Prostate cancer DVT Px: Lovenox SQ CODE STATUS Full Code Disposition PT/OT prior to discharge May need 2 step prior to discharge Admission and Anticipated Discharge Date Admission Date: October 22, 2020 Subjective Patient is seen and examined at bedside Remains stable but critical Requiring 12 L of supplemental oxygen to maintain saturation Denies cough today Also denies chest pain, dyspnea, nausea, vomiting, abdominal pain, dizziness Review of Systems Review of Systems: All systems reviewed & are unremarkable except as noted in HPI & below Physical Exam Physical Exam: Physical Exam: Vitals signs as noted above General Appearance:Moderately built and nourished, no apparent distress Head: normocephalic, Atraumatic Eyes: normal inspection, EOMI Neck: supple, Trachea midline Respiratory/Chest: Decreased breath sounds, CTA Cardiovascular: S1, S2, No murmur Abdomen/GI:Soft, Non tender, Bowel sounds present Extremities/Musculoskelatal:normal inspection, no edema Neurologic/Psych:AAOX3, grossly no focal neurological deficits Skin: normal color, warm Results & Data Results & Data ([facility]) Vital Signs (Past 12 Hours) Vital Signs Temp Pulse Pulse Resp BP Pulse Ox 11/02/20 15:17 36.5 C 94 H 21 119/62 91 11/02/20 10:56 36.8 C 66 20 130/55 L 91 11/02/20 08:00 66 56 L 18 92 11/02/20 07:08 36.6 C 68 23 125/62 92
[2020-11-02] MEDS ORDERED: INSULIN HUMAN NPH SC SCH (17:00)
[2020-11-02] MEDS: ATORVASTATIN 40 MG TAB PO SCH (20:14)
[2020-11-03] MEDS: ENOXAPARIN INJ 60 MG/0.6 ML SYR SQ SCH ×2 (03:39→16:43)
[2020-11-03 06:27] LABS: Basophils # (auto) 0.02 K/uL (0-0.2); Basophils % (auto) 0.1 %; Eosinophils # (auto) 0.16 K/uL (0-0.5); Eosinophils % (auto) 0.9 %; Hematocrit (blood only) 37.1 % (42-52); Immature Granulocytes # (auto) 0.44 K/uL (0.00-0.02); Immature Granulocytes % (auto) 2.4 %; Lymphocytes # (auto) 1.54 K/uL (1.2-3.4); Lymphocytes % (auto) 8.3 %; Mean Corpuscular Hgb Conc 32.3 g/dL (32-36); Mean Corpuscular Volume 86.7 fL (80-100); Mean Platelet Volume 11.1 fL (7.4-10.4); Monocytes # (auto) 0.53 K/uL (0.11-0.59); Monocytes % (auto) 2.9 %; Neutrophils # (auto) 15.81 K/uL (1.4-6.5); Neutrophils % (auto) 85.4 %; Platelet Count 441 K/uL (130-400); RDW Coefficient of Variation 15.4 % (11.5-14.5); RDW Standard Deviation 47.6 fL (36.4-46.3); Red Blood Count 4.28 M/uL (4.7-6.1)
[2020-11-03 06:53] LABS: BUN Creatinine Ratio 37.6 (10-20); Calcium 8.6 mg/dl (8.5-10.1); Creatinine Clr Calc Pharmacy 122.9 ml/min; Est GFR (African American) 108.2; Est GFR (Non-African American) 93.3; Potassium 3.8 mmol/L (3.5-5.1)
[2020-11-03] MEDS: BUDESONIDE 0.5 MG/2 ML VIAL (PULMICORT) INH SCH ×2 (07:17→19:07)
[2020-11-03] MEDS: ASPIRIN 81 MG ECTAB PO SCH (08:17)
[2020-11-03] MEDS: NICOTINE 14 MG/24 HR PATCH TD SCH (08:17)
[2020-11-03] MEDS: predniSONE 10 MG TABLET PO SCH (08:17)
[2020-11-03] MEDS: TAMSULOSIN HCL 0.4 MG CAP PO SCH (08:17)
[2020-11-03] MEDS: FOLIC ACID 1 MG in SYRINGE 9.8 ML IV SCH (08:18)
[2020-11-03] MEDS: THIAMINE HCL 100 MG in SYRINGE 9 ML IV SCH (08:18)
[2020-11-03] MEDS: INSULIN HUMAN NPH SC SCH (08:19)
[2020-11-03] MEDS: INSULIN ASPART 100 UNITS/ML 3 ML PEN SC SCH ×4 (08:20→21:01)
[2020-11-03] MEDS ORDERED: ZOLPIDEM TARTRATE 5 MG TAB PO PRN (13:37)
--- NOTE | 2020-11-03 14:22 | Hospitalist Progress Note ---
Date of Service November 03, 2020 Assessment & Plan (1) Septic shock: Septic Shock Secondary to Multilobar pneumonia Blood Cx:Negative Received IV fluids, Pressors Appreciate Machine Stacker help Weaned off of pressors Resolved Acute confusion -resolved Likely acute metabolic Encephalopathy CT Head:No acute intracranial hemorrhage or mass effect. 1.2 cm hypodensity within the anterior right frontal lobe. This favors an age indeterminate small infarct. H/O Alcohol abuse No signs of alcohol withdrawal currently Confusion resolved Continue thiamine, folic acid Continue home aspirin, statin Electrolytes abnormality Hypomagnesemia Hypophosphatemia Likely related to alcohol use replace electrolytes as needed (2) Pneumonia due to 2019 novel coronavirus: Acute hypoxic respiratory failure Multifocal COVID-19 pneumonia SARS-CoV-2 PCR positive -Chest CTA:Progressively worsened now extensive mixed interstitial and alveolar opacities throughout the lungs suggestive of viral pneumonia. Superimposed pulmonary edema would be difficult to exclude. Limited evaluation of the pulmonary arterial tree as above. No central pulmonary emboli identified. New small pleural effusions. Cardiomegaly with moderate coronary artery calcifications. Mild mediastinal and hilar adenopathy, likely reactive. -Completed 5-day course of remdesivir and 10-day course of dexamethasone Received convalescent plasma as well Continue supplemental oxygen as needed-- wean as able Nebs, Lasix PRN On Lovenox for DVT Px Continue prednisone taper course. Repeat CTA showed Diffuse/multifocal groundglass consolidation throughout both lungs is similar to previous. Encouraged him to prone frequently. Discussed with Pulmonology on 11/03/20--Advised to continue current management Procalcitonin trended down Requiring 10 L of supplemental oxygen at rest and 15 L with activity to maintain Sats Insomnia Likely due to steroids Zolpidem PRN (3) Multifocal pneumonia: CT showed multi lobar pneumonia Procalcitonin: 0.56 Received IV Vanco, Zosyn and doxy for possible bacterial PNA Blood Cx: Negative Persistent leukocytosis likely secondary to dexamethasone (4) BHAVESH (acute kidney injury): BHAVESH likely secondary to dehydration Received IV fluids Monitor renal function Avoid nephrotoxic agents as able (5) HTN (hypertension): Presented Septic shock (6) Diabetes mellitus, type II: HbA1C:8.2 Hold p.o. meds Continue insulin therapy while hospitalized Appreciate glycemic pharmacy input (7) Prostate cancer: H/O Prostate cancer DVT Px: Lovenox SQ CODE STATUS Full Code Disposition PT/OT prior to discharge May need 2 step prior to discharge Admission and Anticipated Discharge Date Admission Date: October 22, 2020 Subjective Patient is seen and examined at bedside No new complaints Discussed with Pulmonology today Requiring 10 L of supplemental oxygen at rest and 15 L with activity Denies chest pain, cough, dyspnea, nausea, vomiting, abdominal pain, dizziness Sitting in chair comfortably Review of Systems Review of Systems: All systems reviewed & are unremarkable except as noted in HPI & below Physical Exam Physical Exam: Physical Exam: Vitals signs as noted above General Appearance:Moderately built and nourished, no apparent distress Head: normocephalic, Atraumatic Eyes: normal inspection, EOMI Neck: supple, Trachea midline Respiratory/Chest: Decreased breath sounds, CTA Cardiovascular: S1, S2, No murmur Abdomen/GI:Soft, Non tender, Bowel sounds present Extremities/Musculoskelatal:normal inspection, no edema Neurologic/Psych:AAOX3, grossly no focal neurological deficits Skin: normal color, warm Results & Data Results & Data ([facility]) Vital Signs (Past 12 Hours) Vital Signs Temp Pulse Pulse Resp BP BP Pulse Ox 11/03/20 11:40 36.3 C L 82 19 117/69 89 L 11/03/20 08:00 68 11/03/20 07:40 36.4 C L 65 20 92/61 L 92 11/03/20 07:17 65 17 91 11/03/20 04:00 36.8 C 68 20 97/67 L 88/47 L 89 L Laboratory Results Short CBC 11/03/20 Range/Units 05:41 WBC 18.50 H (4.8-10.8) K/uL Hgb 12.0 L (14.0-18.0) g/dL Hct 37.1 L (42-52) % Plt Count 441 H (130-400) K/uL BMP 11/03/20 05:41 Sodium 144 Potassium 3.8 Chloride 110 H Carbon Dioxide 28 BUN 27 H Creatinine 0.73 Glucose 92 Calcium 8.6
--- NOTE | 2020-11-03 14:23 | Pharmacy Report ---
Pharmacy Glycemic Short Note 2 - Date of Service November 03, 2020 - Glycemic Short BSG Results (Last 24 hours): 11/02/20 11/02/20 11/03/20 16:42 20:06 05:41 Glucose 92 POC Glucose 128 H 107 H 11/03/20 11/03/20 07:42 11:41 Glucose POC Glucose 93 256 H OUTPATIENT ANTIDIABETIC REGIMEN: * metformin 1gm PO BID * glipizide 10mg PO BID * A1c = 8.2% 10/24/20 ASSESSMENT: 11/03: * Patient received a total of 116 units of insulin yesterday. * Prednisone decreased today to 20mg * Fasting today 92, will decrease AM dose of NPH and d/c evening dose * Will begin to loosen novolog as steroids are tapered. 11/02: * Patient received total of 106 units of insulin yesterday, of which 42 were NPH * Fasting BSG 96 mg/dL - continues on pred 30 today / will continue with same NPH of 30 units this AM but reduce evening dose * Anticipate BSGs to continue to improve more today, will loosen parameters with dinner * Likely will need insulin adjustments 11/03 as prednisone is changing to 20 mg daily 11/01: * Patient received total of 134 units of insulin yesterday, of which 52 were NPH * Fasting BSG 110 mg/dL - steroids changing from DXM 6 to pred 30 PO, anticipate insulin needs to decrease * Will scale back on NPH ~25% today, plan to continue same CF/CR for now 10/31: * Fasting BSG within goal range with current NPH dosing, will continue today. * Last day of dexamethasone, will need to adjust regimen tomorrow for anticipated decrease in insulin needs * BSGs were good yesterday ranging 113 mg/dL-158 mg/dL, will continue current novolog parameters- again these will likely need adjusted once steroid is stopped. Lunch BSG elevated today, however, late breakfast/insulin administration @ 0930 PLAN FOR INPATIENT GLYCEMIC CONTROL: * Hold outpatient oral diabetes medications (metformin, glipizide) * Basal insulin * NPH 25 units Q AM w/ prednisone * Bolus insulin * NovoLog per scale ACHS * Goal Range: Low 110 mg/dL - High 140 mg/dL * Correction Factor: 15 mg/dL/unit * Nutritional / Prandial insulin per carb ratio of 1 unit per 4 grams CHO consumed (was 1 units per 5 grams CHO for breakfast) PLAN FOR DISCHARGE: * to be determined
[2020-11-03] MEDS: ATORVASTATIN 40 MG TAB PO SCH (21:02)
[2020-11-04] MEDS: ENOXAPARIN INJ 60 MG/0.6 ML SYR SQ SCH ×2 (03:25→16:40)
[2020-11-04] MEDS: THIAMINE HCL 100 MG in SYRINGE 9 ML IV SCH (08:39)
[2020-11-04] MEDS: TAMSULOSIN HCL 0.4 MG CAP PO SCH (08:40)
[2020-11-04] MEDS: predniSONE 10 MG TABLET PO SCH (08:40)
[2020-11-04] MEDS: ASPIRIN 81 MG ECTAB PO SCH (08:40)
[2020-11-04] MEDS: NICOTINE 14 MG/24 HR PATCH TD SCH (08:40)
[2020-11-04] MEDS: INSULIN HUMAN NPH SC SCH (08:41)
[2020-11-04] MEDS: INSULIN ASPART 100 UNITS/ML 3 ML PEN SC SCH ×4 (08:41→21:12)
[2020-11-04] MEDS: FOLIC ACID 1 MG in SYRINGE 9.8 ML IV SCH (08:41)
--- NOTE | 2020-11-04 15:07 | Hospitalist Progress Note ---
Date of Service November 04, 2020 Assessment & Plan (1) Septic shock: Septic Shock Secondary to Multilobar pneumonia Blood Cx:Negative Received IV fluids, Pressors Appreciate Assistive Technology Specialist help Weaned off of pressors Resolved Acute confusion -resolved Likely acute metabolic Encephalopathy CT Head:No acute intracranial hemorrhage or mass effect. 1.2 cm hypodensity within the anterior right frontal lobe. This favors an age indeterminate small infarct. H/O Alcohol abuse No signs of alcohol withdrawal currently Confusion resolved Continue thiamine, folic acid Continue home aspirin, statin Electrolytes abnormality Hypomagnesemia Hypophosphatemia Likely related to alcohol use replace electrolytes as needed (2) Pneumonia due to 2019 novel coronavirus: Acute hypoxic respiratory failure Multifocal COVID-19 pneumonia SARS-CoV-2 PCR positive -Chest CTA:Progressively worsened now extensive mixed interstitial and alveolar opacities throughout the lungs suggestive of viral pneumonia. Superimposed pulmonary edema would be difficult to exclude. Limited evaluation of the pulmonary arterial tree as above. No central pulmonary emboli identified. New small pleural effusions. Cardiomegaly with moderate coronary artery calcifications. Mild mediastinal and hilar adenopathy, likely reactive. -Completed 5-day course of remdesivir and 10-day course of dexamethasone Received convalescent plasma as well Continue supplemental oxygen as needed-- wean as able Nebs, Lasix PRN On Lovenox for DVT Px Continue prednisone taper course. Repeat CTA showed Diffuse/multifocal groundglass consolidation throughout both lungs is similar to previous. Encouraged him to prone frequently. Discussed with Pulmonology on 11/03/20--Advised to continue current management Procalcitonin trended down Less oxygen requirement today--on 5L Slowly improving Insomnia Likely due to steroids Zolpidem PRN (3) Multifocal pneumonia: CT showed multi lobar pneumonia Procalcitonin: 0.56 Received IV Vanco, Zosyn and doxy for possible bacterial PNA Blood Cx: Negative leukocytosis likely secondary to dexamethasone WBC count trending down (4) BHAVESH (acute kidney injury): BHAVESH likely secondary to dehydration Received IV fluids Monitor renal function Avoid nephrotoxic agents as able (5) HTN (hypertension): Presented Septic shock (6) Diabetes mellitus, type II: HbA1C:8.2 Hold p.o. meds Continue insulin therapy while hospitalized Appreciate glycemic pharmacy input (7) Prostate cancer: H/O Prostate cancer DVT Px: Lovenox SQ CODE STATUS Full Code Disposition PT/OT prior to discharge May need 2 step prior to discharge Admission and Anticipated Discharge Date Admission Date: October 22, 2020 Subjective Patient is seen and examined at bedside Doing well today Saturating well on 5 L of supplemental oxygen Denies chest pain, cough, dyspnea, nausea, vomiting, abdominal pain, dizziness No complaints Eager to get discharged Review of Systems Review of Systems: All systems reviewed & are unremarkable except as noted in HPI & below Physical Exam Physical Exam: Physical Exam: Vitals signs as noted above General Appearance:Moderately built and nourished, no apparent distress Head: normocephalic, Atraumatic Eyes: normal inspection, EOMI Neck: supple, Trachea midline Respiratory/Chest: Decreased breath sounds, CTA Cardiovascular: S1, S2, No murmur Abdomen/GI:Soft, Non tender, Bowel sounds present Extremities/Musculoskelatal:normal inspection, no edema Neurologic/Psych:AAOX3, grossly no focal neurological deficits Skin: normal color, warm Results & Data Results & Data ([facility]) Vital Signs (Past 12 Hours) Vital Signs Temp Pulse Pulse Resp BP BP Pulse Ox 11/04/20 11:38 36.7 C 66 20 116/74 95 11/04/20 07:41 90 11/04/20 07:24 108 H 11/04/20 07:00 36.9 C 65 20 136/65 91 11/04/20 04:02 36.8 C 81 22 136/62 90
[2020-11-04] MEDS: ATORVASTATIN 40 MG TAB PO SCH (21:06)
[2020-11-04] MEDS: ZOLPIDEM TARTRATE 5 MG TAB PO PRN (21:20)
[2020-11-05] MEDS: ENOXAPARIN INJ 60 MG/0.6 ML SYR SQ SCH ×2 (05:06→16:35)
[2020-11-05 06:31] LABS: Basophils # (auto) 0.01 K/uL (0-0.2); Basophils % (auto) 0.1 %; Eosinophils # (auto) 0.15 K/uL (0-0.5); Eosinophils % (auto) 0.9 %; Hematocrit (blood only) 37.4 % (42-52); Hemoglobin 12.1 g/dL (14.0-18.0); Immature Granulocytes # (auto) 0.16 K/uL (0.00-0.02); Lymphocytes # (auto) 1.65 K/uL (1.2-3.4); Lymphocytes % (auto) 10.4 %; Mean Corpuscular Hemoglobin 28.1 pg (25-34); Mean Corpuscular Hgb Conc 32.4 g/dL (32-36); Mean Platelet Volume 11.2 fL (7.4-10.4); Monocytes # (auto) 0.81 K/uL (0.11-0.59); Monocytes % (auto) 5.1 %; Neutrophils # (auto) 13.02 K/uL (1.4-6.5); Neutrophils % (auto) 82.5 %; Platelet Count 458 K/uL (130-400); RDW Coefficient of Variation 15.7 % (11.5-14.5); RDW Standard Deviation 48.9 fL (36.4-46.3)
[2020-11-05 07:05] LABS: BUN Creatinine Ratio 28.4 (10-20); Calcium 8.7 mg/dl (8.5-10.1); Creatinine Clr Calc Pharmacy 141.4 ml/min; Est GFR (African American) 114.9; Est GFR (Non-African American) 99.1
[2020-11-05] MEDS: ASPIRIN 81 MG ECTAB PO SCH (08:54)
[2020-11-05] MEDS: TAMSULOSIN HCL 0.4 MG CAP PO SCH (08:54)
[2020-11-05] MEDS: predniSONE 10 MG TABLET PO SCH (08:54)
[2020-11-05] MEDS: NICOTINE 14 MG/24 HR PATCH TD SCH (08:57)
[2020-11-05] MEDS: INSULIN ASPART 100 UNITS/ML 3 ML PEN SC SCH ×4 (09:14→20:56)
[2020-11-05] MEDS: FOLIC ACID 1 MG in SYRINGE 9.8 ML IV SCH (09:39)
[2020-11-05] MEDS: THIAMINE HCL 100 MG in SYRINGE 9 ML IV SCH (09:39)
[2020-11-05] MEDS: INSULIN HUMAN NPH SC SCH (09:40)
--- NOTE | 2020-11-05 09:45 | Hospitalist Progress Note ---
Date of Service November 05, 2020 Assessment & Plan (1) Septic shock: Septic Shock Secondary to Multilobar pneumonia Resolved Received IV fluids and pressors. Was successfully weaned off of pressors Acute confusion Resolved Likely acute metabolic Encephalopathy CT Head:No acute intracranial hemorrhage or mass effect. 1.2 cm hypodensity within the anterior right frontal lobe. This favors an age indeterminate small infarct. H/O Alcohol abuse No signs of alcohol withdrawal at this time Confusion resolved Continue thiamine, folic acid Continue home aspirin, statin Electrolytes abnormalities Hypomagnesemia Hypophosphatemia Resolved (2) Pneumonia due to 2019 novel coronavirus: Acute hypoxic respiratory failure Multifocal COVID-19 pneumonia SARS-CoV-2 PCR positive -Chest CTA:Progressively worsened now extensive mixed interstitial and alveolar opacities throughout the lungs suggestive of viral pneumonia. Superimposed pulmonary edema would be difficult to exclude. Limited evaluation of the pulmonary arterial tree as above. No central pulmonary emboli identified. New small pleural effusions. Cardiomegaly with moderate coronary artery calcifications. Mild mediastinal and hilar adenopathy, likely reactive Completed 5-day course of remdesivir and 10-day course of dexamethasone Got convalescent plasma Currently on prednisone taper Chemical Operator recommendations appreciated Oxygen requirement has been improving. Currently at 4 L/min nasal oxygen with oxygen saturation 91 to 92% at rest. Oxygen saturation did drop to 87% on sitting up from bed during evaluation. Patient asking about being discharged today. Discussed extensively with patient about needs to wean oxygen down more prior to being discharged. Will need to step to assess ambulatory oxygen requirement prior to discharge Encourage patient to increase activity, incentive spirometry. Discussed plan with RN Encourage self proning Insomnia Continue zolpidem at bedtime PRN for insomnia (3) Multifocal pneumonia: Also got IV Vanco, Zosyn and doxy for possible bacterial PNA Leukocytosis trending down. Currently likely due to steroids (4) BHAVESH (acute kidney injury): BHAVESH likely secondary to dehydration Received IV fluids Resolved (5) HTN (hypertension): Antihypertensives had been on hold Blood pressure currently elevated. Will start amlodipine 5 mg today monitor Continue to hold losartan (6) Diabetes mellitus, type II: HbA1C:8.2 Hold p.o. meds Continue insulin therapy while hospitalized (7) Prostate cancer: H/O Prostate cancer DVT Px: Lovenox SQ CODE STATUS Full Code Disposition PT/OT recommends rehab. Admission and Anticipated Discharge Date Admission Date: October 22, 2020 Subjective Patient seen and examined. Reports feeling better and asking about being discharged. Denies any chest pain, cough, shortness of breath Denies any headache, dizziness Denies any fevers, chills, nausea vomiting Denies any abdominal pain, diarrhea, constipation Denies any dysuria, frequency or urgency Physical Exam Constitutional: + well hydrated; no acute distress Eyes: PERRL, conjunctivae normal, anicteric sclerae Respiratory: normal respiratory effort; no respiratory distress Mildly diminished breath sounds, no crackles or wheeze, on 4 L/min of nasal oxygen Cardiovascular: Rate/Rhythm: regular rate and regular rhythm S1-S2, no pedal edema Gastrointestinal (Abdomen): normal bowel sounds, soft, nontender, no hepatosplenomegaly Neurologic: PERRL, EOMI, accommodation nl, no face palsy, no dysarthria Psychiatric: A+Ox3, euthymic affect Genitourinary: no CVA tenderness Results & Data Results & Data ([facility] [place]) Vital Signs (Past 12 Hours) Vital Signs Temp Pulse Pulse Resp BP Pulse Ox 11/05/20 07:55 36.3 C L 91 H 20 156/74 H 92 11/05/20 05:47 91 11/05/20 05:05 36.5 C 68 18 115/65 94 11/05/20 01:30 94 11/05/20 00:02 36.5 C 65 20 150/70 H 93 11/04/20 22:20 60 Laboratory Results Laboratory Results - last 24 hr 11/04/20 11/04/20 11/04/20 11:41 16:04 20:31 WBC RBC Hgb Hct MCV MCH MCHC RDW Std Deviation RDW Coeff of Aristides Plt Count MPV Immature Gran % (Auto) Neut % (Auto) Lymph % (Auto) Garza % (Auto) Eos % (Auto) Baso % (Auto) Neut # (Auto) Lymph # (Auto) Garza # (Auto) Eos # (Auto) Baso # (Auto) Immature Gran # (Auto) Sodium Potassium Chloride Carbon Dioxide Anion Gap BUN Creatinine Est Cr Clr Drug Dosing Est GFR ( Amer) Est GFR (Non-Af Amer) BUN/Creatinine Ratio Glucose POC Glucose 241 H 101 H 145 H Calcium 11/05/20 11/05/20 11/05/20 06:10 06:10 07:53 WBC 15.80 H RBC 4.30 L Hgb 12.1 L Hct 37.4 L MCV 87.0 MCH 28.1 MCHC 32.4 RDW Std Deviation 48.9 H RDW Coeff of Aristides 15.7 H Plt Count 458 H MPV 11.2 H Immature Gran % (Auto) 1.0 Neut % (Auto) 82.5 Lymph % (Auto) 10.4 Garza % (Auto) 5.1 Eos % (Auto) 0.9 Baso % (Auto) 0.1 Neut # (Auto) 13.02 H Lymph # (Auto) 1.65 Garza # (Auto) 0.81 H Eos # (Auto) 0.15 Baso # (Auto) 0.01 Immature Gran # (Auto) 0.16 H Sodium 143 Potassium 4.0 Chloride 110 H Carbon Dioxide 28 Anion Gap 5.0 BUN 18 Creatinine 0.63 Est Cr Clr Drug Dosing 141.4 Est GFR ( Amer) 114.9 Est GFR (Non-Af Amer) 99.1 BUN/Creatinine Ratio 28.4 H Glucose 100 H POC Glucose 112 H Calcium 8.7
[2020-11-05] MEDS ORDERED: amLODIPine BESYLATE 5 MG TAB PO ONE (10:30)
[2020-11-05] MEDS ORDERED: LORazepam 1 MG TAB PO PRN (13:06)
--- NOTE | 2020-11-05 14:27 | Pharmacy Report ---
Pharmacy Glycemic Short Note 2 - Date of Service November 05, 2020 - Glycemic Short BSG Results (Last 24 hours): 11/04/20 11/04/20 11/05/20 16:04 20:31 06:10 Glucose 100 H POC Glucose 101 H 145 H 11/05/20 11/05/20 07:53 11:36 Glucose POC Glucose 112 H 162 H OUTPATIENT ANTIDIABETIC REGIMEN: * metformin 1gm PO BID * glipizide 10mg PO BID * A1c = 8.2% 10/24/20 ASSESSMENT: 11/05: * Patient received 83 units of insulin yesterday (25 basal) * Prednisone was decreased again today to 10mg daily. NPH dose was decreased accordingly. * BSGs well controlled today. I will empirically loosen novolog scale for dinner based on previous BSG trends and decreasing steroid doses. 11/03: * Patient received a total of 116 units of insulin yesterday. * Prednisone decreased today to 20mg * Fasting today 92, will decrease AM dose of NPH and d/c evening dose * Will begin to loosen novolog as steroids are tapered. 11/02: * Patient received total of 106 units of insulin yesterday, of which 42 were NPH * Fasting BSG 96 mg/dL - continues on pred 30 today / will continue with same NPH of 30 units this AM but reduce evening dose * Anticipate BSGs to continue to improve more today, will loosen parameters with dinner * Likely will need insulin adjustments 11/03 as prednisone is changing to 20 mg daily 11/01: * Patient received total of 134 units of insulin yesterday, of which 52 were NPH * Fasting BSG 110 mg/dL - steroids changing from DXM 6 to pred 30 PO, anticipate insulin needs to decrease * Will scale back on NPH ~25% today, plan to continue same CF/CR for now 10/31: * Fasting BSG within goal range with current NPH dosing, will continue today. * Last day of dexamethasone, will need to adjust regimen tomorrow for anticipated decrease in insulin needs * BSGs were good yesterday ranging 113 mg/dL-158 mg/dL, will continue current novolog parameters- again these will likely need adjusted once steroid is stopped. Lunch BSG elevated today, however, late breakfast/insulin admini stration @ 0930 PLAN FOR INPATIENT GLYCEMIC CONTROL: * Hold outpatient oral diabetes medications (metformin, glipizide) * Basal insulin * NPH 15 units Q AM w/ prednisone * Bolus insulin * NovoLog per scale ACHS * Goal Range: Low 110 mg/dL - High 140 mg/dL * Correction Factor: 15 mg/dL/unit (18 mg/dL/unit dinner and HS) * Nutritional / Prandial insulin per carb ratio of 1 unit per 4 grams CHO consumed (was 1 units per 6 grams CHO for dinner and HS) PLAN FOR DISCHARGE: * to be determined
[2020-11-05] MEDS: ZOLPIDEM TARTRATE 5 MG TAB PO PRN (19:40)
[2020-11-05] MEDS: ATORVASTATIN 40 MG TAB PO SCH (19:42)
[2020-11-06] MEDS: ENOXAPARIN INJ 60 MG/0.6 ML SYR SQ SCH ×2 (06:07→18:08)
[2020-11-06] MEDS: amLODIPine BESYLATE 5 MG TAB PO SCH (07:29)
[2020-11-06] MEDS: predniSONE 10 MG TABLET PO SCH (07:29)
[2020-11-06] MEDS: TAMSULOSIN HCL 0.4 MG CAP PO SCH (07:30)
[2020-11-06] MEDS: ASPIRIN 81 MG ECTAB PO SCH (07:30)
[2020-11-06] MEDS: NICOTINE 14 MG/24 HR PATCH TD SCH (07:30)
[2020-11-06] MEDS: THIAMINE HCL 100 MG in SYRINGE 9 ML IV SCH (07:32)
[2020-11-06] MEDS: FOLIC ACID 1 MG in SYRINGE 9.8 ML IV SCH (07:32)
[2020-11-06] MEDS: INSULIN ASPART 100 UNITS/ML 3 ML PEN SC SCH ×4 (08:32→21:22)
[2020-11-06] MEDS: INSULIN HUMAN NPH SC SCH (08:33)
--- NOTE | 2020-11-06 15:31 | Hospitalist Progress Note ---
Date of Service November 06, 2020 Assessment & Plan (1) Septic shock: Septic Shock Secondary to Multilobar pneumonia Resolved Received IV fluids and pressors. Was successfully weaned off of pressors Acute confusion Resolved Likely acute metabolic Encephalopathy CT Head:No acute intracranial hemorrhage or mass effect. 1.2 cm hypodensity within the anterior right frontal lobe. This favors an age indeterminate small infarct. H/O Alcohol abuse No signs of alcohol withdrawal at this time Confusion resolved Continue thiamine, folic acid Continue home aspirin, statin Electrolytes abnormalities Hypomagnesemia Hypophosphatemia Resolved (2) Pneumonia due to 2019 novel coronavirus: Acute hypoxic respiratory failure Multifocal COVID-19 pneumonia SARS-CoV-2 PCR positive -Chest CTA:Progressively worsened now extensive mixed interstitial and alveolar opacities throughout the lungs suggestive of viral pneumonia. Superimposed pulmonary edema would be difficult to exclude. Limited evaluation of the pulmonary arterial tree as above. No central pulmonary emboli identified. New small pleural effusions. Cardiomegaly with moderate coronary artery calcifications. Mild mediastinal and hilar adenopathy, likely reactive Completed 5-day course of remdesivir and 10-day course of dexamethasone Got convalescent plasma Currently on prednisone taper Ditching Machine Operating Engineer recommendations appreciated Oxygen requirement has been improving. Currently at 2 L/min nasal oxygen with oxygen saturation 91 to 92% at rest. Will get ambulatory pulse ox Will continue therapy at rehab Continue to increase activity, incentive spirometry. Discussed plan with RN Insomnia Continue zolpidem at bedtime PRN for insomnia (3) Multifocal pneumonia: Also got IV Vanco, Zosyn and doxy for possible bacterial PNA Leukocytosis trending down. Currently likely due to steroids (4) BHAVESH (acute kidney injury): BHAVESH likely secondary to dehydration Received IV fluids Resolved (5) HTN (hypertension): Antihypertensives had been on hold Blood pressure currently elevated. Will start amlodipine 5 mg today monitor Continue to hold losartan (6) Diabetes mellitus, type II: HbA1C:8.2 Hold p.o. meds Continue insulin therapy while hospitalized (7) Prostate cancer: H/O Prostate cancer DVT Px: Lovenox SQ CODE STATUS Full Code Disposition PT/OT recommends rehab. CM working on placement Will discharge once patient get placement Admission and Anticipated Discharge Date Admission Date: October 22, 2020 Subjective Patient seen and examined Patient denied any complaints Oxygen requirement has come down to 2 L/min at rest Physical Exam Constitutional: + well hydrated; no acute distress Eyes: PERRL, conjunctivae normal, anicteric sclerae Respiratory: normal respiratory effort; no respiratory distress No crackles or wheeze Lungs clear Cardiovascular: Rate/Rhythm: regular rate and regular rhythm S1-S2 no pedal edema Gastrointestinal (Abdomen): normal bowel sounds, soft, nontender, no hepatosplenomegaly Musculoskeletal: no cyanosis or clubbing, extremities motor strength 5/5 Neurologic: PERRL, EOMI, accommodation nl, no face palsy, no dysarthria Psychiatric: A+Ox3, euthymic affect Genitourinary: no CVA tenderness Results & Data Results & Data ([facility]) Vital Signs (Past 12 Hours) Vital Signs Temp Pulse Pulse Resp BP Pulse Ox 11/06/20 15:06 93 H 11/06/20 14:45 36.4 C L 77 18 129/63 93 11/06/20 09:31 90 11/06/20 07:22 36.5 C 71 18 144/70 H 92 11/06/20 07:11 71 11/06/20 04:14 36.3 C L 72 18 114/68 93 Laboratory Results Laboratory Results - last 24 hr 11/05/20 11/05/20 11/06/20 16:27 20:32 07:53 POC Glucose 111 H 147 H 144 H 11/06/20 11/06/20 11:05 11:06 POC Glucose 329 H* 337 H*
[2020-11-06] MEDS: ATORVASTATIN 40 MG TAB PO SCH (20:10)
[2020-11-06] MEDS: ZOLPIDEM TARTRATE 5 MG TAB PO PRN (21:21)
[2020-11-07] MEDS: ENOXAPARIN INJ 60 MG/0.6 ML SYR SQ SCH (06:10)
[2020-11-07 07:18] LABS: Basophils # (auto) 0.02 K/uL (0-0.2); Basophils % (auto) 0.1 %; Eosinophils # (auto) 0.16 K/uL (0-0.5); Eosinophils % (auto) 1.1 %; Hematocrit (blood only) 38.8 % (42-52); Hemoglobin 12.5 g/dL (14.0-18.0); Immature Granulocytes # (auto) 0.07 K/uL (0.00-0.02); Immature Granulocytes % (auto) 0.5 %; Lymphocytes # (auto) 1.79 K/uL (1.2-3.4); Lymphocytes % (auto) 12.7 %; Mean Corpuscular Hemoglobin 27.9 pg (25-34); Mean Corpuscular Hgb Conc 32.2 g/dL (32-36); Mean Corpuscular Volume 86.6 fL (80-100); Mean Platelet Volume 10.9 fL (7.4-10.4); Monocytes # (auto) 0.93 K/uL (0.11-0.59); Monocytes % (auto) 6.6 %; Neutrophils # (auto) 11.09 K/uL (1.4-6.5); Platelet Count 400 K/uL (130-400); RDW Standard Deviation 49.4 fL (36.4-46.3); Red Blood Count 4.48 M/uL (4.7-6.1); White Blood Count 14.06 K/uL (4.8-10.8)
[2020-11-07] MEDS: ASPIRIN 81 MG ECTAB PO SCH (07:45)
[2020-11-07 07:46] LABS: BUN Creatinine Ratio 23.2 (10-20); Calcium 8.6 mg/dl (8.5-10.1); Creatinine Clr Calc Pharmacy 121.6 ml/min; Est GFR (African American) 108.8; Est GFR (Non-African American) 93.9
[2020-11-07] MEDS: amLODIPine BESYLATE 5 MG TAB PO SCH (07:46)
[2020-11-07] MEDS: TAMSULOSIN HCL 0.4 MG CAP PO SCH (07:47)
[2020-11-07] MEDS: NICOTINE 14 MG/24 HR PATCH TD SCH (07:48)
[2020-11-07] MEDS ORDERED: INSULIN GLARGINE SOLOSTAR 100 UNITS/ML 3 ML PEN SC SCH (09:00)
[2020-11-07] MEDS: INSULIN ASPART 100 UNITS/ML 3 ML PEN SC SCH ×2 (09:30→11:49)
[2020-11-07] MEDS: THIAMINE HCL 100 MG in SYRINGE 9 ML IV SCH (09:32)
[2020-11-07] MEDS: FOLIC ACID 1 MG in SYRINGE 9.8 ML IV SCH (09:32)
--- NOTE | 2020-11-07 10:06 | Discharge Summary ---
Date of Service November 07, 2020 Admission HPI Per Admitting Provider This is a 70-year-old male with past medical history significant for diabetes, hypertension, prostate cancer and BPH, history of cellulitis of right lower extremity, who lives with his , comes here because of not feeling well. The patient says he is not feeling well for some time now. The only complaint was dizziness, feeling sick. When the EMS arrived, he was saturating in 80s, with oxygen his saturation has come up. Currently he has a temperature spike of 39.4 in the ER and he was hypotensive and white count was 11. D-dimer was 930. Creatinine was 2.2. Urinalysis was positive and SARS-CoV-2 PCR was positive. The patient denies any chest pain, denies any shortness of breath, denies any cough, denies any nausea or vomiting, denies any abdominal pain, denies any headache, denies any neck pain, denies any constipation.Having several episodes of diarrhea. The patient is somewhat confused. As per the , he is having dizziness for last 2 weeks. He want to see his doctor yesterday also, but today he was having several episodes of diarrhea and weakness, not able to ambulate much. No one is sick in the family. No known exposure to COVID. Currently, the patient is getting Levophed for his blood pressure, fluids, antibiotics. Admission Exam Per Admitting Provider GENERAL: The patient is alert and awake, obese, not in acute distress. VITAL SIGNS: Temperature T-max 39.4, pulse in the 70s, blood pressure was 77/43, currently 98/45, oxygen 88% on room air, currently 93% on 6 liters. HEENT: Pupils equal, round, and reactive to light. Oral mucosa dry. NECK: No neck masses seen. CARDIOVASCULAR: S1, S2 heard, regular rate and rhythm, no murmur, no gallop. RESPIRATORY SYSTEM: Normal AP diameter. No accessory muscle use. No wheezing, no crackles. ABDOMEN: Soft, bowel sounds present, nontender. No distention. CENTRAL NERVOUS SYSTEM: Alert and awake. speech clear, no facial droop. Tongue midline. Obeys simple commands. Moves extremities. EXTREMITIES: No edema, no erythema. Principal Diagnosis Septic shock COVID-19 pneumonia Acute hypoxic respiratory failure Metabolic encephalopathy Acute kidney injury Discharge Exam Constitutional + well hydrated; no acute distress Eyes PERRL, conjunctivae normal, anicteric sclerae ENMT external ear and nose normal, oropharynx normal Respiratory normal respiratory effort; no respiratory distress Auscultation: lungs clear to auscultation bilaterally; no crackles Cardiovascular Rate/Rhythm: regular rate and regular rhythm S1-S2 Gastrointestinal (Abdomen) normal bowel sounds, soft, nontender, no hepatosplenomegaly Musculoskeletal no cyanosis or clubbing, extremities motor strength 5/5 Neurologic PERRL, EOMI, accommodation nl, no face palsy, no dysarthria Psychiatric A+Ox3, euthymic affect Genitourinary no CVA tenderness Discharge Data Allergies Allergy/AdvReac Type Severity Reaction Status Date / Time No Known Allergies Allergy Verified 10/22/20 18:42 Consultations 10/22/20 19:22 ED Decision to Admit Stat 10/22/20 21:51 Consult Case Management - Discharge Planning Routine Consult Product Development Worker Routine Ordered Studies 10/22/20 18:31 CT head/brain wo con Stat No acute intracranial hemorrhage, midline shift or mass effect is present. Ventricular system is normal. Basilar cisterns are patent. There are no extra- axial collections. A 1.2 cm hypodense focus within the anterior right frontal lobe on axial image 19 is noted. There is no calvarial fracture. Ethmoid sinus mucosal thickening is present. IMPRESSION: 1. No acute intracranial hemorrhage or mass effect. 2. 1.2 cm hypodensity within the anterior right frontal lobe. This favors an age indeterminate small infarct. 10/22/20 19:39 CT abd pelvis wo con Stat Please note that the chest CT will be reported separately. Multifocal consolidation and groundglass opacities are better depicted on the chest CT. Evaluation of the abdomen and pelvis is suboptimal on this unenhanced examination. There is no pneumatosis, free air or portal venous gas. There are a few small calcified gallstones within the gallbladder. There is no evidence for acute cholecystitis. The liver, spleen, adrenal glands and pancreas are unremarkable. There is no biliary or pancreatic ductal dilatation. There is no hydronephrosis. Water attenuation 1.8 cm left renal lesion is suboptimally assessed on this unenhanced exam but likely reflects a cyst. There is no hydronephrosis. Note is made of sigmoid diverticulosis without evidence for acute diverticulitis. Prostate is enlarged. There are brachytherapy seeds within the prostate. A Nails balloon is present within the bladder as well as gas. There is bladder wall thickening with adjacent infiltration. There is also infiltration adjacent to the prostate and the seminal vesicles. A right femoral venous catheter is in place. The appendix is normal. No suspicious osseous lesions are noted. A few prominent left iliac and inguinal nodes are probably benign. IMPRESSION: 1. Bladder wall thickening with infiltration adjacent to the bladder, seminal vesicles and prostate. The findings may be infectious and could be correlated with urinalysis. Alternatively, infiltration may be treatment related. No hydronephrosis. 2. Multifocal consolidation and groundglass opacities within the lungs suggestive of viral pneumonia. 3. Sigmoid diverticulosis without evidence for acute diverticulitis. 4. Cholelithiasis. No evidence for acute cholecystitis. CT chest diagnostic wo con Stat Mild cardiomegaly and moderate coronary artery calcification is noted. There is no pericardial effusion. There is right-sided gynecomastia. Central airways are patent. Lungs are suboptimally assessed due to respiratory motion. There is no pneumothorax or pleural effusion. Moderate multifocal consolidation groundglass opacities within the lungs are noted. These are more pronounced within the right lung. No cavitation is present. There are multiple mildly enlarged mediastinal and bilateral hilar lymph nodes. No suspicious lesions within the bony thorax are noted. The abdomen and pelvis will be reported separately. IMPRESSION: 1. Moderate multifocal consolidation and groundglass opacities within the lungs. The findings suggest viral pneumonia. 2. Multiple mildly enlarged mediastinal and bilateral hilar lymph nodes which are likely reactive. 3. Mild cardiomegaly. Moderate coronary artery calcification. 10/26/20 15:34 CT angio chest PE protocol Routine Limited study secondary to respiratory motion artifact. CTA: Mild cardiomegaly with moderate coronary artery calcifications. No thoracic aortic aneurysm or dissection. Suboptimal dilation of the pulmonary artery secondary to respiratory motion artifact and contrast bolus timing. No central filling defects identified to suggest thromboembolic disease. CT CHEST: Unremarkable thyroid. Multiple mildly enlarged mediastinal and bilateral hilar lymph nodes are redemonstrated measuring up to approximately 1.4 cm. There are new small pleural effusions. Extensive bilateral mixed groundglass and consolidative opacities have progressively worsened. Mild intralobular septal thickening. Central airways are patent. No acute process of the imaged upper abdomen. Gynecomastia. Degenerative changes of the shoulders and spine. No acute fracture or suspicious bone lesion. Mild cortical angulation of the anterior right third rib is unchanged. IMPRESSION: 1. Progressively worsened now extensive mixed interstitial and alveolar opacities throughout the lungs suggestive of viral pneumonia. Superimposed pulmonary edema would be difficult to exclude. 2. Limited evaluation of the pulmonary arterial tree as above. No central pulmonary emboli identified. 3. New small pleural effusions 4. Cardiomegaly with moderate coronary artery calcifications 5. Mild mediastinal and hilar adenopathy, likely reactive. 11/01/20 12:25 CT angio chest PE protocol Routine Thyroid: Imaged portions of the thyroid gland are normal in size and attenuation. Low-attenuation thyroid nodules measure up to 9 mm. Thoracic aorta: There is atherosclerotic calcification of the thoracic aorta, which is normal in caliber and demonstrates standard 3-vessel arch anatomy. No dissection is seen. Pulmonary vasculature: The pulmonary trunk is normal in caliber. There are no filling defects identified in main, lobar, or segmental pulmonary branches to suggest pulmonary embolus. Heart: The heart is normal in size and without pericardial effusion. The coronary arteries are densely calcified. Lungs and pleural spaces: Evaluation of the lung parenchyma is significantly degraded by motion artifact. There is diffuse/multifocal groundglass consolidation seen throughout both lungs, not significantly changed from 10/26/2020. There are trace pleural effusions. Mediastinum: There are prominent subcentimeter mediastinal lymph nodes. Ava: Mildly enlarged hilar nodes measure up to 10 mm in short axis. Axillae: There is no axillary lymphadenopathy. Upper abdomen: There is a small hiatal hernia. Partially visualized upper abdominal viscera is otherwise grossly unremarkable. Skeletal structures: The skeletal structures are osteopenic. Degenerative change is seen throughout the thoracic spine and in the shoulders. No lytic or blastic bony lesions are seen. IMPRESSION: 1. There is no evidence of pulmonary embolus in the main, lobar, or segmental pulmonary arteries. 2. Diffuse/multifocal groundglass consolidation throughout both lungs is similar to previous. 3. Trace pleural effusions. 4. Additional findings as above. Hospital Course (1) Septic shock: Septic Shock Secondary to Multilobar pneumonia Resolved Managed with IV fluids and pressors. Was successfully weaned off of pressors Acute confusion Resolved Likely acute metabolic Encephalopathy CT Head:No acute intracranial hemorrhage or mass effect. 1.2 cm hypodensity within the anterior right frontal lobe. This favors an age indeterminate small infarct. Confusion resolved Continue thiamine, folic acid Continue home aspirin, statin Electrolytes abnormalities Hypomagnesemia Hypophosphatemia Resolved (2) Pneumonia due to 2019 novel coronavirus: Acute hypoxic respiratory failure Multifocal COVID-19 pneumonia SARS-CoV-2 PCR positive -Chest CTA:Progressively worsened now extensive mixed interstitial and alveolar opacities throughout the lungs suggestive of viral pneumonia. Superimposed pulmonary edema would be difficult to exclude. Limited evaluation of the pulmonary arterial tree as above. No central pulmonary emboli identified. New small pleural effusions. Cardiomegaly with moderate coronary artery calcifications. Mild mediastinal and hilar adenopathy, likely reactive Completed 5-day course of remdesivir and 10-day course of dexamethasone Got convalescent plasma Patient required high oxygen supplementation initially and was slowly weaned down. Had some CT PE scans during hospital stay to rule out PE Required slow prednisone taper which has been completed Was comanaged with the technical director Was successfully weaned down to 2 L/min nasal oxygen at rest for now Continue to wean down with goal of weaning off oxygen at rehab Patient discharged to rehab (3) Multifocal pneumonia: Also got IV Vanco, Zosyn and doxy for possible bacterial PNA Leukocytosis trending down. Currently likely due to steroids (4) BHAVESH (acute kidney injury): BHAVESH likely secondary to dehydration Creatinine was 2.28 on admission Received IV fluids Resolved. Creatinine trended down to 0.7 at the time of discharge (5) HTN (hypertension): Antihypertensives had been on hold initially due to septic shock With resolution of septic shock, amlodipine was resumed. Blood pressure remains controlled. Losartan discontinued on discharge. Patient to follow-up with PCP and will continue to monitor blood pressure determine if losartan is to be resumed in the future (6) Diabetes mellitus, type II: HbA1C:8.2 Continue p.o. antidiabetic medication (7) Prostate cancer: H/O Prostate cancer Total Time Total Time Spent Total Time Spent (In Minutes): 40 Total Time Includes: Examination of the Patient, Discharge Planning and Medication Reconciliation Discharge Plan Discharge Items Patient Disposition: Transfer Inpatient Rehab Fac Reason For Visit: Feeling unwell Discharge Diagnosis: Septic shock COVID-19 pneumonia Acute hypoxic respiratory failure Metabolic encephalopathy Acute kidney injury Activity: As commented below Activity Comment: Per Physical therapy instructions Non-emergency contact: Primary Care Provider Call non-emergency contact if: you have any medication questions and your symptoms worsen Follow-up/Referrals: Ismael De Dios [Primary Care Provider] - Diet: Carb Consistent or DM2 and Heart Healthy Addtl Attending Provider Instructions: Mr. Oshea You came to the hospital for feeling unwell. Evaluation revealed you had septic shock from multifocal pneumonia from COVID-19 infection. You also required a lot of oxygen. You were treated with medications and your symptoms improved. You are being discharged to a rehab facility to continue management and recovery. You acute kidney injury resolved. Based on your blood pressure at the hospital, continue taking your amlodipine but your losartan was discontinued for now. This may be resumed as needed in the future either at the rehab or by your PCP as your blood pressure continues to be monitored. Continue to take your diabetes medications. You are being discharged on nasal oxygen at 2l/min which will continue to be weaned down at rehab. It was a pleasure taking care of you Pending Studies at Discharge: No Stand-Alone Forms: My [facility] Skilled Items Patient informed of condition?: Yes DNR: No Discharge Level of Care: Acute rehab Communicable Disease: No Discharge Prognosis: Improving Lines: None Urinary Catheter: No Medications and DC Order Prescriptions: New albuterol sulfate 2.5 mg /3 mL (0.083 %) Solution For Nebulization 2.5 mg NEB Q6R PRN (Reason: shortness of breath or wheezing) Qty: 30 RF: 0 Continued atorvastatin 80 mg Tablet 80 mg PO HS RF: 0 amlodipine 5 mg Tablet 5 mg PO DAILY RF: 0 tamsulosin 0.4 mg Capsule 0.4 mg PO DAILY RF: 0 gemfibrozil 600 mg Tablet 600 mg PO BID RF: 0 metformin 1,000 mg Tablet 1,000 mg PO BID RF: 0 glipizide 10 mg tablet extended release 24hr 10 mg PO BID RF: 0 aspirin [Aspirin Low Dose] 81 mg Tablet,Delayed Release (Dr/Ec) 81 mg PO DAILY RF: 0 Discontinued losartan 100 mg tablet 100 mg PO DAILY RF: 0 Discharge Orders: Discharge Order (Routine); Ordered 11/07/20 Ordered By: Leny Davenport Admission Data Admit Date/Time: 10/22/20 20:37 Attending Provider: Leny Davenport I. Admit Provider: Noman Mcdonough Primary Care Provider: Ismael De Dios Other Providers: Noman Mcdonough ; Gabriel Liao ; Steve Monroe ; [facility] ; [facility] Other Interventions: Discharge Summary Assessment (RN) Last Done: 11/07/20 10:28
--- NOTE | 2020-11-07 11:07 | Pharmacy Report ---
Pharmacy Glycemic Short Note 2 - Date of Service November 07, 2020 - Glycemic Short BSG Results (Last 24 hours): OUTPATIENT ANTIDIABETIC REGIMEN: * metformin 1gm PO BID * glipizide 10mg PO BID * A1c = 8.2% 10/24/20 ASSESSMENT: 11/07: * Patient received 73 units of insulin yesterday (15 basal) * Fasting BSG was acceptable at 152 mg/dL * BSGs well controlled yesterday outside of a rare hyperglycemia with lunch (> 300 mg/dL) * Believe patient may have snacked prior to fingerstick * Steroids have been discontinued so expect Novolog to need loosened today * Also, NPH was changed to Lantus 15 units as 15 units of basal insulin appears to control patient and without steroids, do not want peak of NPH * Likely discharge today as well 11/05: * Patient received 83 units of insulin yesterday (25 basal) * Prednisone was decreased again today to 10mg daily. NPH dose was decreased accordingly. * BSGs well controlled today. I will empirically loosen novolog scale for dinner based on previous BSG trends and decreasing steroid doses. 11/03: * Patient received a total of 116 units of insulin yesterday. * Prednisone decreased today to 20mg * Fasting today 92, will decrease AM dose of NPH and d/c evening dose * Will begin to loosen novolog as steroids are tapered. 11/02: * Patient received total of 106 units of insulin yesterday, of which 42 were NPH * Fasting BSG 96 mg/dL - continues on pred 30 today / will continue with same NPH of 30 units this AM but reduce evening dose * Anticipate BSGs to continue to improve more today, will loosen parameters with dinner * Likely will need insulin adjustments 11/03 as prednisone is changing to 20 mg daily 11/01: * Patient received total of 134 units of insulin yesterday, of which 52 were NPH * Fasting BSG 110 mg/dL - steroids changing from DXM 6 to pred 30 PO, anticipate insulin needs to decrease * Will scale back on NPH ~25% today, plan to continue same CF/CR for now 10/31: * Fasting BSG within goal range with current NPH dosing, will continue today. * Last day of dexamethasone, will need to adjust regimen tomorrow for anticipated decrease in insulin needs * BSGs were good yesterday ranging 113 mg/dL-158 mg/dL, will continue current novolog parameters- again these will likely need adjusted once steroid is stopped. Lunch BSG elevated today, however, late breakfast/insulin administration @ 0930 PLAN FOR INPATIENT GLYCEMIC CONTROL: * Hold outpatient oral diabetes medications (metformin, glipizide) * Basal insulin - changed to Lantus * Lantus 15 units Q AM * Bolus insulin * NovoLog per scale ACHS * Goal Range: Low 110 mg/dL - High 140 mg/dL * Correction Factor: 18 mg/dL/unit * Nutritional / Prandial insulin per carb ratio of 1 unit per 6 grams CHO consumed PLAN FOR DISCHARGE: * HbA1c = 8.2% on 10/24/20. Acceptable HbA1c for this patient would be less than 8% based on age and comorbidities. * Recommend close follow-up with outpatient provider for improving glycemic control. * Consider increasing Glipizide XR to 20 mg per day.
--- NOTE | 2020-11-14 10:05 | Coding Query ---
To promote full compliance with coding requirements relating to patient care, provider participation is requested in all cases of chicken cleaner uncertainty. Please assist us with the question(s) below: Coding Question(s): The diagnosis(es) below was documented in the early record, then subsequently fell off all further documentation. Please indicate if it is still a possible diagnosis or ruled out. Physician's Response(s): ACUTE CVA - (documented only on ER, then documented as CT head with age- indeterminate CVA before dropping off altogether) ( ) Diagnosed and POA ( ) Diagnosed and not POA ( ) Ruled out ( x ) Other (please specify) Age indeterminate infarct on CT head. Unlikely cause of confusion as improved with management of metabolic/other clinical problems. No old CT to compare POSSIBLE URINARY TRACT INFECTION - (documentation begins on H&P but later documentation says culture negative but never was ruled-out and documentation drops off mid chart) ( ) Diagnosed and POA ( ) Diagnosed and not POA (x ) Ruled out ( ) Other (please specify) MTDD
== END 2020-11-07 12:34 | DRG 871 ==
LOC: ED 18:22 → 2E 20:37 → SUATTDRO 20:37 → 2E 21:24 → 2S 11-04 17:53 → 2N 11-04 18:44